=== PATIENT | female | born 1995 | race Caucasian/White ===

== ENCOUNTER 2022-10-12 09:55 | Outpatient (OUT) | payer OTHER, SELFPAY ==
--- NOTE | 2022-10-12 10:47 | PM.PRESUREVA ---
History of Present Illness History of Present Illness Chief complaint: REQUEST FOR STERILIZATION Narrative: Patient presents for preadmission testing. The patient states she is five weeks and does not want any more children. She also states she has been struggling with kidney stones and is seeing Dr. Ruiz for management of her stones. At the present time she denies any abdominal pain, nausea, vomiting, fever, dysuria, hematuria, or any other complaints. She is currently lactating and breast-feeding and has not had a true menstrual period since the of her child. Review of Systems ROS Narrative REVIEW OF SYSTEMS: Negative except as stated in HPI, ten or more systems reviewed. Constitutional: No fever , chills, weakness ENT: No sore throat or epistaxis Cardiovascular: No edema, chest pain, palpitations, or activity intolerance Respiratory: No shortness of breath, cough, or wheezing Musculoskeletal: No joint pain or swelling Gastrointestinal: No abdominal pain, constipation, diarrhea, or vomiting Genitourinary: No dysuria or hematuria Neurological: No numbness, tingling, weakness, or headache Psychiatric: No mood changes PFSH PFSH Medical History (Updated 10/12/22 @ 10:49 by Anabella Rich NP) Surgical History (Updated 10/12/22 @ 10:29 by Anabella Rich NP) Family History (Updated 10/12/22 @ 10:29 by Anabella Rich NP) Other Family history of COPD (chronic obstructive pulmonary disease) Family history of diabetes mellitus Family history of heart disease Family history of prostate cancer Family history of skin cancer Social History (Updated 10/12/22 @ 10:23 by Anabella Rich NP) Within the past year, how often did you have a drink containing alcohol: 2-4 times a month Smoking status: Never smoker Highest level of school completed/degree received: high school graduate Meds Home Medications and Allergies Home Medications Medication Instructions Recorded Confirmed Type Vitamin 10/12/22 History cephalexin 500 mg capsule 500 mg PO QDAY 10/12/22 10/12/22 History docusate sodium 100 mg capsule 100 mg PO DAILY 10/12/22 10/12/22 History (Colace) sunflower lecithin supplement 10/12/22 History Allergies Allergy/AdvReac Type Severity Reaction Status Date / Time latex Allergy Rash Verified 10/12/22 10:18 Exam Narrative Exam Narrative: Constitutional: Awake, alert, comfortable, well-appearing, nontoxic, interactive, vital signs as charted Head: Normocephalic, atraumatic Neck: Supple, normal appearance, normal range of motion, no meningeal signs, no lymphadenopathy Respiratory: No respiratory distress, breath sounds clear Cardiovascular: Regular rate and rhythm, strong and regular heart tones Abdomen: Nontender, normal bowel sounds, soft, no CVA tenderness Musculoskeletal: Normal gait, no swelling or edema Skin: No rashes or induration, no lesions, only visible skin inspected Neuro: No neurological deficits, normal sensation Psychiatric: Oriented ?3, normal affect Assessment and Plan Assessment and Plan (1) Request for sterilization: Plan Bilateral laparoscopic salpingectomy scheduled with Dr. Jean 10/25/2022.
== END 2022-10-12 09:56 | disposition home or self-care (01) ==
LOC: PST 09:58
PROVIDERS: PCP Family Medicine
DX: Z01.818 Encounter for other preprocedural examination (principal); Z30.2 Encounter for sterilization
CPT/HCPCS: G0463

== ENCOUNTER 2022-10-12 10:00 | Outpatient (OUT) | payer OTHER, SELFPAY ==
--- NOTE | 2022-10-12 10:41 | XR_ITS ---
The [address] [address] Patient Name: QUEENIE KIRK MRN: [id number] date: 1995 Sex: F Assigned Patient Location: [facility] Current Patient Location: [facility] Accession/Order Number: [id number] Exam Date: 10/12/2022 10:45 Report Date: 10/12/2022 15:23 At the request of: KIMBERLY MURRAY Procedure: XR abdomen 1V EXAM: XR abdomen 1V HISTORY: Kidney Stones N20.0 COMPARISON: None. TECHNIQUE: AP view of the abdomen. FINDINGS: Nonobstructive bowel gas pattern is noted. There is a 5 mm calculus of the left kidney region. The osseous structures are intact. IMPRESSION: Nonobstructive bowel gas pattern. Left nephrolithiasis as above. Electronically authenticated by: ALLI LOVE Date: 10/12/2022 15:23
== END 2022-10-12 10:01 ==
LOC: RAD 10:02
PROVIDERS: PCP Family Medicine; Visit Provider Urology
DX: N20.0 Calculus of kidney (principal)
CPT/HCPCS: 74018; G0463

== ENCOUNTER 2022-10-25 10:00 | Day surgery (SDC) | payer OTHER, SELFPAY ==
[2022-10-12 10:24] VITALS: BP 110/75; PULSE 71; RESP 14; TEMP 36.5; O2SAT 99; BMI 21.7
[2022-10-25] VITALS (12 sets, daily range): BP systolic 105–123; BP diastolic 65–89; PULSE 54–98; RESP 12–18; TEMP 36.3–36.4; O2SAT 96–100; BMI 20.9
[2022-10-25 11:06] LABS: Basophils Percent Auto 0.2 % (0.2-2.0); Eosinophils Absolute Auto 0.1 10^3/uL (0.0-0.7); Eosinophils Percent Auto 1.4 % (0.9-7.0); Hemoglobin 14.7 g/dL (12.0-16.0); Immature Granulocytes Abs Auto 0.02 10^3/uL (0.00-0.03); Immature Granulocytes Pct Auto 0.3 % (0.0-0.5); Lymphocytes Absolute Auto 2.3 10^3/uL (1.2-3.8); Lymphocytes Percent Auto 39.2 % (20.5-60.0); Mean Corpuscular Hemoglobin 29.6 pg (26.7-34.0); Mean Corpuscular Volume 84.7 fL (81.0-99.0); Mean Platelet Volume 9.8 fL (9.5-13.5); Monocytes Absolute Auto 0.5 10^3/uL (0.3-0.8); Monocytes Percent Auto 9.2 % (1.7-12.0); Neutrophils Absolute Auto 2.9 10^3/uL (1.4-6.5); Neutrophils Percent Auto 49.7 % (43.0-75.0); Platelet Count 257 10^3/uL (150-450); Red Blood Count 4.96 10^6/uL (4.20-5.40); Red Cell Distribution Width 12.1 % (11.0-15.0); White Blood Count 5.8 10^3/uL (4.0-11.0)
[2022-10-25] MEDS: LACTATED RINGER'S SOLUTION 1,000 ML 50 ML IV ×2 (11:10→14:01)
[2022-10-25 11:16] LABS: HCG Quantitative <1 mIU/mL
--- NOTE | 2022-10-25 13:14 | OP_ITS ---
OPERATION DATE: ??10/25/2022 PROCEDURE:? Bilateral laparoscopic salpingectomy. PREOPERATIVE DIAGNOSIS:? Desires permanent sterilization, multiparity. POSTOPERATIVE DIAGNOSIS:? Desires permanent sterilization, multiparity. ANESTHESIA:? General. SURGEON:? Sid Jean D.O. LAPEL BASTER:? NEREIDA Bradford URINE OUTPUT:? Yellow and clear. BLOOD LOSS:? 5 mL. FINDINGS:? Normal appearing ovaries, uterus and tubes. SPECIMEN:? Bilateral tubes. PROCEDURE:? The patient was taken back to the Operating Room where she was given general anesthesia without difficulty. She was then prepped and draped in the normal sterile fashion after being placed in a dorsal lithotomy position. A wet sponge stick was placed into the patient's vagina. Attention was then turned to the patient's abdomen, where a scalpel was used to make a small infraumbilical incision. The S retractors were then used to dissect the underlying layers until the fascia could be seen. The fascia was then grasped with Risa clamps and tented up. A knife was then used to make a small incision to the fascia. The muscle was identified, at that time two sutures of #0 Vicryl on a GI needle was then used and placed through the fascia. Theperitoneum was then identified and entered bluntly. The 10-4 Mino was then placed into the patient's abdomen. This was confirmed with direct visualization of the bowel, using the laparoscope. The patient's abdomen was then insufflated using approximately 4 liters of CO2 gas. Survey of the patient's abdomen demonstrated ovaries were normal in appearance as well as both tubes and uterus. A second and third rt and lt lateral ports which were 7-8 and 5 mm in size, was then placed after the skin incision was made under directvisualization The patient's tube on the patient's right side was identified and tented up using a grasper, the LigaSure apparatus was then used to come across the mesosalpinx from the fimbriated end to the insertion site at the uterus, the tube was then amputated and removed in its entirety. This was done on the contralateral side. The tubes were then removed from the patient?s abdomen. Excellent hemostasis was noted. The lateral ports were then removed under direct visualization with excellent hemostasis. All instruments were removed from the patient's abdomen. The fascia was closed using the #0 Vicryl on GI needle. The skin was closed using 4-0 Vicryl subcuticularly. All instruments were removed from the patient's vagina as well. The patient was taken out of the dorsal lithotomy position and placed in the supine position and taken to recovery in stable condition. Sponge, lap and needle counts were correct x2. MTDD
[2022-10-25] MEDS: HYDROMORPHONE HCL 0.5 MG/0.5 ML SYRINGE IV (13:45)
== END 2022-10-25 15:14 | disposition home or self-care (01) ==
PROVIDERS: PCP Family Medicine; Visit Provider Obstetrics & Gynecology
PROC: (CPT 58661; principal; 2022-10-25 12:00)
DX: Z30.2 Encounter for sterilization (principal); N83.8 Other noninflammatory disorders of ovary, fallopian tube and broad ligament; Z87.442 Personal history of urinary calculi
CPT/HCPCS: 58661; 36415; 84702; 85025; 88304; J1170; J2704

== ENCOUNTER 2023-10-17 11:15 | Outpatient (OUT) | payer OTHER, SELFPAY ==
[2023-10-17 12:09] LABS: Basophils Percent Auto 0.3 % (0.2-2.0); Eosinophils Absolute Auto 0.1 10^3/uL (0.0-0.7); Eosinophils Percent Auto 1.3 % (0.9-7.0); Hemoglobin 13.7 g/dL (12.0-16.0); Immature Granulocytes Abs Auto 0.04 10^3/uL (0.00-0.03); Immature Granulocytes Pct Auto 0.6 % (0.0-0.5); Lymphocytes Absolute Auto 2.1 10^3/uL (1.2-3.8); Lymphocytes Percent Auto 30.4 % (20.5-60.0); Mean Corpuscular HGB Conc 34.3 g/dL (29.9-35.2); Mean Corpuscular Hemoglobin 29.7 pg (26.7-34.0); Mean Corpuscular Volume 86.6 fL (81.0-99.0); Mean Platelet Volume 9.8 fL (9.5-13.5); Monocytes Absolute Auto 0.5 10^3/uL (0.3-0.8); Monocytes Percent Auto 7.8 % (1.7-12.0); Neutrophils Absolute Auto 4.2 10^3/uL (1.4-6.5); Neutrophils Percent Auto 59.6 % (43.0-75.0); Platelet Count 213 10^3/uL (150-450); Red Blood Count 4.62 10^6/uL (4.20-5.40); Red Cell Distribution Width 12.3 % (11.0-15.0)
[2023-10-17 12:48] LABS: Thyroid Stimulating Hormone 0.497 uIU/mL (0.358-3.740)
== END 2023-10-17 11:16 | disposition home or self-care (01) ==
LOC: LAB 11:17
PROVIDERS: PCP Family Medicine; Visit Provider Family Medicine
DX: R53.83 Other fatigue (principal); D64.9 Anemia, unspecified
CPT/HCPCS: 36415; 82607; 82728; 82746; 84443; 85025

== ENCOUNTER 2023-11-15 13:48 | Emergency (ER) | payer OTHER, SELFPAY ==
[2023-11-15 13:51] VITALS: BP 116/87; PULSE 97; TEMP 37.1; O2SAT 100; BMI 20.5
--- NOTE | 2023-11-15 14:09 | ED_ITS ---
HPI HPI - General Adult General Chief complaint: Urogenital-Female Stated complaint: CRAMPS, BACK PAIN Time Seen by Provider: 11/15/23 14:01 Source: patient and family Mode of arrival: walk-in History of Present Illness HPI narrative: This patient is here with her complaining of both lower abdominal pain and low back pain. She also has a history of kidney stones but none recently. She had slight constipation yesterday but did eventually have a bowel movement. Color was normal there is no black tarry stool or blood. She has no urinary symptoms such as frequency urgency dysuria hematuria nocturia are all denied. She has not been running a fever. She has had both her fallopian tubes removed but still has both her ovaries and uterus. She denies any history of endometriosis pelvic inflammatory disease. Her last menstrual period is approximately 2 weeks ago and was essentially a little heavier than normal. She does not have any vaginal discharge or vaginal bleeding. The pain in the left l ow back area radiates down her left buttock into her hamstring area. Does not have tingling numbness or pain going into her lower leg. Related Data Allergies Allergy/AdvReac Type Severity Reaction Status Date / Time latex Allergy Rash Verified 10/12/22 10:18 Opioid HPI Opioid Management Most Recent Opioid Data: Last Pain Scale 7 11/15/23 15:00 Last MAR Pain Assessment 11/15/23 15:00 [facility] Medical History (Updated 11/15/23 @ 16:13 by Nithin Cherry MD) Request for sterilization ?Z30.2 - Encounter for sterilization (ICD-10) COVID-19 ?U07.1 - COVID-19 (ICD-10) Pneumonia ?J18.9 - Pneumonia, unspecified organism (ICD-10) Asthma ?J45.909 - Unspecified asthma, uncomplicated (ICD-10) Migraine ?G43.909 - Migraine, unspecified, not intractable, without status migrainosus (ICD-10) Kidney stones ?N20.0 - Calculus of kidney (ICD-10) Kidney stone complicating ?O26.839 - related renal disease, unspecified trimester (ICD-10) ?N20.0 - Calculus of kidney (ICD-10) Surgical History (Updated 10/12/22 @ 10:29 by Anabella Rich NP) History of wisdom tooth extraction ?K08.409 - Partial loss of teeth, unspecified cause, unspecified class (ICD- 10) History of dilation and curettage ?Z98.890 - Other specified postprocedural states (ICD-10) History of dilation and curettage ?Z98.890 - Other specified postprocedural states (ICD-10) H/O cystoscopy ?Z98.890 - Other specified postprocedural states (ICD-10) Family History (Updated 10/12/22 @ 10:29 by Anabella Rich NP) Other Family history of COPD (chronic obstructive pulmonary disease) Family history of diabetes mellitus Family history of heart disease Family history of prostate cancer Family history of skin cancer Social History (Updated 10/12/22 @ 10:23 by Anabella Rich NP) Within the past year, how often did you have a drink containing alcohol: 2-4 times a month Smoking status: Never smoker Highest level of school completed/degree received: high school graduate Exam Narrative Exam Narrative: Awake alert pleasant appears uncomfortable. 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 HEENT examination shows no evidence of scleral icterus jaundice pallor or evidence of anemia. She has no respiratory distress and her respiratory excursion is normal. Examination her abdomen is flat soft supple there is no peritoneal findings no guarding rebound rigidity. Mild discomfort in the suprapubic area. No tenderness at McBurney's point. The flank area she has symptomatic discomfort in that area but no evidence of skin lesions bruises or contusions. Neurological examination and response to her pain in the buttock and left cheek her straight leg raising test is negative, deep tendon reflexes are symmetrical at patella and Achilles. Extensor houses longus function test is normal. There is no indication of radiculopathy or sensory dysfunction. Constitutional Vital Signs, click to edit/add: Last Vital Signs Temp 98.7 F 11/15/23 13:51 Pulse 97 H 11/15/23 13:51 Resp 18 11/15/23 13:51 BP 116/87 11/15/23 13:51 Pulse Ox 100 11/15/23 13:51 Course Vital Signs Vital signs: Vital Signs Temperature 98.7 F 11/15/23 13:51 Pulse Rate 97 H 11/15/23 13:51 Respiratory Rate 18 11/15/23 13:51 Blood Pressure 116/87 11/15/23 13:51 Pulse Oximetry 100 11/15/23 13:51 Temperature 98.7 F 11/15/23 13:51 Pulse Rate 97 H 11/15/23 13:51 Respiratory Rate 18 11/15/23 13:51 Blood Pressure 116/87 11/15/23 13:51 Pulse Oximetry 100 11/15/23 13:51 Medical Decision Making MDM Narrative Medical decision making narrative: Patient presents with lower abdominal pain and left flank pain rating down her buttock down into her hamstring area. CT was done to rule out any bony abnormality, symptoms are most consistent with a hamstring/sciatica type problem on the left. Her CT shows bilateral nephrolithiasis without obstruction. Her white blood cell count is normal but there is bacteria and a lot of red blood cells in her urine consistent with a cystitis. We will start her on Cipro. She is to follow-up with her primary care doctor Discharge Plan Discharge Stand Alone Forms: Portal Instructions Chief Complaint: Urogenital-Female Clinical Impression: Urinary tract infection, Bilateral nephrolithiasis Patient Disposition: Home, Self-Care Time of Disposition Decision: 16:13 Print Language: Nepalese Additional Instructions: Zofran/Cipro/[place], call for urine culture results in 48 hours Referrals: Diana Joe MD [Primary Care Provider] - 1 week
[2023-11-15 14:11] LABS: Bilirubin Urine NEGATIVE (NEGATIVE); Blood Urine LARGE (NEGATIVE); Clarity Urine CLEAR (CLEAR); Color Urine YELLOW (YELLOW); Glucose Urine UA NEGATIVE (NEGATIVE); Ketones Urine NEGATIVE (NEGATIVE); Leukocyte Esterase Urine NEGATIVE (NEGATIVE); Nitrite Urine NEGATIVE (NEGATIVE); Protein Urine TRACE mg/dL (NEG/TRACE); Specific Gravity Urine 1.025 (1.005-1.025); Urine Microscopic Indicated YES
--- NOTE | 2023-11-15 14:11 | CT_ITS ---
[address] [address] Patient Name: QUEENIE KIRK MRN: [id number] date: 1995 Sex: F Assigned Patient Location: ER Current Patient Location: ER Accession/Order Number: [id number] Exam Date: 11/15/2023 15:13 Report Date: 11/15/2023 15:52 At the request of: MACRINA ORTEZ Procedure: CT abdomen pelvis w con EXAMINATION: CT abdomen pelvis w con HISTORY: Lower abdominal pain COMPARISON: No relevant comparison available. TECHNIQUE: Axial, Coronal, and Sagittal images were obtained without and/or with IV contrast as indicated by examination type. Dose reduction techniques were achieved by using automated exposure control and/or adjustment of mA and/or kV according to patient size and/or use of iterative reconstruction technique. FINDINGS: LUNG BASES: No visible pulmonary or pleural disease. LIVER: No enlargement, atrophy, suspicious density, or significant focal lesion. BILIARY: No dilatation or calcification. PANCREAS: No lesion, fluid collection, or abnormal duct dilatation. SPLEEN: No enlargement or focal lesion. ADRENALS: No mass or enlargement. KIDNEYS: Several small nonobstructing stones within kidneys bilaterally. A few tiny benign-appearing cysts. BOWEL/MESENTERY: No visible mass, obstruction, or bowel wall thickening. AORTA/VASCULAR: No aneurysm or dissection. RETROPERITONEUM: No mass or adenopathy. LYMPH NODES: No adenopathy. URINARY BLADDER: No visible focal wall thickening, lesion, or calculus. PELVIC ORGANS: 1.6 and meter cyst within right ovary. No visible mass. Pelvic organs appropriate for patient age. ABDOMINAL WALL: No mass or hernia. BONES: No bony lesion or fracture. OTHER: Negative. CT/CT abdomen pelvis w con IMPRESSION: 1. Bilateral nonobstructing nephrolithiasis. 2. Right ovary contains a 1.6 cm cyst/collapsing follicle. 3. No specific findings to account for patient's symptoms. Electronically authenticated by: ISAIAH VELAZCO Date: 11/15/2023 15:52
[2023-11-15 14:41] LABS: Bacteria Urine MODERATE #/HPF (NONE SEEN); Cast Seen? NONE SEEN #/LPF (NONE SEEN); Crystals Seen? None Seen #/HPF (None Seen); Mucus Urine TRACE (NONE SEEN); RBC Urine >100 #/HPF (0-2); Squamous Epithelial Cell Urine FEW #/LPF (NONE/RARE); Urine Culture Indicated YES
[2023-11-15] MEDS: HYDROMORPHONE HCL 1 MG/ML CARTRIDGE IV (15:00)
[2023-11-15] MEDS: ONDANSETRON PF 4 MG/2 ML VIAL IV (15:00)
[2023-11-15 15:24] LABS: Basophils Percent Auto 0.3 % (0.2-2.0); Eosinophils Absolute Auto 0.1 10^3/uL (0.0-0.7); Hematocrit 39.5 % (36.0-48.0); Hemoglobin 13.7 g/dL (12.0-16.0); Immature Granulocytes Abs Auto 0.06 10^3/uL (0.00-0.03); Immature Granulocytes Pct Auto 0.8 % (0.0-0.5); Lymphocytes Absolute Auto 2.4 10^3/uL (1.2-3.8); Lymphocytes Percent Auto 30.4 % (20.5-60.0); Mean Corpuscular HGB Conc 34.7 g/dL (29.9-35.2); Mean Corpuscular Hemoglobin 30.3 pg (26.7-34.0); Mean Corpuscular Volume 87.4 fL (81.0-99.0); Mean Platelet Volume 10.3 fL (9.5-13.5); Monocytes Absolute Auto 0.6 10^3/uL (0.3-0.8); Monocytes Percent Auto 7.1 % (1.7-12.0); Neutrophils Absolute Auto 4.8 10^3/uL (1.4-6.5); Neutrophils Percent Auto 60.4 % (43.0-75.0); Platelet Count 223 10^3/uL (150-450); Red Blood Count 4.52 10^6/uL (4.20-5.40); Red Cell Distribution Width 12.1 % (11.0-15.0); White Blood Count 7.9 10^3/uL (4.0-11.0)
[2023-11-15] MEDS: KETOROLAC TROMETHAMINE 30 MG/ML VIAL IVP (16:38)
== END 2023-11-15 16:46 | disposition home or self-care (01) ==
PROVIDERS: Emergency Provider Emergency Medicine Emergency Medical Services; PCP Family Medicine
DX: N39.0 Urinary tract infection, site not specified (principal); N20.0 Calculus of kidney; Z87.442 Personal history of urinary calculi; Z90.79 Acquired absence of other genital organ(s)
CPT/HCPCS: 36415; 74177; 81001; 85025; 87086; 96374; 96375; 99285; J1170; J1885; J2405; Q9967

== ENCOUNTER 2023-12-02 10:50 | Emergency (ER) | payer OTHER, SELFPAY ==
[2023-12-02 10:54] VITALS: BP 123/85; PULSE 94; TEMP 36.9; O2SAT 99; BMI 20.5
--- NOTE | 2023-12-02 10:58 | PC.NURSE ---
linear rash to right side of face that runs through scalp, pt reports this is painful.
--- OUTSIDE RECORDS SUMMARY | 2023-12-02 11:06 | XMS_ITS | CCD ---
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 Name Role Phone Melvi Steen Unavailable Jocelyn Quach Unavailable Diana Vazquez Unavailable GEORGE, DR DIANA Coyle Primary Care Unavailable BIANCA ., DR AMES Admitting Unavailable BIANCA ., DR AMES Attending Unavailable BIANCA ., DR AMES Consulting Unavailable JHONATAN CASTILLO Attending Unavailable JHONATAN CASTILLO Admitting Unavailable BIANCA ., DR AMES Primary Care Unavailable CLARAK ., DR MALHOTRA Consulting UnavailJHONATAN Obrien Consulting Unavailable MAXIMILIANO JOY Consulting Unavailable GEORGE, DR DIANA Coyle Primary Care Unavailable BIANCA ., DR AMES Attending Unavailable BIANCA ., DR AMES Consulting Unavailable BIANCA ., DR AMES Admitting Unavailable BAMER, DR ISAIAH Carbajal Consulting Unavailable JHONATAN CASTILLO Consulting Unavailable JHONATAN CASTILLO Attending Unavailable BIANCA ., DR AMES Primary Care Unavailable JHONATAN CASTILLO Admitting Unavailable BIANCA ., DR AMES Consulting Unavailable BIANCA ., DR AMES Attending Unavailable BIANCA ., DR AMES Admitting Unavailable GEORGE, DR DIANA Coyle Primary Care Unavailable ZIEBANU, DR ISAIAH Carbajal Consulting Unavailable BIANCA ., DR AMES Consulting Unavailable BIANCA ., DR AMES Attending Unavailable BIANCA ., DR AMES Admestiven Unavailable GEORGE, DR DIANA Coyle Primary Care Unavailable VAZQUEZ, DR DIANA Coyle Primary Care Unavailable BIANCA ., DR AMES Admitting Unavailable BIANCA ., DR AMES Attending Unavailable BIANCA ., DR AMES Consulting Unavailable GEORGE, DR DIANA Coyle Primary Care Unavailable BIANCA ., DR AMES Attending Unavailable BIANCA ., DR AMES Admitting Unavailable MAPLETON, DR NIRALI Jacome Consulting Unavailable BIANCA ., DR AMES Consulting Unavailable VAZQUEZ, DR DIANA Coyle Primary Care Unavailable BIANCA ., DR AMES Admitting Unavailable BIANCA ., DR AMES Attending Unavailable BIANCA ., DR AMES Consulting Unavailable VAZQUEZ, DR DIANA Coyle Primary Care Unavailable BIANCA ., DR AMES Attending Unavailable BIANCA ., DR AMES Admitting Unavailable BIANCA ., DR AMES Consulting Unavailable BIANCA ., DR AMES Consulting Unavailable BIANCA ., DR AMES Attending Unavailable BIANCA ., DR AMES Admitting Unavailable VAZQUEZ, DR DIANA Coyle Primary Care Unavailable SAMANTHA LAZAR Consulting Unavailable BIANCA ., DR AMES Consulting Unavailable BIANCA ., DR AMES Attending Unavailable BIANCA ., DR AMES Admitting Unavailable VAZQUEZ, DR DIANA Coyle Primary Care Unavailable VAZQUEZ, DR DIANA Coyle Primary Care Unavailable BIANCA ., DR AMES Admitting Unavailable BIANCA ., DR AMES Attending Unavailable RUIZ ., DR HARRIS Consulting Unavailable BIANCA ., DR AMES Consulting Unavailable FERMIN BUSCH Consulting Unavailable KLYM, STEPHEN Consulting Unavailable NUPUR, MAXIMILIANO Consulting Unavailable MARIA DE JESUS, NAHID Consulting Unavailable MARIA DE JESUS, NAHID Attending Unavailable MARIA DE JESUS, NAHID Admitting Unavailable [facility] [place] DR SELLERS Primary Care Unavailable EGORGE, DR DIANA Coyle Primary Care Unavailable CRIS ., PAWEL Attending Unavailable BERTA, DR ALLI Carbajal Consulting Unavailable CRIS ., PAWEL Admitting Unavailable CHRIS ., DR SU Attending Unavailable REQUEST, DR ROMERO LISTED Primary Care Unavaila lisette PEREZ ., DR SU Admitting Unavailable ZACHARY .MATIAS Consulting Unavailable CHRIS ., DR SU Consulting Unavailable Shravan RUIZ Attending Unavailable Hui VALENZUELA R Referring Unavailable Shravan RUIZ Attending Unavailable Medications Current Medications Medication Drug Class(es) Dates Sig (Normalized) Sig (Original) Albuterol (1 source) beta2-Adrenergic Agonist Albuterol Sulfate Active amoxicillin 500 mg oral capsule (5 sources) Penicillin-class Antibacterial Start: 08-14-2022 take 1 capsule by mouth every eight hours Amoxicillin 500 MG 1 capsule Orally every 8 hrs for 7 days Jul, Active azithromycin 250 mg oral tablet (2 sources) Macrolide Antimicrobial Start: 03-01-2023 Azithromycin 250 MG as directed Orally 2 tabs po today, then 1 tab daily x 4 more days for 5 Feb, Active Start: 08-25-2022 Azithromycin 2 50 MG as directed Orally 2 tabs po today, then 1 tab daily x 4 more days for 5 Jul, Active Cephalexin (4 sources) Cephalosporin Antibacterial Keflex Active Doxylamine (5 sources) Unisom Active {21 (ethinyl estradiol 0.02 MG / levonorgestrel 0.1 MG Oral Tablet) / 7 (inert ingredients 1 MG Oral Tablet) } Pack [Lutera Day] (1 source) Progestin, Estrogen, Progestin-containing Intrauterine Device take 1 tablet by mouth every twenty-four hours Lutera 0.1-20 MG-MCG 1 tablet Orally Once a day for 28 day(s) Active Famotidine (5 sources) Histamine-2 Receptor Antagonist Pepcid Active methylPREDNISolone 4 mg oral tablet (1 source) Corticosteroid Start: 2020 methylPREDNISolone 4 MG as directed Orally Once a day for 6 days Mar, Active polymyxin b 76271 unt/ml / trimethoprim 1 mg/ml ophthalmic solution (4 sources) Dihydrofolate Reductase Inhibitor Antibacterial, Polymyxin-class Antibacterial Start: 2021 take 1 drop(s) into the eye(s) four times daily Polymyxin B-Trimethoprim 15790-3.1 UNIT/ML 1 drop both eyes Four times a day for 5 day(s) Mar, Active (11 sources) Active Promethazine (5 sources) Phenothiazine Phenergan Active sertraline 50 mg oral tablet (3 sources) Serotonin Reuptake Inhibitor Start: 2022 take 1 tablet by mouth every twenty-four hours Sertraline HCl 50 MG 1 tablet Orally Once a day for 30 days Feb, Active Start: 03-29-2023 take 1 tablet by dasha th every twenty-four hours Sertraline HCl 25 MG 1 tablet Orally Once a day for 30 day(s) Feb, Active venlafaxine (3 sources) Serotonin and Norepinephrine Reuptake Inhibitor Start: 07-04-2023 take 1 capsule by mouth once daily at mealtime Venlafaxine Active 0 .ROUTE .COMPLEX July 04, 2023 3:06pm take 1 capsule by mouth once daily with food Start: 07-04-2023 End: 07-04-2023 take 37.5 mg by mouth once daily Venlafaxine Discontinued 37.5 MG PO Daily July 04, 2023 1:00am July 04, 2023 3:06pm Start: 06-08-2023 take 1 capsule by [facility] every twenty-four hours Venlafaxine HCl ER 37.5 MG 1 capsule with food Orally Once a day for 30 day(s) May, Active Vitamin D (4 sources) Vitamin D Active Completed/Discontinued Medications Medication Drug Class(es) Dates Sig (Normalized) Sig (Original) 120 actuat budesonide 0.08 mg/actuat / formoterol fumarate 0.0045 mg/actuat metered dose inhaler (1 source) Corticosteroid, beta2-Adrenergic Agonist Start: 07-17-2012 take 2 puff(s) by inhalation twice daily Symbicort 80-4.5 MCG/ACT 2 puffs Inhalation Twice a day Jun, Not-Taking 200 actuat levalbuterol 0.045 mg/actuat metered dose inhaler (1 source) beta2-Adrenergic Agonist Start: 09-19-2012 take 2 puff(s) by inhalation every six hours Xopenex HFA 45 MCG/ACT 2 puffs Inhalation every 6 hrs for 30 days August, Not-Taking Problems Active Problems Problem Classification Problem Date Documented Date Episodic/Chronic Abdominal pain (4 sources) Unspecified abdominal pain; Translations: [UNSPECIFIED ABDOMINAL PAIN] Onset: 06-24-2022 Episodic Anxiety disorders (2 sources) Anxiety disorder; Translations: [Anxiety disorder, unspecified] Chronic Asthma (15 sources) Asthma; Translations: [Asthma, unspecified] Onset: 08-13-2022 Chronic Calculus of urinary tract (2 sources) Unspecified renal colic; Translations: [Personal history of urinary calculi] Onset: 08-30-2022 Episodic Chronic obstructive pulmonary disease and bronchiectasis (3 sources) Bronchitis, not specified as acute or chronic; Translations: [Bronchitis] Onset: 04-14-2021 Resolved: 04-14-2021 Episodic Deficiency and other anemia (1 source) Anemia; Translations: [Anemia, unspecified] 10-17-2023 Episodic Deficiency and other anemia (1 source) Anemia, unspecified; Translations: [Anemia, unspecified] 10-17-2023 Episodic Early or threatened labor (1 source) False labor before 37 completed weeks of gestation, third trimester; Translations: [FALSE LABR BEFOR 37 WK GEST 3RD TRI] Onset: 08-30-2022 Episodic Fever of unknown origin (2 sources) Fever; Translations: [Fever, unspecified] Episodic Genitourinary symptoms and ill-defined conditions (2 sources) Dysuria; Translations: [Dysuria] Episodic Headache; including migraine (2 sources) Refractory migraine with aura; Translations: [Migraine with aura, with intractable migraine, so stated, without mention of status migrainosus] Onset: 08-12-2014 Chronic Immunizations and screening for infectious disease (16 sources) Contact with and (suspected) exposure to other viral communicable diseases; Translations: [Contact with and (suspected) exposure to infections with a predominantly sexual mode of transmission] Onset: 04-14-2021 Resolved: 04-14-2021 Episodic Inflammation; infection of eye (except that caused by tuberculosis or sexually transmitteddisease) (1 source) Unspecified conjunctivitis Episodic Influenza (1 source) Influenza due to other identified influenza virus with other respiratory manifestations Episodic Malaise and fatigue (4 sources) Fatigue; Translations: [Other fatigue] 10-17-2023 Episodic Miscellaneous mental health disorders (4 sources) depression; Translations: [ depression] Onset: 07-29-2018 Episodic Nausea and vomiting (5 sources) Nausea with vomiting, unspecified; Translations: [Vomiting] Onset: 07-24-2022 Episodic Other bone disease and musculoskeletal deformities (2 sources) Idiopathic scoliosis; Translations: [Other idiopathic scoliosis, cervicothoracic region] Chronic Other bone disease and musculoskeletal deformities (1 source) Other idiopathic scoliosis, cervicothoracic region Chronic Other complications of (4 sources) Other specified related conditions, third trimester; Translations: [OTH SPEC PREG RELATED COND 3RD TRI] Onset: 09-02-2022 Episodic Other complications of (4 sources) Diseases of the respiratory system complicating , third trimester; Translations: [DISEASES RESP SYS COMP PREG 3RD TRI] Onset: 08-07-2022 Episodic Other complications of (4 sources) Uterine size-date discrepancy, third trimester; Translations: [UTERINE SZ-DATE DISCREPANCY 3RD TRI] Onset: 07-10-2022 Episodic Other complications of (2 sources) Supervision of high risk with poor obstetric history; Translations: [Supervision of with other poor reproductive or obstetric history, unspecified trimester] Episodic Other complications of (2 sources) Mild hyperemesis gravidarum; Translations: [Mild hyperemesis gravidarum] Episodic Other connective tissue disease (2 sources) Pain in right foot; Translations: [Pain in right foot] Episodic Other diseases of kidney and ureters (1 source) Hydronephrosis with renal and ureteral calculous obstruction; Translations: [HYDRONPHROS RENL AND URETRL CALCUL OBST] Onset: 06-29-2022 Episodic Other injuries and conditions due to external causes (2 sources) Injury of head; Translations: [Unspecified injury of head, initial encounter] Episodic Other nutritional; endocrine; and metabolic disorders (2 sources) Excessive thirst; Translations: [Polydipsia] Episodic Other and delivery including normal (14 sources) Encounter for supervision of other normal , first trimester; Translations: [Encounter for test, result positive] Onset: 01-23-2022 Episodic Other screening for suspected conditions (not mental disorders or infectious disease) (9 sources) Encounter for screening for Streptococcus B; Translations: [Encounter for screening for malignant neoplasm of cervix] Onset: 03-01-2022 Episodic Other upper respiratory infections (18 sources) Sore throat symptom; Translations: [Acute pharyngitis, unspecified] Onset: 09-08-2014 Episodic Residual codes; unclassified (1 source) 37 weeks gestation of ; Translations: [37 WEEKS GESTATION OF ] Onset: 09-07-2022 Episodic Residual codes; unclassified (1 source) 36 weeks gestation of ; Translations: [36 WEEKS GESTATION OF ] Onset: 08-30-2022 Episodic Residual codes; unclassified (1 source) 34 weeks gestation of ; Translations: [34 WEEKS GESTATION OF ] Onset: 08-13-2022 Episodic Residual codes; unclassified (1 source) 31 weeks gestation of ; Translations: [31 WEEKS GESTATION OF ] Onset: 07-24-2022 Episodic Residual codes; unclassified (1 source) 30 weeks gestation of ; Translations: [30 WEEKS GESTATION OF ] Onset: 07-11-2022 Episodic Residual codes; unclassified (1 source) 27 weeks gestation of ; Translations: [27 WEEKS GESTATION OF ] Onset: 06-29-2022 Episodic Residual codes; unclassified (2 sources) Gestation period, 9 weeks; Translations: [9 weeks gestation of ] Episodic Unclassified (1 source) OTH SPCF DIS/COND COMPL ; Translations: [OTH SPCF DIS/COND COMPL ] Onset: 06-29-2022 Past or Other Problems Problem Classification Problem Date Documented Date Episodic/Chronic Noninfectious gastroenteritis (2 sources) Noninfectious gastroenteritis; Translations: [Other and unspecified noninfectious gastroenteritis and colitis] Onset: 09-02-2013 Episodic Other complications of (4 sources) Mild hyperemesis gravidarum; Translations: [MILD HYPEREMESIS GRAVIDARUM] Onset: 03-04-2022 Episodic Other female genital disorders (4 sources) Other specified noninflammatory disorders of vagina; Translations: [OTH SPEC NONINFLAMMATORY D/O VAGINA] Onset: 05-25-2022 Episodic Other lower respiratory disease (1 source) Shortness of breath Onset: 04-14-2021 Resolved: 04-14-2021 Episodic Otitis media and related conditions (2 sources) Otitis media; Translations: [Otitis media, unspecified, unspecified ear] Onset: 07-22-2013 Episodic Residual codes; unclassified (1 source) 11 weeks gestation of ; Translations: [11 WEEKS GESTATION OF ] Onset: 03-07-2022 Episodic Residual codes; unclassified (1 source) 9 weeks gestation of ; Translations: [9 WEEKS GESTATION OF ] Onset: 02-15-2022 Episodic Residual codes; unclassified (1 source) 8 weeks gestation of ; Translations: [8 WEEKS GESTATION OF ] Onset: 02-08-2022 Episodic Residual codes; unclassified (1 source) Weeks of gestation of not specified; Translations: [WEEKS GESTATION NOT SPEC] Onset: 01-31-2022 Episodic Unclassified (1 source) Cough R05.9 Results Test Name Value Interpretation Reference Range Facility Patient Letter FTon 2022 Patient Letter [facility] [place] November 27, 2022 QUEENIE KIRK [address] [place] [id number] : 1995 Dear Queenie Kirk, [facility] is sending you a copy of your KUB results done 10/12/22. You have a 5mm left kidney stone. The stone is currently in the kidney, but can leave the kidney at any time and cause pain. It was recommended that you have Left ESWL (lithotripsy) surgery done for this stone. Please call the office to get this scheduled when you are ready. Stones can increase in size as time goes on. Thank you for your cooperation in this matter, so we can continue to provide you with quality care. Sincerely, [facility] , option #3 Normal [facility] RAD - MISCon 10-16-2022 [facility] [id number] Normal [facility] CBC AUTO DIFFon 09-04-2022 BASO # 0.1 103/ul Normal 0.0-0.1 [facility] Comment on above: Performed By: #### D DEEPA #### [facility] [address] [place] [address] Dr. Mark Cuellar Basophils/100 WBC (Bld) 0.4 % Normal 0.2-2.0 [facility] Comment on above: Performed By: #### D DEEPA #### [facility] [address] [place] [address] Dr. Mark Cuellar EO # 0.1 103/ul Normal 0.0-0.7 [facility] Comment on above: Performed By: #### D DEEPA #### [facility] [address] [place] [address] Dr. Mark Cuellar Eosinophils/100 WBC (Bld) 0.6 % Critically low 0.9-7.0 [facility] Comment on above: Performed By: #### D DEEPA #### [facility] [address] [place] [address] Dr. Mark Cuellar Erythrocyte distribution width (RBC) [Ratio] 13.4 % Normal 11.0-15.0 [facility] Comment on above: Performed By: #### D DEEPA #### [facility] [address] [place] [address] Dr. Mark Cuellar Hematocrit (Bld) [Volume fraction] 31.6 % Critically low 36.0-48.0 [facility] Comment on above: Performed By: #### D DEEPA #### [facility] [address] [address] [address] Mark Cuellar Hemoglobin (Bld) [Mass/Vol] 10.9 g/dL Critically low 12.0-16.0 [facility] Comment on above: Performed By: #### D DEEPA #### [facility] [address] [address] [address] Mark Cuellar IG # 0.41 10e3/ul Critically high 0.00-0.03 [facility] Comment on above: Performed By: #### D DEEPA #### [facility] [address] [address] [address] Mark Cuellar IG % 2.9 % Critically high 0.0-0.5 [facility] Comment on above: Performed By: #### D DEEPA #### [facility] [address] [address] [address] Mark Cuellar LYMPH # 2.5 103/ul Normal 1.2-3.8 [facility] Comment on above: Performed By: #### D DEEPA #### [facility] [address] [address] [address] Mark Cuellar Lymphocytes/100 WBC (Bld) 18.0 % Critically low 20.5-60.0 [facility] Comment on above: Performed By: #### D DEEPA #### [facility] [address] [address] [address] Mark Cuellar MANUAL DIFF REQ NO Normal [facility] Comment on above: Performed By: #### D DEEPA #### [facility] [address] [address] [address] Mark Cuellar MCH (RBC) [Entitic mass] 30.7 pg Normal 26.7-34.0 [facility] Comment on above: Performed By: #### D DEEPA #### [facility] [address] [address] [address] Mark Cuellar MCHC (RBC) [Mass/Vol] 34.5 g/dL Normal 29.9-35.2 [facility] Comment on above: Performed By: #### D DEEPA #### [facility] [address] [address] [address] Mark Cuellar MCV (RBC) [Entitic vol] 89.0 fL Normal 81.0-99.0 [facility] Comment on above: Performed By: #### D DEEPA #### [facility] [address] [address] [address] Mark Cuellar MONO # 1.2 103/ul Critically high 0.3-0.8 [facility] Comment on above: Performed By: #### D DEEPA #### [facility] [address] [place] [address] Dr. Mark Cuellar Monocytes/100 WBC (Bld) 8.3 % Normal 1.7-12.0 [facility] Comment on above: Performed By: #### D DEEPA #### [facility] [address] [place] [address] Dr. Mark Cuellar NEUT # 9.8 103/ul Critically high 1.4-6.5 [facility] Comment on above: Performed By: #### D DEEPA #### [facility] [address] [place] [address] Dr. Mark Cuellar Neutrophils/100 WBC (Bld) 69.8 % Normal 43.0-75.0 [facility] Comment on above: Performed By: #### D DEEPA #### [facility] [address] [place] [address] Dr. Mark Cuellar Platelet mean volume (Bld) [Entitic vol] 10.2 fL Normal 9.5-13.5 [facility] Comment on above: Performed By: #### D DEEPA #### [facility] [address] [place] [address] Dr. Mark Cuellar PLT 153 103/ul Normal 150-450 [facility] Comment on above: Performed By: #### D DEEPA #### [facility] [address] [place] [address] Dr. Mark Cuellar RBC 3.55 106/ul Critically low 4.20-5.40 [facility] Comment on above: Performed By: #### D DEEPA #### [facility] [address] [address] [address] Mark Cuellar WBC 14.1 103/ul Critically high 4.0-11.[address] [facility] Comment on above: Performed By: #### D DEEPA #### [facility] [address] [place] [address] Dr. Mark Cuellar CBC AUTO DIFFon 09-03-2022 BASO # 0.1 103/ul Normal 0.0-0.1 [facility] Comment on above: Performed By: #### D DEEPA #### [facility] [address] [place] [address] Dr. Mark Cuellar Basophils/100 WBC (Bld) 0.5 % Normal 0.2-2.0 [facility] Comment on above: Performed By: #### D DEEPA #### [facility] [address] [place] [address] Dr. Mark Cuellar EO # 0.2 103/ul Normal 0.0-0.7 [facility] Comment on above: Performed By: #### D DEEPA #### [facility] [address] [place] [address] Dr. Mark Cuellar Eosinophils/100 WBC (Bld) 1.1 % Normal 0.9-7.0 [facility] Comment on above: Performed By: #### D DEEPA #### [facility] [address] [place] [address] Dr. Mark Cuellar Erythrocyte distribution width (RBC) [Ratio] 13.0 % Normal 11.0-15.0 [facility] Comment on above: Performed By: #### D DEEPA #### [facility] [address] [place] [address] Dr. Mark Cuellar Hematocrit (Bld) [Volume fraction] 35.3 % Critically low 36.0-48.0 [facility] Comment on above: Performed By: #### D DEEPA #### [facility] [address] [place] [address] Dr. Mark Cuellar Hemoglobin (Bld) [Mass/Vol] 12.7 g/dL Normal 12.0-16.0 [facility] Comment on above: Performed By: #### D DEEPA #### [facility] [address] [address] [address] Mark Cuellar IG # 0.36 10e3/ul Critically high 0.00-0.03 [facility] Comment on above: Performed By: #### D DEEPA #### [facility] [address] [address] [address] Mark Cuellar IG % 2.6 % Critically high 0.0-0.5 [facility] Comment on above: Performed By: #### D DEEPA #### [facility] [address] [place] [address] Dr. Mark Cuellar LYMPH # 2.9 103/ul Normal 1.2-3.8 [facility] Comment on above: Performed By: #### D DEEPA #### [facility] [address] [place] [address] Dr. Mark Cuellar Lymphocytes/100 WBC (Bld) 21.3 % Normal 20.5-60.0 [facility] Comment on above: Performed By: #### D DEEPA #### [facility] [address] [place] [address] Dr. Mark Cuellar MANUAL DIFF REQ NO Normal [facility] Comment on above: Performed By: #### D DEEPA #### [facility] [address] [place] [address] Dr. Mark Cuellar MCH (RBC) [Entitic mass] 30.8 pg Normal 26.7-34.0 [facility] Comment on above: Performed By: #### D DEEPA #### [facility] [address] [address] [address] Mark Cuellar MCHC (RBC) [Mass/Vol] 36.0 g/dL Critically high 29.9-35.2 [facility] Comment on above: Performed By: #### D DEEPA #### [facility] [address] [place] [address] Dr. Mark Cuellar MCV (RBC) [Entitic vol] 85.7 fL Normal 81.0-99.0 [facility] Comment on above: Performed By: #### D DEEPA #### [facility] [address] [id number] Mark Cuellar MONO # 1.2 103/ul Critically high 0.3-0.8 [facility] Comment on above: Performed By: #### D DEEPA #### [facility] [address] [address] [address] Mark Cuellar Monocytes/100 WBC (Bld) 8.6 % Normal 1.7-12.0 [facility] Comment on above: Performed By: #### D DEEPA #### [facility] [address] [address] [address] Mark Cuellar NEUT # 9.1 103/ul Critically high 1.4-6.5 [facility] Comment on above: Performed By: #### D DEEPA #### [facility] [address] [address] [address] Mark Cuellar Neutrophils/100 WBC (Bld) 65.9 % Normal 43.0-75.0 [facility] Comment on above: Performed By: #### D DEEPA #### [facility] [address] [address] [address] Mark Cuellar Platelet mean volume (Bld) [Entitic vol] 10.1 fL Normal 9.5-13.5 [facility] Comment on above: Performed By: #### D DEEPA #### [facility] [address] [address] [address] Mark Cuellar PLT 211 103/ul Normal 150-450 [facility] Comment on above: Performed By: #### D DEEPA #### [facility] [address] [address] [address] Mark Cuellar RBC 4.12 106/ul Critically low 4.20-5.40 [facility] Comment on above: Performed By: #### D DEEPA #### [facility] [address] [address] [address] Mark Cuellar WBC 13.7 103/ul Critically high 4.0-11.[address] [facility] Comment on above: Performed By: #### D DEEPA #### [facility] [address] [place] [address] Dr. Mark Cuellar TYPE AND SCREENon 09-03-2022 TYPE AND SCREEN Negative Normal [facility] Comment on above: Performed By: #### E RUR, UMICRO #### [facility] [address] [address] [address] Mark Cuellar DRUG SCREEN RAPID (URINE)on 09-02-2022 AMP Negative Normal NEGATIVE [facility] Comment on above: Performed By: #### U ACSIND, UMICRO #### [facility] [address] [address] [address] Mark Cuellar BAR Negative Normal NEGATIVE [facility] Comment on above: Performed By: #### U ACSIND, UMICRO #### [facility] [address] [place] [address] Dr. Mark Cuellar BUP Negative Normal NEGATIVE [facility] Comment on above: Performed By: #### U ACSIND, UMICRO #### [facility] [address] [place] [address] Dr. Mark Cuellar BZO Negative Normal NEGATIVE [facility] Comment on above: Performed By: #### U ACSIND, UMICRO #### [facility] [address] [place] [address] Dr. Mark Cuellar MYRA Negative Normal NEGATIVE [facility] Comment on above: Performed By: #### U ACSIND, UMICRO #### [facility] [address] [place] [address] Dr. Mark Cuellar CUT-OFFS SEE BELOW Normal [facility] Comment on above: Result Comment: AMP (Amphetamine): 500ng/mL, BAR (Barbituates): 200 ng/mL, BZO (Benzodiazepines): 150 ng/mL, BUP (Buprenorphine): 10 ng/mL, MYRA (Cocaine): 150 ng/mL, mAMP (Methamphetamine): 500 ng/mL, MTD (Methadone): 200 ng/mL, OPI (Opiates): 100 ng/mL, OXY (Oxycodone): 100 ng/mL, PCP (Phencyclidine): 25 ng/mL, PPX (Propoxyphene): 300 ng/mL, THC (Cannabinoids): 50 ng/mL, TCA (Trycyclic Antidepressants): 300 ng/mL Performed By: #### U ACSIND, UMICRO #### [facility] [address] [address] [address] Mark Cuellar DRUG CUT HEADER DRUG CLASS TEST SYSTEM CUT-OFF CONCENTRATIONS ARE FOLLOWS: Normal [facility] Comment on above: Performed By: #### U ACSIND, UMICRO #### [facility] [address] [address] [address] Mark Cuellar mAMP Negative Normal NEGATIVE [facility] Comment on above: Performed By: #### U ACSIND, UMICRO #### [facility] [address] [address] [address] Mark Cuellar MTD Negative Normal NEGATIVE [facility] Comment on above: Performed By: #### U ACSIND, UMICRO #### [facility] [address] [place] [address] Dr. Mark Cuellar OPI Negative Normal NEGATIVE [facility] Comment on above: Performed By: #### U ACSIND, UMICRO #### [facility] [address] [address] [address] Mark Cuellar OXY Negative Normal NEGATIVE [facility] Comment on above: Performed By: #### U ACSIND, UMICRO #### [facility] [address] [address] [address] Mark Cuellar PCP Negative Normal NEGATIVE [facility] Comment on above: Performed By: #### U ACSIND, UMICRO #### [facility] [address] [address] [address] Mark Cuellar PPX Negative Normal NEGATIVE [facility] Comment on above: Performed By: #### U ACSIND, UMICRO #### [facility] [address] [address] [address] Mark Cuellar TCA Negative Normal NEGATIVE [facility] Comment on above: Performed By: #### U ACSIND, UMICRO #### [facility] [address] [address] [address] Mark Cuellar THC Negative Normal NEGATIVE [facility] Comment on above: Performed By: #### U ACSIND, UMICRO #### [facility] [address] [place] [address] Dr. Mark Cuellar UA (CLEAN/CATCH) HEAVY LIFT RIGGER/MICRO I F IND.on 09-02-2022 Bilirubin Ql (U) Negative Normal NEGATIVE [facility] Comment on above: Performed By: #### E JUSTIN UMICRO #### [facility] [address] [place] [address] Dr. Mark Cuellar Clarity (U) CLEAR Normal CLEAR [facility] Comment on above: Performed By: #### E RUSolomon, UMICRO #### [facility] [address] [place] [address] Dr. Mark Cuellar Color (U) LT. YELLOW Normal YELLOW [facility] Comment on above: Performed By: #### E RUSolomon UMICRO #### [facility] [address] [place] [address] Dr. Mark Cuellar Glucose Ql (U) Negative Normal NEGATIVE [facility] Comment on above: Performed By: #### Jonna RUSolomon UMICRO #### [facility] [address] [place] [address] Dr. Mark Cuellar Hemoglobin Ql (U) TRACE-INTACT Abnormal NEGATIVE [facility] Comment on above: Performed By: #### Jonna RUSolomon UMICRO #### [facility] [address] [place] [address] Dr. Mark Cuellar Ketones Ql (U) Negative Normal NEGATIVE [facility] Comment on above: Performed By: #### Jonna ANDERSON UMICRO #### [facility] [address] [place] [address] Dr. Mark Cuellar LEUKOCYTES Negative Normal NEGATIVE [facility] Comment on above: Performed By: #### Jonna ANDERSON UMICRO #### [facility] [address] [place] [address] Dr. Mark Cuellar Nitrite Ql (U) Negative Normal NEGATIVE [facility] Comment on above: Performed By: #### Jonna ANDERSON UMICRO #### [facility] [address] [place] [address] Dr. Mark Cuellar pH (U) 7.0 [pH] Normal 5-9 [facility] Comment on above: Performed By: #### VIGNESH ZELAYARO #### [facility] [address] [place] [address] Dr. Mark Cuellar SPEC GRAVITY 1.010 Normal 1.005-<=1.02 5 [facility] Comment on above: Performed By: #### THOMAS ZELAYAICRO #### [facility] [address] [place] [address] Dr. Mark Cuellar UA PROTEIN Negative Normal NEGATIVE/ TRACE [facility] Comment on above: Performed By: #### VIGNESH ZELAYARO #### [facility] [address] [place] [address] Dr. Mark Cuellar UR MICRO IND INDICATED Normal [facility] Comment on above: Performed By: #### VIGNESH ZELAYARO #### [facility] [address] [place] [address] Dr. Mark Cuellar Urobilinogen Qn (U) 0.2 {Ariana'U}/dL Normal 0.2 - 1. 0 [facility] Comment on above: Performed By: #### VIGNESH ZELAYARO #### [facility] [address] [place] [address] Dr. Mark Cuellar URINE MICROSCOPIC ONLYon BACTERIA TRACE Abnormal NONE SEEN [facility] Comment on above: Performed By: #### VIGNESH ZELAYARO #### [facility] [address] [place] [address] Dr. Mark Cuellar Bacteria identified Cx Nom (U) NOT INDICATED Normal [facility] Comment on above: Performed By: #### THOMAS ZELAYAICRO #### [facility] [address] [place] [address] Dr. Mark Cuellar CAST NONE SEEN Normal NONE SEEN [facility] Comment on above: Performed By: #### Jonna ANDERSON UMICRO #### [facility] [address] [place] [address] Dr. Mark Cuellar Crystals LM Nom (Urine sed) NONE SEEN Normal NONE SEEN [facility] Comment on above: Performed By: #### E RUR, UMICRO #### [facility] [address] [address] [address] Mark Cuellar Epithelial cells LM Ql (Urine sed) FEW Abnormal NONE SEEN /RARE [facility] Comment on above: Performed By: #### E RUR, UMICRO #### [facility] [address] [address] [address] Mark Cuellar MUCOUS NONE SEEN Normal NONE SEEN [facility] Comment on above: Performed By: #### E RUR, UMICRO #### [facility] [address] [address] [address] Mark Cuellar RBC 5-10 Abnormal 0-2 [facility] Comment on above: Performed By: #### E RUR, UMICRO #### [facility] [address] [address] [address] Mark Cuellar WBC 0-2 Abnormal NONE SEEN [facility] Comment on above: Performed By: #### E RUR, UMICRO #### [facility] [address] [address] [address] Mark Cuellar US KIDNEYSon 08-26-2022 US KIDNEYS EXAM: US KIDNEYS HISTORY: Pain COMPARISON: Kidney ultrasound dated 06/24/2022. TECHNIQUE: Renal ultrasound is performed. Multiple grayscale and color images are submitted for review. FINDINGS: The right kidney measures 10.6 x 5.8 x 6.4 cm and demonstrates normal echotexture and cortical thickness. The right renal cortex measures 1.7 cm in diameter. Multiple echogenic foci are seen in the right kidney with the largest measuring 4 x 5 x 4 mm, suggestive of intrarenal calculi. Moderate right hydronephrosis is seen. The left kidney measures 10.9 x 4.8 x 4.8 cm and demonstrates normal echotexture and cortical thickness. The right left renal cortex measures 1.1 cm in diameter. Multiple echogenic foci are seen in the left kidney measuring up to 5 x 5 x 2 mm, suggestive of intrarenal calculi. Mild left hydronephrosis is seen. IMPRESSION: Bilateral multiple nephrolithiasis. Moderate right, and mild left hydronephrosis is seen. Electronically authenticated by: SAMANTHA WAGGONERPOLY Date: 2022-08-25 22:02 Normal [facility] BUNon 08-25-2022 Urea nitrogen [Mass/Vol] 5.0 mg/dL Critically low 7.0-18.0 [facility] Comment on above: Performed By: #### U ACSVIGNESH CARDRO #### [facility] [address] [place] [address] Dr. Mark Cuellar CBC AUTO DIFFon 08-25-2022 BASO # 0.1 103/ul Normal 0.0-0.1 [facility] Comment on above: Performed By: #### VIGNESH ZELAYARO #### [facility] [address] [place] [address] Dr. Mark Cuellar Basophils/100 WBC (Bld) 0.6 % Normal 0.2-2.0 [facility] Comment on above: Performed By: #### VIGNESH ZELAYARO #### [facility] [address] [place] [address] Dr. Mark Cuellar EO # 0.2 103/ul Normal 0.0-0.7 [facility] Comment on above: Performed By: #### VIGNESH ZELAYARO #### [facility] [address] [place] [address] Dr. Mark Cuellar Eosinophils/100 WBC (Bld) 1.2 % Normal 0.9-7.0 [facility] Comment on above: Performed By: #### VIGNESH ZELAYARO #### [facility] [address] [place] [address] Dr. Mark Cuellar Erythrocyte distribution width (RBC) [Ratio] 13.2 % Normal 11.0-15.0 [facility] Comment on above: Performed By: #### VIGNESH ZELAYARO #### [facility] [address] [place] [address] Dr. Mark Cuellar Hematocrit (Bld) [Volume fraction] 35.4 % Critically low 36.0-48.0 [facility] Comment on above: Performed By: #### VIGNESH ZELAYARO #### [facility] [address] [address] [address] Mark Cuellar Hemoglobin (Bld) [Mass/Vol] 12.5 g/dL Normal 12.0-16.0 [facility] Comment on above: Performed By: #### E RUR, UMICRO #### [facility] [address] [address] [address] Mark Cuellar IG # 0.55 10e3/ul Critically high 0.00-0.03 [facility] Comment on above: Performed By: #### E RUR, UMICRO #### [facility] [address] [place] [address] Dr. Mark Cuellar IG % 4.1 % Critically high 0.0-0.5 [facility] Comment on above: Performed By: #### Jonna ANDERSON, UMICRO #### [facility] [address] [place] [address] Dr. Mark Cuellar LYMPH # 2.4 103/ul Normal 1.2-3.8 [facility] Comment on above: Performed By: #### Jonna ANDERSON, UMICRO #### [facility] [address] [place] [address] Dr. Mark Cuellar Lymphocytes/100 WBC (Bld) 17.8 % Critically low 20.5-60.0 [facility] Comment on above: Performed By: #### Jonna ANDERSON, UMICRO #### [facility] [address] [place] [address] Dr. Mark Cuellar MANUAL DIFF REQ NO Normal [facility] Comment on above: Performed By: #### E JUSTIN, UMICRO #### [facility] [address] [place] [address] Dr. Mark Cuellar MCH (RBC) [Entitic mass] 30.8 pg Normal 26.7-34.0 [facility] Comment on above: Performed By: #### E RUR, UMICRO #### [facility] [address] [place] [address] Dr. Mark Cuellar MCHC (RBC) [Mass/Vol] 35.3 g/dL Critically high 29.9-35.2 [facility] Comment on above: Performed By: #### VIGNESH ZELAYARO #### [facility] [address] [place] [address] Dr. Mark Cuellar MCV (RBC) [Entitic vol] 87.2 fL Normal 81.0-99.0 [facility] Comment on above: Performed By: #### VIGNESH ZELAYARO #### [facility] [address] [place] [address] Dr. aMrk Cuellar MONO # 1.2 103/ul Critically high 0.3-0.8 [facility] Comment on above: Performed By: #### VIGNESH ZELAYARO #### [facility] [address] [place] [address] Dr. Mark Cuellar Monocytes/100 WBC (Bld) 9.3 % Normal 1.7-12.0 [facility] Comment on above: Performed By: #### VIGNESH ZELAYARO #### [facility] [address] [place] [address] Dr. Mark Cuellar NEUT # 8.9 103/ul Critically high 1.4-6.5 [facility] Comment on above: Performed By: #### VIGNESH ZELAYARO #### [facility] [address] [place] [address] Dr. Mark Cuellar Neutrophils/100 WBC (Bld) 67.0 % Normal 43.0-75.0 [facility] Comment on above: Performed By: #### VIGNESH ZELAYARO #### [facility] [address] [place] [address] Dr. Mark Cuellar Platelet mean volume (Bld) [Entitic vol] 9.7 fL Normal 9.5-13.5 [facility] Comment on above: Performed By: #### VIGNESH ZELAYARO #### [facility] [address] [place] [address] Dr. Mark Cuellar PLT 219 103/ul Normal 150-450 [facility] Comment on above: Performed By: #### VIGNESH ZELAYARO #### [facility] [address] [address] [address] Mark Cuellar RBC 4.06 106/ul Critically low 4.20-5.40 [facility] Comment on above: Performed By: #### E THOMAS ANDERSONICRO #### [facility] [address] [place] [address] Dr. Mark Cuellar WBC 13.3 103/ul Critically high 4.0-11.0 [facility] Comment on above: Performed By: #### E JUSTIN UMICRO #### [facility] [address] [place] [address] Dr. Mark Cuellar CREATININEon 08-25-2022 Creatinine [Mass/Vol] 0.68 mg/dL Normal 0.55-1.02 [facility] Comment on above: Performed By: #### U ACSKYAW UMICRO #### [facility] [address] [place] [address] Dr. Mark Cuellar EGFR-AF [place]IZ[place] >60 Normal >=60 [facility] Comment on above: Performed By: #### U HERNESTO UMICRO #### [facility] [address] [place] [address] Dr. Mark Cuellar EGFR-NON AF [place]IZ[place] >60 Normal >=60 [facility] Comment on above: Performed By: #### U HERNESTO UMICRO #### [facility] [address] [place] [address] Dr. Mark Cuellar UA (CLEAN/CATCH) HEAVY LIFT RIGGER/MICRO I F IND.on 08-25-2022 Bilirubin Ql (U) Negative Normal NEGATIVE [facility] Comment on above: Performed By: #### U ACSKYAW UMICRO #### [facility] [address] [place] [address] Dr. Mark Cuellar Clarity (U) CLEAR Normal CLEAR [facility] Comment on above: Performed By: #### U ACSKYAW UMICRO #### [facility] [address] [place] [address] Dr. Mark Cuellar Color (U) LT. YELLOW Normal YELLOW [facility] Comment on above: Performed By: #### U ACSIND, UMICRO #### [facility] [address] [address] [address] Mark Cuellar Glucose Ql (U) Negative Normal NEGATIVE [facility] Comment on above: Performed By: #### U ACSIND, UMICRO #### [facility] [address] [address] [address] Mark Cuellar Hemoglobin Ql (U) SMALL Abnormal NEGATIVE [facility] Comment on above: Performed By: #### U ACSIND, UMICRO #### [facility] [address] [place] [address] Dr. Mark Cuellar Ketones Ql (U) Negative Normal NEGATIVE [facility] Comment on above: Performed By: #### U ACSIND, UMICRO #### [facility] [address] [place] [address] Dr. Mark Cuellar LEUKOCYTES TRACE Abnormal NEGATIVE [facility] Comment on above: Performed By: #### U ACSIND, UMICRO #### [facility] [address] [address] [address] Mark Cuellar Nitrite Ql (U) Negative Normal NEGATIVE [facility] Comment on above: Performed By: #### U ACSIND, UMICRO #### [facility] [address] [place] [address] Dr. Mark Cuellar pH (U) 7.0 [pH] Normal 5-9 [facility] Comment on above: Performed By: #### U ACSIND, UMICRO #### [facility] [address] [place] [address] Dr. Mark Cuellar SPEC GRAVITY <=1.005 Abnormal 1.005-<=1.02 5 [facility] Comment on above: Performed By: #### U ACSIND, UMICRO #### [facility] [address] [place] [address] Dr. Mark Cuellar UA PROTEIN Negative Normal NEGATIVE/ TRACE [facility] Comment on above: Performed By: #### U ACSIND, UMICRO #### [facility] [address] [place] [address] Dr. Mark Cuellar UR MICRO IND INDICATED Normal [facility] Comment on above: Performed By: #### U ACSIND, UMICRO #### [facility] [address] [address] [address] Mark Cuellar Urobilinogen Qn (U) 0.2 {Ariana'U}/dL Normal 0.2 - 1. 0 [facility] Comment on above: Performed By: #### U ACSIND, UMICRO #### [facility] [address] [address] [address] Mark Cuellar URINE MICROSCOPIC ONLYon BACTERIA NONE SEEN Normal NONE SEEN [facility] Comment on above: Performed By: #### U ACSIND, UMICRO #### [facility] [address] [place] [address] Dr. Mark Cuellar Bacteria identified Cx Nom (U) NOT INDICATED Normal [facility] Comment on above: Performed By: #### U ACSIND, UMICRO #### [facility] [address] [place] [address] Dr. Mark Cuellar CAST NONE SEEN Normal NONE SEEN [facility] Comment on above: Performed By: #### U ACSIND, UMICRO #### [facility] [address] [place] [address] Dr. Mark Cuellar Crystals LM Nom (Urine sed) NONE SEEN Normal NONE SEEN [facility] Comment on above: Performed By: #### U ACSIND, UMICRO #### [facility] [address] [place] [address] Dr. Mark Cuellar Epithelial cells LM Ql (Urine sed) RARE Normal NONE SEEN /RARE [facility] Comment on above: Performed By: #### U ACSIND, UMICRO #### [facility] [address] [place] [address] Dr. Mark Cuellar MUCOUS NONE SEEN Normal NONE SEEN [facility] Comment on above: Performed By: #### U ACSIND, UMICRO #### [facility] [address] [place] [address] Dr. Mark Cuellar RBC 0-2 Normal 0-2 [facility] Comment on above: Performed By: #### U ACSIND, UMICRO #### [facility] [address] [place] [address] Dr. Mark Cuellar WBC 0-2 Abnormal NONE SEEN [facility] Comment on above: Performed By: #### U RISA ERIC #### [facility] [address] [place] [address] Dr. Mark Cuellar GROUP B STREP CULTUREon 07-30 S. agalactiae Ag Ql (Unsp spec) Culture Observations: NEGATIVE FOR GROUP B STREPTOCOCCUS. Normal [facility] Comment on above: Performed By: #### G BSCX #### [facility] [address] [place] [address] Dr. Mark Cuellar US PREG BIOPHY W NON STRESSo n 08-07-2022 US PREG BIOPHY W NON STRESS EXAMINATION: US PREG BIOPHY W NON STRESS HISTORY: Patient currently COMPARISON: Ultrasound growth 07/10/2022 FINDINGS: BREATHING MOVEMENTS: 2.0 GROSS BODY MOVEMENTS: 2.0 TONE: 2.0 QUALITATIVE AMNIOTIC FLUID VOLUME: 2.0 PRESENTATION: CEPHALIC HEART RATE: 150.8 bpm bpm. AMNIOTIC FLUID VOLUME: 13.7 cm GESTATIONAL AGE: 34 weeks 0 days CONCLUSION: 1. Total biophysical profile score 8.0. 2. heart rate is 151 bpm 3. [facility] noted that it was very difficult to get fetus to move to document gross body movements. Electronically authenticated by: ISAIAH VELAZCO Date: 2022-08-07 15:10 Normal [facility] CULTURE URINEon 07-20-2022 CULTURE URINE Culture Observations: NO GROWTH. Normal [facility] Comment on above: Performed By: #### U RCX #### [facility] [address] [place] [address] Dr. Mark Cuellar UA (CLEAN/CATCH) HEAVY LIFT RIGGER/MICRO I F IND.on 07-20-2022 Bilirubin Ql (U) Negative Normal NEGATIVE [facility] Comment on above: Performed By: #### U RISA ERIC #### [facility] [address] [place] [address] Dr. Mark Cuellar Clarity (U) CLEAR Normal CLEAR [facility] Comment on above: Performed By: #### U RISA ERIC #### [facility] [address] [address] [address] Mark Cuellar Color (U) LT. YELLOW Normal YELLOW [facility] Comment on above: Performed By: #### U ACSIND, UMICRO #### [facility] [address] [address] [address] Mark Cuellar Glucose Ql (U) Negative Normal NEGATIVE [facility] Comment on above: Performed By: #### U ACSIND, UMICRO #### [facility] [address] [address] [address] Mark Cuellar Hemoglobin Ql (U) Negative Normal NEGATIVE [facility] Comment on above: Performed By: #### U ACSIND, UMICRO #### [facility] [address] [address] [address] Mark Cuellar Ketones Ql (U) Negative Normal NEGATIVE [facility] Comment on above: Performed By: #### U ACSKYAW, UMICRO #### [facility] [address] [address] [address] Mark Cuellar LEUKOCYTES SMALL Abnormal NEGATIVE [facility] Comment on above: Performed By: #### U ACSKYAW, UMICRO #### [facility] [address] [address] [address] Mark Cuellar Nitrite Ql (U) Negative Normal NEGATIVE [facility] Comment on above: Performed By: #### U ACSKYAW, UMICRO #### [facility] [address] [address] [address] Mark Cuellar pH (U) 7.0 [pH] Normal 5-9 [facility] Comment on above: Performed By: #### U ACSIND, UMICRO #### [facility] [address] [address] [address] Mark Cuellar SPEC GRAVITY 1.010 Normal 1.005-<=1.02 5 [facility] Comment on above: Performed By: #### U ACSIND, UMICRO #### [facility] [address] [address] [address] Mark Cuellar UA PROTEIN Negative Normal NEGATIVE/ TRACE [facility] Comment on above: Performed By: #### U ACSIND, UMICRO #### [facility] [address] [address] [address] Mark Cuellar UR MICRO IND INDICATED Normal [facility] Comment on above: Performed By: #### U ACSIND, UMICRO #### [facility] [address] [place] [address] Dr. Mark Cuellar Urobilinogen Qn (U) 1.0 {Ariana'U}/dL Normal 0.2 - 1. 0 [facility] Comment on above: Performed By: #### U ACSIND, UMICRO #### [facility] [address] [place] [address] Dr. Mark Cuellar URINE MICROSCOPIC ONLYon BACTERIA TRACE Abnormal NONE SEEN [facility] Comment on above: Performed By: #### U ACSIND, UMICRO #### [facility] [address] [place] [address] Dr. Mark Cuellar Bacteria identified Cx Nom (U) INDICATED Normal [facility] Comment on above: Performed By: #### U ACSIND, UMICRO #### [facility] [address] [place] [address] Dr. Mark Cuellar CAST NONE SEEN Normal NONE SEEN [facility] Comment on above: Performed By: #### U ACSIND, UMICRO #### [facility] [address] [place] [address] Dr. Mark Cuellar Crystals LM Nom (Urine sed) NONE SEEN Normal NONE SEEN [facility] Comment on above: Performed By: #### U ACSIND, UMICRO #### [facility] [address] [place] [address] Dr. Mark Cuellar Epithelial cells LM Ql (Urine sed) FEW Abnormal NONE SEEN /RARE [facility] Comment on above: Performed By: #### U ACSIND, UMICRO #### [facility] [address] [place] [address] Dr. Mark Cuellar MUCOUS NONE SEEN Normal NONE SEEN [facility] Comment on above: Performed By: #### U ACSIND, UMICRO #### [facility] [address] [address] [address] Mark Cuellar RBC 0-2 Normal 0-2 [facility] Comment on above: Performed By: #### U RISA ERIC #### [facility] [address] [address] [address] Mark Cuellar WBC 5-10 Abnormal NONE SEEN [facility] Comment on above: Performed By: #### U VIGNESH ERICRO #### [facility] [id number] Mark Cuellar US PREG GROWTHon 07-10-2022 US PREG GROWTH EXAMINATION: US PREG GROWTH HISTORY: Uterine size for dates discrepancy COMPARISON: Ultrasound transvaginal 01/24/2022 FINDINGS: Heart Rate: 132.0 bpm Number: 1.0 Position: CEPHALIC Amniotic Fluid Volume: 13.9 cm Maximum Vertical Pocket: 4.7 cm BIOMETRY: BPD: 7.7 cm cm; 30 weeks 5 days ; 61% HC: 27.8 cmcm; 30 weeks 3 days; 27% AC: 28.1 cm cm; 32 weeks 1 days; 94% FL: 5.9 cm cm; 30 weeks 5 days; 57% EFW: 1767.0 grams; 85% FL/AC: 20.9 FL/BPD: 76.9 HC/AC: 1.0 GESTATIONAL AGE: Age by EDC: 30 weeks 0 days ALICE by EDC: 09/18/2022 Age by US: 31 weeks 0 days ALICE by US: 09/11/2022 IMPRESSION: 1. Single live intrauterine with growth detailed above. Electronically authenticated by: ISAIAH VELAZCO Date: 2022-07-10 21:19 Normal [facility] RAD - MISCon 07-02-2022 RAD - MISC [id number] 1.00CD:127 Normal [facility] CALCULI, URINARYon 3 2,8 Dihydroxyadenine Normal [facility] Comment on above: Performed By: #### E RISA ANDERSON #### [facility] [address] [address] [address] Mark Cuellar Ammonium Acid Urate Normal [facility] Comment on above: Performed By: #### Jonna MENDEZR UMICRO #### [facility] [address] [address] [address] Mark Cuellar Bilirubin Ql (U) [facility] Comment on above: Performed By: #### Jonna RUR, UMICRO #### [facility] [address] [address] [address] Mark Cuellar Ca Oxalate Dihydrate 50 % [place] [facility] Comment on above: Performed By: #### Jonna RUR UMICRO #### [facility] [address] [address] [address] Mark Cuellar CaHPO4 (Brushite) [facility] Comment on above: Performed By: #### Jonna ANDERSON UMICRO #### [facility] [address] [place] [address] Dr. Mark Cuellar Calcium Bilirubinate [facility] Comment on above: Performed By: #### Jonna ANDERSON UMICRO #### [facility] [address] [address] [address] Mark Cuellar Calcium Carbonate Normal [facility] Comment on above: Performed By: #### Jonna ANDERSON UMICRO #### [facility] [address] [place] [address] Dr. Mark Cuellar Calcium Oxalate Monohydrate 20 % [facility] Comment on above: Performed By: #### Jonna ANDERSON UMICRO #### [facility] [address] [address] [address] Mark Cuellar Calcium Palmitate Normal [facility] Comment on above: Performed By: #### Jonna MENDEZR UMICRO #### [facility] [address] [place] [address] Dr. Mark Cuellar Calcium Phosphate [place] [facility] Comment on above: Performed By: #### E RUR, UMICRO #### [facility] [address] [place] [address] Dr. Mark Cuellar Calcium Stearate Normal [facility] Comment on above: Performed By: #### Jonna ANDERSON UMICRO #### [facility] [address] [place] [address] Dr. Mark Cuellar Carbonate Apatite [facility] Comment on above: Performed By: #### Jonna ANDERSON UMICRO #### [facility] [address] [place] [address] Dr. Mark Cuellar Cellular Material [facility] Comment on above: Performed By: #### Jonna ANDERSON UMICRO #### [facility] [address] [place] [address] Dr. Mark Cuellar Cholesterol [facility] Comment on above: Performed By: #### Jonna ANDERSON UMICRO #### [facility] [address] [place] [address] Dr. Mark Cuellar Color (U) Brown [facility] Comment on above: Performed By: #### Jonna ANDERSON UMICRO #### [facility] [address] [place] [address] Dr. Mark Cuellar Comment Comment [facility] Comment on above: Result Comment: Calc ium phosphate (hydroxyl form) includes hydroxyapatite, amorphous calcium phosphate, and whitlockite. Hydroxyapatite is the most common of the calcium phosphate salts found in human kidney stones. Performed By: #### Jonna ANDERSON UMICRO #### [facility] [address] [place] [address] Dr. Mark Cuellar Result Comment: Calc ulus received wet. Wet calculi must be dried before analysis, which delays reporting of results. Leaving calculi wet (such as water, saline, blood, urine) may lead to changes in composition. Comment: Comment Normal [facility] Comment on above: Result Comment: Addie watson questions regarding Calculi Analysis contact [facility] at: [phone]. Performed By: #### Jonna ANDERSON UMICRO #### [facility] [address] [place] [address] Dr. Mark Cuellar Composition Comment [facility] Comment on above: Result Comment: Perc entage (Represents the % composition) Performed By: #### Jonna ANDERSON UMICRO #### [facility] [address] [place] [address] Dr. Mark Cuellar Cystine Normal [facility] Comment on above: Performed By: #### THOMAS ZELAYAICRO #### [facility] [address] [place] [address] Dr. Mark Cuellar Disclaimer: Comment Normal [facility] Comment on above: Result Comment: This test was developed and its performance characteristics determined by [facility]. It has not been cleared or approved by the Food and Drug Administration. Performed By: #### Jonna ANDERSON UMICRO #### [facility] [address] [place] [address] Dr. Mark Cuellar Dried Blood [facility] Comment on above: Performed By: #### THOMAS ZELAYAICRO #### [facility] [address] [place] [address] Dr. Mark Cuellar Drug or Metabolite Normal [facility] Comment on above: Performed By: #### Jonna ANDERSON UMICRO #### [facility] [address] [place] [address] Dr. Mark Cuellar Hydroxyapatite 30 % Normal [facility] Comment on above: Performed By: #### Jonna ANDERSON UMICRO #### [facility] [address] [place] [address] Dr. Mark Cuellar Mg NH4 PO4 (Struvite) [facility] Comment on above: Performed By: #### Jonna ANDERSON UMICRO #### [facility] [address] [place] [address] Dr. Mark Cuellar MgHPO4 ([place]ite) Normal [facility] Comment on above: Performed By: #### Jonna ANDERSON UMICRO #### [facility] [address] [place] [address] Dr. Mark Cuellar Other component(s) Normal [facility] Comment on above: Performed By: #### Jonna ANDERSON UMICRO #### [facility] [address] [place] [address] Dr. Mark Cuellar PDF . Normal [facility] Comment on above: Performed By: #### E RUR, UMICRO #### [facility] [address] [address] [address] Mark Cuellar Photo Comment Normal [facility] Comment on above: Result Comment: Phot ograph will follow under a separate cover Performed By: #### E RUR, UMICRO #### [facility] [address] [address] [address] Mark Cuellar Please note: Comment Normal [facility] Comment on above: Result Comment: Calc noris report will follow via computer, mail or guitar teacher delivery. Performed By: #### E JUSTIN UMICRO #### [facility] [address] [address] [address] Mark Cuellar Size 3x3 Normal [facility] Comment on above: Result Comment: Mult iple pieces received. Dimensions of the largest piece reported. Performed By: #### Jonna ANDERSON UMICRO #### [facility] [address] [place] [address] Dr. Mark Cuellar Sodium Acid Urate Normal [facility] Comment on above: Performed By: #### Jonna ANDERSON UMICRO #### [facility] [address] [address] [address] Mark Cuellar Source Comment Normal [facility] Comment on above: Result Comment: Left Ureter Performed By: #### E JUSTIN, UMICRO #### [facility] [address] [place] [address] Dr. Mark Cuellar Triamterene Normal [facility] Comment on above: Performed By: #### Jonna ANDERSON UMICRO #### [facility] [address] [address] [address] Mark Cuellar Uric Acid Normal [facility] Comment on above: Performed By: #### Jonna ANDERSON UMICRO #### [facility] [address] [address] [address] Mark Cuellar Uric Acid Dihydrate Normal [facility] Comment on above: Performed By: #### Jonna ANDERSON UMICRO #### [facility] [address] [address] [address] Mark Cuellar Weight 57 mg Normal [facility] Comment on above: Performed By: #### RISA ZELAYA #### [facility] [address] [place] [address] Dr. Mark Cuellar Xanthine Normal [facility] Comment on above: Performed By: #### VIGNESH ZELAYARO #### [facility] [address] [place] [address] Dr. Mark Cuellar Consultation Noteon 06-27-19 23 Consultation Note [id number] #1.00CD:127 Normal [facility] Insurance Correspondence Off iceon 06-27-2022 Insurance Correspondence Office [id number] #1.00CD:127 Normal [facility] Operative Reporton 3 Operative Report [id number] #1.00CD:127 Normal [facility] BUNon 06-24-2022 Urea nitrogen [Mass/Vol] 6.0 mg/dL Critically low 7.0-18.0 [facility] Comment on above: Performed By: #### RISA CASTILLO #### [facility] [address] [place] [address] Dr. Mark Cuellar CBC AUTO DIFFon 06-24-2022 BASO # 0.0 103/ul Normal 0.0-0.1 [facility] Comment on above: Performed By: #### RISA CASTILLO #### [facility] [address] [place] [address] Dr. Mark Cuellar Basophils/100 WBC (Bld) 0.3 % Normal 0.2-2.0 [facility] Comment on above: Performed By: #### RISA CASTILLO #### [facility] [address] [place] [address] Dr. Mark Cuellar EO # 0.1 103/ul Normal 0.0-0.7 [facility] Comment on above: Performed By: #### RISA CASTILLO #### [facility] [address] [place] [address] Dr. Mark Cuellar Eosinophils/100 WBC (Bld) 0.6 % Critically low 0.9-7.0 [facility] Comment on above: Performed By: #### U ACSKYAW UMICRO #### [facility] [address] [place] [address] Dr. Mark Cuellar Erythrocyte distribution width (RBC) [Ratio] 13.2 % Normal 11.0-15.0 [facility] Comment on above: Performed By: #### U ACSKYAW UMICRO #### [facility] [address] [place] [address] Dr. Mark Cuellar Hematocrit (Bld) [Volume fraction] 31.7 % Critically low 36.0-48.0 [facility] Comment on above: Performed By: #### U ACSKYAW ICRO #### [facility] [address] [place] [address] Dr. Mark Cuellar Hemoglobin (Bld) [Mass/Vol] 11.1 g/dL Critically low 12.0-16.0 [facility] Comment on above: Performed By: #### U ACSKYAW ICRO #### [facility] [address] [place] [address] Dr. Mark Cuellar IG # 0.26 10e3/ul Critically high 0.00-0.03 [facility] Comment on above: Performed By: #### U ACSKYAW ICRO #### [facility] [address] [place] [address] Dr. Mark Cuellar IG % 2.3 % Critically high 0.0-0.5 [facility] Comment on above: Performed By: #### U ACSKYAW ICRO #### [facility] [address] [place] [address] Dr. Mark Cuellar LYMPH # 1.7 103/ul Normal 1.2-3.8 [facility] Comment on above: Performed By: #### U ACSKYAW UMICRO #### [facility] [address] [place] [address] Dr. Mark Cuellar Lymphocytes/100 WBC (Bld) 14.4 % Critically low 20.5-60.0 [facility] Comment on above: Performed By: #### U THOMAS ERICICRO #### [facility] [address] [place] [address] Dr. Mark Cuellar MANUAL DIFF REQ NO Normal [facility] Comment on above: Performed By: #### U HERNESTO UMICRO #### [facility] [address] [place] [address] Dr. Mark Cuellar MCH (RBC) [Entitic mass] 30.4 pg Normal 26.7-34.0 [facility] Comment on above: Performed By: #### THOMAS CASTILLOICRO #### [facility] [address] [place] [address] Dr. Mark Cuellar MCHC (RBC) [Mass/Vol] 35.0 g/dL Normal 29.9-35.2 [facility] Comment on above: Performed By: #### THOMAS CASTILLOICRO #### [facility] [address] [place] [address] Dr. Mark Cuellar MCV (RBC) [Entitic vol] 86.8 fL Normal 81.0-99.0 [facility] Comment on above: Performed By: #### Tarik ERIC UMICRO #### [facility] [address] [place] [address] Dr. Mark Cuellar MONO # 0.8 103/ul Normal 0.3-0.8 [facility] Comment on above: Performed By: #### Tarik ERIC UMICRO #### [facility] [address] [place] [address] Dr. Mark Cuellar Monocytes/100 WBC (Bld) 6.7 % Normal 1.7-12.0 [facility] Comment on above: Performed By: #### U HERNESTO UMICRO #### [facility] [address] [place] [address] Dr. Mark Cuellar NEUT # 8.7 103/ul Critically high 1.4-6.5 [facility] Comment on above: Performed By: #### U HERNESTO UMICRO #### [facility] [address] [address] [address] Mark Cuellar Neutrophils/100 WBC (Bld) 75.7 % Critically high 43.0-75.0 [facility] Comment on above: Performed By: #### U ACSIND, UMICRO #### [facility] [address] [address] [address] Mark Cuellar Platelet mean volume (Bld) [Entitic vol] 9.5 fL Normal 9.5-13.5 [facility] Comment on above: Performed By: #### U ACSKYAW, UMICRO #### [facility] [address] [address] [address] Mark Cuellar PLT 185 103/ul Normal 150-450 [facility] Comment on above: Performed By: #### U ACSKYAW UMICRO #### [facility] [address] [place] [address] Dr. Mark Cuellar RBC 3.65 106/ul Critically low 4.20-5.40 [facility] Comment on above: Performed By: #### U ACSKYAW UMICRO #### [facility] [address] [address] [address] Mark Cuellar WBC 11.5 103/ul Critically high 4.0-11.[address] [facility] Comment on above: Performed By: #### U ACSKYAW UMICRO #### [facility] [address] [address] [address] Mark Cuellar CREATININEon 06-24-2022 Creatinine [Mass/Vol] 0.59 mg/dL Normal 0.55-1.02 [facility] Comment on above: Performed By: #### U ACSKYAW UMICRO #### [facility] [address] [place] [address] Dr. Mark Cuellar EGFR-AF [place]IZ[place] >60 Normal >=[address] [facility] Comment on above: Performed By: #### U ACSKYAW, UMICRO #### [facility] [address] [address] [address] Mark Cuellar EGFR-NON AF [place]IZ[place] >60 Normal >=60 [facility] Comment on above: Performed By: #### U ACSIND, UMICRO #### [facility] [address] [address] [address] Mark Cuellar UA (CLEAN/CATCH) HEAVY LIFT RIGGER/MICRO I F IND.on 06-24-2022 Bilirubin Ql (U) Negative Normal NEGATIVE [facility] Comment on above: Performed By: #### E RUR UMICRO #### [facility] [address] [address] [address] Mark Cuellar Clarity (U) CLEAR Normal CLEAR [facility] Comment on above: Performed By: #### E RUSolomon UMICRO #### [facility] [address] [place] [address] Dr. Mark Cuellar Color (U) LT. YELLOW Normal YELLOW [facility] Comment on above: Performed By: #### E RUR UMICRO #### [facility] [address] [place] [address] Dr. Mark Cuellar Glucose Ql (U) 100 mg/dl Abnormal NEGATIVE [facility] Comment on above: Performed By: #### Jonna RUSolomon UMICRO #### [facility] [address] [place] [address] Dr. Mark Cuellar Hemoglobin Ql (U) LARGE Abnormal NEGATIVE [facility] Comment on above: Performed By: #### Jonna RUR UMICRO #### [facility] [address] [place] [address] Dr. Mark Cuellar Ketones Ql (U) Negative Normal NEGATIVE [facility] Comment on above: Performed By: #### E RUR UMICRO #### [facility] [address] [place] [address] Dr. Mark Cuellar LEUKOCYTES Negative Normal NEGATIVE [facility] Comment on above: Performed By: #### E RUR UMICRO #### [facility] [address] [place] [address] Dr. Mark Cuellar Nitrite Ql (U) Negative Normal NEGATIVE [facility] Comment on above: Performed By: #### E RUR UMICRO #### [facility] [address] [place] [address] Dr. Mark Cuellar pH (U) 7.0 [pH] Normal 5-9 [facility] Comment on above: Performed By: #### VIGNESH ZELAYARO #### [facility] [address] [place] [address] Dr. Mark Cuellar SPEC GRAVITY 1.010 Normal 1.005-<=1.02 5 [facility] Comment on above: Performed By: #### VIGNESH ZELAYARO #### [facility] [address] [place] [address] Dr. Mark Cuellar UA PROTEIN Negative Normal NEGATIVE/ TRACE [facility] Comment on above: Performed By: #### VIGNESH ZELAYARO #### [facility] [address] [place] [address] Dr. Mark Cuellar UR MICRO IND INDICATED Normal [facility] Comment on above: Performed By: #### VIGNESH ZELAYARO #### [facility] [address] [place] [address] Dr. Mark Cuellar Urobilinogen Qn (U) 0.2 {Ariana'U}/dL Normal 0.2 - 1. 0 [facility] Comment on above: Performed By: #### VIGNESH ZELAYARO #### [facility] [address] [place] [address] Dr. Mark Cuellar URINE MICROSCOPIC ONLYon BACTERIA NONE SEEN Normal NONE SEEN [facility] Comment on above: Performed By: #### VIGNESH ZELAYARO #### [facility] [address] [place] [address] Dr. Mark Cuellar Bacteria identified Cx Nom (U) NOT INDICATED Normal [facility] Comment on above: Performed By: #### VIGNESH ZELAYARO #### [facility] [address] [place] [address] Dr. Mark Cuellar CAST NONE SEEN Normal NONE SEEN [facility] Comment on above: Performed By: #### VIGNESH ZELAYARO #### [facility] [address] [place] [address] Dr. Mark Cuellar Crystals LM Nom (Urine sed) NONE SEEN Normal NONE SEEN [facility] Comment on above: Performed By: #### E RUR, UMICRO #### [facility] [address] [address] [address] Mark Cuellar Epithelial cells LM Ql (Urine sed) MODERATE Abnormal NONE SEEN /RARE [facility] Comment on above: Performed By: #### E RUR, UMICRO #### [facility] [address] [address] [address] Mark Cuellar MUCOUS TRACE Abnormal NONE SEEN [facility] Comment on above: Performed By: #### E RUR, UMICRO #### [facility] [address] [place] [address] Dr. Mark Cuellar RBC 10-20 Abnormal 0-2 [facility] Comment on above: Performed By: #### E RUR, UMICRO #### [facility] [address] [place] [address] Dr. Mark Cuellar WBC NONE SEEN Normal NONE SEEN [facility] Comment on above: Performed By: #### E RUR, UMICRO #### [facility] [address] [place] [address] Dr. Mark Cuellar US KIDNEYSon 06-24-2022 US KIDNEYS RETROPERITONEAL ULTRASOUND : 06/24/2022 1:58 PM EST History:pain on the left. 27 weeks . Comparison: None available . Right kidney is 11.6 cm in length. Left kidney is 11.0 cm in length. There is moderate right hydronephrosis. There are several echogenic foci in the right kidney the largest measuring 7 mm. This focus may minimally shadow. Left kidney is 10 is 11.0 cm in length. Modest hydronephrosis. Several echogenic foci. The largest measures 4 mm. Urinary bladder demonstrates a modest amount of fluid. Hyperechoic focus left posterolateral to the urinary bladder mildly shadows. It measures 6 mm IMPRESSION: 1. Moderate right hydronephrosis. Etiology unknown. related versus pathologic. Nonspecific echogenic foci in the right kidney. These do not obviously shadow. Perhaps these represent early calculi. 2. Modest left hydronephrosis. This is secondary to a distal left ureteral calculus. Echogenic foci in the left kidney. These do not obviously shadow. Perhaps these represent early calculi. Electronically authenticated by: STEPHEN SIDHU Date: 2022-06-24 16:10 Normal [facility] XR KUB 1 VIEWon 06-24-2022 XR KUB 1 VIEW EXAM: XR KUB 1 VIEW HISTORY: The patient is a 26-year-old female. pain COMPARISON: ultrasound from 01/24/2022. IMPRESSION: There is a fetus in vertex position. There is a 7 mm calcification within the inferior pelvis to the left of midline. Electronically authenticated by: FERMIN BUSCH Date: 2022-06-24 17:49 Normal [facility] PAP ACOG PANEL 2: 19 to 27on 05-31-2022 . . Normal [facility] Comment on above: Performed By: #### D DEEPA #### [facility] [address] [address] [address] Mark Cuellar Age Gdln ACOG Testing - Normal [facility] Comment on above: Performed By: #### D DEEPA #### [facility] [address] [address] [address] Mark Cuellar DIAGNOSIS: Comment Normal [facility] Comment on above: Result Comment: NEGA TIVE FOR INTRAEPITHELIAL LESION OR MALIGNANCY. Performed By: #### D DEEPA #### [facility] [address] [address] [address] Mark Cuellar Methodology: Comment Normal [facility] Comment on above: Result Comment: This liquid based ThinPrep(R) pap test was screened with the use of an image guided system. Performed By: #### D DEEPA #### [facility] [address] [address] [address] Mark Cuellar Note: Comment [facility] Comment on above: Result Comment: The Pap smear is a screening test designed to aid in the detection of premalignant and malignant conditions of the uterine cervix. It is not a diagnostic procedure and should not be used as the sole means of detecting cervical cancer. Both false-positive and false-negative reports do occur. . Performed By: #### D DEEPA #### [facility] [address] [address] [address] Mark Cuellar Performed by: Comment Normal [facility] Comment on above: Result Comment: Humble Jones, Chip Mucker (ASCP) Performed By: #### D DEEPA #### [facility] [address] [place] [address] Dr. Mark Cuellar Reflex Criteria: Comment Normal [facility] Comment on above: Result Comment: The HPV DNA reflex criteria were not met with this specimen result therefore, no HPV testing was performed. . Performed By: #### D DEEPA #### [facility] [address] [place] [address] Dr. Mark Cuellar Specimen adequacy: Comment Normal [facility] Comment on above: Result Comment: Sati sfactory for evaluation. No endocervical component is identified. Performed By: #### D DEEPA #### [facility] [address] [place] [address] Dr. Mark Cuellar CHLAMYDIA/GONOCOCCUS LEANDRO (SW AB/URINE/PAPon 05-29-2022 Chlamydia trachomatis, LEANDRO Negative Normal Negative [facility] Comment on above: Performed By: #### Jonna ANDERSON UMICRO #### [facility] [address] [place] [address] Dr. Mark Cuellar Neisseria gonorrhoeae, LEANDRO Negative Normal Negative [facility] Comment on above: Performed By: #### Jonna ANDERSON UMICRO #### [facility] [address] [place] [address] Dr. Mark Cuellar VAGINITIS/VAGINOSIS DNA PROB Alfredo 05-27-2022 Karen species Negative Normal Negative [facility] Comment on above: Performed By: #### Jonna ANDERSON UMICRO #### [facility] [address] [place] [address] Dr. Mark Cuellar Gardnerella vaginalis Negative Normal Negative [facility] Comment on above: Performed By: #### E RUR UMICRO #### [facility] [address] [place] [address] Dr. Mark Cuellar Trichomonas vaginalis Negative Normal Negative [facility] Comment on above: Performed By: #### E RISA ANDERSON #### [facility] [address] [place] [address] Dr. Mark Cuellar COVID/FLU RT-PCRon 2 SARS-CoV-2 (COVID-19) RNA LEANDRO+probe Ql (Unsp spec) Negative [employer] Other COVID/FLU RT-PCR Positive [employer] Other COVID/FLU RT-PCR Negative [employer] Other COVID/FLU RT-PCRon 2 SARS-CoV-2 (COVID-19) RNA LEANDRO+probe Ql (Unsp spec) Negative [employer] Other COVID/FLU RT-PCR Negative [employer] Other CBC AUTO DIFFon 03-04-2022 BASO # 0.0 103/ul Normal 0.0-0.1 [facility] Comment on above: Performed By: #### C BC #### [facility] [address] [place] [address] Dr. Mark Cuellar Basophils/100 WBC (Bld) 0.2 % Normal 0.2-2.0 [facility] Comment on above: Performed By: #### C BC #### [facility] [address] [place] [address] Dr. Mark Cuellar EO # 0.1 103/ul Normal 0.0-0.7 [facility] Comment on above: Performed By: #### C BC #### [facility] [address] [place] [address] Dr. Mark Cuellar Eosinophils/100 WBC (Bld) 0.6 % Critically low 0.9-7.0 [facility] Comment on above: Performed By: #### C BC #### [facility] [address] [place] [address] Dr. Mark Cuellar Erythrocyte distribution width (RBC) [Ratio] 12.1 % Normal 11.0-15.0 [facility] Comment on above: Performed By: #### C BC #### [facility] [address] [place] [address] Dr. Mark Cuellar Hematocrit (Bld) [Volume fraction] 34.7 % Critically low 36.0-48.0 [facility] Comment on above: Performed By: #### C BC #### [facility] [address] [place] [address] Dr. Mark Cuellar Hemoglobin (Bld) [Mass/Vol] 12.5 g/dL Normal 12.0-16.0 [facility] Comment on above: Performed By: #### C BC #### [facility] [address] [place] [address] Dr. Mark Cuellar IG # 0.08 10e3/ul Critically high 0.00-0.03 [facility] Comment on above: Performed By: #### C BC #### [facility] [address] [place] [address] Dr. Mark Cuellar IG % 0.7 % Critically high 0.0-0.5 [facility] Comment on above: Performed By: #### C BC #### [facility] [address] [place] [address] Dr. Mark Cuellar LYMPH # 2.6 103/ul Normal 1.2-3.8 [facility] Comment on above: Performed By: #### C BC #### [facility] [address] [place] [address] Dr. Mark Cuellar Lymphocytes/100 WBC (Bld) 21.3 % Normal 20.5-60.0 [facility] Comment on above: Performed By: #### C BC #### [facility] [address] [place] [address] Dr. Mark Cuellar MANUAL DIFF REQ NO Normal [facility] Comment on above: Performed By: #### C BC #### [facility] [address] [place] [address] Dr. Mark Cuellar MCH (RBC) [Entitic mass] 30.0 pg Normal 26.7-34.0 [facility] Comment on above: Performed By: #### C BC #### [facility] [address] [place] [address] Dr. Mark Cuellar MCHC (RBC) [Mass/Vol] 36.0 g/dL Critically high 29.9-35.2 [facility] Comment on above: Performed By: #### C BC #### [facility] [address] [address] [address] Mark Cuellar MCV (RBC) [Entitic vol] 83.4 fL Normal 81.0-99.0 [facility] Comment on above: Performed By: #### C BC #### [facility] [address] [address] [address] Mark Cuellar MONO # 0.8 103/ul Normal 0.3-0.8 [facility] Comment on above: Performed By: #### C BC #### [facility] [address] [address] [address] Mark Cuellar Monocytes/100 WBC (Bld) 6.9 % Normal 1.7-12.0 [facility] Comment on above: Performed By: #### C BC #### [facility] [address] [address] [address] Mark Cuellar NEUT # 8.5 103/ul Critically high 1.4-6.5 [facility] Comment on above: Performed By: #### C BC #### [facility] [address] [address] [address] Mark Cuellar Neutrophils/100 WBC (Bld) 70.3 % Normal 43.0-75.0 [facility] Comment on above: Performed By: #### C BC #### [facility] [address] [address] [address] Mark Cuellar Platelet mean volume (Bld) [Entitic vol] 9.5 fL Normal 9.5-13.5 [facility] Comment on above: Performed By: #### C BC #### [facility] [address] [address] [address] Mark Cuellar PLT 234 103/ul Normal 150-450 [facility] Comment on above: Performed By: #### C BC #### [facility] [address] [address] [address] Mark Cuellar RBC 4.16 106/ul Critically low 4.20-5.40 [facility] Comment on above: Performed By: #### C BC #### [facility] [address] [address] [address] Mark Cuellar WBC 12.0 103/ul Critically high 4.0-11.0 [facility] Comment on above: Performed By: #### C BC #### [facility] [address] [place] [address] Dr. Mark Cuellar ER URINE PROFILEon 2 Bilirubin Ql (U) Negative Normal NEGATIVE [facility] Comment on above: Performed By: #### U ACSIND, UMICRO #### [facility] [address] [place] [address] Dr. Mark Cuellar Clarity (U) CLEAR Normal CLEAR [facility] Comment on above: Performed By: #### U ACSIND, UMICRO #### [facility] [address] [place] [address] Dr. Mark Cuellar Color (U) LT. YELLOW Normal YELLOW [facility] Comment on above: Performed By: #### U ACSIND, UMICRO #### [facility] [address] [place] [address] Dr. Mark FELIZ A micrscopic examination will be performed if indicated. Normal [facility] Comment on above: Performed By: #### U ACSIND, UMICRO #### [facility] [address] [place] [address] Dr. Mark Culelar Glucose Ql (U) Negative Normal NEGATIVE [facility] Comment on above: Performed By: #### U ACSIND, UMICRO #### [facility] [address] [place] [address] Dr. Mark Cuellar Hemoglobin Ql (U) Negative Normal NEGATIVE [facility] Comment on above: Performed By: #### U ACSIND, UMICRO #### [facility] [address] [place] [address] Dr. Mark Cuellar Ketones Ql (U) TRACE Abnormal NEGATIVE [facility] Comment on above: Performed By: #### U ACSKYAW, UMICRO #### [facility] [address] [address] [address] Mark Cuellar LEUKOCYTES Negative Normal NEGATIVE [facility] Comment on above: Performed By: #### U ACSKYAW, UMICRO #### [facility] [address] [address] [address] Mark Cuellar Nitrite Ql (U) Negative Normal NEGATIVE [facility] Comment on above: Performed By: #### U ACSKYAW UMICRO #### [facility] [address] [address] [address] Mark Cuellar pH (U) 7.0 [pH] Normal 5-9 [facility] Comment on above: Performed By: #### U ACSKYAW UMICRO #### [facility] [address] [place] [address] Dr. Mark Cuellar SPEC GRAVITY 1.015 Normal 1.005-<=1.02 5 [facility] Comment on above: Performed By: #### U ACSKYAW UMICRO #### [facility] [address] [place] [address] Dr. Mark Cuellar UA PROTEIN Negative Normal NEGATIVE/ TRACE [facility] Comment on above: Performed By: #### U ACSKYAW ICRO #### [facility] [address] [place] [address] Dr. Mark Cuellar UR MICRO IND NOT INDICATED Normal [facility] Comment on above: Performed By: #### U ACSKYAW UMICRO #### [facility] [address] [place] [address] Dr. Mark Cuellar Urobilinogen Qn (U) 0.2 {Ariana'U}/dL Normal 0.2 - 1. 0 [facility] Comment on above: Performed By: #### U ACSKYAW ICRO #### [facility] [address] [place] [address] Dr. Mark Cuellar PROF 14(COMP METB)on 022 Albumin [Mass/Vol] 3.5 g/dL Normal 3.4-5.0 [facility] Comment on above: Performed By: #### Jonna ANDERSON, UMICRO #### [facility] [address] [address] [address] Mark Cuellar Albumin/Globulin [Mass ratio] 1.1 {ratio} Normal [facility] Comment on above: Performed By: #### E JUSTIN, UMICRO #### [facility] [address] [address] [address] Mark Cuellar ALP [Catalytic activity/Vol] 49 U/L Normal 46-116 [facility] Comment on above: Performed By: #### E JUSTIN, UMICRO #### [facility] [address] [address] [address] Mark Cuellar ALT [Catalytic activity/Vol] 18 U/L Normal 14-59 [facility] Comment on above: Performed By: #### E JUSTIN, UMICRO #### [facility] [address] [address] [address] Mark Cuellar Anion gap [Moles/Vol] 10.7 mmol/L Normal [facility] Comment on above: Performed By: #### Jonna ANDERSON, UMICRO #### [facility] [address] [address] [address] Mark Cuellar AST [Catalytic activity/Vol] 12 U/L Critically low 15-37 [facility] Comment on above: Performed By: #### Jonna ANDERSON, UMICRO #### [facility] [address] [address] [address] Mark Cuellar Bilirubin [Mass/Vol] 0.9 mg/dL Normal 0.2-1.0 [facility] Comment on above: Performed By: #### E JUSTIN, UMICRO #### [facility] [address] [address] [address] Mark Cuellar Calcium [Mass/Vol] 9.8 mg/dL Normal 8.5-10.1 [facility] Comment on above: Performed By: #### E RUR, UMICRO #### [facility] [address] [address] [address] Mark Cuellar Chloride [Moles/Vol] 102 mmol/L Normal 98-107 [facility] Comment on above: Performed By: #### RISA ZELAYA #### [facility] [address] [place] [address] Dr. Mark Cuellar CO2 [Moles/Vol] 24.8 mmol/L Normal 21.0-32.0 [facility] Comment on above: Performed By: #### RISA ZELAYA #### [facility] [address] [place] [address] Dr. Mark Cuellar Creatinine [Mass/Vol] 0.62 mg/dL Normal 0.55-1.02 [facility] Comment on above: Performed By: #### RISA ZELAYA #### [facility] [address] [place] [address] Dr. Mark Cuellar EGFR-AF [place] >60 Normal >=60 [facility] Comment on above: Performed By: #### RISA ZELAYA #### [facility] [address] [place] [address] Dr. Mark Cuellar EGFR-NON AF [place] >60 Normal >=60 [facility] Comment on above: Performed By: #### RISA ZELAYA #### [facility] [address] [place] [address] Dr. Mark Cuellar Globulin (S) [Mass/Vol] 3.2 g/dL Normal [facility] Comment on above: Performed By: #### RISA ZELAYA #### [facility] [address] [place] [address] Dr. Mark Cuellar Glucose [Mass/Vol] 88 mg/dL Normal 74-106 [facility] Comment on above: Performed By: #### RISA ZELAYA #### [facility] [address] [place] [address] Dr. Mark Cuellar Potassium [Moles/Vol] 3.5 mmol/L Normal 3.5-5.1 [facility] Comment on above: Performed By: #### RISA ZELAYA #### [facility] [address] [place] [address] Dr. Mark Cuellar Protein [Mass/Vol] 6.7 g/dL Normal 6.4-8.2 [facility] Comment on above: Performed By: #### VIGNESH ZELAYARO #### [facility] [address] [place] [address] Dr. Mark Cuellar Sodium [Moles/Vol] 134 mmol/L Critically low 136-145 [facility] Comment on above: Performed By: #### E JUSTIN UMICRO #### [facility] [address] [place] [address] Dr. Mark Cuellar Urea nitrogen [Mass/Vol] 13.0 mg/dL Normal 7.0-18.0 [facility] Comment on above: Performed By: #### Jonna ANDERSON UMICRO #### [facility] [address] [place] [address] Dr. Mark Cuellar Urea nitrogen/Creatinine [Mass ratio] 21.0 mg/mg Normal [facility] Comment on above: Performed By: #### Jonna ANDERSON UMICRO #### [facility] [address] [place] [address] Dr. Mark Cuellar HEP B SURFACE ANTIGEN SCREEN on 02-28-2022 HBsAg Screen Negative Normal Negative [facility] Comment on above: Performed By: #### U HERNESTO UMICRO #### [facility] [address] [place] [address] Dr. Mark Cuellar HEPATITIS C VIRUS AB W/ REFL EX QUANTon 02-28-2022 HCV AB <0.1 Normal 0.0-0.9 [facility] Comment on above: Performed By: #### U HERNESTO UMICRO #### [facility] [address] [place] [address] Dr. Mark Cuellar Interpretation: Comment Normal [facility] Comment on above: Result Comment: Nega tive Not infected with HCV, unless recent infection is suspected or other evidence exists to indicate HCV infection. Performed By: #### U HERNESTO UMICRO #### [facility] [address] [place] [address] Dr. Mark Cuellar HIV 1 AND 2 WITH REFLEXon HIV Screen 4th Generation wRfx Non-Reactive Normal Non Reactive [facility] Comment on above: Result Comment: HIV Negative HIV-1/HIV-2 antibodies and HIV-1 p24 antigen were NOT detected. There is no laboratory evidence of HIV infection. Performed By: #### H IV12 #### [facility] [address] [place] [address] Dr. Mark Cuellar RPR QUANTon 02-28-2022 Rapid Plasma Reagin, Quant Non-Reactive Normal NonRea<1:1 [facility] Comment on above: Result Comment: Plea se Note: This test does not meet current guidelines for screening and diagnosis of syphilis. This test is intended for following treatment response in patients being treated for syphilis infection. To screen for syphilis infection, a reflex cascade that includes both RPR and a treponema-specific assay should be utilized, such as Treponema pallidum (Syphilis) Screening Wirt (458238) or Rapid Plasma Reagin (RPR) Test With Reflex to Quantitative RPR and Confirmatory Treponema pallidum Antibodies (029939). Performed By: #### D DEEPA #### [facility] [address] [place] [address] Dr. Mark Cuellar RUBELLA AB IGGon 02-28-2022 Rubella Antibodies, IgG 3.31 index Normal Immune >0.99 [facility] Comment on above: Result Comment: Non- immune <0.90 Equivocal 0.90 - 0.99 Immune >0.99 Performed By: #### U RISA ERIC #### [facility] [address] [place] [address] Dr. Mark Cuellar CBC AUTO DIFFon 02-27-2022 BASO # 0.0 103/ul Normal 0.0-0.1 [facility] Comment on above: Performed By: #### U RISA ERIC #### [facility] [address] [place] [address] Dr. Mark Cuellar Basophils/100 WBC (Bld) 0.2 % Normal 0.2-2.0 [facility] Comment on above: Performed By: #### U RISA ERIC #### [facility] [address] [place] [address] Dr. Mark Cuellar EO # 0.1 103/ul Normal 0.0-0.7 [facility] Comment on above: Performed By: #### U ACSKYAW ICRO #### [facility] [address] [place] [address] Dr. Mark Cuellar Eosinophils/100 WBC (Bld) 0.7 % Critically low 0.9-7.0 [facility] Comment on above: Performed By: #### U ACSKYAW ICRO #### [facility] [address] [place] [address] Dr. Mark Cuellar Erythrocyte distribution width (RBC) [Ratio] 11.9 % Normal 11.0-15.0 [facility] Comment on above: Performed By: #### U ACSKYAW ICRO #### [facility] [address] [place] [address] Dr. Mark Cuellar Hematocrit (Bld) [Volume fraction] 36.0 % Normal 36.0-48.0 [facility] Comment on above: Performed By: #### U ACSKYAW [facility] #### [facility] [address] [place] [address] Dr. Mark Cuellar Hemoglobin (Bld) [Mass/Vol] 13.0 g/dL Normal 12.0-16.0 [facility] Comment on above: Performed By: #### U ACSKYAW ICRO #### [facility] [address] [place] [address] Dr. Mark Cuellar IG # 0.04 10e3/ul Critically high 0.00-0.03 [facility] Comment on above: Performed By: #### U ACSKYAW ICRO #### [facility] [address] [place] [address] Dr. Mark Cuellar IG % 0.5 % Normal 0.0-0.5 [facility] Comment on above: Performed By: #### U ACSKYAW UMICRO #### [facility] [address] [place] [address] Dr. Mark Cuellar LYMPH # 1.6 103/ul Normal 1.2-3.8 [facility] Comment on above: Performed By: #### U HERNESTO ICRO #### [facility] [address] [place] [address] Dr. Mark Cuellar Lymphocytes/100 WBC (Bld) 17.6 % Critically low 20.5-60.0 [facility] Comment on above: Performed By: #### U HERNESTO UMICRO #### [facility] [address] [place] [address] Dr. Mark Cuellar MANUAL DIFF REQ NO Normal [facility] Comment on above: Performed By: #### U HERNESTO ICRO #### [facility] [address] [place] [address] Dr. Mark Cuellar MCH (RBC) [Entitic mass] 30.7 pg Normal 26.7-34.0 [facility] Comment on above: Performed By: #### Tarik ERIC ICRO #### [facility] [address] [place] [address] Dr. Mark Cuellar MCHC (RBC) [Mass/Vol] 36.1 g/dL Critically high 29.9-35.2 [facility] Comment on above: Performed By: #### Tarik ERIC ICRO #### [facility] [address] [place] [address] Dr. Mark Cuellar MCV (RBC) [Entitic vol] 84.9 fL Normal 81.0-99.0 [facility] Comment on above: Performed By: #### Tarik ERIC ICRO #### [facility] [address] [place] [address] Dr. Mark Cuellar MONO # 0.6 103/ul Normal 0.3-0.8 [facility] Comment on above: Performed By: #### U HERNESTO UMICRO #### [facility] [address] [place] [address] Dr. Mark Cuellar Monocytes/100 WBC (Bld) 6.3 % Normal 1.7-12.0 [facility] Comment on above: Performed By: #### U HERNESTO UMICRO #### [facility] [address] [address] [address] Mark Cuellar NEUT # 6.6 103/ul Critically high 1.4-6.5 [facility] Comment on above: Performed By: #### U ACSKYAW, UMICRO #### [facility] [address] [address] [address] Mark Cuellar Neutrophils/100 WBC (Bld) 74.7 % Normal 43.0-75.0 [facility] Comment on above: Performed By: #### U ACSIND, UMICRO #### [facility] [address] [address] [address] Mark Cuellar Platelet mean volume (Bld) [Entitic vol] 9.1 fL Critically low 9.5-13.5 [facility] Comment on above: Performed By: #### U ACSIND, ICRO #### [facility] [address] [address] [address] Mark Cuellar PLT 214 103/ul Normal 150-450 [facility] Comment on above: Performed By: #### U ACSIND, ICRO #### [facility] [address] [address] [address] Mark Cuellar RBC 4.24 106/ul Normal 4.20-5.40 [facility] Comment on above: Performed By: #### U ACSIND, ICRO #### [facility] [address] [address] [address] Mark Cuellar WBC 8.8 103/ul Normal 4.0-11.0 [facility] Comment on above: Performed By: #### U ACSIND, UMICRO #### [facility] [address] [address] [address] Mark Cuellar CULTURE URINEon 02-27-2022 CULTURE URINE Culture Observations: LIGHT GROWTH OF MIXED GENITAL VALENTÍN. NO POTENTIAL PATHOGENS SEEN. Normal [facility] Comment on above: Performed By: #### U RCX #### [facility] [address] [address] [address] Mark Cuellar GLYCOHEMOGLOBIN A1Con 2021 ADA RECOMMENDATION SEE BELOW Normal [facility] Comment on above: Result Comment: ADA RECOMMENDED LIMIT 4.0 - 6.0 ADA THERAPEUTIC TARGET < 7.0 ACTION SUGGESTED > 7.0 Performed By: #### E JUSTIN UMICRO #### [facility] [address] [address] [address] Mark Cuellar Glucose [Mass/Vol] 74 mg/dL Normal [facility] Comment on above: Performed By: #### E JUSTIN, UMICRO #### [facility] [address] [address] [address] Mark Cuellar HbA1c (Bld) [Mass fraction] 4.2 % Critically low 4.5-6.2 [facility] Comment on above: Performed By: #### E JUSTIN, UMICRO #### [facility] [address] [place] [address] Dr. Mark Cuellar JOE BOX TEST PT SEND OUTo n 02-27-2022 SENT TO REF LAB 02/27/2022 Normal [facility] Comment on above: Performed By: #### Jonna ANDERSON UMICRO #### [facility] [address] [address] [address] Mark Cuellar TYPE AND SCREENon 02-27-2022 TYPE AND SCREEN Negative Normal [facility] Comment on above: Performed By: #### Jonna ANDERSON, UMICRO #### [facility] [address] [place] [address] Dr. Mark Cuellar AMYLASEon 02-13-2022 Amylase [Catalytic activity/Vol] 45 U/L Normal 25-115 [facility] Comment on above: Performed By: #### U ACSIND, UMICRO #### [facility] [address] [address] [address] Mark Cuellar BILIRUBIN CONJUGATED (DIRECT )on 02-13-2022 BILI, CONJUGATED 0.2 mg/dL Normal 0.0-0.2 [facility] Comment on above: Performed By: #### D DEEPA #### [facility] [address] [place] [address] Dr. Mark Cuellar CALCIUMon 02-13-2022 Calcium [Mass/Vol] 9.3 mg/dL Normal 8.5-10.1 [facility] Comment on above: Performed By: #### U ACSKYAW UMICRO #### [facility] [address] [place] [address] Dr. Mark Cuellar CBC AUTO DIFFon 02-13-2022 BASO # 0.0 103/ul Normal 0.0-0.1 [facility] Comment on above: Performed By: #### E JUSTIN, UMICRO #### [facility] [address] [place] [address] Dr. Mark Cuellar Basophils/100 WBC (Bld) 0.2 % Normal 0.2-2.0 [facility] Comment on above: Performed By: #### E JUSTIN UMICRO #### [facility] [address] [place] [address] Dr. Mark Cuellar EO # 0.1 103/ul Normal 0.0-0.7 [facility] Comment on above: Performed By: #### E JUSTIN UMICRO #### [facility] [address] [place] [address] Dr. Mark Cuellar Eosinophils/100 WBC (Bld) 1.0 % Normal 0.9-7.0 [facility] Comment on above: Performed By: #### E JUSTIN UMICRO #### [facility] [address] [place] [address] Dr. Mark Cuellar Erythrocyte distribution width (RBC) [Ratio] 11.9 % Normal 11.0-15.0 [facility] Comment on above: Performed By: #### E JUSTIN, UMICRO #### [facility] [address] [place] [address] Dr. Mark Cuellar Hematocrit (Bld) [Volume fraction] 37.6 % Normal 36.0-48.0 [facility] Comment on above: Performed By: #### E JUSTIN, UMICRO #### [facility] [address] [place] [address] Dr. Mark Cuellar Hemoglobin (Bld) [Mass/Vol] 13.5 g/dL Normal 12.0-16.0 [facility] Comment on above: Performed By: #### Jonna ANDERSON UMICRO #### [facility] [address] [place] [address] Dr. Mark Cuellar IG # 0.04 10e3/ul Critically high 0.00-0.03 [facility] Comment on above: Performed By: #### Jonna ANDERSON UMICRO #### [facility] [address] [place] [address] Dr. Mark Cuellar IG % 0.4 % Normal 0.0-0.5 [facility] Comment on above: Performed By: #### Jonna ANDERSON UMICRO #### [facility] [address] [place] [address] Dr. Mark Cuellar LYMPH # 2.2 103/ul Normal 1.2-3.8 [facility] Comment on above: Performed By: #### Jonna ANDERSON UMICRO #### [facility] [address] [place] [address] Dr. Mark Cuellar Lymphocytes/100 WBC (Bld) 19.7 % Critically low 20.5-60.0 [facility] Comment on above: Performed By: #### Jonna ANDERSON UMICRO #### [facility] [address] [place] [address] Dr. Mark Cuellar MANUAL DIFF REQ NO Normal [facility] Comment on above: Performed By: #### Jonna ANDERSON UMICRO #### [facility] [address] [place] [address] Dr. Mark Cuellar MCH (RBC) [Entitic mass] 30.8 pg Normal 26.7-34.0 [facility] Comment on above: Performed By: #### Jonna ANDERSON UMICRO #### [facility] [address] [place] [address] Dr. Mark Cuellar MCHC (RBC) [Mass/Vol] 35.9 g/dL Critically high 29.9-35.2 [facility] Comment on above: Performed By: #### Jonna ANDERSON UMICRO #### [facility] [address] [place] [address] Dr. Mark Cuellar MCV (RBC) [Entitic vol] 85.6 fL Normal 81.0-99.0 [facility] Comment on above: Performed By: #### THOMAS ZELAYAICRO #### [facility] [address] [place] [address] Dr. Mark Cuellar MONO # 0.8 103/ul Normal 0.3-0.8 [facility] Comment on above: Performed By: #### Jonna ANDERSON UMICRO #### [facility] [address] [place] [address] Dr. Mark Cuellar Monocytes/100 WBC (Bld) 7.6 % Normal 1.7-12.0 [facility] Comment on above: Performed By: #### Jonna ANDERSON UMICRO #### [facility] [address] [place] [address] Dr. Mark Cuellar NEUT # 7.9 103/ul Critically high 1.4-6.5 [facility] Comment on above: Performed By: #### Jonna ANDERSON UMICRO #### [facility] [address] [place] [address] Dr. Mark Cuellar Neutrophils/100 WBC (Bld) 71.1 % Normal 43.0-75.0 [facility] Comment on above: Performed By: #### Jonna ANDERSON UMICRO #### [facility] [address] [place] [address] Dr. Mark Cuellar Platelet mean volume (Bld) [Entitic vol] 9.2 fL Critically low 9.5-13.5 [facility] Comment on above: Performed By: #### Jonna ANDERSON UMICRO #### [facility] [address] [place] [address] Dr. Mark Cuellar PLT 218 103/ul Normal 150-450 [facility] Comment on above: Performed By: #### Jonna ANDERSON UMICRO #### [facility] [address] [place] [address] Dr. Mark Cuellar RBC 4.39 106/ul Normal 4.20-5.40 [facility] Comment on above: Performed By: #### Jonna ANDERSON, UMICRO #### [facility] [address] [address] [address] Mark Cuellar WBC 11.0 103/ul Normal 4.0-11.0 [facility] Comment on above: Performed By: #### E JUSTIN, UMICRO #### [facility] [address] [address] [address] Mark Cuellar FREE T4on 02-13-2022 Free T4 [Mass/Vol] 1.36 ng/dL Normal 0.76-1.46 [facility] Comment on above: Performed By: #### Jonna ANDERSON, ICRO #### [facility] [address] [place] [address] Dr. Mark Cuellar LIPASEon 02-13-2022 Lipase [Catalytic activity/Vol] 91.0 U/L Normal 73.0-393.0 [facility] Comment on above: Performed By: #### U ACSKYAW ICRO #### [facility] [address] [place] [address] Dr. Mark Cuellar MAGNESIUMon 02-13-2022 Magnesium [Mass/Vol] 1.9 mg/dL Normal 1.8-2.4 [facility] Comment on above: Performed By: #### U HERNESTO, ICRO #### [facility] [address] [place] [address] Dr. Mark Cuellar PROF 14(COMP METB)on 022 Albumin [Mass/Vol] 3.7 g/dL Normal 3.4-5.0 [facility] Comment on above: Performed By: #### U ACSKYAW, ICRO #### [facility] [address] [place] [address] Dr. Mark Cuellar Albumin/Globulin [Mass ratio] 1.2 {ratio} Normal [facility] Comment on above: Performed By: #### U HERNESTO, UMICRO #### [facility] [address] [place] [address] Dr. Mark Cuellar ALP [Catalytic activity/Vol] 45 U/L Critically low 46-116 [facility] Comment on above: Performed By: #### U ACSIND, UMICRO #### [facility] [address] [address] [address] Mark Cuellar ALT [Catalytic activity/Vol] 18 U/L Normal 14-59 [facility] Comment on above: Performed By: #### U ACSIND, UMICRO #### [facility] [address] [address] [address] Mark Cuellar Anion gap [Moles/Vol] 10.7 mmol/L Normal [facility] Comment on above: Performed By: #### U ACSIND, UMICRO #### [facility] [address] [address] [address] Mark Cuellar AST [Catalytic activity/Vol] 11 U/L Critically low 15-37 [facility] Comment on above: Performed By: #### U ACSIND, UMICRO #### [facility] [address] [place] [address] Dr. Mark Cuellar Bilirubin [Mass/Vol] 1.2 mg/dL Critically high 0.2-1.0 [facility] Comment on above: Performed By: #### U ACSIND, UMICRO #### [facility] [address] [address] [address] Mark Cuellar Chloride [Moles/Vol] 102 mmol/L Normal 98-107 [facility] Comment on above: Performed By: #### U ACSIND, UMICRO #### [facility] [address] [address] [address] Mark Cuellar CO2 [Moles/Vol] 26.0 mmol/L Normal 21.0-32.[address] [facility] Comment on above: Performed By: #### U ACSIND, UMICRO #### [facility] [address] [address] [address] Mark Cuellar Creatinine [Mass/Vol] 0.67 mg/dL Normal 0.55-1.02 [facility] Comment on above: Performed By: #### U ACSIND, UMICRO #### [facility] [address] [address] [address] Mark Cuellar EGFR-AF [place] >60 Normal >=60 [facility] Comment on above: Performed By: #### U ACSKYAW UMICRO #### [facility] [address] [place] [address] Dr. Mark Cuellar EGFR-NON AF [place] >60 Normal >=60 [facility] Comment on above: Performed By: #### U ACSKYAW UMICRO #### [facility] [address] [address] [address] Mark Cuellar Globulin (S) [Mass/Vol] 3.2 g/dL Normal [facility] Comment on above: Performed By: #### U ACSKYAW UMICRO #### [facility] [address] [place] [address] Dr. Mark Cuellar Glucose [Mass/Vol] 88 mg/dL Normal 74-106 [facility] Comment on above: Performed By: #### U HERNESTO UMICRO #### [facility] [address] [place] [address] Dr. Mark Cuellar Potassium [Moles/Vol] 3.7 mmol/L Normal 3.5-5.1 [facility] Comment on above: Performed By: #### U THOMAS ERICICRO #### [facility] [address] [place] [address] Dr. Mark Cuellar Protein [Mass/Vol] 6.9 g/dL Normal 6.4-8.2 [facility] Comment on above: Performed By: #### U HERNESTO UMICRO #### [facility] [address] [place] [address] Dr. Mark Cuellar Sodium [Moles/Vol] 135 mmol/L Critically low 136-145 [facility] Comment on above: Performed By: #### U ACSKYAW UMICRO #### [facility] [address] [place] [address] Dr. Mark Cuellar Urea nitrogen [Mass/Vol] 13.0 mg/dL Normal 7.0-18.0 [facility] Comment on above: Performed By: #### U HERNESTO UMICRO #### [facility] [address] [place] [address] Dr. Mark Cuellar Urea nitrogen/Creatinine [Mass ratio] 19.4 mg/mg Normal [facility] Comment on above: Performed By: #### U ACSKYAW UMICRO #### [facility] [address] [place] [address] Dr. Mark Cuellar TSHon 02-13-2022 TSH 0.326 uIU/mL Critically low 0.358-3.740 [facility] Comment on above: Performed By: #### U ACSKYAW, UMICRO #### [facility] [address] [place] [address] Dr. Mark Cuellar CBC AUTO DIFFon 02-06-2022 BASO # 0.0 103/ul Normal 0.0-0.1 [facility] Comment on above: Performed By: #### U ACSKYAW UMICRO #### [facility] [address] [place] [address] Dr. Mark Cuellar Basophils/100 WBC (Bld) 0.2 % Normal 0.2-2.0 [facility] Comment on above: Performed By: #### U ACSKYAW UMICRO #### [facility] [address] [place] [address] Dr. Mark Cuellar EO # 0.1 103/ul Normal 0.0-0.7 [facility] Comment on above: Performed By: #### U ACSKYAW, UMICRO #### [facility] [address] [place] [address] Dr. Mark Cuellar Eosinophils/100 WBC (Bld) 0.8 % Critically low 0.9-7.0 [facility] Comment on above: Performed By: #### U ACSKYAW, UMICRO #### [facility] [address] [place] [address] Dr. Mark Cuellar Erythrocyte distribution width (RBC) [Ratio] 12.0 % Normal 11.0-15.0 [facility] Comment on above: Performed By: #### U ACSKYAW, UMICRO #### [facility] [address] [place] [address] Dr. Mark Cuellar Hematocrit (Bld) [Volume fraction] 37.0 % Normal 36.0-48.0 [facility] Comment on above: Performed By: #### U THOMAS ERICICRO #### [facility] [address] [place] [address] Dr. Mark Cuellar Hemoglobin (Bld) [Mass/Vol] 13.0 g/dL Normal 12.0-16.0 [facility] Comment on above: Performed By: #### U HERNESTO UMICRO #### [facility] [address] [place] [address] Dr. Mark Cuellar IG # 0.07 10e3/ul Critically high 0.00-0.03 [facility] Comment on above: Performed By: #### U HERNESTO ICRO #### [facility] [address] [place] [address] Dr. Mark Cuellar IG % 0.6 % Critically high 0.0-0.5 [facility] Comment on above: Performed By: #### Tarik ERIC ICRO #### [facility] [address] [place] [address] Dr. Mark Cuellar LYMPH # 2.5 103/ul Normal 1.2-3.8 [facility] Comment on above: Performed By: #### Tarik ERIC ICRO #### [facility] [address] [place] [address] Dr. Mark Cuellar Lymphocytes/100 WBC (Bld) 22.5 % Normal 20.5-60.0 [facility] Comment on above: Performed By: #### U HERNESTO ICRO #### [facility] [address] [place] [address] Dr. Mark Cuellar MANUAL DIFF REQ NO Normal [facility] Comment on above: Performed By: #### U HERNESTO ICRO #### [facility] [address] [place] [address] Dr. Mark Cuellar MCH (RBC) [Entitic mass] 30.5 pg Normal 26.7-34.0 [facility] Comment on above: Performed By: #### U HERNESTO ICRO #### [facility] [address] [place] [address] Dr. Mark Cuellar MCHC (RBC) [Mass/Vol] 35.1 g/dL Normal 29.9-35.2 [facility] Comment on above: Performed By: #### U ACSIND, UMICRO #### [facility] [address] [address] [address] Mark Cuellar MCV (RBC) [Entitic vol] 86.9 fL Normal 81.0-99.0 [facility] Comment on above: Performed By: #### U ACSIND, UMICRO #### [facility] [address] [place] [address] Dr. Mark Cuellar MONO # 0.7 103/ul Normal 0.3-0.8 [facility] Comment on above: Performed By: #### U ACSIND, UMICRO #### [facility] [address] [place] [address] Dr. Mark Cuellar Monocytes/100 WBC (Bld) 6.2 % Normal 1.7-12.0 [facility] Comment on above: Performed By: #### U ACSIND, UMICRO #### [facility] [address] [place] [address] Dr. Mark Cuellar NEUT # 7.7 103/ul Critically high 1.4-6.5 [facility] Comment on above: Performed By: #### U ACSIND, UMICRO #### [facility] [address] [place] [address] Dr. Mark Cuellar Neutrophils/100 WBC (Bld) 69.7 % Normal 43.0-75.0 [facility] Comment on above: Performed By: #### U ACSIND, UMICRO #### [facility] [address] [place] [address] Dr. Mark Cuellar Platelet mean volume (Bld) [Entitic vol] 9.3 fL Critically low 9.5-13.5 [facility] Comment on above: Performed By: #### U ACSIND, UMICRO #### [facility] [address] [place] [address] Dr. Mark Cuellar PLT 225 103/ul Normal 150-450 [facility] Comment on above: Performed By: #### U VIGNESH ERICRO #### [facility] [address] [address] [address] Mark Cuellar RBC 4.26 106/ul Normal 4.20-5.40 [facility] Comment on above: Performed By: #### U VIGNESH ERICRO #### [facility] [address] [place] [address] Dr. Mark Cuellar WBC 11.1 103/ul Critically high 4.0-11.0 [facility] Comment on above: Performed By: #### U VIGNESH ERICRO #### [facility] [address] [place] [address] Dr. Mark Cuellar PROF 14(COMP METB)on 022 Albumin [Mass/Vol] 3.5 g/dL Normal 3.4-5.0 [facility] Comment on above: Performed By: #### VIGNESH ZELAYARO #### [facility] [address] [place] [address] Dr. Mark Cuellar Albumin/Globulin [Mass ratio] 1.1 {ratio} Normal [facility] Comment on above: Performed By: #### VIGNESH ZELAYARO #### [facility] [address] [place] [address] Dr. Mark Cuellar ALP [Catalytic activity/Vol] 50 U/L Normal 46-116 [facility] Comment on above: Performed By: #### VIGNESH ZELAYARO #### [facility] [address] [place] [address] Dr. Mark Cuellar ALT [Catalytic activity/Vol] 20 U/L Normal 14-59 [facility] Comment on above: Performed By: #### VIGNESH ZELAYARO #### [facility] [address] [place] [address] Dr. Mark Cuellar Anion gap [Moles/Vol] 8.2 mmol/L Normal [facility] Comment on above: Performed By: #### VIGNESH ZELAYARO #### [facility] [address] [address] [address] Mark Cuellar AST [Catalytic activity/Vol] 12 U/L Critically low 15-37 [facility] Comment on above: Performed By: #### THOMAS ZELAYAICRO #### [facility] [address] [address] [address] Mark Cuellar Bilirubin [Mass/Vol] 1.1 mg/dL Critically high 0.2-1.0 [facility] Comment on above: Performed By: #### Jonna ANDERSON UMICRO #### [facility] [address] [address] [address] Mark Cuellar Calcium [Mass/Vol] 9.1 mg/dL Normal 8.5-10.1 [facility] Comment on above: Performed By: #### Jonna ANDERSON UMICRO #### [facility] [address] [place] [address] Dr. Mark Cuellar Chloride [Moles/Vol] 104 mmol/L Normal 98-107 [facility] Comment on above: Performed By: #### Jonna ANDERSON UMICRO #### [facility] [address] [address] [address] Mark Cuellar CO2 [Moles/Vol] 26.1 mmol/L Normal 21.0-32.0 [facility] Comment on above: Performed By: #### Jonna ANDERSON UMICRO #### [facility] [address] [address] [address] Mark Cuellar Creatinine [Mass/Vol] 0.74 mg/dL Normal 0.55-1.02 [facility] Comment on above: Performed By: #### Jonna ANDERSON UMICRO #### [facility] [address] [address] [address] Mark Cuellar EGFR-AF [place] >60 Normal >=[address] [facility] Comment on above: Performed By: #### Jonna ANDERSON UMICRO #### [facility] [address] [address] [address] Mark Cuellar EGFR-NON AF [place] >60 Normal >=60 [facility] Comment on above: Performed By: #### VIGNESH ZELAYARO #### [facility] [address] [place] [address] Dr. Mark Cuellar Globulin (S) [Mass/Vol] 3.1 g/dL Normal [facility] Comment on above: Performed By: #### VIGNESH ZELAYARO #### [facility] [address] [place] [address] Dr. Mark Cuellar Glucose [Mass/Vol] 93 mg/dL Normal 74-106 [facility] Comment on above: Performed By: #### VIGNESH ZELAYARO #### [facility] [address] [place] [address] Dr. Mark Cuellar Potassium [Moles/Vol] 3.3 mmol/L Critically low 3.5-5.1 [facility] Comment on above: Performed By: #### VIGNESH ZELAYARO #### [facility] [address] [place] [address] Dr. Mark Cuellar Protein [Mass/Vol] 6.6 g/dL Normal 6.4-8.2 [facility] Comment on above: Performed By: #### VIGNESH ZELAYARO #### [facility] [address] [place] [address] Dr. Mark Cuellar Sodium [Moles/Vol] 135 mmol/L Critically low 136-145 [facility] Comment on above: Performed By: #### Jonna ANDERSON UMSALLYRO #### [facility] [address] [place] [address] Dr. Mark Cuellar Urea nitrogen [Mass/Vol] 10.0 mg/dL Normal 7.0-18.0 [facility] Comment on above: Performed By: #### VIGNESH ZELAYARO #### [facility] [address] [place] [address] Dr. Mark Cuellar Urea nitrogen/Creatinine [Mass ratio] 13.5 mg/mg Normal [facility] Comment on above: Performed By: #### VIGNESH ZELAYARO #### [facility] [address] [place] [address] Dr. Mark Cuellar AMYLASEon 09-30-2022 Amylase [Catalytic activity/Vol] 40 U/L Normal 25-115 [facility] Comment on above: Performed By: #### C BC #### [facility] [address] [place] [address] Dr. Mark Cuellar CBC AUTO DIFFon 01-27-2022 BASO # 0.0 103/ul Normal 0.0-0.1 [facility] Comment on above: Performed By: #### Jonna ANDERSON, UMICRO #### [facility] [address] [place] [address] Dr. Mark Cuellar Basophils/100 WBC (Bld) 0.3 % Normal 0.2-2.0 [facility] Comment on above: Performed By: #### Jonna ANDERSON UMICRO #### [facility] [address] [place] [address] Dr. Mark Cuellar EO # 0.0 103/ul Normal 0.0-0.7 [facility] Comment on above: Performed By: #### Jonna ANDERSON, UMICRO #### [facility] [address] [place] [address] Dr. Mark Cuellar Eosinophils/100 WBC (Bld) 0.3 % Critically low 0.9-7.0 [facility] Comment on above: Performed By: #### Jonna ANDERSON, UMICRO #### [facility] [address] [place] [address] Dr. Mark Cuellar Erythrocyte distribution width (RBC) [Ratio] 11.8 % Normal 11.0-15.0 [facility] Comment on above: Performed By: #### Jonna ANDERSON, UMICRO #### [facility] [address] [place] [address] Dr. Mark Cuellar Hematocrit (Bld) [Volume fraction] 36.9 % Normal 36.0-48.0 [facility] Comment on above: Performed By: #### Jonna ANDERSON, UMICRO #### [facility] [address] [place] [address] Dr. Mark Cuellar Hemoglobin (Bld) [Mass/Vol] 13.2 g/dL Normal 12.0-16.0 [facility] Comment on above: Performed By: #### THOMAS ZELAYAICRO #### [facility] [address] [place] [address] Dr. Mark Cuellar IG # 0.06 10e3/ul Critically high 0.00-0.03 [facility] Comment on above: Performed By: #### Jonna ANDERSON UMICRO #### [facility] [address] [place] [address] Dr. Mark Cuellar IG % 0.5 % Normal 0.0-0.5 [facility] Comment on above: Performed By: #### THOMAS ZELAYAICRO #### [facility] [address] [place] [address] Dr. Mrak Cuellar LYMPH # 2.4 103/ul Normal 1.2-3.8 [facility] Comment on above: Performed By: #### THOMAS ZELAYAICRO #### [facility] [address] [place] [address] Dr. Mark Cuellar Lymphocytes/100 WBC (Bld) 18.8 % Critically low 20.5-60.0 [facility] Comment on above: Performed By: #### THOMAS ZELAYAICRO #### [facility] [address] [place] [address] Dr. Mark Cuellar MANUAL DIFF REQ NO Normal [facility] Comment on above: Performed By: #### THOMAS ZELAYAICRO #### [facility] [address] [place] [address] Dr. Mark Cuellar MCH (RBC) [Entitic mass] 30.6 pg Normal 26.7-34.0 [facility] Comment on above: Performed By: #### THOMAS ZELAYAICRO #### [facility] [address] [place] [address] Dr. Mark Cuellar MCHC (RBC) [Mass/Vol] 35.8 g/dL Critically high 29.9-35.2 [facility] Comment on above: Performed By: #### THOMAS ZELAYAICRO #### [facility] [address] [place] [address] Dr. Mark Cuellar MCV (RBC) [Entitic vol] 85.6 fL Normal 81.0-99.0 [facility] Comment on above: Performed By: #### THOMAS ZELAYAICRO #### [facility] [address] [place] [address] Dr. Mark Cuellar MONO # 0.9 103/ul Critically high 0.3-0.8 [facility] Comment on above: Performed By: #### Jonna ANDERSON UMICRO #### [facility] [address] [place] [address] Dr. Mark Cuellar Monocytes/100 WBC (Bld) 7.3 % Normal 1.7-12.0 [facility] Comment on above: Performed By: #### Jonna ANDERSON UMICRO #### [facility] [address] [place] [address] Dr. Mark Cuellar NEUT # 9.3 103/ul Critically high 1.4-6.5 [facility] Comment on above: Performed By: #### Jonna ANDERSON UMICRO #### [facility] [address] [place] [address] Dr. Mark Cuellar Neutrophils/100 WBC (Bld) 72.8 % Normal 43.0-75.0 [facility] Comment on above: Performed By: #### Jonna ANDERSON UMICRO #### [facility] [address] [place] [address] Dr. Mark Cuellar Platelet mean volume (Bld) [Entitic vol] 9.3 fL Critically low 9.5-13.5 [facility] Comment on above: Performed By: #### Jonna ANDERSON, UMICRO #### [facility] [address] [place] [address] Dr. Mark Cuellar PLT 239 103/ul Normal 150-450 [facility] Comment on above: Performed By: #### Jonna ANDERSON, UMICRO #### [facility] [address] [place] [address] Dr. Mark Cuellar RBC 4.31 106/ul Normal 4.20-5.40 [facility] Comment on above: Performed By: #### Jonna ANDERSON UMICRO #### [facility] [address] [address] [address] Mark Cuellar WBC 12.8 103/ul Critically high 4.0-11.0 [facility] Comment on above: Performed By: #### Jonna ANDERSON UMICRO #### [facility] [address] [address] [address] Mrak Cuellar CULTURE URINEon 01-27-2022 CULTURE URINE Culture Observations: NO GROWTH. Normal [facility] Comment on above: Performed By: #### Jonna ANDERSON UMICRO #### [facility] [address] [place] [address] Dr. Mark Cuellar ER URINE PROFILEon Bilirubin Ql (U) Negative Normal NEGATIVE [facility] Comment on above: Performed By: #### Jonna ANDERSON UMICRO #### [facility] [address] [place] [address] Dr. Mark Cuellar Clarity (U) CLEAR Normal CLEAR [facility] Comment on above: Performed By: #### Jonna ANDERSON UMICRO #### [facility] [address] [place] [address] Dr. Mark Cuellar Color (U) LT. YELLOW Normal YELLOW [facility] Comment on above: Performed By: #### Jonna ANDERSON UMICRO #### [facility] [address] [place] [address] Dr. Mark Cuellar ERUDiana A micrscopic examination will be performed if indicated. Normal [facility] Comment on above: Performed By: #### Jonna ANDERSON UMICRO #### [facility] [address] [place] [address] Dr. Mark Cuellar Glucose Ql (U) Negative Normal NEGATIVE [facility] Comment on above: Performed By: #### Jonna ANDERSON UMICRO #### [facility] [address] [place] [address] Dr. Mark Cuellar Hemoglobin Ql (U) TRACE-INTACT Abnormal NEGATIVE [facility] Comment on above: Performed By: #### THOMAS ZELAYAICRO #### [facility] [address] [place] [address] Dr. Mark Cuellar Ketones Ql (U) Negative Normal NEGATIVE [facility] Comment on above: Performed By: #### THOMAS ZELAYAICRO #### [facility] [address] [place] [address] Dr. Mark Cuellar LEUKOCYTES SMALL Abnormal NEGATIVE [facility] Comment on above: Performed By: #### THOMAS ZELAYAICRO #### [facility] [address] [place] [address] Dr. Mark Cuellar Nitrite Ql (U) Negative Normal NEGATIVE [facility] Comment on above: Performed By: #### VIGNESH ZELAYARO #### [facility] [address] [place] [address] Dr. Mark Cuellar pH (U) 8.0 [pH] Normal 5-9 [facility] Comment on above: Performed By: #### VIGNESH ZELAYARO #### [facility] [address] [place] [address] Dr. Mark Cuellar SPEC GRAVITY 1.010 Normal 1.005-<=1.02 5 [facility] Comment on above: Performed By: #### VIGNESH ZELAYARO #### [facility] [address] [place] [address] Dr. Mark Cuellar UA PROTEIN Negative Normal NEGATIVE/ TRACE [facility] Comment on above: Performed By: #### VIGNESH ZELAYARO #### [facility] [address] [place] [address] Dr. Mark Cuellar UR MICRO IND INDICATED Normal [facility] Comment on above: Performed By: #### THOMAS ZELAYAICRO #### [facility] [address] [place] [address] Dr. Mark Cuellar Urobilinogen Qn (U) 0.2 {Ariana'U}/dL Normal 0.2 - 1. 0 [facility] Comment on above: Performed By: #### VIGNESH ZELAYARO #### [facility] [address] [place] [address] Dr. Mark Cuellar LIPASEon 01-27-2022 Lipase [Catalytic activity/Vol] 66.0 U/L Critically low 73.0-393.0 [facility] Comment on above: Performed By: #### C BC #### [facility] [address] [place] [address] Dr. Mark Cuellar PROF 14(COMP METB)on 022 Albumin [Mass/Vol] 3.8 g/dL Normal 3.4-5.0 [facility] Comment on above: Performed By: #### C BC #### [facility] [address] [place] [address] Dr. Makr Cuellar Albumin/Globulin [Mass ratio] 1.3 {ratio} Normal [facility] Comment on above: Performed By: #### C BC #### [facility] [address] [place] [address] Dr. Mark Cuellar ALP [Catalytic activity/Vol] 53 U/L Normal 46-116 [facility] Comment on above: Performed By: #### C BC #### [facility] [address] [place] [address] Dr. Mark Cuellar ALT [Catalytic activity/Vol] 21 U/L Normal 14-59 [facility] Comment on above: Performed By: #### C BC #### [facility] [address] [place] [address] Dr. Mark Cuellar Anion gap [Moles/Vol] 12.0 mmol/L Normal [facility] Comment on above: Performed By: #### C BC #### [facility] [address] [place] [address] Dr. Mark Cuellar AST [Catalytic activity/Vol] 12 U/L Critically low 15-37 [facility] Comment on above: Performed By: #### C BC #### [facility] [address] [place] [address] Dr. Mark Cuellar Bilirubin [Mass/Vol] 1.5 mg/dL Critically high 0.2-1.0 [facility] Comment on above: Performed By: #### C BC #### [facility] [address] [place], [place] [id number] Dr. Mark Cuellar Calcium [Mass/Vol] 8.9 mg/dL Normal 8.5-10.1 [facility] Comment on above: Performed By: #### C BC #### [facility] [address] [place] [address] Dr. Mark Cuellar Chloride [Moles/Vol] 104 mmol/L Normal 98-107 [facility] Comment on above: Performed By: #### C BC #### [facility] [address] [place] [address] Dr. Mark Cuellar CO2 [Moles/Vol] 24.5 mmol/L Normal 21.0-32.[address] [facility] Comment on above: Performed By: #### C BC #### [facility] [address] [place] [address] Dr. Mark Cuellar Creatinine [Mass/Vol] 0.73 mg/dL Normal 0.55-1.02 [facility] Comment on above: Performed By: #### C BC #### [facility] [address] [place] [address] Dr. Mark Cuellar EGFR-AF [place]IZ[place] >60 Normal >=[address] [facility] Comment on above: Performed By: #### C BC #### [facility] [address] [place] [address] Dr. Mark Cuellar EGFR-NON AF [place]IZ[place] >60 Normal >=60 [facility] Comment on above: Performed By: #### C BC #### [facility] [address] [place] [address] Dr. Mark Cuellar Globulin (S) [Mass/Vol] 3.0 g/dL Normal [facility] Comment on above: Performed By: #### C BC #### [facility] [address] [place] [address] Dr. Mark Cuellar Glucose [Mass/Vol] 90 mg/dL Normal 74-106 [facility] Comment on above: Performed By: #### C BC #### [facility] [address] [place] [address] Dr. Mark Cuellar Potassium [Moles/Vol] 3.5 mmol/L Normal 3.5-5.1 [facility] Comment on above: Performed By: #### C BC #### [facility] [address] [address] [address] Mark Cuellar Protein [Mass/Vol] 6.8 g/dL Normal 6.4-8.2 [facility] Comment on above: Performed By: #### C BC #### [facility] [address] [address] [address] Mark Cuellar Sodium [Moles/Vol] 137 mmol/L Normal 136-145 [facility] Comment on above: Performed By: #### C BC #### [facility] [address] [place] [address] Dr. Mark Cuellar Urea nitrogen [Mass/Vol] 9.0 mg/dL Normal 7.0-18.0 [facility] Comment on above: Performed By: #### C BC #### [facility] [address] [place] [address] Dr. Mark Cuellar Urea nitrogen/Creatinine [Mass ratio] 12.3 mg/mg Normal [facility] Comment on above: Performed By: #### C BC #### [facility] [address] [place] [address] Dr. Mark Cuellar URINE MICROSCOPIC ONLYon AMORPHOUS CRYSTALS FEW Normal [facility] Comment on above: Performed By: #### Jonna ANDERSON UMICRO #### [facility] [address] [place] [address] Dr. Mark Cuellar BACTERIA MODERATE Abnormal NONE SEEN [facility] Comment on above: Performed By: #### Jonna ANDERSON UMICRO #### [facility] [address] [place] [address] Dr. Mark Cuellar Bacteria identified Cx Nom (U) INDICATED Normal [facility] Comment on above: Performed By: #### Jonna ANDERSON UMICRO #### [facility] [address] [place] [address] Dr. Mark Cuellar CAST NONE SEEN Normal NONE SEEN [facility] Comment on above: Performed By: #### Jonna ANDERSON UMICRO #### [facility] [address] [place] [address] Dr. Mark Cuellar Crystals LM Nom (Urine sed) SEEN Abnormal NONE SEEN [facility] Comment on above: Performed By: #### VIGNESH ZELAYARO #### [facility] [address] [place] [address] Dr. Mark Cuellar Epithelial cells LM Ql (Urine sed) FEW Abnormal NONE SEEN /RARE [facility] Comment on above: Performed By: #### VIGNESH ZELAYARO #### [facility] [address] [place] [address] Dr. Mark Cuellar MUCOUS NONE SEEN Normal NONE SEEN [facility] Comment on above: Performed By: #### Jonna ANDERSON UMICRO #### [facility] [address] [place] [address] Dr. Mark Cuellar RBC NONE SEEN Abnormal 0-2 [facility] Comment on above: Performed By: #### VIGNESH ZELAYARO #### [facility] [address] [place] [address] Dr. Mark Cuellar WBC 2-5 Abnormal NONE SEEN [facility] Comment on above: Performed By: #### VIGNESH ZELAYARO #### [facility] [address] [place] [address] Dr. Mark Cuellar US PREG TVon 01-24-2022 US PREG TV EXAMINATION: US PREG TV HISTORY: Missed period COMPARISON: No relevant comparison available. FINDINGS: Transvaginal images Mcarthur intrauterine gestation Gestational sac: 1.7 cm, 6 weeks 0 days CRL: 6.2 mm, 6 weeks 3 days Yolk sac: 3.2 mm Heart rate: 123 beats minute Cervix: Closed, 5.2 cm The uterus is normal in appearance, anteverted, anteflexed The right ovary is significant for 4.1 x 3.7 x 3 cm area of anechoic echogenicity, a cyst is favored The left ovary is normal in appearance Clinical age: 6 weeks 1 day Clinical ALICE: 09/18/2022 Ultrasound age: 6 weeks 3 days Ultrasound ALICE: 09/16/2022 IMPRESSION: Viable mcarthur intrauterine gestation measuring 6 weeks 3 days Electronically authenticated by: NIRALI QUEVEDO Date: 2022-01-24 17:39 Normal [facility] Coding Summaryon 07-05-2021 Coding Summary HTMLBase 64 HyahhihdPMc0lOn+PGhl YWQ+RB4PGLOeU84tmZMy pN1OP3zUBE3SRLVCDLRN XU2BAD6ruTN7CZuiL6Oc biAv TvjlaGXqQL88INb1GGM2 mKirWHrejA4ejIYqG8a1 DfEnBG61oJ41VEhfILTa IqN4TbTbudtbwCQv V7uxSdEghQGgYlf+PHRh YmxlIHdpZHRoPScxMDAl WwXzmUanFO0eDc6jQXZc LWNvbGxhcHNlOiBj z0xdUBIkTXejST0gmUbj R1ZzbLK1HEHlz8j5Id00 dHI+VLJvTXV4kFslMKam g624ZtUvq4ikWBK1 vNUaYMmjXKJ0P00lx4V3 RILrJBQkPBL3cTS3oI6j fQcenlrwY3MtcSRlEgU1 LDV7qRNypB2rnHwr shgzqQ2xStu+X02CUC1W NOLOMX0LCsm9M1JxSpvp dHI+JZ33BYYxGH21qPCz kRKna8qthHj3BaTg DPSrBXI6rVnbHXxby0Mk TJLoO06neBMay0S8RQRz hAimpWNhJzCuuVM9sY0k VXjwjxrxo3pilgjg Fhsgr8zjxv74eL04A93m DJenISGdZFA6FMUyFYLv zBlicy7caN5sDb1+IDxj a2nxb7dovCz3XbMh WCCjfsScjQebXPC7o1Kl Jo05Z1KweZkuj1WeAwr7 uo46zTTyz0N9wUT9XPrv GPJvlQ1lUYzrHdN3 UAJhKpGvjK30wGDjMIpj Bo5lmNqtfLbePJ3nAMPb ecmuHUOusH8jZDBshGQl kUlkJL6lJDUieaxh k230LyGhLXY5YWFdaRJu P1IstU9pDjKnMBTnQZJu U0WroYArAAiwD483DUgd UqQ7MGHnktAfL0Fv CSGbcCfmKgX9a7D9Py8V l0PmnkgnXIJ7GMuuDBMu FwK3AhVrKaW5H8WoTjh0 IKJccZhpHU0tU1Ub QAWdsfbmvpewlNX3DPNi XINysN50eGQpTAznIu4j z5D7x453TRWkPKFzjZ45 Ml5arAnwTMIgbWIJ bB0tdyapa4inooxdNbKj LCFiIUc0HEh1SCQgySgb ZrDqSPZ3WnG3IXA0wPGj lX3tdScjovdszO6r Oyc+I87wjQ7dEUL6LEE5 fwolGOOalyJrRT44NQ84 J6DiJouwxFLzlVT+PGRp icXbuDsdGL2bRgFd y3irw5HpHTwaX8RtZLLb HVvxJle5EYQpSKD1cND4 pT9zJMEnOBdgt6W0eGU8 B4ProqVzah0jq9gu ZMRaXBtvA25igPOai6N5 QMHcmEW9IYXzpPkmArHn pP10Ssk+LIOsbBefm3Ok Ujbdx0gxy8wjsOr8 IjMwJSIgdmFsaWduPSJ0 a7TqHb55V75rOMowTBCi GQNbUVShCBOylTduif0z jN2iSu7+PGNvbCB3 nSK0uO5uFTQySdQ2YXry D196LrBstZFxTowye3ad c6okeQz6WfQvMEQxvtYq jXhsUQX1c8DlBb19 D37aNRsbJEXwXMUvOPMh CPBamEmqjn6bxJ7vBa8+ SF8zf1bhpv62sV04aNS+ WXWlUUD0cKjpLDfr IWEmeT6cHHxeHbL5DHWc KgQtsG15pNFaYCqyXs6d fLnqsZbyKL0fSYFuanpb v485GhXow8xuMMKi aDCtQXzcOIL9G85eh6N7 KQDuUCUrEPX8hFZ2nM7r bGlnbjogbGVmdDsgdmVy vSpnGCwoDXhhE756 IHRvcDsnPlBhdGllbnQg NeLlEDs4O4IsVsh1GVJa tEvlAK2jwPXcYFjmRx9z lCbuoSqkCJ3sQZYw bcorw602DfSqw6ymJXId oYKjMLqzIWZ3C82zu2E4 ZXBsAQTkVHF9pJF3vR4d bGlnbjogbGVmdDsg kqLbtEwySNxoEHqsD764 IHRvcDsnPkJpcnRoIERh vFW2XH02BT07qXZpy5A5 tGW8K0XfMDRkdedv stksuQS2KFZbSDVyaB15 Cy6qtRlfWm8hOLUgFEU9 XFExfMEfF6ZxyZ1sJqMw JCAmJIHwA2DpjKAo SQjwP421SOuuJnT8RHXi ktRnX2ZjCLJqwEggAlV0 m9G2Xn3EU4E9DP24FD72 lNJed5D1oSP2E8Xs UVKdlbcembzkbMS7QBTp URPkeH11Bc0paCgqOu2h SPIrZGQ9BAOsoRMuP5An vH8oVdKzQKBdNLGc G2DinZBxJBrqE630VQbw YnF1CUDxbmGjQ8OzCERd kGwwFgI9z3I5Rk9LBRj9 IP22MN54eKFqg1S5 xCU6V9OvSNBsrttrkuxm oEZ6VIGqFKNdhP30Un5v xRixQg2hZBOhOVI2HQUz cZLkU3AtmD2rUzRw GWCdVQFuP8BkvRWbFXqz L439WZbtRlQ2SCFxqzQq Y8GyXUSiiEjhFdE4q4R4 Li0WTBGxCR50PQG1 jYM0AR62ER49W5WaIhuq dGFibGU+PHRhYmxlIHdp ZHRoPScxMDAlJyBzdHls YC2lQb4vSBDxECTx zKjagUNuGmIee6iuOIHw ZTewJS5qfHdmP1IasRJ2 EKWuy0s2Vp38J16aC8Nk dXA+BSQixBX7rUF3 vU5xPdQhOcW1LCqcV277 WeKyqUCbAzkau3dlm7mg eZj7SfR5HMMuwqYrhKza BGZ0w5HvQn37E78k IHdpZHRoPSIxNSUiIHZh vLyhkf1qaP4sTr6+PGNv hGR3zVJ6vX1sFlOtYxP2 UXphF011KqJsuVTw Vubxe1bio6lhjXf0NtBl XCHkhaXjiNnqGSW1b2Hw Ho63B4UdoXljz6NaTwq9 zv23tUBwx6S4fSD5 T4BuJHDrikdssCXhxGnd BC0gRHVpoksnVYNjuW1r AGGgV0i9KtFhFqY6MDjd S0AkkaU1LXNqlSVw DVyvPDZ7U02us9X0CCIq GPPmCBN2aRD1zA1trEbj bjogbGVmdDsgdmVydGlj QOcgCAgaR067CFNd yVelQHYifY4uBKBhuGUe fDpvPH8kZNWeavbkPk8X YuYFSQULSKCPQ8hBGFcj SKCCTYIHHQU0B9Up Lmn9KVHgsGeyLU5urDJx SLuhDo3smYhsvDkgSV4e JWBkaknrZCRldA2yMURs nKDqdHqfPT5yQVBb dawif521MtIaAKT2XKCo yKLfL5DajB0bIvMuLILn BPJoP9SsnJMkGOuoO305 KVqeTmG8SZGrfkLv M4UhFSFmvAquKcE7y1Y1 Tb5zKu1rQT7uCPe0CA20 DV30aQImm3V6cWQ9T4Fq ZGRpbmctcmlnaHQ6 IUArMCNxtQ26pEHzGJka Vz6pc9L2s277SUKjFVCo dM88Wr6tgPilYBGyrBJN rK3icprqi5hpiztw FoQaDEMxCKj9FAz9CVWi hTbeOuArHOQ9GzJ9RZE2 lQXmqN9zgPgbpodviJ1i Oyc+MjcgWWVhcnM8 Z0RvRso3KIGrvIggND0a wVEqISlnQe2dxLfexWxj PK8eCIJthgjeDGEfjN9l PSZocUYbpPwoWM4r CKUjipzrn200LmZvSDN5 AFOpgEAvV0ZigM1pSqEr XTMrZXCjW3ZbmECwAOup F265FMvcPdY2WHXh qkCqU3HyXWFjoLqsAzK4 c8R8Nk6JNZ8HSRA7V2Lr Pvt2BWDqkKkzXZ8crFQp NJrbYj5wjHelhUmk UB2gYBGzbdenVRVhaN4r YQBksWCwfDveBX5cYZEy bndjp809ZsBkAPL4KICc oFAoM4CxpM9hYbCr CJBaWZRzN8NumIJmBNnr Q926VPewUiY5NJDmbmFk R7EmMOAzpCdeCeV5m6D3 Io5UYFzrtBW+PC90 ni89N2UqBvfcGqg4CRGt TGH5gPU8hZ6uOWNmDYqh j4S3mRT6F4JvrzKsau3j p0mdNRFdJRmfR10n wKQty2A9LHVxdRE1ZGNj bGqiRoOehM69Gly+PGNv vQnvv7FjRvxpu7kxp6vz hPf4QjYaQQWyimGn xDanDHZ7s8BlBq15L31c IHdpZHRoPSIzMCUiIHZh bSaqut4ziE9gPv0+PGNv jOX7bSQ6eV5mNmYl OnC2GYzoB754LlVvtCCv Lzxxq3sts3rmhJh8DhWv CVLpotRtfIayVXC2k2Mt Kv98Q2BreBsbe3Or Oge5qw70nIAuy5Z6rZL6 N1CmFDVvcqpfqOLjoMns WV4eGTWupjqwYDMsyB5p PTWwB4o0DjAxYsW2 TMdoH3VureW5UONzcRCc MRMajCJQjY7cahiqn3oq qbygPgWjPAElZEk8LOk2 LWFsaWduOiBsZWZ0 GoI2NML9bAMieL4qaCuk dbdvnS7pJcz+QUb6r9wn qGVuTC4biIG5DF12KE66 lVTro5Q0mDD3N8Ll HPYhzslvxopxfIF2HHHz LBBqxM36Jv4byQubAe2r VQWuKXD5YFZraMXoS6Sa aI4iGzUmYLKrSSVd E2OcmDWiHChdA813YXnd PsF0LQEydoUfF6BeTUAp wDwiLaA5s5X6Dt9GEP65 FU10JU83wDRrr2Q8 qNM8A2MxGFHksizjyycz hZU9BZAiEYZpsS38Nu6q bEueKw0zCEXzKCB2ZGQu uPNjV2IbdJ5rPkBq YMEjERFgQ8StbFJsTNbt F393QKvfAyW3ZJBwfnWj Y0YsMXLghMqfRpY5x3U3 Op6CQv41CB67UM76 tBAvd2S9oCF2J5ZsJPWe wqbftnnbrXL7WXHvGWJs oD52At7lqAcyOw7tBUJz GFW8TMDfgGCaO5Xr eK0sToQzYJVuIMIxG0Ge eIShZPmtB554SOesLqB9 PDGqcpEgA0TgHRAgcTiz VkL7l7X1Zy2RZZze yup9I7BwAoharJS+PC90 OZKyJJ27kOJztKKox4zy rUi3IiKnWGElZPO3eZny RCxok3AqJRMpJ67w bGF (more content not included)... [facility] Coding Summary HTMLBase 64 RrggxmbvVBt3dGz+PGhl YWQ+GY4DZBQlI69upSRt mL6LA5wZHX0MNGUBWHLR SY7SBY6wpKO6YZtpW1Tw biAv GzzjgJAdCF30LDe4WUO9 tBmeUSnzpD4wnUPgU6b8 YoWbVL63jV19RSyiSJEy XgM6PcUpappllUSv B9djViJstPWxPyu+PHRh YmxlIHdpZHRoPScxMDAl KpWyfMboSL6rOq5qPELs LWNvbGxhcHNlOiBj g3lpJROuBIpiLT2pkKqc K9QvqMO7SFYlm0y4Ho75 dHI+MXUbTFH4gZbhYXgp h809TzTkc0yhMZE4 yRWrHOtkGVN2Z79uy0S3 QKNaNKCnPYC3nNB4vG7n tHloehxkC6PzfLViNnH4 ISC5gDKbkQ3suDfh tmtkcV6sIsq+J28YHI3P JCXINB6PZig5A7EcBtiy dHI+RB96ONLkNC47pWNg eULox4gqzOg7ZtJb UHFjQYO8nKpyIBrbi5Gz GYVzN28hhHAzf3O4BCAm lMmlfDGuBsFgpNW6tU3q PHtcogkyf9zjmrir Smsoo8sukp42lO83Y25b TFyeBIJuGLS3YUIkRMFj qNqwsq3kqH1aBi4+IDxj i1ngl4zlyDw9QnTc HYIeqmPklDslRGU9f6Ap Qk99H6ZmfThfk1XlSpj2 bx83mFYgh7G1mNP9SWvz WGQfuL0lYPelEiP2 JCNjReYstH62aLVuQJox Ab9feQmukQgnMM3kRZBs fcmfPTWzxR8xSJYsrUNh nTlpXY3xZNEmjdml e987ZeHuSCQ5KLIhbCLz E9TuaC9qSlEePSNcAMQc I6TxgZAqNWxgR512IOid YyT8BWFdgfQrY5Kg LKDvgYmcJtY0r5K7Lp7H v8ArwfsxICL7NDdmTYFj OoQ8JiHyIiT2Z0WqNcp6 EVFddSgtUT9sY0Ny AAEvdkrqczxaeDO5USWs KTNsoV08eDQuBWzpFu0q b6T7h962DFQwYPJmqY64 Cz3jzTgeNMBroEKT dP7grboej1llbdliVgTm AYEvCTp3AXg1BWCuwQfq PgYiZRQ7UzB1QQD1tJKl dJ4viJsftcszgO6b Oyc+G15shQ5eLWB7PHX8 cjuzBMBcndAdPA05TO40 F1LjNpsthLJmsVP+PGRp wdGldDccXV3rUpRz r1ayz2RrJXrlE7UuXUAm CTbpErt0KYEeRML5eAB5 zA4uYXTfCUigj2Z7hNO6 R9GgzyLoma0cu3oi SOGoYQiuR23xyRVea4M6 XFHliML7EXRegAipKdMj pQ35Doe+YRLbhGzst7Ax Ypxam1gek1lldXh0 IjMwJSIgdmFsaWduPSJ0 x6XnFo08K20jDDasMXDm AXVvNBQtBOTdfHwzlx5h yI7bEz5+PGNvbCB3 pRB1sQ5mVPLrOzY2BQxl V039CsUjhLQvPuyuk3vt r5cbtUh8BqIrLQEozwEu vSoiQIA7v0SzLc11 L97gIHvrTGLtHXUwNXMq GOOldUrzvw7qwB0bCu8+ ZZ5pp8nizz89gL02mMG+ PXIwIZY2uKmmVLqj BKVleO6qDIvsMuP9MQRa QqXejP94xMPhCOvsGq4q pZfuoLcwXN3yLCNgiguf j438ZlCxe1fvKDQw aCRhYErvQQN7E26vz2O4 WJAiLNRbDQO5fDI7iT3n bGlnbjogbGVmdDsgdmVy lCixSSkbNQppV181 IHRvcDsnPlBhdGllbnQg LkIfJZr8P9DxPdm8LJIf sOchIU4nbBLhDAweEc0q qLfygHnbAJ0oZPGg vtpsg887TuGzs2guGKQc lGLzHHanEDJ0J98sr2M3 GTXxOUQlJYT0hFR1qK4e bGlnbjogbGVmdDsg acBahVtfCXgiOBlhC548 IHRvcDsnPkJpcnRoIERh yOR9QN89YT70nSBcs4Y5 jGR4U1LtVEHqvnzf cxejxNM4ENAhILTxwU39 Hi5djDpsHd0uURJzLJF1 XSPitAPlM8WokD2zTfHm EHIkJMWrK4JcjTCj MBebJ616KGqrJjM8FNMs ueJjM8JyXXStzXdfTqH5 k5P3Bx8DC7J8UH16EE80 pFWso1Q1gJO4P2Ud EMZpjtruyakauPK7KUTf GLPkaC97Py0xpDtvBo4c AXSwXZE0OFFviTMsJ1Kq bD8dEhYeTRUfALHi J0RjuEPuXGjkH508BNnd KtE2SNSppvLkZ7RmCFRn oQmnTfV2l3L7Uj2BBTf1 TG17FI49gDHjl8O3 nDR0Y1IeOLPfykshrafw gVF8WUXrSWJljA99Cu1u aQdvAc0vIVYtLAW5JEQz lVVyF1ZpqU5pNkIu VXDcXGRqB4UwzYZoCLig K011SMlrVeW2UPYsykWt W0QeYCJquYdzEuC1m8D0 Dt4AYTAaPC31SIJ0 wUK3JG36HL94Z9EgKbss dGFibGU+PHRhYmxlIHdp ZHRoPScxMDAlJyBzdHls DM3qDm9oWMDxMKGk tLqiwTMkDdQtd3acEKJl NDzwEM7ddLqdQ9YxrSJ8 ICIct5w3Pe99N06kG8Zh dXA+ZBMajJC8eGP5 zA0kZwSfQyY2JTpvH253 MgFzsMCsAkrdn1tzz1di vEx9QyJ0BRWisbGboMqg IFU3g3VkLj94F78k IHdpZHRoPSIxNSUiIHZh wFhgpl6doC2vZd4+PGNv wOG9iSE2uC4eHaAkMtE9 HXzsG656VmMtmZKz Hnciq3utr5dqnWx9FjMq KKPizePmfSpfRZD2n9Ot Wx88Q7GqpFhph4DlCkj3 sp93bRFbz9L0pVU6 S7KlKELuxnwacCBnkNxf NG9rTFIgldyrWRVagH1p LCSoL8t0QdZeAbJ3QFqg I5SzubQ8IEAlkRYn EAqpJLQ6H43pf1M2QWJr IFCdJID5qKP5uD2wbKbz bjogbGVmdDsgdmVydGlj DJfjQLqhQ401KBLr rUuoSPRkyZ0jSHHlrKIm pAhtEL1hMXDopacaTa1L UoKWSMCSHBKGY6mGMRel CRSFQKONBUV1D5Wl Vyi7SGDciGpzJJ6fqSPa KYhhVa6gbMtaeBwlQT4g ILUckfwjEKEgxM1uBNOj fFBbgQqlNH4gVITf tzacu070DnEvZCN7FCUs cRRuY4CtoX4dZjZgCSGd BOEtZ6DurDIgFKcxT617 NMtwPpC2CWAwqeFd K2LdLIAqmSaoMbL7o5B4 Jk0jFv5kTN8wHBx8MP75 YH32uEGih1R8aFI8P9If ZGRpbmctcmlnaHQ6 GXByPCZsxW69nBOzVLtb Iu0pr6B2r271PZBcJXLq yC01Qy6snNxuSPBywLCY yL0agcdkv5owbuua CgImKOQwYXb8TTi4CXOu vVqtQdFyZDV8FsE1ERU3 bXNazT3lgVsbcqqruQ9b Oyc+MjcgWWVhcnM8 Q9FlYrb6YXVbxMjwZE3i sLQtKXunZb1gbEkjfJnr LB4sOBGmtswvVWUlnB5a AHScwXEabTauUU5c YSWyrboqr817ArIuPHR6 AWRnnUOvD4SlnS7oHeIi ILAjFAFmU1GcbOSpOKqi I349JVuwWfZ1MHLv ytKnQ1UaDNZmpBalBdY4 e4U4Cz3XTI2BTRZ8U0Uz Ozg6LZGwdGbhAB2wmWWd YRtuJi5djBljmCgd XN1nPYIxsylxLKBciU1f QLDveCArcRqkRX7uOGHn qabah729LaJsKQL2NNEc iBJzZ4FcqM2bOoBq IOPlUACfZ0DyxEVuYVxv R189TOlrBeS8NQYibcPu B1KmLNKosJbyYfZ9d9L6 Cj6KbJYgQ5KxK5m9 L4ZoLpufhMP+EE07RUMj II77wVYgvFSye5hjvUg5 SgRmBFAfWHQ7zRapJCqw z0EiJOPeN03jxZZi r9B2NDXnjXyqpPFeGbZh lVF1hQ6rUVstwjgne6ht acvpExsjq7cbig72jK36 L55oFJxvNILpKDLl JYIhATHuwTeiyt8avY3h Ii8+ZETwsBV3mXF7jJ8i SoXhLwB1PZaxS071ZbEj bYDeZuevf3vvv8fs pRr6VuRqKBWkgpNvuTye FWX9l9ReFk31Z73yPVoc ZHRoPSIyMCUiIHZhbGln zb1vuX9vLr3+PC9j r4kmkb89dF77tKJ+PHRk GBM6sBhpJVbyHGUdqO1e QWfeJhF3BWPgZpSzmC13 bXJbZNlfSw8fqLja rTqeHU6aBZTqtfgfe809 BhDtk7omAXXqbOSyNFer HJO1Y96ur5L3ZCHhSVEb NMT2cXC1sO6hhMmk bjogbGVmdDsgdmVydGlj EHfpIHqtC749LRYgmMnf YbBhhPUzA6qeesKVWQ7y OjwvdGQ+PHRkIHN0 uLkjUFqiCSZsuD3pGGIo M7z6MdUhArN1WQozG9Ql mwZ3BPKjbJAkCOHkxULX vR4xsmbds3jsupti QxJpKXDhJQn2WYk4VEAh gZtrTyPrDMY5MmH6ISH5 aEEhnV2ndZwlvtzliG8m Oyc+RklOOjwvdGQ+ YCLcZXD4xLveBHjsHFQk bP4kWPLjC2l8UyRlDxY2 OZhjO6NzqyR7OYMndFPv VARwbMDPoU7fabet n6ncohgtOwMoBSOlNGn2 XZc6PVQtbMjtHyJqZSE6 NkW0CEJ8iWBfvB7ppGyi pbvflR0fJix+TVJO OjwvdGQ+USKaPEA7jNti AMfsHJIlxN1sPXDtG7s8 GuLnBhD4CQaaC8ChtsI2 IGJvbGQgMTBwdCBU zL9efdrla0ehaxcpLkPe DLNoPVk8GKh2GDCnfJah WyArBEX1FmW1DKE9fJMj mX8mwLwwbnzbmY4q Oyc+WKC8CJA4RK89NQ71 Z5BpJaybnGWkuVE+PHRh YmxlIHdpZHRoPScxMDAl HzFrzTtxZE9bXd4i ZGV (more content not included)... [facility] Consent Formson 06-27-2021 Consent Forms [id number] #1.00OTGTIFF [facility] ED Clinical Summaryon 2021 ED Clinical Summary [facility] - Emergency Department [address] [place] [address] ED Clinical Summary PERSON INFORMATION Name: QUEENIE KIRK Age: 25 Years Sex: FEMALE : 1995 MRN: Acct#: Visit Reason: Chest pain; CHEST PAIN, L SIDE, L ARM NUMBNESS Arrival: 06/27/2021 01:49:37 Discharge: 06/27/2021 02:40:00 LOS: 000 00:51 Check In: 06/27/2021 01:49:37 Checkout:06/27/2021 02:40:00 Address: [address] [place] [id number] PCP: Nirali Siu MD PROVIDER INFORMATION Provider Role Assigned Unassigned Amador Streeter RN ED Nurse 06/27/2021 01:58:35 Laith Patel MD ED Provider 06/27/2021 01:59:25 VITALS INFORMATION Vital Sign Triage Latest Temperature Tympanic Temperature Temporal Artery Pulse Rate 100 bpm 90 bpm O2 Sat 100 % 100 % Respiratory Rate 22 br/min 19 br/min Blood Pressure /89 mmHg /89 mmHg MEDICAL INFORMATION Medications Given: Medication Dose Route ibuprofen 400 mg PO Allergy Information: No Known Medication Allergies PHYSICIAN DOCUMENTATION DISCHARGE INFORMATION: Discharge Disposition: Home Discharge Location: Home PATIENT EDUCATION INFORMATION Instructions: Nonspecific Chest Pain, Adult, Xqzs-kb-Skup; Paresthesia, Ttqe-lq-Jtup Follow-Up: With: Address: When: Nirali Siu MD [address] [place] [address] Within 3 to 5 days DIAGNOSIS: 1:Pleuritic chest pain; 2:Paresthesia of arm Patient Understands: Yes - Patient/family/careg iver verbalizes understanding of instructions given Comment: Normal [facility] ED Patient Summaryon 022 ED Patient Summary [facility] - Emergency Department [address] [place] [id number] PATIENT DISCHARGE INSTRUCTIONS Patient Information Name: QUEENIE KIRK Age: 25 Years Date of : 1995 Reason For Visit: Chest pain; CHEST PAIN, L SIDE, L ARM NUMBNESS Arrival Time: 06/27/2021 01:49:37 Primary Care Physician: Nirali Siu MD Attending Physician: Laith Patel MD Comment: Visit Diagnosis: Diagnoses This Visit Chest pain ([id number]) Paresthesia of arm (R20.2) Pleuritic chest pain (R07.81) Prescription Information: If you have been given a prescription for narcotics, seek immediate medical attention if you have any difficulty breathing or any sudden status changes such as confusion and sleepiness. If you or anyone you know is experiencing suicidal thoughts, mental health, alcohol and/or drug addiction problems; contact the [facility] 20/11 Crisis Hotline -Text 4HUAQ cp 032158. If you received any narcotics, sedation, or any other medication that causes drowsiness for the next 24 hours, unless otherwise directed: ? Do not drive a car. ? Do not operate machinery such as power tools, lawn mowers, drills, sewing machines, or stoves ? Avoid alcoholic beverages and drugs for allergies, nerves, or sleep ? Do not make important personal or business decisions or sign any legal documents With: Address: When: Salbador RAINEY, Nirali Alonso [address] [place] [address] Within 3 to 5 days Medication Information: The exam and treatment you received today in the [facility] Emergency Department were for an urgent problem and are not intended as complete care. It is important for you to follow up with a doctor, nurse practitioner, or physician?s press assistant for ongoing care. If your symptoms become worse or you do not improve as expected and you are unable to reach your usual health care provider, you should return to the Emergency Department, we are available 24 hours a day. For those patients who have received Radiology results, the interpretation of your X-ray as given to you by our Emergency Department physician is only a preliminary report. The Radiologist will review your films and if there is a change in the diagnosis you will be notified by phone. Please make sure you have provided a working phone number so we can reach you if necessary. In the event that you had a lab culture while you were a patient in the Emergency Department, you will be notified by phone if there is a need to change your antibiotic. Please make sure you have provided a working phone number so we can reach you if necessary. [facility] Emergency Department has provided you with a complete list of medications post discharge. Please inform your wing coverer/provider of your visit and for further instruction on these medications. Any specific questions regarding your chronic medications and dosages should be discussed with your primary care physician(s) and/or pharmacist. Additional medications on your home medication list not specifically addressed. Please contact the ordering physician if you have questions about these medications. multivitamin (Multi Vitamin+) take one po daily. valACYclovir (valACYclovir 500 mg oral tablet) 1 tab(s) Oral every day for 90 Days. Refills: 6. venlafaxine (venlafaxine 37.5 mg oral capsule, extended release) 1 cap(s) Oral every day. Refills: 9. Visit Information Allergies: Substance Reaction Symptoms Type Comments No Known Medication Allergies Drug Vital Signs: Vitals and Measurements this Visit (last charted value for your 06/27/2021 visit) Vital Signs This Visit Temperature Oral: 36.9 DegC Peripheral Pulse Rate: 90 bpm Heart Rate Monitored: 93 bpm Respiratory Rate: 19 br/min Systolic Blood Pressure: 128 mmHg Diastolic Blood Pressure: 86 mmHg Mean Arterial Pressure, Cuff-Calculation: 100 mmHg SpO2: 100 % Oxygen Therapy: Room air Measurements This Visit Height/Length Dosin.100 cm Height/Length Estimated: 165.100 cm Weight Dosin.150 kg Weight Estimated: 57.150 kg Problems List: Problem Onset Comments Anxiety Asthma Depression Patient Education Nonspecific Chest Pain Use ibuprofen 400 mg 3 times daily as needed for the pleuritic chest pain. Return to the emergency department for any worsening symptoms. Chest pain can be caused by many different conditions. Some causes of chest pain can be life-threatening. These will require treatment right away. Serious causes of chest pain include: ? Heart attack. ? A tear in the body's main blood vessel. ? Redness and swelling (inflammation) around your heart. ? Blood clot in your lungs. Other causes of chest pain may not be so serious. These include: ? Heartburn. ? Anxiety or stress. ? Damage to bones or muscles in your chest. ? Lung infectio (more content not included)... [facility] Consent Formson 05-04-2021 Consent Forms [id number] #1.00OTGTIFF [facility] .QC Respiratory Panel 2.1 (B ioFire)on 05-03-2021 Internal Control-Resp Panel 2.1(BioFire) Pass [facility] Comment on above: Order Comment: Order ed by [employer].[[id number]] Performed By: #### [id number] ####[facility] (DEFAULT)[address] [place] [address] COVID Quick Testingon 2020 Result Negative [employer] Other Quick Fluon 04-14-2021 FLUAV Ab CF (S) [Titer] Negative [employer] Other FLUBV Ab CF (S) [Titer] Negative [employer] Other Office/Clinic Noteon 021 Office/Clinic Note Patient: QUEENIE KIRK Age: 25 years Sex: FEMALE : 1995 Associated Diagnoses: Sore throat Author: Nirali Siu MD A History of Present Illness This is a virtual visit via telemedicine using the [employer] platform. Patient requested the visit, format was explained, and patient verbally consented. 25-year-old female via virtual visit with complaints of sore throat that has been going on for 4 days. She has noticed whitish exudate. She states she does have a history of strep throat in the past. Also having nasal congestion and some left ear pain. She is coughing bringing up some sputum has tried some mnny-yky-hbtmwbg medications with no improvement. Afebrile. No change in smell or taste. No other recent sick contacts. She has used amoxicillin in the past and it does help with her strep throat historically. Review of Systems Constitutional: Negative. Ear/Nose/Mouth/Throa t: Nasal congestion. Ear pain: Left. Respiratory: Cough, Sputum production. Gastrointestinal: Negative. Health Status Allergies: Allergic Reactions (Selected) No Known Medication Allergies, Allergies (1) Active Severity Reaction No Known Medication Allergies None Documented Current medications: (Selected) Prescriptions Prescribed valACYclovir 500 mg oral tablet: 500 mg = 1 tab(s), PO, Daily, for 90 day(s), 90 tab(s), 6 Refill(s) venlafaxine 75 mg oral capsule, extended release: 75 mg = 1 cap(s), PO, Daily, 7 cap(s), 0 Refill(s) Documented Medications Documented Multi Vitamin+: See Instructions, take one po daily, 0 Refill(s), Home Medications (3) Active Multi Vitamin+ See Instructions valACYclovir 500 mg oral tablet 500 mg = 1 tab(s), PO, Daily venlafaxine 75 mg oral capsule, extended release 75 mg = 1 cap(s), PO, Daily Physical Examination General: Alert and oriented, No acute distress. HENT: Voice is not hoarse. Respiratory: No respiratory distress. Able to talk in full sentences.. Impression and Plan Diagnosis Sore throat ([id number] J02.9). Plan: We will treat with antibiotic. Should follow-up if no improvement.. Orders Orders Pharmacy: amoxicillin 500 mg oral capsule (Prescribe): 500 mg = 1 cap(s), PO, TID, for 10 day(s), 30 cap(s), 0 Refill(s) Evaluation and Management: 75624 Office visit - established pt, Level 3 (Order): 04/13/2021 13:50 EST, Qty: 1, Sore throat. 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 No Invalid Interpretation Code [facility] Comment on above: Performed By: #### 6 [id number] ####[facility] (DEFAULT)[address] [place] [address] In ICU? No Invalid Interpretation Code [facility] Comment on above: Performed By: #### 6 [id number] ####[facility] (DEFAULT)[address] [place] [address] status? Not Invalid Interpretation Code [facility] Comment on above: Performed By: #### 6 [id number] ####[facility] (DEFAULT)[address] [place] [address] SARS-CoV-2 (COVID-19) RNA LEANDRO+probe Ql (Unsp spec) Not detected Normal Not Detected [facility] Comment on above: Result Comment: Perf ormed by PCR methodology. Performed By: #### 6 [id number] ####[facility] (DEFAULT)[address] [place] [address] SARS-CoV-2 (COVID-19) RNA LEANDRO+probe Ql (Unsp spec) No Invalid Interpretation Code [facility] Comment on above: Performed By: #### 6 [id number] ####[facility] (DEFAULT)[address] [place] [address] Symptomatic as defined by CDC? No Invalid Interpretation Code [facility] Comment on above: Performed By: #### 6 [id number] ####[facility] (DEFAULT)[address] [place] [address] Ambulatory Patient Summaryon 11-08-2020 Ambulatory Patient Summary [facility] [address] [place] [address], [address] - Visit Summary For QUEENIE KIRK We would like to thank you for allowing us to assist you with your healthcare needs. Our entire staff strives to provide an excellent experience for our patients and their families. The following includes information regarding your visit. Age: 24 years Sex: FEMALE : 1995 Address: [address] [place] [address], [address] Home: Work: -- Primary Care Provider: Nirali Siu MD Race: White Ethnicity: Not or Language: Persian Health Plan: 1?[employer], 2?[employer] EMPLOYEE/FAMILY Reason for Visit: states she has a sore throat and ear pain for several days Prescription Information: If you have been given a prescription for narcotics, seek immediate medical attention if you have any difficulty breathing or any sudden status changes such as confusion and sleepiness. If you or anyone you know is experiencing suicidal thoughts, mental health, alcohol and/or drug addiction problems; contact the [facility] 20/11 Crisis Hotline -Text 4HOPE to 218590. Follow-Up Information With: Address: When: SCAR RAINEY, JAZZ Alonso [facility] [address] [place] [address]/ [address] [place] [address] , only if needed Future Appointments No Future Appointments Scheduled Future Orders No future orders Additional Goals and Instructions: Vitals and Measurements this Visit (last charted value for your 11/08/2020 visit) Vital Signs This Visit Temperature Tympanic: 36.8 DegC Measurements This Visit Height: 165.10 cm Height (inches): 65 in Weight: 57.15 kg Weight (lb): 125.73 lb BSA: 1.62 m2 Body Mass Index: 20.97 kg/m2 [place] Body Weight Calculated: 57 BSA Measured: 2 m2 Diagnoses This Visit Cough (R05) Laboratory or Other Results This Visit (last charted value for your 11/08/2020 visit) No Laboratory or Other Results This Visit Medications and Immunizations Administered During This Visit No medication administered during this visit All Known Current Prescriptions and Reported Medications New Prescriptions this Visit No new prescriptions for this visit Prescriptions valACYclovir 500 mg oral tablet (valACYclovir) Take 1 tab(s)(500 Milligram) Oral every day for 90 Days, 6 refills authorized venlafaxine 75 mg oral capsule, extended release (venlafaxine) Take 1 cap(s)(75 Milligram) Oral every day, 3 refills authorized Home Medications Multi Vitamin+ (multivitamin) Instructions: take one po daily Cough, Adult Coughing is a reflex that clears your throat and your airways (respiratory system). Coughing helps to heal and protect your lungs. It is normal to cough occasionally, but a cough that happens with other symptoms or lasts a long time may be a sign of a condition that needs treatment. An acute cough may only last 2?3 weeks, while a chronic cough may last 8 or more weeks. Coughing is commonly caused by: ? Infection of the respiratory systemby viruses or bacteria. ? Breathing in substances that irritate your lungs. ? Allergies. ? Asthma. ? Mucus that runs down the back of your throat (postnasal drip). ? Smoking. ? Acid backing up from the stomach into the esophagus (gastroesophageal reflux). ? Certain medicines. ? Chronic lung problems. ? Other medical conditions such as heart failure or a blood clot in the lung (pulmonary embolism). Follow these instructions at home: Medicines ? Take lfkl-aot-fwjllld and prescription medicines only as told by your health care provider. ? Talk with your health care provider before you take a cough suppressant medicine. Lifestyle ? Avoid cigarette smoke. Do not use any products that contain nicotine or tobacco, such as cigarettes, e-cigarettes, and chewing tobacco. If you need help quitting, ask your health care provider. ? Drink enough fluid to keep your urine pale yellow. ? Avoid caffeine. ? Do not drink alcohol if your health care provider tells you not to drink. General instructions ? Pay close attention to changes in your cough. Tell your health care provider about them. ? Always cover your mouth when you cough. ? Avoid things that make you cough, such as perfume, candles, cleaning products, or campfire or tobacco smoke. ? If the air is dry, use a cool mist vaporizer or humidifier in your bedroom or your home to help loosen secretions. ? If your cough is worse at night, try to sleep in a semi-upright position. ? Rest as needed. ? Keep all follow-up visits as told by your health care provider. This is important. Contact a health care provider if you: ? Have new symptoms. ? Cough up pus. ? Have a cough that does not get better after 2?3 weeks or gets worse. ? Cannot control your cou (more content not included)... Normal [facility] Patient Handouton 11-08-2020 Patient Handout ENT Cough, Adult Coughing is a reflex that clears your throat and your airways (respiratory system). Coughing helps to heal and protect your lungs. It is normal to cough occasionally, but a cough that happens with other symptoms or lasts a long time may be a sign of a condition that needs treatment. An acute cough may only last 2?3 weeks, while a chronic cough may last 8 or more weeks. Coughing is commonly caused by: ? Infection of the respiratory systemby viruses or bacteria. ? Breathing in substances that irritate your lungs. ? Allergies. ? Asthma. ? Mucus that runs down the back of your throat (postnasal drip). ? Smoking. ? Acid backing up from the stomach into the esophagus (gastroesophageal reflux). ? Certain medicines. ? Chronic lung problems. ? Other medical conditions such as heart failure or a blood clot in the lung (pulmonary embolism). Follow these instructions at home: Medicines ? Take tpqo-npe-tfjparj and prescription medicines only as told by your health care provider. ? Talk with your health care provider before you take a cough suppressant medicine. Lifestyle ? Avoid cigarette smoke. Do not use any products that contain nicotine or tobacco, such as cigarettes, e-cigarettes, and chewing tobacco. If you need help quitting, ask your health care provider. ? Drink enough fluid to keep your urine pale yellow. ? Avoid caffeine. ? Do not drink alcohol if your health care provider tells you not to drink. General instructions ? Pay close attention to changes in your cough. Tell your health care provider about them. ? Always cover your mouth when you cough. ? Avoid things that make you cough, such as perfume, candles, cleaning products, or campfire or tobacco smoke. ? If the air is dry, use a cool mist vaporizer or humidifier in your bedroom or your home to help loosen secretions. ? If your cough is worse at night, try to sleep in a semi-upright position. ? Rest as needed. ? Keep all follow-up visits as told by your health care provider. This is important. Contact a health care provider if you: ? Have new symptoms. ? Cough up pus. ? Have a cough that does not get better after 2?3 weeks or gets worse. ? Cannot control your cough with cough suppressant medicines and you are losing sleep. ? Have pain that gets worse or pain that is not helped with medicine. ? Have a fever. ? Have unexplained weight loss. ? Have night sweats. Get help right away if: ? You cough up blood. ? You have difficulty breathing. ? Your heartbeat is very fast. These symptoms may represent a serious problem that is an emergency. Do not wait to see if the symptoms will go away. Get medical help right away. Call your local emergency services (911 in the [place] Do not drive yourself to the hospital. Summary ? Coughing is a reflex that clears your throat and your airways. It is normal to cough occasionally, but a cough that happens with other symptoms or lasts a long time may be a sign of a condition that needs treatment. ? Take fket-rbi-rmuxnft and prescription medicines only as told by your health care provider. ? Always cover your mouth when you cough. ? Contact a health care provider if you have new symptoms or a cough that does not get better after 2?3 weeks or gets worse. This information is not intended to replace advice given to you by your health care provider. Make sure you discuss any questions you have with your health care provider. Document Revised: 05/05/2019 Document Reviewed: 05/05/2019 [employer] Patient Education ? 2019 [employer]. [facility] Office/Clinic Noteon 021 Office/Clinic Note Patient: QUEENIE KIRK Age: 24 years Sex: FEMALE : 1995 Associated Diagnoses: Nexplanon removal; Anxiety; Depression Author: Nirali Siu MD A History of Present Illness 24-year-old female presents today to have her Nexplanon removed from her left arm. This is her second that she has had. She and her are considering trying to have another child. She has had no issues with the medication. She was also seen as a new patient last week and at that time was having some anxiety she was on Effexor 37-1/2 mg. I also discussed with her about possibly increasing that to a total of 75. She has increased it and has noticed an improvement. We will plan on refilling her Effexor at 75 mg. Review of Systems Constitutional: Negative. Psychiatric: Negative. Health Status Allergies: Allergic Reactions (Selected) No Known Medication Allergies, Allergies (1) Active Severity Reaction No Known Medication Allergies None Documented Current medications: (Selected) Prescriptions Prescribed valACYclovir 500 mg oral tablet: 500 mg = 1 tab(s), PO, Daily, for 30 day(s), 30 tab(s), 6 Refill(s) venlafaxine 75 mg oral capsule, extended release: 75 mg = 1 cap(s), PO, Daily, 90 cap(s), 3 Refill(s) Documented Medications Documented Multi Vitamin+: See Instructions, take one po daily, 0 Refill(s), Home Medications (3) Active Multi Vitamin+ See Instructions valACYclovir 500 mg oral tablet 500 mg = 1 tab(s), PO, Daily venlafaxine 75 mg oral capsule, extended release 75 mg = 1 cap(s), PO, Daily Physical Examination VS/Measurements Vital Signs 10/08/2020 9:36 EDT Peripheral Pulse Rate 86 bpm Pulse Site Pulse Oximetry Systolic Blood Pressure 110 mmHg Diastolic Blood Pressure 72 mmHg SpO2 98 % , Measurements from flowsheet : Measurements 10/08/2020 9:36 EDT Height 165.10 cm Height/Length Measured (inches) 65 in Weight 59.2 kg Weight Measured (lbs) 130.24 lb Body Mass Index 21.72 kg/m2 [place] Body Weight Calculated 57 BSA Measured 2 m2 General: Alert and oriented, No acute distress. Integumentary: Nexplanon easily identified in the left upper arm.. Impression and Plan Diagnosis Nexplanon removal (LQL57-NX Z30.46). Plan: Area was cleaned with alcohol. Then using 2% Xylocaine a wheal was made underneath the distal tip of the Nexplanon. Area was then cleaned then using a 11 blade an approximately 3 mm incision parallel to the tip was made. Applying pressure to the proximal end pushing through the incision the end of the implant was grasped with forceps. It was then removed. Pressure was applied. Then a Steri-Strip was placed. Patient tolerated well.. Orders Orders Procedure Charge: [id number] Incision & Removal of Foreign Body, Subcutaneous Tissues; Simple Charge (Order): 10/08/2020 9:34 EDT, Qty: 1, Nexplanon removal. Diagnosis Anxiety (YDP90-EM F41.9). Depression (KUF29-WM F32.9). Course: New prescription for Effexor 75 mg sent to her pharmacy.. [Electronically Signed on: 10/08/2020 10:25 EDT] Nirali Siu MD [Verified on: 10/08/2020 10:25 EDT] Nirali Siu MD [facility] Office/Clinic Noteon 021 Office/Clinic Note Patient: QUEENIE KIRK Age: 24 years Sex: FEMALE : 1995 Associated Diagnoses: Adult general medical exam Author: Nirali Siu MD A History of Present Illness 24-year-old female presents today as a new patient to get established. 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 She is . Has 1 daughter. She does have Norplexanon control in left arm. She does have a history of oral herpes and has been on suppression therapy in the past. She also has a history of depression and is currently on venlafaxine. She eats well. Sleeps well. She has been having more headaches frequently. She is requesting to get her control removed. Review of Systems Constitutional: Negative. Ear/Nose/Mouth/Throa t: Negative. Respiratory: Negative. Cardiovascular: Negative. Gastrointestinal: Negative. Genitourinary: Negative. Gynecologic: Negative. Musculoskeletal: Negative. Integumentary: Negative. Neurologic: Negative. Psychiatric: Depression. All other systems are negative Health Status Allergies: Allergic Reactions (Selected) No Known Medication Allergies, Allergies (1) Active Severity Reaction No Known Medication Allergies None Documented Current medications: (Selected) Documented Medications Documented Multi Vitamin+: See Instructions, take one po daily, 0 Refill(s) venlafaxine 37.5 mg oral capsule, extended release: 37.5 mg = 1 cap(s), PO, Daily, 30 cap(s), 0 Refill(s), Home Medications (2) Active Multi Vitamin+ See Instructions venlafaxine 37.5 mg oral capsule, extended release 37.5 mg = 1 cap(s), PO, Daily Physical Examination VS/Measurements Vital Signs 10/01/2020 10:45 EDT Peripheral Pulse Rate 91 bpm Systolic Blood Pressure 98 mmHg Diastolic Blood Pressure 70 mmHg SpO2 98 % , Measurements from flowsheet : Measurements 10/01/2020 10:45 EDT Height 165.10 cm Height/Length Measured (inches) 65 in Weight 59.60 kg Weight Measured (lbs) 131.12 lb Body Mass Index 21.87 kg/m2 [place] Body Weight Calculated 57 BSA Measured 2 m2 General: Alert and oriented, No acute distress. HENT: Normocephalic, Tympanic membranes are clear, Normal hearing, Oral mucosa is moist. Neck: Supple, Non-tender, No carotid bruit, No jugular venous distention, No lymphadenopathy, No thyromegaly. Respiratory: Lungs are clear to auscultation, Respirations are non-labored, Breath sounds are equal. Cardiovascular: Normal rate, Regular rhythm, No murmur, Good pulses equal in all extremities. Gastrointestinal: Soft, Non-tender, Non-distended, Normal bowel sounds, No organomegaly. Musculoskeletal: Normal range of motion, Normal strength, No tenderness. Neurologic: Alert, Oriented, Normal sensory. Cognition and Speech: Oriented, Speech clear and coherent. Psychiatric: Cooperative, Appropriate mood & affect. Impression and Plan Diagnosis Adult general medical exam (NKN13-QW Z00.00). Plan: Patient will schedule another appointment to have her control removed. With respect to patient's headaches did discuss with her about potentially doubling up on her venlafaxine to see if that would potentially help.. Orders Orders Evaluation and Management: [id number] Preventive Medicine 18-39 years New (Order): 10/01/2020 10:44 EDT, Qty: 1, Adult general medical exam. [Electronically Signed on: 10/01/2020 11:54 EDT] Nirali Siu MD [Verified on: 10/01/2020 11:54 EDT] Nirali Siu MD [facility]son 09-29-2020 Outside Records [id number] #[id number] [facility] 07-23-2020 Outside Records [id number]#1.00OTGTIFF [facility] Vital Signs Date Time Vital Sign Value Performing Clinician Facility 10-17-2023 10: Body height 165.1 cm [facility] 10-17-2023 10: Body mass index (BMI) [Ratio] 20.7 kg/m2 [facility] 10-17-2023 10: Body weight 56.69 kg [facility] 10-17-2023 10:29-0400 Diastolic blood pressure 66 mm[Hg] [facility] 10-17-2023 10:29-0400 Heart rate 92 /min [facility] 10-17-2023 10:29-0400 SaO2% (BldA) [Mass fraction] 97 % [facility] 10-17-2023 10:29-0400 Systolic blood pressure 104 mm[Hg] [facility] 03-29-2023 13:45-0500 Body height 165.1 cm Diana Vazquez Other [facility] 03-29-2023 13:45-0500 Body mass index (BMI) [Ratio] 20.9 kg/m2 Diana Vazquez Other [facility] Other 03-29-2023 13:45-0500 Body weight 56.97 kg Diana Vazquez Other [facility] Other 03-29-2023 13:45-0500 Diastolic blood pressure 78 mm[Hg] Diana Vazquez Other [facility] Other 03-29-2023 13:45-0500 SaO2% (BldA) [Mass fraction] 97 % Diana Vazquez Other [facility] Other 03-29-2023 13:45-0500 Systolic blood pressure 110 mm[Hg] Diana Vazquez Other [facility] Other 02-19-2023 15:30-0400 Body height 165.1 cm Diana Vazquez Other [facility] Other 02-19-2023 15:30-0400 Body mass index (BMI) [Ratio] 20.93 kg/m2 Diana Vazquez Other [facility] Other 02-19-2023 15:30-0400 Body weight 57.06 kg Diana Vazquez Other [facility] Other 02-19-2023 15:30-0400 Diastolic blood pressure 70 mm[Hg] Diana George Other [facility] Other 02-19-2023 15:30-0400 Systolic blood pressure 104 mm[Hg] Diana George Other [facility] Other 04-08-2022 10:10-0500 Body height 165.1 cm Jocelyn Quach Other [facility] Other 04-08-2022 10:10-0500 Body mass index (BMI) [Ratio] 19.13 kg/m2 Jocelyn Philomena Other [facility] Other 04-08-2022 10:10-0500 Body temperature 98 [degF] Jocelyn Philomena Other [facility] Other 04-08-2022 10:10-0500 Body weight 52.16 kg Jocelyn Philomena Other [facility] Other 04-08-2022 10:10-0500 Respiratory rate 18 /min Jocelyn Philomena Other [facility] Other 04-08-2022 10:10-0500 SaO2% (BldA) [Mass fraction] 98 % Jocelyn Philomena Other [facility] Other 04-03-2022 14:05-0500 Body height 165.1 cm Jocelyn Philomena Other [facility] Other 04-14-2021 11:45-0500 Body height 165.1 cm Melvi Steen Other [facility] Other 04-14-2021 11:45-0500 Body temperature 99.6 [degF] Melvi Steen Other [facility] Other 04-14-2021 11:45-0500 Respiratory rate 18 /min Melvi Steen Other [facility] Other 04-14-2021 11:45-0500 SaO2% (BldA) [Mass fraction] 97 % Melvi Steen Other [facility] Other Encounters Encounter Date Encounter Type Care Provider Facility Start: 10-17-2023 End: 10-17-2023 ambulatory [facility] Work Phone: Start: 10-17-2023 End: 10-17-2023 Patient encounter procedure [facility] Work Phone: Start: 06-07-2023 End: 06-07-2023 ambulatory Diana Vazquez Other [facility] Other Start: 06-07-2023 Telephone encounter Diana Vazquez [facility] Start: 05-03-2023 End: 05-03-2023 ambulatory Diana Vazquez Other [facility] Other Start: 05-03-2023 Telephone encounter Diana Vazquez [facility] Start: 04-16-2023 End: 04-16-2023 ambulatory Diana Vazquez Other [facility] Other Start: 04-16-2023 Telephone encounter Diana Vazquez [facility] Start: 03-29-2023 End: 03-29-2023 ambulatory Diana Vazquez Other [facility] Other Start: 03-29-2023 Office outpatient visit 15 minutes Diana Vazquez [facility] Start: 03-01-2023 End: 03-01-2023 ambulatory Diana Vazquez Other [facility] Other Start: 03-01-2023 Telephone encounter Diana Vazquez [facility] Start: 02-19-2023 End: 02-19-2023 ambulatory Diana Vazquez Other [facility] Other Start: 02-19-2023 Office outpatient visit 15 minutes Diana Vazquez [facility] Start: 10-30-2022 ambulatory Shravan Quintero ty:[facility] Start: 09-03-2022 End: 09-04-2022 Evaluation and management of inpatient JHONATAN CASTILLO Facility:[facility] Start: 09-02-2022 End: 09-03-2022 ambulatory JHONATAN CASTILLO Facility:[facility] Start: 08-25-2022 End: 08-26-[address] HUI VALENZUELA . Facility:[facility] Start: 08-23-2022 End: 08-23-2022 ambulatory Diana Vazquez Other [facility] Other Start: 08-23-2022 Telephone encounter Diana Vazquez [facility] Start: 08-21-2022 End: 08-21-[address] HUI VALENZUELA . Facility:[facility] Start: 08-14-2022 (Televisit) Televisit Diana Nuno [facility] Start: 08-14-2022 End: 08-14-2022 ambulatory Diana Vazquez Other [facility] Other Start: 08-07-2022 End: 08-07-[address] HUI VALENZUELA . Facility:[facility] Start: 07-20-2022 End: 07-20-[address] HUI VALENZUELA . Facility:[facility] Start: 07-10-2022 End: 07-11-[address] DIANA VAZQUEZ Facility:[facility] Start: 06-26-2022 ambulatory Shravan RUIZ Facility :[facility] Start: 06-25-2022 End: 06-26-2022 ambulatory Hui ENCINASO Facility:[id number] Start: 06-24-2022 End: 06-25-[address] DIANA VAZQUEZ Facility:[facility] Start: 05-25-2022 End: 05-25-[address] DIANA VAZQUEZ Facility:[facility] Start: 04-08-2022 End: 04-08-2022 ambulatory Jocelyn Philomena Other [facility] Other Start: 04-08-2022 Office outpatient visit 15 minutes Jocelyn Philomena [facility] Start: 04-03-2022 End: 04-03-2022 ambulatory Jocelyn Philomena Other [facility] Other Start: 04-03-2022 Office outpatient visit 15 minutes Jocelyn Philomena [facility] Start: 03-04-2022 End: 03-05-[address] DIANA VAZQUEZ Facility:[facility] Start: 02-27-2022 End: 02-28-[address] DIANA VAZQUEZ Facility:[facility] Start: 02-13-2022 End: 02-14-[address] DIANA VAZQUEZ Facility:[facility] Start: 02-06-2022 End: 02-07-2022 ambulatory NAHID PRETTY Facility:[facility] Start: 01-27-2022 End: 01-27-[address] GEORGES Perez Facility:[facility] Start: 01-24-2022 End: 01-25-[address] DIANA VAZQUEZ Facility:[facility] Start: 04-14-2021 End: 04-14-2021 ambulatory Melvi Steen Other [facility] Other Start: 04-14-2021 Office outpatient visit 15 minutes Melvi Steen [facility] Procedures Date Procedure Procedure Detail Performing Clinician Start: 01-23-2022 Diabetes mellitus screening Diana Vazquez Other Plan of Treatment Date Care Activity Detail Author [facility] Payers Date Payer Category Payer Unknown [id number] 2.16.84 [id number] 1995 Unknown [id number] 2.16.84 [id number] 1995 Unknown [id number] 2.16.84 0.1.478980.3.579.2.593 1995 Unknown [id number] 2.16.84 0.1.039916.3.579.2.593 1995 Unknown [id number] 2.16.84 0.1.330560.3.579.2.593 1995 Unknown [id number] 2.16.84 0.1.699933.3.579.2.593 1995 Unknown [id number] 2.16.84 0.1.879940.3.579.2.593 1993 Unknown [id number] 2.16.84 0.1.183536.3.579.2.593 1993 Unknown [id number] 2.16.84 0.1.818751.3.579.2.593 1993 Unknown [id number] 2.16.84 0.1.107298.3.579.2.593 1993 Unknown [id number] 2.16.84 0.1.537529.3.579.2.593 1993 Unknown [id number] 2.16.84 0.1.127442.3.579.2.593 1993 Unknown [id number] 2.16.84 0.1.245019.3.579.2.593 1993 Unknown [id number] 2.16.84 0.1.340009.3.579.2.593 1993 Unknown [id number] 2.16.84 0.1.781672.3.579.2.593 1995 Unknown [id number] 2.16.8 40.1.350677.3.579.2.727 1995 Unknown [id number] 2.16.8 40.1.758065.3.579.2.727 1961 Self-pay 1961 Unknown [id number] 2.16. 840.1.574782.19 Unknown [id number] 2. 16.840.1.661164.19 Unknown [id number] 2.16.84 0.1.320494.3.579.2.593 Unknown [facility] [id number] Social History Date Type Detail Facility Unknown if ever smoked [facility] Other Sex Assigned At Sex Assigned At Bir th [facility] Other Start: 03-29-2023 Tobacco smoking status NHIS Never smoked tobacco (finding) [facility] Start: 1995 Sex Assigned At Female F [facility] Clinical Notes 04-14-2021 to 05-03-2023 Note Date & Type Note Facility 05-03-2023 Evaluation note Encounter Date Diagnosis Assessment Notes Apr, Other idiopathic scoliosis, 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 STATUS: new/continuous [facility] Other 10-23-2023 Evaluation note* Encounter Date Diagnosis Assessment Notes Treatment Notes Treatment Clinical Notes Jan, Acute non-recurrent maxillary sinusitis (ICD-10 - J01.00) Finish antibiotics as prescribed. Rest, hydration. Call if symptoms do not resolve. [facility] Other 04-17-2023 Evaluation note* Encounter Date Diagnosis Assessment Notes Treatment Notes Treatment Clinical Notes Jul, Acute non-recurrent sphenoidal sinusitis (ICD-10 - J01.30) Chose antibiotic as she is in her third trimester. Daughter has been ill. Discussed limited meds she is able to take while . [facility] Other 02-25-2023 NoteDISCHARGE SUMMARY NOTE DATE: 07/07/2022 HISTORY: Patient was 26-year-old, G1, P0 at 27 weeks, who was found to have a 7 mm left ureteral calculus causing pain, hydronephrosis, infection, hematuria. Patient was consented by Dr. Ruiz for a possible stone manipulation and possible left stent placement. Patient was taken back to the operating room where the stone was able to be removed and no ureteral stents were placed. Please see Dr. Ruiz' op note for full assessment. PRIMARY DIAGNOSES: 1. Intrauterine at 27 weeks. 2. Left ureteral calculus. 3. Left flank pain. 4. Hematuria. PROCEDURE: 1. Cystoscopy. 2. Left rigid ureteral dilation. 3. Left ureteroscopy 4. Left holmium laser lithotripsy of ureteral calculus. 5. Stone basket extraction from left ureter. HOSPITAL COURSE: Please see description above. Please note that patient was discharged following procedure. Denied any contractions, vaginal bleeding or loss of fluid. heart tones were 140s-150s. with excellent variability. Patient states the pain was significantly better. chart for full details. LABORATORY DATA: Please see chart. COMPLICATIONS: None. DISCHARGE CONDITION: Stable. CONSULTATION: Anesthesia. DISCHARGE INSTRUCTIONS: 1. Diet: Regular. 2. Medications: Please note patient was instructed to take Tylenol Extra Strength 1-2 p.o. q. 6 hours p.r.n. pain. Patient states she had Vicodin 5/325; instructed to take one p.o. q. 6 hours p.r.n. pain. 3. Followup in one week. Restrictions: Pelvic rest for 6 weeks. No heavy lifting. May drive when pain free and no longer on narcotics.[id number] NoteOPERATIVE NOTE OPERATION DATE: 06/25/2022 PREOPERATIVE DIAGNOSIS: Obstructing left ureteral calculus. POSTOPERATIVE DIAGNOSIS: Obstructing left ureteral calculus. PROCEDURE: 1. Cystoscopy. 2. Left rigid ureteral dilation. 3. Left ureteroscopy. 4. Left holmium laser lithotripsy of ureteral calculus. 5. Stone basket extraction from left ureter. ANESTHESIA: Spinal. ANESTHESIOLOGIST: Dr. Joy BLOOD LOSS: Minimal. COMPLICATIONS: None. INDICATIONS: Queenie is a 26-year-old lady who is 27 weeks with an intrauterine , who has a 7 mm distal left ureteral calculus causing pain, hydronephrosis, infection and hematuria. She now presents for definitive stone manipulation and possible left stent placement. She has signed an informed consent after all the risks were explained to her in great detail. Some of these risks include bleeding, infection, anesthesia, pre-term labor and inability to extract a stone, just to name a few. PROCEDURE: Patient was brought to the operating room and placed on the operating room table in the supine position after spinal anesthesia was placed by Dr. Joy. Time out was done by all parties in the room, prior to the anesthetic. We all agreed upon the patient's identification and the planned procedures for this patient. At this time, the patient was then repositioned into the modified dorsolithotomy position. All pressure points were satisfactorily padded. Genitalia were sterilely prepped and draped in the usual fashion. I started by passing a 22-Tristanian Olympus cystoscope per urethra and into the bladder. Careful arteaga endoscopy showed no intravesical pathology but, while looking not the left ureter, one could see a large stone. I then passed a Glidewire through the scope and cannulated the left ureter and got the wire beyond the stone, up into the kidney. I then used an 8 and 10-Tristanian rigid dilator to dilate the distal ureter. I then removed the cystoscope and then passed the semi-rigid ureteroscope, adjacent to the wire, through the urethra, into the bladder and into the left ureter. I was able to get right to the stone. I then passed a 365 angstrom holmium laser fiber through the scope and made contact with the stone. Laser lithotripsy was then done at 6 villanueva continuously. The stone was fragmented into multiple pieces. I then used a Zero-Tip Nitinol basket and engaged pieces and dumped them in the base of the bladder. I went up and down the ureter numerous times until all the pieces were removed from the ureter. The ureteroscope was then removed. I then passed the cystoscope into the bladder and then used the Tesfaye evacuator to get all of the stone pieces out from the base of the bladder. These were sent for stone analysis. I then drained the bladder of its contents and removed the scope. I then passed the 10-Tristanian dilator back over the wire, up the left ureter, and then removed the dilator and the wire. She was then transferred to a [facility] and wheeled PACU in stable condition.[facility] [id number] Evaluation note* Encounter Date Diagnosis Assessment Notes Treatment Notes Treatment Clinical Notes Mar, Cough (ICD-10 - R05.9) Mar, Influenza A (ICD-10 - J10.1) Influenza: adult home care material was printed Drink plenty fluids, get plenty of rest. Continue your home medications as prescribed. Take Tylenol as needed for aches pains or fevers. Follow-up with your WORK CAR OPERATOR if no improvement in 2 to 3 days. You must quarantine for 1 week after the onset of your symptoms of influenza A Mar, Conjunctivitis of both eyes, unspecified conjunctivitis type (ICD-10 - H10.9) Use the eyedrops as prescribed. Change your bedding every day for the next few days. Good handwashing. Follow-up with your family physician if no improvement in 2 to 3 days [facility] Other 12-05-2022 Evaluation note* Encounter Date Diagnosis Assessment Notes Treatment Notes Treatment Clinical Notes Mar, Contact with and (suspected) exposure to other viral communicable diseases (ICD-10 - Z20.828) Mar, Viral upper respiratory infection (ICD-10 - J06.9) Viral upper respiratory infection: adult home care material was printed Drink plenty fluids, get plenty of rest. Take Tylenol as needed for aches and pains. Continue home medications as prescribed including your vitamins. Follow-up with your family physician or your WORK CAR OPERATOR if no improvement in 2 to 3 days. [facility] Other 02-28-2022 NoteEducation Materials Gastroenterology Nonspecific Chest Pain Use ibuprofen 400 mg 3 times daily as needed for the pleuritic chest pain. Return to the emergency department for any worsening symptoms. Chest pain can be caused by many different conditions. Some causes of chest pain can be life-threatening. These will require treatment right away. Serious causes of chest pain include: ? Heart attack. ? A tear in the body's main blood vessel. ? Redness and swelling (inflammation) around your heart. ? Blood clot in your lungs. Other causes of chest pain may not be so serious. These include: ? Heartburn. ? Anxiety or stress. ? Damage to bones or muscles in your chest. ? Lung infections. Chest pain can feel like: ? Pain or discomfort in your chest. ? Crushing, pressure, aching, or squeezing pain. ? Burning or tingling. ? Dull or sharp pain that is worse when you move, cough, or take a deep breath. ? Pain or discomfort that is also felt in your back, neck, jaw, shoulder, or arm, or pain that spreads to any of these areas. It is hard to know whether your pain is caused by something that is serious or something that is not so serious. So it is important to see your doctor right away if you have chest pain. Follow these instructions at home: Medicines ? Take wpxz-yrp-ckbagnm and prescription medicines only as told by your doctor. ? If you were prescribed an antibiotic medicine, take it as told by your doctor. Do not stop takingthe antibiotic even if you start to feel better. Lifestyle ? Rest as told by your doctor. ? Do not use any products that contain nicotine or tobacco, such as cigarettes, e-cigarettes, and chewing tobacco. If you need help quitting, ask your doctor. ? Do not drink alcohol. ? Make lifestyle changes as told by your doctor. These may include: ? Getting regular exercise. Ask your doctor what activities are safe for you. ? Eating a heart-healthy diet. A diet and closing specialist (dietitian) can help you to learn healthy eating options. ? Staying at a healthy weight. ? Treating diabetes or high blood pressure, if needed. ? Lowering your stress. Activities such as yoga and relaxation techniques can help. General instructions ? Pay attention to any changes in your symptoms. Tell your doctor about them or any new symptoms. ? Avoid any activities that cause chest pain. ? Keep all follow-up visits as told by your doctor. This is important. You may need more testing ifyour chest pain does not go away. Contact a doctor if: ? Your chest pain does not go away. ? You feel depressed. ? You have a fever. Get help right away if: ? Your chest pain is worse. ? You have a cough that gets worse, or you cough up blood. ? You have very bad (severe) pain in your belly (abdomen). ? You pass out (faint). ? You have either of these for no clear reason: ? Sudden chest discomfort. ? Sudden discomfort in your arms, back, neck, or jaw. ? You have shortness of breath at any time. ? You suddenly start to sweat, or your skin gets clammy. ? You feel sick to your stomach (nauseous). ? You throw up (vomit). ? You suddenly feel lightheaded or dizzy. ? You feel very weak or tired. ? Your heart starts to beat fast, or it feels like it is skipping beats. These symptoms may be an emergency. Do not wait to see if the symptoms will go away. Get medical help right away. Call your local emergency services (911 in the [place] Do not drive yourself to the hospital. Summary ? Chest pain can be caused by many different conditions. The cause may be serious and need treatment right away. If you have chest pain, see your doctor right away. ? Follow your doctor's instructions for taking medicines and making lifestyle changes. ? Keep all follow-up visits as told by your doctor. This includes visits for any further testing ifyour chest pain does not go away. ? Be sure to know the signs that show that your condition has become worse. Get help right away if you have these symptoms. This information is not intended to replace advice given to you by your health care provider. Make sure you discuss any questions you have with your health care provider. Document Revised: 10/17/2018 Document Reviewed: 10/17/2018 [employer] Patient Education ? 2020 [employer] Neurology Paresthesia Paresthesia is a burning or prickling feeling. This feeling can happen in any part of the body. It often happens in the hands, arms, legs, or feet. Usually, it is not painful. In most cases, the feeling goes away in a short time and is not a sign of a serious problem. If you have paresthesia that lasts a long time, you may need to be seen by your doctor. Follow these instructions at home: Alcohol use ? Do not drink alcohol if: ? Your doctor tells you not to drink. ? You are , may be , or are planning to become . ? If you drink alcohol: (more content not included)...[facility] 06-27-2021 NotePROCEDURE: XR Chest 2 Views REASON FOR STUDY/CLINICAL HISTORY: Pleuritic left-sided chest pain. COMPARISON STUDY: None available at time of dictation. TECHNIQUE: Frontal and lateral view(s) of the chest presented for interpretation. FINDINGS: No acute cardiopulmonary process. Normal cardiomediastinal silhouette. No focal consolidation, edema, or large pleural effusion. No pneumothorax. No acute appearing focal significant bony abnormality. Costophrenic angles and costophrenic sulci are sharp. There is no acute appearing vertebral body height loss on the lateral view in the thoracic spine. IMPRESSION: No acute localizing pulmonary pathology. Final Dictated by: Parrish Lizama Dictated DT/TM: 06/27/21 2:30 Signed (Electronic Signature): Parrish Lizama 06/27/21 2:31 am Technologist: [facility]02-22-2022 NoteEntered by Shaila Mackay on June 21, 2021 12:37:44 EST From: Shaila Mackay To: [facility] Sent: 06/21/2021 12:37:44 EST Subject: Medication Management Not Approved: Prescriber not associated with location, Dr. Siu sent in a script on 06/20/21 venlafaxine (VENLAFAXINE 37.5 ER) TAKE 1 CAPSULE BY MOUTH ONCE DAILY Qty: 30 cap(s) Days Supply: 30 Refills: 1 Substitutions Allowed Route To Pharmacy - [facility] Note from Pharmacy: patient requested more refills 06/21/2021 12:24:01 PM12/08/2020 8:59:27 AM Signed by Shaila Mackay Patient matched by Shaila Mackay on 06/21/2021 12:36:56 EST From: [facility] To: Nirali Siu MD Sent: June 21, 2021 11:31:49 AM MOTION PICTURE COMMENTATOR Subject: Medication Management Due: June 22, 2021 12:09:20 AM MOTION PICTURE COMMENTATOR On Hold Pending Signature Drug: venlafaxine (venlafaxine 37.5 mg oral capsule, extended release), TAKE 1 CAPSULE BY MOUTH ONCE DAILY Quantity: 30 cap(s) Days Supply: 30 Refills: 1 Substitutions Allowed Notes from Pharmacy: Dispensed Drug: venlafaxine (venlafaxine 37.5 mg oral capsule, extended release), TAKE 1 CAPSULE BYMOUTH ONCE DAILY Quantity: 30 cap(s) Days Supply: 30 Refills: 1 Substitutions Allowed Notes from Pharmacy: patient requested more refills 06/21/2021 12:24:01 PM12/08/2020 8:59:27 AM [id number] Evaluation note* Encounter Date Diagnosis Assessment Notes Treatment Notes Treatment Clinical Notes Mar, Contact with and (suspected) exposure to other viral communicable diseases (ICD-10 - Z20.828) Today test was performed in office. Results are currently negative. That does not mean that you will not develop COVID or do not currently have a low viral count of COVID. The rapid test works best if symptoms have been over 72 hours and the results can vary if you are asymptomatic There is a higher chance of false negative results to occur if testing is performed too soon. It is recommended that even if results are negative and you have been exposed to someone that has COVID that you follow current CDC recommendations. These can be found at CDC.GOV. Follow up with primary care provider if symptoms persist or do not improve *VIRAL URI HANOUT GIVEN ON OTC TREATMENTS, FOLLOW UP AND WHEN TO SEEK EMERGENCY TREATMENT Mar, Shortness of breath (ICD-10 - R06.02) Mar, Bronchitis (ICD-10 - J40) Take medications as directed. Rest and increase fluid intake. Take meds with food to prevent stomach upset. Use inhaler as needed for coughing spells and SOB. It is better to use inhaler a few times a day over the next 2-3 days. Follow up with primary care provider if symptoms do not improve with treatment plan, although it may take a few weeks for the cough to go away Mar, Other Additional time spent conducting pre-visit phone call, screening for symptoms, instructions on social distancing, application and removal of PPE, and cleaning of examination room, equipment and supplies was preformed. Patient education given for testing methodology and results. Patient care instructions given in writting by [facility] Care At Home document. [employer] Other Evaluation noteNo InformationN[employer] Other Evaluation note* Diagnosis Onset Date Resolution Status Anemia acute Fatigue acute [facility] Work Phone: [facility] general Narrative - Reported* Type Description Date Medical History asthma Surgical History d&c x2 Surgical History tonsillectomy Hospitalization History see above [employer] Other [facility] Narrative - Reported* Type Description Date Medical History asthma Medical History anxiety Medical History chronic depression Surgical History D&C x2 Surgical History d&c x2 Surgical History tonsillectomy Surgical History wisdom teeth Hospitalization History see above Hospitalization History hyperemisis gravidarum [employer] Other [facility] general Narrative - Reported* Type Description Date Medical History asthma Medical History anxiety Medical History chronic depression Surgical History D&C x2 Surgical History d&c x2 Surgical History tonsillectomy Surgical History wisdom teeth Surgical History Tubal 10/26/22 Hospitalization History see above Hospitalization History hyperemisis gravidarum [employer] Other Summary Purpose Family History No Family History Records FoundNo Family History Records FoundNo Family History Records Found Advance Directives Advance Directive Response Recorded Date/ Time Advance Directives No July 03 24 2:54pm Chief Complaint and Reason for Visit Chief Complaint blood work Reason for Visit Anemia Fatigue Additional Source Comments INFORMATION SOURCE (unrecogn ized section and content) DATE CREATED AUTHOR 07/09/2021 [facility] DATE CREATED AUTHOR AUTHOR'S JAYLIN NAVARRO 09/08/2022 [facility] DATE CREATED AUTHOR AUTHOR'S ORGANIZ ATION 11/27/2022 [facility] REASON FOR VISIT (unrecogniz ed section and content) #8 JESUS JORDAN R, SORE THROAT, COUGH, H/A, SINUS CONGESTION, COVID Provider VisitSORE THROAT, B/A, H/A, COUGH, FEVERS, 16 WEEKS LEFT EYE IRRITATION, EARACHEsore throat, headache, ear ache, congestionmessageAdditional ATBPOSSIBLE STREP THROATmessagePost Depressionmessagemessageupdate Care Teams (unrecognized sec tion and content) Team Status: Active Member Role Status Dates Diana Vazquez MD Primary Care Provider Active Team Status: Inactive Member Role Status Dates Diana Vazquez MD Primary Care Provide r, Attending Provider Active Start: October 17, 2023 End: October 17, 2023 Goals (unrecognized section and content) Goals may be documented in a n alternate section FOR RECORDS PERTAINING TO PATIENTS WHO ARE OR HAVE BEEN ENROLLED IN A CHEMICAL DEPENDENCY/SUBSTANCEABUSE PROGRAM, SOME INFORMATION MAY BE OMITTED. This clinical summary was aggregated from multiple sources. Caution should be exercised in using it in the provision of clinical care. This summary normalizes information from multiple sources, and as a consequence, information in this document may materially change the coding, format and clinical context of patient data. In addition, data may be omitted in some cases. CLINICAL DECISIONS SHOULD BE BASED ON THE PRIMARY CLINICAL RECORDS. [facility] [employer] [facility]. provides no warranty or guarantee of the accuracy or completeness of information in this document.
--- NOTE | 2023-12-02 11:19 | ED.GENADUL1 ---
HPI HPI - General Adult General Chief complaint: Skin/Abscess/Foreign Body Stated complaint: RASH Time Seen by Provider: 12/02/23 10:52 Source: patient Mode of arrival: walk-in History of Present Illness HPI narrative: Patient presents complaining of right-sided facial pain. She was sent over by urgent care for possible shingles. Patient states it started about 2 days ago with a spot in her scalp which she thought was an ingrown hair. She then started to get more pain on the side of her face and in her ear and right side of the throat. She does report some mildly blurry vision and tearing eye. She recently was at her eye doctor because she sustained a scratch in her eye and she was placed on some eyedrops for inflammation. She is alert and oriented. Denies any fevers. She does report severe pain in the right side of her face. Rashes present on her face which is consistent with shingles. No nausea vomiting.Patient denies Related Data Previous Rx's ?Medication ?Instructions ?Recorded oxycodone-acetaminophen 5 mg-325 1 tab PO Q6H #14 tabs 12/02/23 mg tablet (Percocet) prednisone 50 mg tablet 50 mg PO DAILY 5 days #5 tabs 12/02/23 valacyclovir 1 gram tablet 1,000 mg PO Q8H 7 days #21 tabs 12/02/23 Allergies Allergy/AdvReac Type Severity Reaction Status Date / Time latex Allergy Rash Verified 10/12/22 10:18 Opioid HPI Opioid Management Most Recent Opioid Data: Last Pain Scale 7 11/15/23 15:00 Review of Systems ROS Status of ROS 10 or more systems reviewed and unremarkable except as noted in history and below [facility] Medical History (Updated 12/02/23 @ 11:12 by Colette Chand DO) Request for sterilization ?Z30.2 - Encounter for sterilization (ICD-10) COVID-19 ?U07.1 - COVID-19 (ICD-10) Pneumonia ?J18.9 - Pneumonia, unspecified organism (ICD-10) Asthma ?J45.909 - Unspecified asthma, uncomplicated (ICD-10) Migraine ?G43.909 - Migraine, unspecified, not intractable, without status migrainosus (ICD-10) Kidney stones ?N20.0 - Calculus of kidney (ICD-10) Kidney stone complicating ?O26.839 - related renal disease, unspecified trimester (ICD-10) ?N20.0 - Calculus of kidney (ICD-10) Surgical History (Updated 10/12/22 @ 10:29 by Anabella Rich NP) History of wisdom tooth extraction ?K08.409 - Partial loss of teeth, unspecified cause, unspecified class (ICD-10) History of dilation and curettage ?Z98.890 - Other specified postprocedural states (ICD-10) History of dilation and curettage ?Z98.890 - Other specified postprocedural states (ICD-10) H/O cystoscopy ?Z98.890 - Other specified postprocedural states (ICD-10) Family History (Updated 10/12/22 @ 10:29 by Anabella Rich NP) Other Family history of COPD (chronic obstructive pulmonary disease) Family history of diabetes mellitus Family history of heart disease Family history of prostate cancer Family history of skin cancer Social History (Updated 10/12/22 @ 10:23 by Anabella Rich NP) Within the past year, how often did you have a drink containing alcohol: 2-4 times a month Smoking status: Never smoker Highest level of school completed/degree received: high school graduate Exam Narrative Exam Narrative: General: alert, no acute distress Cardiovascular: regular rate and rhythm, normal peripheral perfusion. Respiratory: Lungs CTA, respirations non labored. Extremities: no deformity, no trauma. Neurological: oriented x 4, LOC appropriate for age. Vesicular rash in the scalp and along the right side of the face including around the eye. Extraocular movements intact pupils equally round reactive to light. Sclera mildly injected. Constitutional Vital Signs, click to edit/add: Last Vital Signs Temp 98.4 F 12/02/23 10:54 Pulse 94 H 12/02/23 10:54 Resp 16 12/02/23 10:54 BP 123/85 12/02/23 10:54 Pulse Ox 99 12/02/23 10:54 O2 Del Method Room Air 12/02/23 10:54 Course Vital Signs Vital signs: Vital Signs Temperature 98.4 F 12/02/23 10:54 Pulse Rate 94 H 12/02/23 10:54 Respiratory Rate 16 12/02/23 10:54 Blood Pressure 123/85 12/02/23 10:54 Pulse Oximetry 99 12/02/23 10:54 Oxygen Delivery Method Room Air 12/02/23 10:54 Temperature 98.4 F 12/02/23 10:54 Pulse Rate 94 H 12/02/23 10:54 Respiratory Rate 16 12/02/23 10:54 Blood Pressure 123/85 12/02/23 10:54 Pulse Oximetry 99 12/02/23 10:54 Oxygen Delivery Method Room Air 12/02/23 10:54 Medical Decision Making MDM Narrative Medical decision making narrative: Patient will be sent home on valacyclovir, Percocet for pain and steroids. Call your eye doctor tomorrow for close follow-up on the eye since she has pain in the eye and Shingles on the right side of her face. Return to ED if worsening symptoms. Differential Diagnosis Differential Diagnosis: Shingles, allergic reaction, rash Medical Records Medical records reviewed: Yes I reviewed the patient's medical records Discharge Plan Discharge Stand Alone Forms: Portal Instructions Chief Complaint: Skin/Abscess/Foreign Body Clinical Impression: Shingles Patient Disposition: Home, Self-Care Time of Disposition Decision: 11:12 Condition: Good Mode of Transportation: Private Vehicle Prescriptions / Home Meds: New valacyclovir 1 gram tablet 1,000 mg PO Q8H 7 Days Qty: 21 0RF prednisone 50 mg tablet 50 mg PO DAILY 5 Days Qty: 5 0RF Rx Instructions: administer 13 hr, 7 hr, and 1 hr before time of procedure oxycodone-acetaminophen [Percocet] 5-325 mg tablet 1 tab PO Q6H Qty: 14 0RF Print Language: Croatian Instructions: Shingles (ED) Referrals: Diana Joe MD [Primary Care Provider] - 1 week Procedures ED Procedure Instructions Procedures Procedures: Tetracaine placed in the eye. Fluorescein strip used to stain the eye. no Obvious dendritic lesions or abrasions.
[2023-12-02] MEDS: FLUORESCEIN SODIUM 1 MG STRIP OP (11:20)
[2023-12-02] MEDS: TETRACAINE HCL 0.5% OP SOL 80 DROP/4 ML BOTTLE OP (11:20)
== END 2023-12-02 11:27 | disposition home or self-care (01) ==
PROVIDERS: Emergency Provider Emergency Medicine; PCP Family Medicine
DX: B02.9 Zoster without complications (principal)
CPT/HCPCS: 99284

== ENCOUNTER 2024-02-25 11:17 | Outpatient (OUT) | payer OTHER, SELFPAY ==
[2024-02-25 12:23] LABS: Estimated Average Glucose 74 mg/dL; Glycohemoglobin A1C 4.2 % (4.5-6.2)
[2024-02-25 12:30] LABS: Free T4 0.94 ng/dL (0.76-1.46); Glucose 82 mg/dL (74-106); Thyroid Stimulating Hormone 0.502 uIU/mL (0.358-3.740)
[2024-02-26 04:08] LABS: Estradiol 55.5 pg/mL (.); Progesterone 2.9 ng/mL (.); Sex Horm Binding Glob, Serum 47.9 nmol/L (24.6-122.0)
[2024-02-26 09:10] LABS: Insulin 3.7 uIU/mL (2.6-24.9)
[2024-02-26 10:10] LABS: C-Peptide, Serum 1.3 ng/mL (1.1-4.4)
[2024-02-26 15:08] LABS: Thyroglobulin Antibody <1.0 IU/mL (0.0-0.9); Thyroid Peroxidase (TPO) Ab 15 IU/mL (0-34)
[2024-02-28 12:10] LABS: Calcitriol(1,25 di-OH Vit D) 64.9 pg/mL (24.8-81.5)
[2024-02-28 16:10] LABS: Estrone, Serum 84 pg/mL (27-231); Serotonin, Serum 34 ng/mL (31-207)
[2024-02-29 15:13] LABS: Reverse T3, Serum 20.1 ng/dL (9.2-24.1)
[2024-02-29 19:09] LABS: Free Testosterone(Direct) 0.7 pg/mL (0.0-4.2); Testosterone 18 ng/dL (13-71)
== END 2024-02-25 11:18 | disposition home or self-care (01) ==
LOC: LAB 11:18
PROVIDERS: PCP Family Medicine; Visit Provider Obstetrics & Gynecology
DX: E34.9 Endocrine disorder, unspecified (principal); R68.82 Decreased libido
CPT/HCPCS: 36415; 82530; 82627; 82652; 82670; 82679; 82728; 82947; 83036; 83525; 84144; 84260; 84270; 84402; 84403; 84436; 84439; 84443; 84481; 84482; 84681; 86376; 86800

== ENCOUNTER 2024-05-21 19:03 | Outpatient (REF) | payer OTHER, SELFPAY ==
--- OUTSIDE RECORDS SUMMARY | 2024-05-21 19:08 | XMS_ITS | CCD ---
Author Organization [facility] Care Team Providers Care Vocal Artist Name Role Phone Melvi Steen Unavailable Jocelyn Quach Unavailable Libra Vazquez Unavailable GEORGE, DR LIBRA Coyle Primary Care Unavailable TED ., DR AMES Admitting Unavailable TED ., DR AMES Attending Unavailable TED ., DR AMES Consulting Unavailable JHONATAN CASTILLO Attending Unavailable JHONATAN CASTILLO Admitting Unavailable TED ., DR AMES Primary Care Unavailable CLARAK ., DR MALHOTRA Consulting UnavailJHONATAN Obrien Consulting Unavailable MAXIMILIANO JOY Consulting Unavailable GEORGE, DR LIBRA Coyle Primary Care Unavailable TED ., DR AMES Attending Unavailable TED ., DR AMES Consulting Unavailable TED ., DR AMES Admitting Unavailable BAMER, DR ISAIAH Carbajal Consulting Unavailable JHONATAN CASTILLO Consulting Unavailable JHONATAN CASTILLO Attending Unavailable TED ., DR AMES Primary Care Unavailable JHONATAN CASTILLO Admitting Unavailable TED ., DR AMES Consulting Unavailable TED ., DR AMES Attending Unavailable TED ., DR AMES Admitting Unavailable GEORGE, DR LIBRA Coyle Primary Care Unavailable ZIEBANU, DR ISAIAH Carbajal Consulting Unavailable TED ., DR AMES Consulting Unavailable TED ., DR AMES Attending Unavailable TED ., DR AMES Admestiven Unavailable GEORGE, DR LIBRA Coyle Primary Care Unavailable VAZQUEZ, DR LIBRA Coyle Primary Care Unavailable TED ., DR AMES Admitting Unavailable TED ., DR AMES Attending Unavailable TED ., DR AMES Consulting Unavailable GEORGE, DR LIBRA Coyle Primary Care Unavailable TED ., DR AMES Attending Unavailable TED ., DR AMES Admitting Unavailable [place], DR NIRALI Jacome Consulting Unavailable TED ., DR AMES Consulting Unavailable VAZQUEZ, DR LIBRA Coyle Primary Care Unavailable TED ., DR AMES Admitting Unavailable TED ., DR AMES Attending Unavailable TED ., DR AMES Consulting Unavailable VAZQUEZ, DR LIBRA Coyle Primary Care Unavailable TED ., DR AMES Attending Unavailable TED ., DR AMES Admitting Unavailable TED ., DR AMES Consulting Unavailable TED ., DR AMES Consulting Unavailable TED ., DR AMES Attending Unavailable TED ., DR AMES Admitting Unavailable VAZQUEZ, DR LIBRA Coyle Primary Care Unavailable SAMANTHA LAZAR Consulting Unavailable TED ., DR AMES Consulting Unavailable TED ., DR AMES Attending Unavailable TED ., DR AMES Admitting Unavailable VAZQUEZ, DR LIBRA Coyle Primary Care Unavailable VAZQUEZ, DR LIBRA Coyle Primary Care Unavailable TED ., DR AMES Admitting Unavailable TED ., DR AMES Attending Unavailable RUIZ ., DR HARRIS Consulting Unavailable TED ., DR AMES Consulting Unavailable FERMIN BUSCH Consulting Unavailable KLYM, STEPHEN Consulting Unavailable MAXIMILIANO JOY Consulting Unavailable MARIA DE JESUS, NAHID Consulting Unavailable MARIA DE JESUS, NAHID Attending Unavailable MARIA DE JESUS, NAHID Admitting Unavailable [facility] [place] DR SELLERS Primary Care Unavailable VAZQUEZ, DR LIBRA Coyle Primary Care Unavailable CRIS ., PAWEL Attending Unavailable BETRA, DR ALLI Carbajal Consulting Unavailable CRIS ., PAWEL Admitting Unavailable CHRIS ., DR SU Attending Unavailable REQUEST, DR ROMERO LISTED Primary Care Unavaila lisette PEREZ ., DR SU Admitting Unavailable ZACHARY .MATIAS Consulting Unavailable HAY ., DR SU Consulting Unavailable Shravan RUIZ Attending Unavailable Sid JEAN Referring Unavailable Shravan RUIZ Attending Unavailable Nirali Siu Primary Care Unavailable Laith Patel Attending Unavailable Laith Patel Admitting Unavailable Libra Vazquez MD Primary Care Provider [phone] JUNE FRY Attending Unavailable JUNE FRY Attending Unavailable JUNE FRY Attending Unavailable JUNE FRY Attending Unavailable SID JEAN Attending Unavailable Allergies Allergy Classification Reported Allergen(s) Allergy Type Date of Onset Reaction(s) Facility (1 source) No Known Medication Allergies; Translations: [No Known Medication Allergies] Propensity to adverse reactions to drug (disorder) [facility] Repository (6 sources) Latex Propensity to adverse reactions 8 [facility] Medications Current Medications Medication Drug Class(es) Dates Sig (Normalized) Sig (Original) Albuterol (1 source) beta2-Adrenergic Agonist Albuterol Sulfate Active Albuterol Sulfate 90 mcg/actuation HFA aerosol inhaler (1 source) Start: 03-17-2024 take 1 puff(s) by inhalation every four to six hours as needed for wheezing Albuterol Sulfate 90 mcg/actuation HFA aerosol inhaler Active 2 PUFF INHALATION EVERY 4-6 HOURS as needed for shortness of breath or wheezing 6.7 March 17, 2024 12:00am amoxicillin 500 mg oral capsule (5 sources) Penicillin-class Antibacterial Start: 08-14-2022 take 1 capsule by mouth every eight hours Amoxicillin 500 MG 1 capsule Orally every 8 hrs for 7 days Jul, Active azithromycin 250 mg oral tablet (3 sources) Macrolide Antimicrobial Start: 03-17-2024 Azithromycin 250 mg tablet Active 0 PO daily 6 March 17, 2024 12:00am Take 2 on day 1 and then take 1 for the next 4 days (days 2-5) Start: 03-01-2023 Azithromycin 2 50 MG as directed Orally [...] 1 MG Oral Tablet) } Pack [Lutera 28 Day] (1 source) Progestin, Estrogen, Progestin-containing Intrauterine Device take 1 tablet by mouth every twenty-four hours Lutera 0.1-20 MG-MCG 1 tablet Orally Once a day for 28 day(s) Active Famotidine (5 sources) Histamine-2 Receptor Antagonist Pepcid Active methylPREDNISolone 4 mg oral tablet (2 sources) Corticosteroid Start: 2023 take 1 tablet by mouth once Methylprednisolone (Medrol (Fco)) 4 mg tablets,dose pack Active 0 PO per package directions March 17, 2024 12:00am PO PER PKG DIR Start: 04-14-2021 methylPREDNISo lone 4 MG as directed Orally Once a day for 6 days Mar, Active norethindrone 0.35 mg oral tablet (3 sources) Start: 02-25-2024 End: 05-19-2024 take 1 tablet by mouth once daily, then take 1 tablet by mouth once daily norethindrone (Micronor) 0.35 MG tablet Indications: Hormone disorder , Decreased libido , Pain in female genitalia on intercourse , Other fatigue Take 1 tablet (0.35 mg) by mouth Daily Take 1 tablet by mouth daily 84 tablet 4 02/25/2024 05/19/2024 Active polymyxin b 49803 unt/ml / trimethoprim 1 mg/ml ophthalmic solution (4 sources) Dihydrofolate Reductase Inhibitor Antibacterial, Polymyxin-class Antibacterial Start: 04-08-2022 take 1 drop(s) into the eye(s) four times daily Polymyxin B-Trimethoprim 51473-0.1 UNIT/ML 1 drop both eyes Four times a day for 5 day(s) Mar, Active prednisoLONE acetate 10 mg/ml ophthalmic suspension (3 sources) Corticosteroid Start: 12-02-2023 End: 03-17-2024 take 1 drop(s) into the eye(s) in the morning prednisoLONE acetate (Pred-Forte) 1 % ophthalmic suspension Indications: Herpes zoster dermatitis of eyelid Administer 1 drop into the right eye in the morning and 1 drop before bedtime. Do all this for 14 days. 5 mL 01/10/2024 01/24/2024 Active Start: 12-02-2023 Prednisolone A cetate Active DROPS OPHTHALMIC December 02, 2023 12:00am (11 sources) Active Promethazine (5 sources) Phenothiazine Phenergan Active Vitamin D (4 sources) Vitamin D Active Completed/Discontinued Medications Medication Drug Class(es) Dates Sig (Normalized) Sig (Original) acetaminophen 325 mg / HYDROcodone bitartrate 5 mg oral tablet (5 sources) Opioid Agonist Start: 2023 End: 02-25-2024 take 1-2 tablets by mouth every six hours HYDROcodone-acetami nophen ([place]) 5-325 MG tablet TAKE 1 TO 2 TABLETS BY MOUTH EVERY 6 HOURS UP TO 5 (FIVE) DAYS 2023 02/25/2024 Discontinued acetaminophen 325 mg / oxyCODONE hydrochloride 5 mg oral tablet (5 sources) Opioid Agonist Start: 12-02-2023 End: 02-25-2024 take 1 tablet by mouth every six hours oxyCODONE-acetamino phen (Percocet) 5-325 MG tablet Take 1 tablet by mouth every 6 (six) hours 12/02/2023 02/25/2024 Discontinued 120 actuat budesonide 0.08 mg/actuat / formoterol fumarate 0.0045 mg/actuat metered dose inhaler (1 source) Corticosteroid, beta2-Adrenergic Agonist Start: 07-17-2012 take 2 puff(s) by inhalation twice daily Symbicort 80-4.5 MCG/ACT 2 puffs Inhalation Twice a day Jun, Not-Taking ciprofloxacin 500 mg oral tablet (5 sources) Quinolone Antimicrobial Start: 2023 End: 02-25-2024 take 1 tablet by mouth in the morning ciprofloxacin (Cipro) 500 MG tablet Take 500 mg by mouth in the morning and 500 mg before bedtime. 2023 02/25/2024 Discontinued docusate sodium 100 mg oral capsule (5 sources) End: 02-25-2024 take 1 capsule by mouth in the morning docusate sodium (Colace) 100 MG capsule Take 100 mg by mouth in the morning and 100 mg before bedtime. 02/25/2024 Discontinued flibanserin 100 mg oral tablet (2 sources) Start: 01-22-2024 End: 03-17-2024 take 1 tablet by mouth once daily at bedtime Flibanserin (Addyi) 100 mg tablet Discontinued 100 MG PO Daily at bedtime January 21, 2024 11:00pm March 17, 2024 3:06pm 200 actuat levalbuterol 0.045 mg/actuat metered dose inhaler (1 source) beta2-Adrenergic Agonist Start: 09-19-2012 take 2 puff(s) by inhalation every six hours Xopenex HFA 45 MCG/ACT 2 puffs Inhalation every 6 hrs for 30 days August, Not-Taking ondansetron 4 mg disintegrating oral tablet (5 sources) Serotonin-3 Receptor Antagonist Start: 2023 End: 02-25-2024 ondansetron ODT (Zofran-ODT) 4 MG disintegrating tablet DISSOLVE 1 (ONE) TABLET ON THE TONGUE EVERY 8 HOURS NEEDED 2023 02/25/2024 Discontinued predniSONE 50 mg oral tablet (5 sources) Start: 12-02-2023 End: 02-25-2024 predniSONE (Deltasone) 50 MG tablet take 1 tablet by mouth once daily for 5 days ADMINISTER 13 HOURS ... (REFER TO PRESCRIPTION NOTES). 12/02/2023 02/25/2024 Discontinued MV-Min-Fe Fum-FA-DHA ( 1 PO) (5 sources) End: 02-25-2024 MV-Min-Fe Fum-FA-DHA ( 1 PO) Take 1 tablet by mouth in the morning. 02/25/2024 Discontinued MV-Min- Fe Fum-FA-DHA ( 1 PO) Take 1 tablet by mouth in the morning. Active sertraline 50 mg oral tablet (8 sources) Serotonin Reuptake Inhibitor Start: 07-19-2023 End: 02-25-2024 take 1 tablet by mouth once daily sertraline (Zoloft) 50 MG tablet Take 50 mg by mouth Daily 07/19/2023 02/25/2024 Discontinued Start: 03-29-2023 take 1 tablet by dasha th every twenty-four hours Sertraline HCl 50 MG 1 tablet Orally Once a day for 30 days Feb, Active Start: 03-29-2023 take 1 tablet by dasha th every twenty-four hours Sertraline HCl 25 MG 1 tablet Orally Once a day for 30 day(s) Feb, Active valACYclovir 1000 mg oral tablet (5 sources) Herpesvirus Nucleoside Analog DNA Polymerase Inhibitor, Herpes Simplex Virus Nucleoside Analog DNA Polymerase Inhibitor, Herpes Zoster Virus Nucleoside Analog DNA Polymerase Inhibitor Start: 12-02-2023 End: 02-25-2024 take 1 tablet by mouth every eight hours valACYclovir (Valtrex) 1 g tablet take 1 tablet by mouth every 8 hours for 7 days 12/02/2023 02/25/2024 Discontinued 24 hr venlafaxine 37.5 mg extended release oral capsule (20 sources) Serotonin and Norepinephrine Reuptake Inhibitor Start: 01-07-2024 End: 03-17-2024 take 1 capsule by mouth once daily at mealtime Venlafaxine 37.5 mg capsule,extended release 24hr Discontinued 0 .ROUTE .COMPLEX January 09, 2024 8:46am March 17, 2024 3:06pm TAKE 1 CAPSULE BY MOUTH DAILY WITH FOOD Start: 11-12-2023 End: 01-07-2024 take 1 capsule by mouth once daily at mealtime Venlafaxine 37.5 mg capsule,extended release 24hr Discontinued 0 .ROUTE .COMPLEX November 12, 2023 8:56am January 07, 2024 8:42pm take 1 capsule by mouth once daily with food Start: 11-12-2023 End: 01-07-2024 take 1 capsule by mouth once daily at mealtime Venlafaxine Discontinued 0 .ROUTE .COMPLEX November 12, 2023 9:56am January 07, 2024 9:42pm take 1 capsule by mouth once daily with food Start: 10-29-2023 End: 02-25-2024 take 1 capsule by mouth once daily at mealtime venlafaxine XR (Effexor XR) 37.5 MG 24 hr capsule take 1 capsule by mouth once daily with food 10/29/2023 02/25/2024 Discontinued Start: 10-29-2023 End: 11-12-2023 take 1 capsule by mouth once daily at mealtime Venlafaxine 37.5 mg capsule,extended release 24hr Discontinued 0 .ROUTE .COMPLEX October 29, 2023 8:33am November 12, 2023 8:56am take 1 capsule by mouth once daily with food Start: 07-04-2023 End: 10-29-2023 take 1 capsule by mouth once daily at mealtime Venlafaxine 37.5 mg capsule,extended release 24hr Discontinued 0 .ROUTE .COMPLEX July 04, 2023 2:06pm October 29, 2023 8:33am take 1 capsule by mouth once daily with food Start: 07-04-2023 End: 10-29-2023 take 1 capsule by mouth once daily at mealtime Venlafaxine Discontinued 0 .ROUTE .COMPLEX July 04, 2023 3:06pm October 29, 2023 9:33am take 1 capsule by mouth once daily with food Start: 07-04-2023 take 1 capsule by mo ut once daily at mealtime Venlafaxine Active 0 .ROUTE .COMPLEX July 04, 2023 3:06pm take 1 capsule by mouth once daily with food Start: 07-04-2023 End: 07-04-2023 take 1 capsule by mouth once daily Venlafaxine 37.5 mg capsule,extended release 24hr Discontinued 37.5 MG PO Daily July 04, 2023 12:00am July 04, 2023 2:06pm Start: 06-08-2023 take 1 capsule by mo uth every twenty-four hours Venlafaxine HCl ER 37.5 MG 1 capsule with food Orally Once a day for 30 day(s) May, Active Problems Active Problems Problem Classification Problem Date [...] Episodic Chronic obstructive pulmonary disease and bronchiectasis (5 sources) Bronchitis, not specified as acute or chronic; Translations: [Bronchitis] Onset: 04-14-2021 Resolved: 04-14-2021 Episodic Deficiency and other anemia (3 sources) Anemia; Translations: [Anemia, unspecified] 10-17-2023 Episodic Deficiency [...] that caused by tuberculosis or sexually transmitteddisease) (2 sources) Unspecified conjunctivitis; Translations: [Varicella-zoster virus eyelid dermatitis] Episodic Influenza (1 source) Influenza due to other identified influenza virus with other respiratory manifestations Episodic Malaise and fatigue (11 sources) Fatigue; Translations: [Other fatigue] Onset: 02-25-2024 10-17-2023 Episodic Miscellaneous mental health disorders (4 sources) Lack or loss of sexual desire; Translations: [Hypoactive sexual desire disorder] 01-22-2024 Chronic Miscellaneous mental health disorders (4 sources) depression; Translations: [ depression] Onset: 07-29-2018 Episodic Mood disorders (4 sources) Chronic depression; Translations: [Chronic depression] 01-22-2024 Chronic Nausea and vomiting (5 sources) Nausea with [...] URETRL CALCUL OBST] Onset: 06-29-2022 Episodic Other endocrine disorders (5 sources) Disorder of endocrine system; Translations: [Endocrine disorder, unspecified] Onset: 02-25-2024 02-25-2024 Episodic Other female genital disorders (5 sources) Pain in female genitalia on intercourse; Translations: [Unspecified dyspareunia] Onset: 02-25-2024 02-25-2024 Chronic Other injuries and conditions due to external [...] Translations: [9 weeks gestation of ] Episodic Residual codes; unclassified (5 sources) Reduced libido; Translations: [Decreased libido] Onset: 02-25-2024 02-25-2024 Episodic Unclassified (1 source) [facility] SPCF DIS/COND COMPL ; Translations: [OT SPCF DIS/COND COMPL ] Onset: 06-29-2022 Viral infection (2 sources) Herpes zoster; Translations: [Zoster without complications] 12-02-2023 Episodic Past or Other Problems Problem Classification Problem Date Documented Date Episodic/Chronic Contraceptive and procreative management (6 sources) Patient encounter status; Translations: [Encounter for other general counseling and advice on contraception] Onset: 09-22-2022 09-22-2022 Episodic Noninfectious gastroenteritis (2 sources) Noninfectious gastroenteritis; Translations: [Other and unspecified noninfectious gastroenteritis and colitis] Onset: 09-02-2013 Episodic Other complications of (4 sources) Mild hyperemesis gravidarum; Translations: [MILD HYPEREMESIS GRAVIDARUM] Onset: 03-04-2022 Episodic Other female genital disorders (4 sources) Other specified noninflammatory disorders of vagina; Translations: [OT SPEC NONINFLAMMATORY D/O VAGINA] Onset: 05-25-2022 Episodic [...] Test Name Value Interpretation Reference Range Facility No Panel InformationOrdered By: Danielle Grover on 03-17-2024 Quick Strep (POC) [facility] 1,25-dihydroxyvitamin D3 [Ma ss/Vol]on 02-25-2024 1,25 Dihydroxy Vitamin D 64.9 pg/mL 24.8-81.5 [facility] Comment on above: Performed at: Who@ [address] [id number] Director: Chico Silveira MD, Phone: [phone] Free testosterone measuremen t by LC-MS/MSon 02-25-2024 Testosterone Free [Mass/Vol] Free testosterone measurement by LC-MS/MS 0.0-4.2 [facility] Comment on above: Performed at: [facility] [address] [id number] Director: Anival Paul PhD, Phone: [phone] at: [email or web address] [facility] [address] [id number] Director: Chico Silveira MD, Phone: [phone] Glucose mean value [Mass/vol ume] in Blood Estimated from glycated hemoglobinon 02-25-2024 Average glucose Estimated from glycated hemoglobin (Bld) [Mass/Vol] Glucose mean value [Mass/volume] in Blood Estimated from glycated hemoglobin [facility] Laboratory - Chemistry and C hemistry - challengeon 02-25-2024 Ferritin [Mass/Vol] 87.0 ng/mL 8.0-252.0 [facility] Free T4 [Mass/Vol] 0.94 ng/dL 0.76-1.46 [facility] Glucose [Mass/Vol] 82 mg/dL 74-106 [facility] T4 [Mass/Vol] 7.10 ug/dL 4.80-13.90 [facility] TSH Qn 0.502 m[IU]/L 0.358-3.74 0 [facility] - Hematology and Cell countson 02-25-2024 HbA1c (Bld) [Mass fraction] 4.2 % Low 4.5-6.2 [facility] Comment on above: ADA RECOMMENDED LIMI T 4.0 - 6.0ADA THERAPEUTIC TARGET < 7.0ACTION SUGGESTED> 7.0 MLR HEMOGLOBIN A1Con 024 Glucose [Mass/Vol] 74 mg/dL [facility] HbA1c (Bld) [Mass fraction] 4.2 % Low 4.5 - 6.2 % [facility] Comment on above: ADA RECOMMENDED LIMI T 4.0 - 6.0 ADA THERAPEUTIC TARGET < 7.0 ACTION SUGGESTED > 7.0 Interpretation and review of laboratory results Abnormal [facility] No Panel Informationon 02-24 C-Peptide 1.3 ng/mL 1.1-4.4 [facility] Comment on above: C-Peptide reference interval is for fasting patients.Performed at: [address] [id number] Director: Anival Paul PhD, Phone: [phone] Dehydroepiandrosterone Sulfate 210.0 ug/dL 84.8-378.0 [facility] Free Cortisol, Dialysis, LCMS 0.363 ug/dL . [facility] Comment on above: These tests were dev eloped and their performancecharacteristics determined by [facility]. They have not beencleared or approved by the Food and Drug Administration.Reference Range:8 AM 0.10 - 1.204 PM 0.042 - 0.872Performed at: [facility] [address] [place], [place] [id number] Director: Fede Gunter MD, Phone: [phone] Free Triiodothyronine 2.50 pg/mL 2.18-3.98 [facility] Reverse Triiodothyronine (T3) 20.1 ng/dL 9.2-24.1 [facility] Comment on above: This test was develo ped and its performance characteristicsdetermined by [facility]. It has not been cleared orapproved by the Food and Drug Administration.Performed at: [address] [id number] Director: Chico Silveira MD, Phone: [phone] Sex Hormone Binding Globulin 47.9 nmol/L 24.6-122.0 [facility] Comment on above: Performed at: [facility] [address] [id number] Director: Anival Paul PhD, Phone: [phone] Testosterone Level 18 ng/dL 13-71 [facility] Serotonin (P) [Mass/Vol]on Serotonin 34 ng/mL 31 [facility] Comment on above: This test was develo ped and its performance characteristicsdetermined by [facility]. It has not been cleared orapproved by the Food and Drug Administration.Performed at: [facility] [address] [id number] Director: Chico Silveira MD, Phone: [phone] Serum estrone measurementon 02-25-2024 E1 [Mass/Vol] Serum estrone measurement [facility] Comment on above: Range Adult (Premeno pausal) 27 - 231 Menstrual Cycle (1-10 days) 19 - 149 Menstrual Cycle (11-20 days) 32 - 176 Menstrual Cycle (21-30 days) 37 - 200Performed at: [facility] [address] [id number] Director: Chico Silveira MD, Phone: [phone] Serum or plasma estradiol (E 2) measurement (mass/volume)on 02-25-2024 E2 [Mass/Vol] Serum or plasma estradiol (E2) measurement (mass/volume) . [facility] Comment on above: Adult Female Range F ollicular phase 12.5 - 166.0 Ovulation phase 85.8 - 498.0 Luteal phase 43.8 - 211.0 Postmenopausal <6.0 - 54.7 1st trimester 215.0 - >4300.0Roche ECLIA methodology Serum or plasma insulin pierce urement (units/volume)on 02-25-2024 Insulin Qn Serum or plasma insu juan luis measurement (units/volume) 2.6-24.9 [facility] Comment on above: Performed at: [facility] [address] [id number] Director: Anival Paul PhD, Phone: [phone] Serum or plasma progesterone measurement (mass/volume)on 02-25-2024 Progesterone [Mass/Vol] Serum or plasma progesterone measurement (mass/volume) . [facility] Comment on above: Follicular phase 0.1 - 0.9 Luteal phase 1.8 - 23.9 Ovulation phase 0.1 - 12.0 First trimester 11.0 - 44.3 Second trimester 25.4 - 83.3 Third trimester 58.7 - 214.0 Postmenopausal 0.0 - 0.1 TPO Ab Qnon 02-25-2024 Thyroid Peroxidase Antibodies 15 [IU]/mL 0-34 [facility] Thyroglobulin Ab Qnon 2023 Anti-Thyroglobulin Antibody <1.0 [IU]/mL 0.0-0.9 [facility] Comment on above: Thyroglobulin Antibo dy measured by RevneticsMethodologyIt should be noted that the presence of thyroglobulinantibodies may not be pathogenic nor diagnostic, especiallyat very low levels. The assay adult ministries director has found thatfour percent of individuals without evidence of thyroiddisease or autoimmunity will have positive TgAb levels upto 4 IU/mL.Performed at: [facility] [id number] Director: Anival Paul PhD, Phone: [phone] Basophils Auto (Bld) [#/Vol] on 2023 Basophils (Bld) [#/Vol] 0.0 10 3/uL 0.0-0.1 [facility] Basophils/100 WBC Auto (Bld) on 2023 Basophils/100 WBC (Bld) 0.3 % 0.2-2.0 [facility] Eosinophils/100 WBC Auto (Bl d)on 2023 Eosinophils/100 WBC (Bld) 1.0 % 0.9-7.0 [facility] Erythrocyte distribution wid th Auto (RBC) [Ratio]on 2023 Erythrocyte distribution width (RBC) [Ratio] 12.1 % 11.0-15.0 [facility] Hematocrit Auto (Bld) [Volum e fraction]on 2023 Hematocrit (Bld) [Volume fraction] 39.5 % 36.0-48.0 [facility] Hemoglobin [Mass/volume] in Bloodon 2023 Hemoglobin (Bld) [Mass/Vol] 13.7 g/dL 12.0-16.0 [facility] Laboratory - Chemistry and C hemistry - challengeon 2023 Bilirubin Ql (U) Negative NEGATIVE [facility] Glucose (U) [Mass/Vol] Negative NEGATIVE [facility] Ketones Ql (U) Negative NEGATIVE [facility] pH (U) 6.0 [pH] 5.0-9.0 [facility] Specific gravity (U) [Rel density] 1.025 1.005-1.02 5 [facility] Urobilinogen Qn (U) 1.0 {Ariana'U}/dL 0.2-1.0 [facility] Laboratory - Hematology and Cell countson 2023 Immature granulocytes/100 WBC (Bld) 0.8 % High 0.0-0.5 [facility] Laboratory - Specimen inform ationon 2023 Appearance (U) CLEAR CLEAR [facility] Color (U) YELLOW YELLOW [facility] - Urinalysison Leukocyte esterase Test strip Ql (U) Negative NEGATIVE [facility] Mucus Ql (Urine sed) TRACE Abnormal NONE SEEN [facility] Nitrite Ql (U) Negative NEGATIVE [facility] Protein Ql (U) TRACE mg/dL NEG/TRACE [facility] Leukocytes [#/volume] correc mary for nucleated erythrocytes in Blood by Automated counon 2023 WBC corrected for nucl RBC Auto (Bld) [#/Vol] 7.9 10 3/uL 4.0-11.0 [facility] Lymphocytes Auto (Bld) [#/Vo l]on 2023 Lymphocytes (Bld) [#/Vol] 2.4 10 3/uL 1.2-3.8 [facility] Lymphocytes/100 WBC Auto (Bl d)on 2023 Lymphocytes/100 WBC (Bld) 30.4 % 20.5-60.0 [facility] MCH Auto (RBC) [Entitic mass ]on 2023 MCH (RBC) [Entitic mass] 30.3 pg 26.7-34.0 [facility] MCHC Auto (RBC) [Mass/Vol]on 2023 MCHC (RBC) [Mass/Vol] 34.7 g/dL 29.9-35.2 [facility] MCV Auto (RBC) [Entitic vol] on 2023 MCV (RBC) [Entitic vol] 87.4 fL 81.0-99.0 [facility] [facility] Monocytes Auto (Bld) [#/Vol] on 2023 Monocytes (Bld) [#/Vol] 0.6 10 3/uL 0.3-0.8 [facility] Monocytes/100 WBC Auto (Bld) on 2023 Monocytes/100 WBC (Bld) 7.1 % 1.7-12.0 F [facility] Neutrophils Auto (Bld) [#/Vo l]on 2023 Neutrophils (Bld) [#/Vol] 4.8 10 3/uL 1.4-6.5 [facility] Neutrophils/100 WBC Auto (Bl d)on 2023 Neutrophils/100 WBC (Bld) 60.4 % 43.0-75.0 [facility] No Panel Informationon 11-14 Eosinophils # (Auto) 0.1 10 3/uL 0.0-0.7 [facility] Immature Granulocyte # (Auto) 0.06 10 3/uL High 0.00-0.03 [facility] Urine Bacteria MODERATE #/HPF Abnormal NONE SEEN [facility] Urine Culture Reflexed YES [facility] Urine Microscopic Review YES [facility] Urine Occult Blood LARGE Abnormal NEGATIVE [facility] Urine Other Casts NONE SEEN #/LPF NONE SEEN [facility] Urine Other Crystals None Seen #/HPF None Seen [facility] Urine RBC >100 #/HPF Abnormal 0-2 [facility] Urine Squamous Epithelial Cells FEW #/LPF Abnormal NONE/RARE [facility] Urine WBC 2-5 #/HPF Abnormal NONE SEEN [facility] Platelet mean volume Auto (B ld) [Entitic vol]on 2023 Platelet mean volume (Bld) [Entitic vol] 10.3 fL 9.5-13.5 [facility] Platelets Auto (Bld) [#/Vol] on 2023 Platelets (Bld) [#/Vol] 223 10 3/uL 150-450 [facility] RBC Auto (Bld) [#/Vol]on RBC (Bld) [#/Vol] 4.52 10 6/uL 4.20-5.40 [facility] Yeast detection in urine sed iment by light microscopyon 2023 Yeast LM Ql (Urine sed) SEEN Abnormal NONE SEEN F [facility] Patient Letter FTon 2022 Patient Letter [facility] (Inserted Image. Rebecca ble to display) November 27, 2022 BRI KIRK [address] [place] [id number] : 1995 Dear Bri Kirk, [facility] is sending you a [...] [facility] , option #3 Normal [facility] RAD - MISCon 10-16-2022 RAD - MISC [id number] Normal [facility] CBC AUTO DIFFon 09-04-2022 BASO # 0.1 103/ul Normal 0.0-0.1 [facility] Comment on above: Performed By: #### D DEEPA #### [facility] [address] [address] [address] Mark Cuellar Basophils/100 WBC (Bld) 0.4 % Normal 0.2-2.0 [facility] Comment on above: Performed By: #### D DEEPA #### [facility] [address] [place] [address] Dr. Mark Cuellar EO # 0.1 103/ul Normal 0.0-0.7 [facility] Comment on above: Performed By: #### D DEEPA #### [facility] [address] [place] [address] Dr. Mark Cuellar Eosinophils/100 WBC (Bld) 0.6 % Critically low 0.9-7.0 [facility] Comment on above: Performed By: #### D DEEPA #### [facility] [address] [place] [address] Dr. Mark Cuellar Erythrocyte distribution width (RBC) [Ratio] 13.4 % Normal 11.0-15.0 [facility] Comment on above: Performed By: #### D DEEPA #### [facility] [address] [place] [address] Dr. Mark Cuellar Hematocrit (Bld) [Volume fraction] 31.6 % Critically low 36.0-48.0 [facility] Comment on above: Performed By: #### D DEEPA #### [facility] [address] [place] [address] Dr. Mark Cuellar Hemoglobin (Bld) [Mass/Vol] 10.9 g/dL Critically low 12.0-16.0 [facility] Comment on above: Performed By: #### D DEEPA #### [facility] [address] [place] [address] Dr. Mark Cuellar IG # 0.41 10e3/ul Critically high 0.00-0.03 [facility] Comment on above: Performed By: #### D DEEPA #### [facility] [address] [place] [address] Dr. Mark Cuellar IG % 2.9 % Critically high 0.0-0.5 [facility] Comment on above: Performed By: #### D DEEPA #### [facility] [address] [place] [address] Dr. Mark Cuellar LYMPH # 2.5 103/ul Normal 1.2-3.8 [facility] Comment on above: Performed By: #### D DEEPA #### [facility] [address] [address] [address] Mark Cuellar Lymphocytes/100 WBC (Bld) 18.0 % Critically low 20.5-60.0 [facility] Comment on above: Performed By: #### D DEEPA #### [facility] [address] [address] [address] Mark Cuellar MANUAL DIFF REQ NO Normal [facility] Comment on above: Performed By: #### D DEEPA #### [facility] [address] [address] [address] Mark Cuellar MCH (RBC) [Entitic mass] 30.7 pg Normal 26.7-34.0 [facility] Comment on above: Performed By: #### D DEEPA #### [facility] [address] [place] [address] Dr. Mark Cuellar MCHC (RBC) [Mass/Vol] 34.5 g/dL Normal 29.9-35.2 [facility] Comment on above: Performed By: #### D DEEPA #### [facility] [address] [place] [address] Dr. Mark Cuellar MCV (RBC) [Entitic vol] 89.0 fL Normal 81.0-99.0 [facility] Comment on above: Performed By: #### D DEEPA #### [facility] [address] [place] [address] Dr. Mark Cuellar MONO # 1.2 103/ul Critically high 0.3-0.8 [facility] Comment on above: Performed By: #### D DEEPA #### [facility] [address] [address] [address] Mark Cuellar Monocytes/100 WBC (Bld) 8.3 % Normal 1.7-12.0 [facility] Comment on above: Performed By: #### D DEEPA #### [facility] [address] [address] [address] Mark Cuellar NEUT # 9.8 103/ul Critically high 1.4-6.5 [facility] Comment on above: Performed By: #### D DEEPA #### [facility] [address] [address] [address] Mark Cuellar Neutrophils/100 WBC (Bld) 69.8 % Normal 43.0-75.0 [facility] Comment on above: Performed By: #### D DEEPA #### [facility] [address] [address] [address] Mark Cuellar Platelet mean volume (Bld) [Entitic vol] 10.2 fL Normal 9.5-13.5 [facility] Comment on above: Performed By: #### D DEEPA #### [facility] [address] [address] [address] Mark Cuellar PLT 153 103/ul Normal 150-450 [facility] Comment on above: Performed By: #### D DEEPA #### [facility] [address] [place] [address] Dr. Mark Cuellar RBC 3.55 106/ul Critically low 4.20-5.40 [facility] Comment on above: Performed By: #### D DEEPA #### [facility] [address] [address] [address] Mark Cuellar WBC 14.1 103/ul Critically high 4.0-11.0 [facility] Comment on above: Performed By: #### D DEEPA #### [facility] [address] [place] [address] Dr. Mark Cuellar CBC AUTO DIFFon 09-03-2022 BASO # 0.1 103/ul Normal 0.0-0.1 [facility] Comment on above: Performed By: #### D DEEPA #### [facility] [address] [address] [address] Mark Cuellar Basophils/100 WBC (Bld) 0.5 % Normal 0.2-2.0 [facility] Comment on above: Performed By: #### D DEEPA #### [facility] [address] [place] [address] Dr. Mark Cuellar EO # 0.2 103/ul Normal 0.0-0.7 [facility] Comment on above: Performed By: #### D DEEPA #### [facility] [address] [address] [address] Mark Cuellar Eosinophils/100 WBC (Bld) 1.1 % Normal 0.9-7.0 [facility] Comment on above: Performed By: #### D DEEPA #### [facility] [address] [address] [address] Mark Cuellar Erythrocyte distribution width (RBC) [Ratio] 13.0 % Normal 11.0-15.0 [facility] Comment on above: Performed By: #### D DEEPA #### [facility] [address] [place] [address] Dr. Mark Cuellar Hematocrit (Bld) [Volume fraction] 35.3 % Critically low 36.0-48.0 [facility] Comment on above: Performed By: #### D DEEPA #### [facility] [address] [place] [address] Dr. Mark Cuellar Hemoglobin (Bld) [Mass/Vol] 12.7 g/dL Normal 12.0-16.0 [facility] Comment on above: Performed By: #### D DEEPA #### [facility] [address] [place] [address] Dr. Mark Cuellar IG # 0.36 10e3/ul Critically high 0.00-0.03 [facility] Comment on above: Performed By: #### D DEEPA #### [facility] [address] [place] [address] Dr. Mark Cuellar IG % 2.6 % Critically high 0.0-0.5 [facility] Comment on above: Performed By: #### D DEEPA #### [facility] [address] [address] [address] Mark Cuellar LYMPH # 2.9 103/ul Normal 1.2-3.8 [facility] Comment on above: Performed By: #### D DEEPA #### [facility] [address] [place] [address] Dr. Mark Cuellar Lymphocytes/100 WBC (Bld) 21.3 % Normal 20.5-60.0 [facility] Comment on above: Performed By: #### D DEEPA #### [facility] [address] [address] [address] Mark Cuellar MANUAL DIFF REQ NO Normal [facility] Comment on above: Performed By: #### D DEEPA #### [facility] [address] [address] [address] Mark Cuellar MCH (RBC) [Entitic mass] 30.8 pg Normal 26.7-34.0 [facility] Comment on above: Performed By: #### D DEEPA #### [facility] [address] [address] [address] Mark Cuellar MCHC (RBC) [Mass/Vol] 36.0 g/dL Critically high 29.9-35.2 [facility] Comment on above: Performed By: #### D DEEPA #### [facility] [address] [place] [address] Dr. Mark Cuellar MCV (RBC) [Entitic vol] 85.7 fL Normal 81.0-99.0 [facility] Comment on above: Performed By: #### D DEEPA #### [facility] [address] [place] [address] Dr. Mark Cuellar MONO # 1.2 103/ul Critically high 0.3-0.8 [facility] Comment on above: Performed By: #### D DEEPA #### [facility] [address] [place] [address] Dr. Mark Cuellar Monocytes/100 WBC (Bld) 8.6 % Normal 1.7-12.0 [facility] Comment on above: Performed By: #### D DEEPA #### [facility] [address] [place] [address] Dr. Mark Cuellar NEUT # 9.1 103/ul Critically high 1.4-6.5 [facility] Comment on above: Performed By: #### D DEEPA #### [facility] [address] [place] [address] Dr. Mark Cuellar Neutrophils/100 WBC (Bld) 65.9 % Normal 43.0-75.0 [facility] Comment on above: Performed By: #### D DEEPA #### [facility] [address] [address] [address] Mark Cuellar Platelet mean volume (Bld) [Entitic vol] 10.1 fL Normal 9.5-13.5 [facility] Comment on above: Performed By: #### D DEEPA #### [facility] [address] [address] [address] Mark Cuellar PLT 211 103/ul Normal 150-450 [facility] Comment on above: Performed By: #### D DEEPA #### [facility] [address] [address] [address] Mark Cuellar RBC 4.12 106/ul Critically low 4.20-5.40 [facility] Comment on above: Performed By: #### D DEEPA #### [facility] [address] [place] [address] Dr. Mark Cuellar WBC 13.7 103/ul Critically high 4.0-11.0 [facility] Comment on above: Performed By: #### D DEEPA #### [facility] [address] [place] [address] Dr. Mark Cuellar TYPE AND SCREENon 09-03-2022 TYPE AND SCREEN Negative Normal [facility] Comment on above: Performed By: #### E JUSTIN ICRO #### [facility] [address] [place] [address] Dr. Mark Cuellar DRUG SCREEN RAPID (URINE)on 09-02-2022 AMP Negative Normal NEGATIVE [facility] Comment on above: Performed By: #### U ACSKAYW UMICRO #### [facility] [address] [place] [address] Dr. Mark Cuellar BAR Negative Normal NEGATIVE [facility] Comment on above: Performed By: #### U HERNESTO UMICRO #### [facility] [address] [place] [address] Dr. Mark Cuellar BUP Negative Normal NEGATIVE [facility] Comment on above: Performed By: #### U HERNESTO UMICRO #### [facility] [address] [place] [address] Dr. Mark Cuellar BZO Negative Normal NEGATIVE [facility] Comment on above: Performed By: #### U ACSKYAW, UMICRO #### [facility] [address] [place] [address] Dr. Mark Cuellar MYRA Negative Normal NEGATIVE [facility] Comment on above: Performed By: #### U ACSIND, UMICRO #### [facility] [address] [place] [address] Dr. Mark Cuellar CUT-OFFS SEE BELOW Normal [facility] Comment on above: Result Comment: AMP (Amphetamine): 500ng/mL, BAR (Barbituates): 200 ng/mL, BZO (Benzodiazepines): 150 ng/mL, BUP (Buprenorphine): 10 ng/mL, MYRA (Cocaine): 150 ng/mL, mAMP (Methamphetamine): 500 ng/mL, MTD (Methadone): 200 ng/mL, OPI (Opiates): 100 ng/mL, OXY (Oxycodone): 100 ng/mL, PCP (Phencyclidine): 25 ng/mL, PPX (Propoxyphene): 300 ng/mL, THC (Cannabinoids): 50 ng/mL, TCA (Trycyclic Antidepressants): 300 ng/mL Performed By: #### U ACSKYAW UMICRO #### [facility] [address] [place] [address] Dr. Mark Cuellar DRUG CUT HEADER DRUG CLASS TEST SYST EM CUT-OFF CONCENTRATIONS ARE FOLLOWS: Normal [facility] Comment on above: Performed By: #### U ACSKYAW UMICRO #### [facility] [address] [place] [address] Dr. Mark Cuellar mAMP Negative Normal NEGATIVE [facility] Comment on above: Performed By: #### U ACSKYAW UMICRO #### [facility] [address] [place] [address] Dr. Mark Cuellar MTD Negative Normal NEGATIVE [facility] Comment on above: Performed By: #### U ACSKYAW UMICRO #### [facility] [address] [place] [address] Dr. Mark Cuellar OPI Negative Normal NEGATIVE [facility] Comment on above: Performed By: #### U ACSIND, UMICRO #### [facility] [address] [address] [address] Mark Cuellar OXY Negative Normal NEGATIVE [facility] Comment on above: Performed By: #### U ACSIND, UMICRO #### [facility] [address] [address] [address] Mark Cuellar PCP Negative Normal NEGATIVE [facility] Comment on above: Performed By: #### U ACSIND, UMICRO #### [facility] [address] [place] [address] Dr. Mark Cuellar PPX Negative Normal NEGATIVE [facility] Comment on above: Performed By: #### U ACSIND, UMICRO #### [facility] [address] [place] [address] Dr. Mark Cuelalr TCA Negative Normal NEGATIVE [facility] Comment on above: Performed By: #### U ACSKYAW, UMICRO #### [facility] [address] [place] [address] Dr. Mark Cuellar THC Negative Normal NEGATIVE [facility] Comment on above: Performed By: #### U ACSKYAW, UMICRO #### [facility] [address] [place] [address] Dr. Mark Cuellar UA (CLEAN/CATCH) [employer]I [employer]/MICRO I F IND.on 09-02-2022 Bilirubin Ql (U) Negative Normal NEGATIVE [facility] Comment on above: Performed By: #### E RUR UMICRO #### [facility] [address] [place] [address] Dr. Mark Cuellar Clarity (U) CLEAR Normal CLEAR [facility] Comment on above: Performed By: #### E RUR UMICRO #### [facility] [address] [place] [address] Dr. Mark Cuellar Color (U) LT. YELLOW Normal YELLOW [facility] Comment on above: Performed By: #### E RUR UMICRO #### [facility] [address] [place] [address] Dr. Mark Cuellar Glucose Ql (U) Negative Normal NEGATIVE [facility] Comment on above: Performed By: #### Jonna ANDERSON UMICRO #### [facility] [address] [place] [address] Dr. Mark Cuellar Hemoglobin Ql (U) TRACE-INTACT Abnormal NEGATIVE [facility] Comment on above: Performed By: #### Jonna ANDERSON UMICRO #### [facility] [address] [place] [address] Dr. Mark Cuellar Ketones Ql (U) Negative Normal NEGATIVE [facility] Comment on above: Performed By: #### Jonna ANDERSON UMICRO #### [facility] [address] [place] [address] Dr. Mark Cuellar LEUKOCYTES Negative Normal NEGATIVE [facility] Comment on above: Performed By: #### Jonna ANDERSON UMICRO #### [facility] [address] [place] [address] Dr. Mark Cuellar Nitrite Ql (U) Negative Normal NEGATIVE [facility] Comment on above: Performed By: #### Jonna ANDERSON ICRO #### [facility] [address] [place] [address] Dr. Mark Cuellar pH (U) 7.0 [pH] Normal 5-9 [facility] Comment on above: Performed By: #### Jonna ANDERSON UMICRO #### [facility] [address] [place] [address] Dr. Mark Cuellar SPEC GRAVITY 1.010 Normal 1.005-<=1. 025 [facility] Comment on above: Performed By: #### THOMAS ZELAYAICRO #### [facility] [address] [place] [address] Dr. Mark Cuellar UA PROTEIN Negative Normal NEGATIVE/ TRACE [facility] Comment on above: Performed By: #### Jonna ANDERSON UMICRO #### [facility] [address] [place] [address] Dr. Mark Cuellar UR MICRO IND INDICATED Normal [facility] Comment on above: Performed By: #### VIGNESH ZELAYARO #### [facility] [address] [place] [address] Dr. Mark Cuellar Urobilinogen Qn (U) 0.2 {Ariana'U}/dL Normal 0.2 - 1. 0 [facility] Comment on above: Performed By: #### VIGNESH ZELAYARO #### [facility] [address] [place] [address] Dr. Mark Cuellar URINE MICROSCOPIC ONLYon BACTERIA TRACE Abnormal NONE SEEN [facility] Comment on above: Performed By: #### THOMAS ZELAYAICRO #### [facility] [address] [place] [address] Dr. Mark Cuellar Bacteria identified Cx Nom (U) NOT INDICATED Normal [facility] Comment on above: Performed By: #### Jonna ANDERSON UMSALLYRO #### [facility] [address] [place] [address] Dr. Mark Cuellar CAST NONE SEEN Normal NONE SEEN [facility] Comment on above: Performed By: #### VIGNESH ZELAYARO #### [facility] [address] [place] [address] Dr. Mark Cuellar Crystals LM Nom (Urine sed) NONE SEEN Normal NONE SEEN [facility] Comment on above: Performed By: #### VIGNESH ZELAYARO #### [facility] [address] [place] [address] Dr. Mark Cuellar Epithelial cells LM Ql (Urine sed) FEW Abnormal NONE SEEN /RARE [facility] Comment on above: Performed By: #### VIGNESH ZELAYARO #### [facility] [address] [place] [address] Dr. Mark Cuellar MUCOUS NONE SEEN Normal NONE SEEN [facility] Comment on above: Performed By: #### Jonna ANDERSON UMICRO #### [facility] [address] [place] [address] Dr. Mark Cuellar RBC 5-10 Abnormal 0-2 [facility] Comment on above: Performed By: #### Jonna ANDERSON UMICRO #### [facility] [address] [place] [address] Dr. Mark Cuellar WBC 0-2 Abnormal NONE SEEN [facility] Comment on above: Performed By: #### RISA ZELAYA #### [facility] [address] [address] [address] Mark Cuellar US KIDNEYSon 08-26-2022 US [...] hydronephrosis is seen. Electronically authenticated by: SAMANTHA LAZAR Date: 2022-08-25 22:02 Normal [facility] BUNon 08-25-2022 Urea nitrogen [Mass/Vol] 5.0 mg/dL Critically low 7.0-18.0 [facility] Comment on above: Performed By: #### RISA CASTILLO #### [facility] [address] [place] [address] Dr. Mark Cuellar CBC AUTO DIFFon 08-25-2022 BASO # 0.1 103/ul Normal 0.0-0.1 [facility] Comment on above: Performed By: #### RISA ZELAYA #### [facility] [address] [place] [address] Dr. Mark Cuellar Basophils/100 WBC (Bld) 0.6 % Normal 0.2-2.0 [facility] Comment on above: Performed By: #### RISA ZELAYA #### [facility] [address] [place] [address] Dr. Mark Cuellar EO # 0.2 103/ul Normal 0.0-0.7 [facility] Comment on above: Performed By: #### Jonna ANDERSON UMICRO #### [facility] [address] [place] [address] Dr. Mark Cuellar Eosinophils/100 WBC (Bld) 1.2 % Normal 0.9-7.0 [facility] Comment on above: Performed By: #### Jonna ANDERSON, UMICRO #### [facility] [address] [place] [address] Dr. Mark Cuellar Erythrocyte distribution width (RBC) [Ratio] 13.2 % Normal 11.0-15.0 [facility] Comment on above: Performed By: #### Jonna ANDERSON UMICRO #### [facility] [address] [place] [address] Dr. Mark Cuellar Hematocrit (Bld) [Volume fraction] 35.4 % Critically low 36.0-48.0 [facility] Comment on above: Performed By: #### Jonna ANDERSON UMICRO #### [facility] [address] [place] [address] Dr. Mark Cuellar Hemoglobin (Bld) [Mass/Vol] 12.5 g/dL Normal 12.0-16.0 [facility] Comment on above: Performed By: #### Jonna ANDERSON, UMICRO #### [facility] [address] [place] [address] Dr. Mark Cuellar IG # 0.55 10e3/ul Critically high 0.00-0.03 [facility] Comment on above: Performed By: #### Jonna ANDERSON, UMICRO #### [facility] [address] [place] [address] Dr. Mark Cuellar IG % 4.1 % Critically high 0.0-0.5 [facility] Comment on above: Performed By: #### E RUSolomon, UMICRO #### [facility] [address] [place] [address] Dr. Mark Cuellar LYMPH # 2.4 103/ul Normal 1.2-3.8 [facility] Comment on above: Performed By: #### THOMAS ZELAYAICRO #### [facility] [address] [place] [address] Dr. Mark Cuellar Lymphocytes/100 WBC (Bld) 17.8 % Critically low 20.5-60.0 [facility] Comment on above: Performed By: #### Jonna ANDERSON UMICRO #### [facility] [address] [place] [address] Dr. Mark Cuellar MANUAL DIFF REQ NO Normal [facility] Comment on above: Performed By: #### Jonna ANDERSON UMICRO #### [facility] [address] [place] [address] Dr. Mark Cuellar MCH (RBC) [Entitic mass] 30.8 pg Normal 26.7-34.0 [facility] Comment on above: Performed By: #### THOMAS ZELAYAICRO #### [facility] [address] [place] [address] Dr. Mark Cuellar MCHC (RBC) [Mass/Vol] 35.3 g/dL Critically high 29.9-35.2 [facility] Comment on above: Performed By: #### VIGNESH ZELAYARO #### [facility] [address] [place] [address] Dr. Mark Cuellar MCV (RBC) [Entitic vol] 87.2 fL Normal 81.0-99.0 [facility] Comment on above: Performed By: #### THOMAS ZELAYAICRO #### [facility] [address] [place] [address] Dr. Mark Cuellar MONO # 1.2 103/ul Critically high 0.3-0.8 [facility] Comment on above: Performed By: #### VIGNESH ZELAYARO #### [facility] [address] [place] [address] Dr. Mark Cuellar Monocytes/100 WBC (Bld) 9.3 % Normal 1.7-12.0 [facility] Comment on above: Performed By: #### E RUR, UMICRO #### [facility] [address] [address] [address] Mark Cuellar NEUT # 8.9 103/ul Critically high 1.4-6.5 [facility] Comment on above: Performed By: #### E RUR, UMICRO #### [facility] [address] [address] [address] Mark Cuellar Neutrophils/100 WBC (Bld) 67.0 % Normal 43.0-75.0 [facility] Comment on above: Performed By: #### E RUR, UMICRO #### [facility] [address] [address] [address] Mark Cuellar Platelet mean volume (Bld) [Entitic vol] 9.7 fL Normal 9.5-13.5 [facility] Comment on above: Performed By: #### E RUSolomon, UMICRO #### [facility] [address] [address] [address] Mark Cuellar PLT 219 103/ul Normal 150-450 [facility] Comment on above: Performed By: #### E RUSolomon, UMICRO #### [facility] [address] [address] [address] Mark Cuellar RBC 4.06 106/ul Critically low 4.20-5.40 [facility] Comment on above: Performed By: #### E RUSolomon, UMICRO #### [facility] [address] [address] [address] Mark Cuellar WBC 13.3 103/ul Critically high 4.0-11.[address] [facility] Comment on above: Performed By: #### E RUR, UMICRO #### [facility] [address] [address] [address] Mark Cuellar CREATININEon 08-25-2022 Creatinine [Mass/Vol] 0.68 mg/dL Normal 0.55-1.02 [facility] Comment on above: Performed By: #### U ACSKYAW, UMICRO #### [facility] [address] [address] [address] Mark Cuellar EGFR-AF [place]ONG [place]ER >60 Normal >=[address] [facility] Comment on above: Performed By: #### U ACSIND, UMICRO #### [facility] [address] [address] [address] Mark Cuellar EGFR-NON AF [place]ER >60 Normal >=60 [facility] Comment on above: Performed By: #### U ACSIND, UMICRO #### [facility] [address] [address] [address] Mark Cuellar UA (CLEAN/CATCH) PARI MUTUEL TICKET SELLER/MICRO I F IND.on 08-25-2022 Bilirubin Ql (U) Negative Normal NEGATIVE [facility] Comment on above: Performed By: #### U ACSIND, UMICRO #### [facility] [address] [address] [address] Mark Cuellar Clarity (U) CLEAR Normal CLEAR [facility] Comment on above: Performed By: #### U ACSIND, UMICRO #### [facility] [address] [address] [address] Mark Cuellar Color (U) LT. YELLOW Normal YELLOW [facility] Comment on above: Performed By: #### U ACSIND, UMICRO #### [facility] [address] [address] [address] Mark Cuellar Glucose Ql (U) Negative Normal NEGATIVE [facility] [place] Comment on above: Performed By: #### U ACSIND, UMICRO #### [facility] [address] [address] [address] Mark Cuellar Hemoglobin Ql (U) SMALL Abnormal NEGATIVE [facility] Comment on above: Performed By: #### U ACSIND, UMICRO #### [facility] [address] [address] [address] Mark Cuellar Ketones Ql (U) Negative Normal NEGATIVE [facility] Comment on above: Performed By: #### U ACSIND, UMICRO #### [facility] [address] [address] [address] Mark Cuellar LEUKOCYTES TRACE Abnormal NEGATIVE [facility] Comment on above: Performed By: #### U ACSIND, UMICRO #### [facility] [address] [place] [address] Dr. Mark Cuellar Nitrite Ql (U) Negative Normal NEGATIVE [facility] Comment on above: Performed By: #### U VIGNESH ERICRO #### [facility] [address] [place] [address] Dr. Mark Cuellar pH (U) 7.0 [pH] Normal 5-9 [facility] Comment on above: Performed By: #### U VIGNESH ERICRO #### [facility] [address] [place] [address] Dr. Mark Cuellar SPEC GRAVITY <=1.005 Abnormal 1.005-<=1. 025 [facility] Comment on above: Performed By: #### U VIGNESH ERICRO #### [facility] [address] [place] [address] Dr. Mark Cuellar UA PROTEIN Negative Normal NEGATIVE/ TRACE [facility] Comment on above: Performed By: #### U VIGNESH ERICRO #### [facility] [address] [place] [address] Dr. Mark Cuellar UR MICRO IND INDICATED Normal [facility] Comment on above: Performed By: #### U VIGNESH ERICRO #### [facility] [address] [place] [address] Dr. Mark Cuellar Urobilinogen Qn (U) 0.2 {Araina'U}/dL Normal 0.2 - 1. 0 [facility] Comment on above: Performed By: #### U VIGNESH ERICRO #### [facility] [address] [place] [address] Dr. Mark Cuellar URINE MICROSCOPIC ONLYon BACTERIA NONE SEEN Normal NONE SEEN [facility] Comment on above: Performed By: #### U VIGNESH ERICRO #### [facility] [address] [place] [address] Dr. Mark Cuellar Bacteria identified Cx Nom (U) NOT INDICATED Normal [facility] Comment on above: Performed By: #### U VIGNESH ERICRO #### [facility] [address] [place] [address] Dr. Mark Cuellar CAST NONE SEEN Normal NONE SEEN [facility] Comment on above: Performed By: #### U ACSIND, UMICRO #### [facility] [address] [place] [address] Dr. Mark Cuellar Crystals LM Nom (Urine sed) NONE SEEN Normal NONE SEEN [facility] Comment on above: Performed By: #### U ACSIND, UMICRO #### [facility] [address] [place] [address] Dr. Mark Cuellar Epithelial cells LM Ql (Urine sed) RARE Normal NONE SEEN /RARE [facility] Comment on above: Performed By: #### U ACSKYAW, UMICRO #### [facility] [address] [place] [address] Dr. Mark Cuellar MUCOUS NONE SEEN Normal NONE SEEN [facility] Comment on above: Performed By: #### U ACSKYAW, UMICRO #### [facility] [address] [place] [address] Dr. Mark Cuellar RBC 0-2 Normal 0-2 [facility] Comment on above: Performed By: #### U ACSKYAW, UMICRO #### [facility] [address] [place] [address] Dr. Mark Cuellar WBC 0-2 Abnormal NONE SEEN [facility] Comment on above: Performed By: #### U ACSKYAW, UMICRO #### [facility] [address] [place] [address] Dr. Mark Cuellar GROUP B STREP CULTUREon 07-30 S. agalactiae Ag Ql (Unsp spec) Culture Observations: NEGATIVE FOR GROUP B STREPTOCOCCUS. Normal [facility] Comment on above: Performed By: #### G BSCX #### [facility] [address] [place] [address] Dr. Mark Cuellar US PREG BIOPHY W [...] 2. heart rate is 151 bpm 3. [employer] Helper noted that it was very difficult to get fetus to move to document gross body movements. Electronically authenticated by: ISAIAH VELAZCO Date: 2022-08-07 15:10 Normal [facility] CULTURE URINEon 07-20-2022 CULTURE URINE Culture Observations : NO GROWTH. Normal [facility] Comment on above: Performed By: #### U RCX #### [facility] [address] [place] [address] Dr. Mark Cuellar UA (CLEAN/CATCH) PARI MUTUEL TICKET SELLER/MICRO I F IND.on 07-20-2022 Bilirubin Ql (U) Negative Normal NEGATIVE [facility] Comment on above: Performed By: #### U ACSIND, UMICRO #### [facility] [address] [place] [address] Dr. Mark Cuellar Clarity (U) CLEAR Normal CLEAR [facility] Comment on above: Performed By: #### U ACSIND, UMICRO #### [facility] [address] [place] [address] Dr. Mark Cuellar Color (U) LT. YELLOW Normal YELLOW [facility] Comment on above: Performed By: #### U ACSIND, UMICRO #### [facility] [address] [place] [address] Dr. Mark Cuellar Glucose Ql (U) Negative Normal NEGATIVE [facility] Comment on above: Performed By: #### U ACSIND, UMICRO #### [facility] [address] [place] [address] Dr. Mark Cuellar Hemoglobin Ql (U) Negative Normal NEGATIVE [facility] Comment on above: Performed By: #### U ACSIND, UMICRO #### [facility] [address] [place] [address] Dr. Mark Cuellar Ketones Ql (U) Negative Normal NEGATIVE [facility] Comment on above: Performed By: #### U ACSIND, UMICRO #### [facility] [address] [address] [address] Mark Cuellar LEUKOCYTES SMALL Abnormal NEGATIVE [facility] Comment on above: Performed By: #### U ACSKYAW UMICRO #### [facility] [address] [address] [address] Mark Cuellar Nitrite Ql (U) Negative Normal NEGATIVE [facility] Comment on above: Performed By: #### U HERNESTO UMICRO #### [facility] [address] [address] [address] Mark Cuellar pH (U) 7.0 [pH] Normal 5-9 [facility] Comment on above: Performed By: #### U HERNESTO UMICRO #### [facility] [address] [place] [address] Dr. Mark Cuellar SPEC GRAVITY 1.010 Normal 1.005-<=1. 025 [facility] Comment on above: Performed By: #### U HERNESTO UMICRO #### [facility] [address] [place] [address] Dr. Mark Cuellar UA PROTEIN Negative Normal NEGATIVE/ TRACE [facility] Comment on above: Performed By: #### U HERNESTO UMICRO #### [facility] [address] [place] [address] Dr. Mark Cuellar UR MICRO IND INDICATED Normal [facility] Comment on above: Performed By: #### U HERNESTO UMICRO #### [facility] [address] [address] [address] Mark Cuellar Urobilinogen Qn (U) 1.0 {Ariana'U}/dL Normal 0.2 - 1. 0 [facility] Comment on above: Performed By: #### U HERNESTO UMICRO #### [facility] [address] [place] [address] Dr. Mark Cuellar URINE MICROSCOPIC ONLYon BACTERIA TRACE Abnormal NONE SEEN [facility] Comment on above: Performed By: #### U HERNESTO UMICRO #### [facility] [address] [place] [address] Dr. Mark Cuellar Bacteria identified Cx Nom (U) INDICATED Normal [facility] Comment on above: Performed By: #### U ACSIND, UMICRO #### [facility] [address] [place] [address] Dr. Mark Cuellar CAST NONE SEEN Normal NONE SEEN [facility] Comment on above: Performed By: #### U ACSIND, UMICRO #### [facility] [address] [place] [address] Dr. Mark Cuellar Crystals LM Nom (Urine sed) NONE SEEN Normal NONE SEEN [facility] Comment on above: Performed By: #### U ACSIND, UMICRO #### [facility] [address] [place] [address] Dr. Mark Cuellar Epithelial cells LM Ql (Urine sed) FEW Abnormal NONE SEEN /RARE [facility] Comment on above: Performed By: #### U ACSIND, UMICRO #### [facility] [address] [place] [address] Dr. Mark Cuellar MUCOUS NONE SEEN Normal NONE SEEN [facility] Comment on above: Performed By: #### U ACSIND, UMICRO #### [facility] [address] [place] [address] Dr. Mark Cuellar RBC 0-2 Normal 0-2 [facility] Comment on above: Performed By: #### U ACSIND, UMICRO #### [facility] [address] [place] [address] Dr. Mark Cuellar WBC 5-10 Abnormal NONE SEEN [facility] Comment on above: Performed By: #### U ACSIND, UMICRO #### [facility] [address] [place] [address] Dr. Mark Cuellar US PREG GROWTHon 07-10-2022 [...] by: ISAIAH VELAZCO Date: 2022-07-10 21:19 Normal [facility] RAD - MISCon 07-02-2022 RAD - MIS [id number] Normal [facility] CALCULI, URINARYon 3 2,8 Dihydroxyadenine Normal [facility] Comment on above: Performed By: #### VIGNESH ZELAYARO #### [facility] [address] [place] [address] Dr. Mark Cuellar Ammonium Acid Urate Normal [facility] Comment on above: Performed By: #### VIGNESH ZELAYARO #### [facility] [address] [place] [address] Dr. Mark Cuellar Bilirubin Ql (U) Normal [facility] Comment on above: Performed By: #### VIGNESH ZELAYARO #### [facility] [address] [address] [address] Mark Cuellar Ca Oxalate Dihydrate 50 % Normal [facility] Comment on above: Performed By: #### VIGNESH ZELAYARO #### [facility] [address] [place] [address] Dr. Mark Cuellar CaHPO4 (Brushite) Normal [facility] Comment on above: Performed By: #### VIGNESH ZELAYARO #### [facility] [address] [place] [address] Dr. Mark Cuellar Calcium Bilirubinate Normal [facility] Comment on above: Performed By: #### Jonna ANDERSON UMICRO #### [facility] [address] [address] [address] Mark Cuellar Calcium Carbonate [facility] Comment on above: Performed By: #### Jonna ANDERSON UMICRO #### [facility] [address] [place] [address] Dr. Mark Cuellar Calcium Oxalate Monohydrate 20 % [facility] Comment on above: Performed By: #### Jonna ANDERSON UMICRO #### [facility] [address] [place] [address] Dr. Mark Cuellar Calcium Palmitate [facility] Comment on above: Performed By: #### Jonna ANDERSON UMICRO #### [facility] [address] [place] [address] Dr. Mark Cuellar Calcium Phosphate [facility] Comment on above: Performed By: #### Jonna ANDERSON UMICRO #### [facility] [address] [place] [address] Dr. Mark Cuellar Calcium Stearate [facility] Comment on above: Performed By: #### Jonna ANDERSON UMICRO #### [facility] [address] [place] [address] Dr. Mark Cuellar Carbonate Apatite [facility] Comment on above: Performed By: #### Jonna ANDERSON UMICRO #### [facility] [address] [place] [address] Dr. Mark Cuellar Cellular Material [facility] Comment on above: Performed By: #### Jonna ANDERSON UMICRO #### [facility] [address] [place] [address] Dr. Mark Cuellar Cholesterol [facility] Comment on above: Performed By: #### Jonna ANDERSON UMICRO #### [facility] [address] [place] [address] Dr. Mark Strange (U) Brown Normal [facility] Comment on above: Performed By: #### Jonna ANDERSON UMICRO #### [facility] [address] [address] [address] Mark Cuellar Comment Comment Normal [facility] Comment on above: Result Comment: Calc ium phosphate (hydroxyl form) includes hydroxyapatite, amorphous calcium phosphate, and whitlockite. Hydroxyapatite is the most common of the calcium phosphate salts found in human kidney stones. Performed By: #### Jonna ANDERSON UMICRO #### [facility] [address] [place] [address] Dr. Mark Cuellar Result Comment: Calc ulus received wet. Wet calculi must be dried before analysis, which delays reporting of results. Leaving calculi wet (such as water, saline, blood, urine) may lead to changes in composition. Comment: Comment Normal [facility] Comment on above: Result Comment: Addie watson questions regarding Calculi Analysis [facility] at: [phone]. Performed By: #### Jonna ANDERSON UMICRO #### [facility] [address] [place] [address] Dr. Mark Cuellar Composition Comment Normal [facility] Comment on above: Result Comment: Perc entage (Represents the % composition) Performed By: #### Jonna ANDERSON UMICRO #### [facility] [address] [place] [address] Dr. Mark Cuellar Cystine Normal [facility] Comment on above: Performed By: #### Jonna ANDERSON UMICRO #### [facility] [address] [place] [address] Dr. Mark Cuellar Disclaimer: Comment Normal [facility] Comment on above: Result Comment: This test was developed and its performance characteristics determined by [employer]. It has not been cleared or approved by the Food and Drug Administration. Performed By: #### Jonna ANDERSON UMICRO #### [facility] [address] [address] [address] Mark Cuellar Dried Blood Normal [facility] Comment on above: Performed By: #### E JUSTIN UMICRO #### [facility] [address] [place] [address] Dr. Mark Cuellar Drug or Metabolite Normal [facility] Comment on above: Performed By: #### Jonna ANDERSON UMICRO #### [facility] [address] [address] [address] Mark Cuellar Hydroxyapatite 30 % Normal [facility] Comment on above: Performed By: #### Jonna ANDERSON UMICRO #### [facility] [address] [place] [address] Dr. Mark Cuellar Mg NH4 PO4 (Struvite) Normal [facility] Comment on above: Performed By: #### Jonna ANDERSON UMICRO #### [facility] [address] [place] [address] Dr. Mark Cuellar MgHPO4 (Newberyite) Normal [facility] Comment on above: Performed By: #### Jonna ANDERSON UMICRO #### [facility] [address] [place] [address] Dr. Mark Cuellar Other component(s) Normal [facility] Comment on above: Performed By: #### Jonna ANDERSON UMICRO #### [facility] [address] [place] [address] Dr. Mark Cuellar PDF . Normal [facility] Comment on above: Performed By: #### Jonna ANDERSON UMICRO #### [facility] [address] [place] [address] Dr. Mark Cuellar Photo Comment [facility] Comment on above: Result Comment: Phot ograph will follow under a separate cover Performed By: #### Jonna ANDERSON UMICRO #### [facility] [address] [place] [address] Dr. Mark Cuellar Please note: Comment Normal [facility] Comment on above: Result Comment: Calc noris report will follow via computer, mail or striker off delivery. Performed By: #### Jonna ANDERSON UMICRO #### [facility] [address] [place] [address] Dr. Mark Cuellar Size 3x3 [facility] Comment on above: Result Comment: Mult iple pieces received. Dimensions of the largest piece reported. Performed By: #### Jonna ANDERSON UMICRO #### [facility] [address] [place] [address] Dr. Mark Cuellar Sodium Acid Urate Normal [facility] Comment on above: Performed By: #### E RUR, UMICRO #### [facility] [address] [address] [address] Mark Cuellar Source Comment [facility] Comment on above: Result Comment: Left Ureter Performed By: #### E RUR, UMICRO #### [facility] [address] [address] [address] Mark Cuellar Triamterene [facility] Comment on above: Performed By: #### E RUR, UMICRO #### [facility] [address] [address] [address] Mark Cuellar Uric Acid [facility] Comment on above: Performed By: #### E VANESSAR, UMICRO #### [facility] [address] [place] [address] Dr. Mark Cuellar Uric Acid Dihydrate Normal [facility] Comment on above: Performed By: #### Jonna MENDEZR, UMICRO #### [facility] [address] [address] [address] Mark Cuellar Weight 57 mg [facility] Comment on above: Performed By: #### E JUSTIN, UMICRO #### [facility] [address] [place] [address] Dr. Mark Cuellar Xanthine [facility] Comment on above: Performed By: #### E JUSTIN UMICRO #### [facility] [address] [address] [address] Mark Cuellar Consultation Noteon 06-27-19 23 Consultation Note [id number]: 127 Normal [facility] Insurance Correspondence Off iceon 06-27-2022 Insurance Correspondence Office [id number]: 127 Normal [facility] Operative Reporton Operative Report [id number]: 127 Normal [facility] BUNon 06-24-2022 Urea nitrogen [Mass/Vol] 6.0 mg/dL Critically low 7.0-18.0 [facility] Comment on above: Performed By: #### U ACSKYAW UMICRO #### [facility] [address] [place] [address] Dr. Mark Cuellar CBC AUTO DIFFon 06-24-2022 BASO # 0.0 103/ul Normal 0.0-0.1 [facility] Comment on above: Performed By: #### U ACSKYAW, UMICRO #### [facility] [address] [place] [address] Dr. Mark Cuellar Basophils/100 WBC (Bld) 0.3 % Normal 0.2-2.0 [facility] Comment on above: Performed By: #### U ACSKYAW UMICRO #### [facility] [address] [place] [address] Dr. Mark Cuellar EO # 0.1 103/ul Normal 0.0-0.7 [facility] Comment on above: Performed By: #### U ACSKYAW UMICRO #### [facility] [address] [place] [address] Dr. Mark Cuellar Eosinophils/100 WBC (Bld) 0.6 % Critically low 0.9-7.0 [facility] Comment on above: Performed By: #### U ACSKYAW, UMICRO #### [facility] [address] [place] [address] Dr. Mark Cuellar Erythrocyte distribution width (RBC) [Ratio] 13.2 % Normal 11.0-15.0 [facility] Comment on above: Performed By: #### U ACSKYAW, UMICRO #### [facility] [address] [place] [address] Dr. Mark Cuellar Hematocrit (Bld) [Volume fraction] 31.7 % Critically low 36.0-48.0 [facility] Comment on above: Performed By: #### U ACSIND, UMICRO #### [facility] [address] [place] [address] Dr. Mark Cuellar Hemoglobin (Bld) [Mass/Vol] 11.1 g/dL Critically low 12.0-16.0 [facility] Comment on above: Performed By: #### U HERNESTO UMICRO #### [facility] [address] [address] [address] Mark Cuellar IG # 0.26 10e3/ul Critically high 0.00-0.03 [facility] Comment on above: Performed By: #### U ACSKYAW UMICRO #### [facility] [address] [place] [address] Dr. Mark Cuellar IG % 2.3 % Critically high 0.0-0.5 [facility] Comment on above: Performed By: #### U ACSKYAW UMICRO #### [facility] [address] [place] [address] Dr. Mark Cuellar LYMPH # 1.7 103/ul Normal 1.2-3.8 [facility] Comment on above: Performed By: #### U HERNESTO UMICRO #### [facility] [address] [place] [address] Dr. Mark Cuellar Lymphocytes/100 WBC (Bld) 14.4 % Critically low 20.5-60.0 [facility] Comment on above: Performed By: #### U ACSKYAW ICRO #### [facility] [address] [place] [address] Dr. Mark Cuellar MANUAL DIFF REQ NO Normal [facility] Comment on above: Performed By: #### U HERNESTO UMICRO #### [facility] [address] [place] [address] Dr. Mark Cuellar MCH (RBC) [Entitic mass] 30.4 pg Normal 26.7-34.0 [facility] Comment on above: Performed By: #### U ACSKYAW UMICRO #### [facility] [address] [place] [address] Dr. Mark Cuellar MCHC (RBC) [Mass/Vol] 35.0 g/dL Normal 29.9-35.2 [facility] Comment on above: Performed By: #### U ACSKYAW, UMICRO #### [facility] [address] [place] [address] Dr. Mark Cuellar MCV (RBC) [Entitic vol] 86.8 fL Normal 81.0-99.0 [facility] Comment on above: Performed By: #### U ACSKYAW, UMICRO #### [facility] [address] [place] [address] Dr. Mark Cuellar MONO # 0.8 103/ul Normal 0.3-0.8 [facility] Comment on above: Performed By: #### U ACSKYAW UMICRO #### [facility] [address] [place] [address] Dr. Mark Cuellar Monocytes/100 WBC (Bld) 6.7 % Normal 1.7-12.0 [facility] Comment on above: Performed By: #### U ACSKYAW UMICRO #### [facility] [address] [place] [address] Dr. Mark Cuellar NEUT # 8.7 103/ul Critically high 1.4-6.5 [facility] Comment on above: Performed By: #### U ACSKYAW ICRO #### [facility] [address] [place] [address] Dr. Mark Cuellar Neutrophils/100 WBC (Bld) 75.7 % Critically high 43.0-75.0 [facility] Comment on above: Performed By: #### U ACSKYAW UMICRO #### [facility] [address] [place] [address] Dr. Mark Cuellar Platelet mean volume (Bld) [Entitic vol] 9.5 fL Normal 9.5-13.5 [facility] Comment on above: Performed By: #### U ACSKYAW UMICRO #### [facility] [address] [place] [address] Dr. Mark Cuellar PLT 185 103/ul Normal 150-450 [facility] Comment on above: Performed By: #### U ACSKYAW UMICRO #### [facility] [address] [place] [address] Dr. Mark Cuellar RBC 3.65 106/ul Critically low 4.20-5.40 [facility] Comment on above: Performed By: #### U RISA ERIC #### [facility] [address] [place] [address] Dr. Mark Cuellar WBC 11.5 103/ul Critically high 4.0-11.[address] [facility] Comment on above: Performed By: #### VIGNESH CASTILLORO #### [facility] [address] [place] [address] Dr. Mark Cuellar CREATININEon 06-24-2022 Creatinine [Mass/Vol] 0.59 mg/dL Normal 0.55-1.02 [facility] Comment on above: Performed By: #### VIGNESH CASTILLORO #### [facility] [address] [place] [address] Dr. Mark Cuellar EGFR-AF HONG KONGER >60 Normal >=[address] [facility] Comment on above: Performed By: #### VIGNESH CASTILLORO #### [facility] [address] [place] [address] Dr. Mark Cuellar EGFR-NON AF [place]ER >60 Normal >=60 [facility] Comment on above: Performed By: #### VIGNESH CASTILLORO #### [facility] [address] [place] [address] Dr. Mark Cuellar UA (CLEAN/CATCH) PARI MUTUEL TICKET SELLER/MICRO I F IND.on 06-24-2022 Bilirubin Ql (U) Negative Normal NEGATIVE [facility] Comment on above: Performed By: #### VIGNESH ZELAYARO #### [facility] [address] [place] [address] Dr. Mark Cuellar Clarity (U) CLEAR Normal CLEAR [facility] Comment on above: Performed By: #### VIGNESH ZELAYARO #### [facility] [address] [place] [address] Dr. Mark Cuellar Color (U) LT. YELLOW Normal YELLOW [facility] Comment on above: Performed By: #### VIGNESH ZELAYARO #### [facility] [address] [place], [place] [id number] Dr. Mark Cuellar Glucose Ql (U) 100 mg/dl Abnormal NEGATIVE [facility] Comment on above: Performed By: #### Jonna ANDERSON UMICRO #### [facility] [address] [place] [address] Dr. Mark Cuellar Hemoglobin Ql (U) LARGE Abnormal NEGATIVE [facility] Comment on above: Performed By: #### Jonna ANDERSON UMICRO #### [facility] [address] [address] [address] Mark Cuellar Ketones Ql (U) Negative Normal NEGATIVE [facility] Comment on above: Performed By: #### Jonna ANDERSON UMICRO #### [facility] [address] [place] [address] Dr. Mark Cuellar LEUKOCYTES Negative Normal NEGATIVE [facility] Comment on above: Performed By: #### Jonna ANDERSON UMICRO #### [facility] [address] [place] [address] Dr. Mark Cuellar Nitrite Ql (U) Negative Normal NEGATIVE [facility] Comment on above: Performed By: #### Jonna ANDERSON UMICRO #### [facility] [address] [place] [address] Dr. Mark Cuellar pH (U) 7.0 [pH] Normal 5-9 [facility] Comment on above: Performed By: #### Jonna ANDERSON UMICRO #### [facility] [address] [place] [address] Dr. Mark Cuellar SPEC GRAVITY 1.010 Normal 1.005-<=1. 025 [facility] Comment on above: Performed By: #### Jonna ANDERSON UMICRO #### [facility] [address] [place] [address] Dr. Mark Cuellar UA PROTEIN Negative Normal NEGATIVE/ TRACE [facility] Comment on above: Performed By: #### Jonna ANDERSON UMICRO #### [facility] [address] [place] [address] Dr. Mark Cuellar UR MICRO IND INDICATED Normal [facility] Comment on above: Performed By: #### Jonna ANDERSON UMICRO #### [facility] [address] [place] [address] Dr. Mark Cuellar Urobilinogen Qn (U) 0.2 {Ariana'U}/dL Normal 0.2 - 1. 0 [facility] Comment on above: Performed By: #### Jonna ANDERSON, UMICRO #### [facility] [address] [place] [address] Dr. Mark Cuellar URINE MICROSCOPIC ONLYon BACTERIA NONE SEEN Normal NONE SEEN [facility] Comment on above: Performed By: #### Jonna ANDERSON, UMICRO #### [facility] [address] [place] [address] Dr. Mark Cuellar Bacteria identified Cx Nom (U) NOT INDICATED Normal [facility] Comment on above: Performed By: #### Jonna ANDERSON UMICRO #### [facility] [address] [place] [address] Dr. Mark Cuellar CAST NONE SEEN Normal NONE SEEN [facility] Comment on above: Performed By: #### Jonna ANDERSON UMICRO #### [facility] [address] [place] [address] Dr. Mark Cuellar Crystals LM Nom (Urine sed) NONE SEEN Normal NONE SEEN [facility] Comment on above: Performed By: #### Jonna ANDERSON UMICRO #### [facility] [address] [place] [address] Dr. Mark Cuellar Epithelial cells LM Ql (Urine sed) MODERATE Abnormal NONE SEEN /RARE [facility] Comment on above: Performed By: #### Jonna ANDERSON UMICRO #### [facility] [address] [place] [address] Dr. Mark Cuellar MUCOUS TRACE Abnormal NONE SEEN [facility] Comment on above: Performed By: #### Jonna ANDERSON UMICRO #### [facility] [address] [place] [address] Dr. Mark Cuellar RBC 10-20 Abnormal 0-2 [facility] Comment on above: Performed By: #### Jonna ANDERSON UMICRO #### [facility] [address] [place] [address] Dr. Mark Cuellar WBC NONE SEEN Normal NONE SEEN [facility] Comment on above: Performed By: #### E RISA ANDERSON #### [facility] [address] [place], [place] [address] Dr. Mark Cuellar US KIDNEYSon 06-24-2022 US [...] STEPHEN SIDHU Date: 2022-06-24 16:10 Normal [facility] XR KUB 1 VIEWon 06-24-2022 XR KUB 1 VIEW EXAM: XR KUB 1 VIEW HISTORY: The patient is a 26-year-old female. pain COMPARISON: ultrasound from 01/24/2022. IMPRESSION: There is a fetus in vertex position. There is a 7 mm calcification within the inferior pelvis to the left of midline. Electronically authenticated by: FERMIN BUSCH Date: 2022-06-24 17:49 Normal [facility] PAP ACOG PANEL 2: 21 to 29on 05-31-2022 . . Normal [facility] Comment on above: Performed By: #### D DEEPA #### [facility] [address] [place], [place] [address] Dr. Mark Cuellar Age Gdln ACOG Testing 21-29 Normal [facility] Comment on above: Performed By: #### D DEEPA #### [facility] [address] [address] [address] Mark Cuellar DIAGNOSIS: Comment Normal [facility] Comment on above: Result Comment: NEGA TIVE FOR INTRAEPITHELIAL LESION OR MALIGNANCY. Performed By: #### D DEEPA #### [facility] [address] [address] [address] Mark Cuellar Methodology: Comment Normal [facility] Comment on above: Result Comment: This liquid based ThinPrep(R) pap test was screened with the use of an image guided system. Performed By: #### D DEEPA #### [facility] [address] [address] [address] Mark Cuellar Note: Comment Normal [facility] Comment on above: Result Comment: The Pap smear is a screening test designed to aid in the detection of premalignant and malignant conditions of the uterine cervix. It is not a diagnostic procedure and should not be used as the sole means of detecting cervical cancer. Both false-positive and false-negative reports do occur. . Performed By: #### D DEEPA #### [facility] [address] [address] [address] Mark Cuellar Performed by: Comment Normal [facility] Comment on above: Result Comment: Humble Jones, Research Animal Attendant (ASCP) Performed By: #### D DEEPA #### [facility] [address] [address] [address] Mark Cuellar Reflex Criteria: Comment Normal [facility] Comment on above: Result Comment: The HPV DNA reflex criteria were not met with this specimen result therefore, no HPV testing was performed. . Performed By: #### D DEEPA #### [facility] [address] [address] [address] Mark Cuellar Specimen adequacy: Comment Normal [facility] Comment on above: Result Comment: Sati sfactory for evaluation. No endocervical component is identified. Performed By: #### D DEEPA #### [facility] [address] [address] [address] Mark Cuellar CHLAMYDIA/GONOCOCCUS LEANDRO (SW AB/URINE/PAPon 05-29-2022 Chlamydia trachomatis, LEANDRO Negative Normal Negative [facility] Comment on above: Performed By: #### VIGNESH ZELAYARO #### [facility] [address] [place] [address] Dr. Mark Cuellar Neisseria gonorrhoeae, LEANDRO Negative Normal Negative [facility] Comment on above: Performed By: #### VIGNESH ZELAYARO #### [facility] [address] [place] [address] Dr. Mark Cuellar VAGINITIS/VAGINOSIS DNA PROB Alfredo 05-27-2022 Karen species Negative Normal Negative [facility] Comment on above: Performed By: #### VIGNESH ZELAYARO #### [facility] [address] [place] [address] Dr. Mark Cuellar Gardnerella vaginalis Negative Normal Negative [facility] Comment on above: Performed By: #### VIGNESH ZELAYARO #### [facility] [address] [place] [address] Dr. Mark Cuellar Trichomonas vaginalis Negative Normal Negative [facility] Comment on above: Performed By: #### VIGNESH ZELAYARO #### [facility] [address] [place] [address] Dr. Mark Cuellar COVID/FLU RT-PCRon 2 SARS-CoV-2 (COVID-19) RNA LEANDRO+probe Ql (Unsp spec) Negative [facility] Other COVID/FLU RT-PCR Positive [facility] [facility] Other COVID/FLU RT-PCR Negative [facility] [facility] Other COVID/FLU RT-PCRon 2 SARS-CoV-2 (COVID-19) RNA LEANDRO+probe Ql (Unsp spec) Negative [facility] Other COVID/FLU RT-PCR Negative [employer] Other CBC AUTO DIFFon 03-04-2022 BASO # 0.0 103/ul Normal 0.0-0.1 [facility] Comment on above: Performed By: #### C BC #### [facility] [address] [address] [address] Mark Cuellar Basophils/100 WBC (Bld) 0.2 % Normal 0.2-2.0 [facility] Comment on above: Performed By: #### C BC #### [facility] [address] [address] [address] Mark Cuellar EO # 0.1 103/ul Normal 0.0-0.7 [facility] Comment on above: Performed By: #### C BC #### [facility] [address] [address] [address] Mark Cuellar Eosinophils/100 WBC (Bld) 0.6 % Critically low 0.9-7.0 [facility] Comment on above: Performed By: #### C BC #### [facility] [address] [place] [address] Dr. Mark Cuellar Erythrocyte distribution width (RBC) [Ratio] 12.1 % Normal 11.0-15.0 [facility] Comment on above: Performed By: #### C BC #### [facility] [address] [place] [address] Dr. Mark Cuellar Hematocrit (Bld) [Volume fraction] 34.7 % Critically low 36.0-48.0 [facility] Comment on above: Performed By: #### C BC #### [facility] [address] [place] [address] Dr. Mark Cuellar Hemoglobin (Bld) [Mass/Vol] 12.5 g/dL Normal 12.0-16.0 [facility] Comment on above: Performed By: #### C BC #### [facility] [address] [place] [address] Dr. Mark Cuellar IG # 0.08 10e3/ul Critically high 0.00-0.03 [facility] Comment on above: Performed By: #### C BC #### [facility] [address] [place] [address] Dr. Mark Cuellar IG % 0.7 % Critically high 0.0-0.5 [facility] Comment on above: Performed By: #### C BC #### [facility] [address] [address] [address] Mark Cuellar LYMPH # 2.6 103/ul Normal 1.2-3.8 [facility] Comment on above: Performed By: #### C BC #### [facility] [address] [address] [address] Mark Cuellar Lymphocytes/100 WBC (Bld) 21.3 % Normal 20.5-60.0 [facility] Comment on above: Performed By: #### C BC #### [facility] [address] [place] [address] Dr. Mark Cuellar MANUAL DIFF REQ NO Normal [facility] Comment on above: Performed By: #### C BC #### [facility] [address] [place] [address] Dr. Mark Cuellar MCH (RBC) [Entitic mass] 30.0 pg Normal 26.7-34.0 [facility] Comment on above: Performed By: #### C BC #### [facility] [address] [place] [address] Dr. Mark Cuellar MCHC (RBC) [Mass/Vol] 36.0 g/dL Critically high 29.9-35.2 [facility] Comment on above: Performed By: #### C BC #### [facility] [address] [place] [address] Dr. Mark Cuellar MCV (RBC) [Entitic vol] 83.4 fL Normal 81.0-99.0 [facility] Comment on above: Performed By: #### C BC #### [facility] [address] [place] [address] Dr. Mark Cuellar MONO # 0.8 103/ul Normal 0.3-0.8 [facility] Comment on above: Performed By: #### C BC #### [facility] [address] [place] [address] Dr. Mark Cuellar Monocytes/100 WBC (Bld) 6.9 % Normal 1.7-12.0 [facility] Comment on above: Performed By: #### C BC #### [facility] [address] [address] [address] Mark Cuellar NEUT # 8.5 103/ul Critically high 1.4-6.5 [facility] [place] Comment on above: Performed By: #### C BC #### [facility] [address] [address] [address] Mark Cuellar Neutrophils/100 WBC (Bld) 70.3 % Normal 43.0-75.0 [facility] Comment on above: Performed By: #### C BC #### [facility] [address] [address] [address] Mark Cuellar Platelet mean volume (Bld) [Entitic vol] 9.5 fL Normal 9.5-13.5 [facility] Comment on above: Performed By: #### C BC #### [facility] [address] [address] [address] Mark Cuellar PLT 234 103/ul Normal 150-450 [facility] Comment on above: Performed By: #### C BC #### [facility] [address] [address] [address] Mark Cuellar RBC 4.16 106/ul Critically low 4.20-5.40 [facility] [place] Comment on above: Performed By: #### C BC #### [facility] [address] [address] [address] Mark Cuellar WBC 12.0 103/ul Critically high 4.0-11.0 [facility] Comment on above: Performed By: #### C BC #### [facility] [address] [address] [address] Mark Cuellar ER URINE PROFILEon 2 Bilirubin Ql (U) Negative Normal NEGATIVE [facility] Comment on above: Performed By: #### U ACSIND, UMICRO #### [facility] [address] [address] [address] Mark Cuellar Clarity (U) CLEAR Normal CLEAR [facility] Comment on above: Performed By: #### U ACSIND, UMICRO #### [facility] [address] [address] [address] Mark Cuellar Color (U) LT. YELLOW Normal YELLOW [facility] Comment on above: Performed By: #### U ACSIND, UMICRO #### [facility] [address] [address] [address] Mark Cuellar ERUAHDiana A micrscopic examina tion will be performed if indicated. Normal [facility] Comment on above: Performed By: #### U ACSIND, UMICRO #### [facility] [address] [address] [address] Mark Cuellar Glucose Ql (U) Negative Normal NEGATIVE The [facility] [place] Comment on above: Performed By: #### U ACSIND, UMICRO #### [facility] [address] [place] [address] Dr. Mark Cuellar Hemoglobin Ql (U) Negative Normal NEGATIVE [facility] Comment on above: Performed By: #### U ACSKYAW, UMICRO #### [facility] [address] [address] [address] Mark Cuellar Ketones Ql (U) TRACE Abnormal NEGATIVE The [facility] [place] Comment on above: Performed By: #### U ACSKYAW UMICRO #### [facility] [address] [address] [address] Mark Cuellar LEUKOCYTES Negative Normal NEGATIVE The [facility] Comment on above: Performed By: #### U ACSKYAW UMICRO #### [facility] [address] [address] [address] Mark Cuellar Nitrite Ql (U) Negative Normal NEGATIVE The [facility] [place] Comment on above: Performed By: #### U ACSIND, UMICRO #### [facility] [address] [address] [address] Mark Cuellar pH (U) 7.0 [pH] Normal 5-9 [facility] Comment on above: Performed By: #### U ACSIND, UMICRO #### [facility] [address] [address] [address] Mark Cuellar SPEC GRAVITY 1.015 Normal 1.005-<=1. 025 [facility] Comment on above: Performed By: #### U ACSKYAW UMICRO #### [facility] [address] [place] [address] Dr. Mark Cuellar UA PROTEIN Negative Normal NEGATIVE/ TRACE The [facility] Comment on above: Performed By: #### U ACSKYAW UMICRO #### [facility] [address] [place] [address] Dr. Mark Cuellar UR MICRO IND NOT INDICATED Normal [facility] [place] Comment on above: Performed By: #### U ACSKYAW UMICRO #### [facility] [address] [place] [address] Dr. Mark Cuellar Urobilinogen Qn (U) 0.2 {Ariana'U}/dL Normal 0.2 - 1. 0 [facility] Comment on above: Performed By: #### U HERNESTO UMICRO #### [facility] [address] [place] [address] Dr. Mark Cuellar PROF 14(COMP METB)on 022 Albumin [Mass/Vol] 3.5 g/dL Normal 3.4-5.0 [facility] Comment on above: Performed By: #### VIGNESH ZELAYARO #### [facility] [address] [place] [address] Dr. Mark Cuellar Albumin/Globulin [Mass ratio] 1.1 {ratio} Normal [facility] Comment on above: Performed By: #### VIGNESH ZELAYARO #### [facility] [address] [place] [address] Dr. Mark Cuellar ALP [Catalytic activity/Vol] 49 U/L Normal 46-116 [facility] Comment on above: Performed By: #### VIGNESH ZELAYARO #### [facility] [address] [place] [address] Dr. Mark Cuellar ALT [Catalytic activity/Vol] 18 U/L Normal 14-59 [facility] Comment on above: Performed By: #### VIGNESH ZELAYARO #### [facility] [address] [place] [address] Dr. Mark Cuellar Anion gap [Moles/Vol] 10.7 mmol/L Normal [facility] Comment on above: Performed By: #### VIGNESH ZELAYARO #### [facility] [address] [place] [address] Dr. Mark Cuellar AST [Catalytic activity/Vol] 12 U/L Critically low 15-37 [facility] Comment on above: Performed By: #### VIGNESH ZELAYARO #### [facility] [address] [place] [address] Dr. Mark Cuellar Bilirubin [Mass/Vol] 0.9 mg/dL Normal 0.2-1.0 [facility] Comment on above: Performed By: #### VIGENSH ZELAYARO #### [facility] [address] [place] [address] Dr. Mark Cuellar Calcium [Mass/Vol] 9.8 mg/dL Normal 8.5-10.1 [facility] Comment on above: Performed By: #### VIGNESH ZELAYARO #### [facility] [address] [place] [address] Dr. Mark Cuellar Chloride [Moles/Vol] 102 mmol/L Normal 98-107 [facility] Comment on above: Performed By: #### VIGNESH ZELAAYRO #### [facility] [address] [place] [address] Dr. Mark Cuellar CO2 [Moles/Vol] 24.8 mmol/L Normal 21.0-32.[address] [facility] Comment on above: Performed By: #### VIGNESH ZELAYARO #### [facility] [address] [place] [address] Dr. Mark Cuellar Creatinine [Mass/Vol] 0.62 mg/dL Normal 0.55-1.02 [facility] Comment on above: Performed By: #### VIGNESH ZELAYARO #### [facility] [address] [place] [address] Dr. Mark Cuellar EGFR-AF [place] >60 Normal >=[address] [facility] Comment on above: Performed By: #### E RUR, UMICRO #### [facility] [address] [place] [address] Dr. Mark Cuellar EGFR-NON AF [place] >60 Normal >=60 [facility] Comment on above: Performed By: #### E RUR, UMICRO #### [facility] [address] [address] [address] Mark Cuellar Globulin (S) [Mass/Vol] 3.2 g/dL Normal [facility] Comment on above: Performed By: #### E VANESSAR, UMICRO #### [facility] [address] [place] [address] Dr. Mark Cuellar Glucose [Mass/Vol] 88 mg/dL Normal 74-106 [facility] Comment on above: Performed By: #### E JUSTIN, UMICRO #### [facility] [address] [place] [address] Dr. Mark Cuellar Potassium [Moles/Vol] 3.5 mmol/L Normal 3.5-5.1 [facility] Comment on above: Performed By: #### E JUSTIN, UMICRO #### [facility] [address] [place] [address] Dr. Mark Cuellar Protein [Mass/Vol] 6.7 g/dL Normal 6.4-8.2 [facility] Comment on above: Performed By: #### E VANESSAR, UMICRO #### [facility] [address] [place] [address] Dr. Mark Cuellar Sodium [Moles/Vol] 134 mmol/L Critically low 136-145 [facility] Comment on above: Performed By: #### E VANESSAR, UMICRO #### [facility] [address] [place] [address] Dr. Mark Cuellar Urea nitrogen [Mass/Vol] 13.0 mg/dL Normal 7.0-18.0 [facility] Comment on above: Performed By: #### E VANESSAR, UMICRO #### [facility] [address] [place] [address] Dr. Mark Cuellar Urea nitrogen/Creatinine [Mass ratio] 21.0 mg/mg Normal [facility] Comment on above: Performed By: #### E RUR, UMICRO #### [facility] [address] [place] [address] Dr. Mark Cuellar HEP B SURFACE ANTIGEN SCREEN on 02-28-2022 HBsAg Screen Negative Normal Negative [facility] Comment on above: Performed By: #### U ACSKYAW, UMICRO #### [facility] [address] [place] [address] Dr. aMrk Cuellar HEPATITIS C VIRUS AB W/ REFL EX QUANTon 02-28-2022 HCV AB <0.1 Normal 0.0-0.9 [facility] Comment on above: Performed By: #### U ACSKYAW, UMICRO #### [facility] [address] [place] [address] Dr. Mark Cuellar Interpretation: Comment Normal [facility] Comment on above: Result Comment: Nega tive Not infected with HCV, unless recent infection is suspected or other evidence exists to indicate HCV infection. Performed By: #### U ACSKYAW, UMICRO #### [facility] [address] [place] [address] Dr. Mark Cuellar HIV 1 AND 2 WITH REFLEXon HIV Screen 4th Generation wRfx Non-Reactive Normal Non Reactive [facility] Comment on above: Result Comment: HIV Negative HIV-1/HIV-2 antibodies and HIV-1 p24 antigen were NOT detected. There is no laboratory evidence of HIV infection. Performed By: #### H IV12 #### [facility] [address] [place] [address] Dr. Mark Cuellar RPR QUANTon 02-28-2022 Rapid Plasma Reagin, Quant Non-Reactive Normal NonRea<1:1 [facility] Comment on above: Result Comment: Guillermo amezquita Note: This test does not meet current guidelines for screening and diagnosis of syphilis. This test is intended for following treatment response in patients being treated for syphilis infection. To screen for syphilis infection, a reflex cascade that includes both RPR and a treponema-specific assay should be utilized, such as Treponema pallidum (Syphilis) Screening [place] (564184) or Rapid Plasma Reagin (RPR) Test With Reflex to Quantitative RPR and Confirmatory Treponema pallidum Antibodies (846391). Performed By: #### D DEEPA #### [facility] [address] [place] [address] Dr. Mark Cuellar RUBELLA AB IGGon 02-28-2022 Rubella Antibodies, IgG 3.31 index Normal Immu ne >0.99 [facility] Comment on above: Result Comment: Non- immune <0.90 Equivocal 0.90 - 0.99 Immune >0.99 Performed By: #### U ACSKYAW UMICRO #### [facility] [address] [place] [address] Dr. Mark Cuellar CBC AUTO DIFFon 02-27-2022 BASO # 0.0 103/ul Normal 0.0-0.1 [facility] Comment on above: Performed By: #### U ACSKYAW ICRO #### [facility] [address] [place] [address] Dr. Mark Cuellar Basophils/100 WBC (Bld) 0.2 % Normal 0.2-2.0 [facility] Comment on above: Performed By: #### U ACSKYAW UMICRO #### [facility] [address] [place] [address] Dr. Mark Cuellar EO # 0.1 103/ul Normal 0.0-0.7 [facility] Comment on above: Performed By: #### U ACSKYAW UMICRO #### [facility] [address] [place] [address] Dr. Mark Cuellar Eosinophils/100 WBC (Bld) 0.7 % Critically low 0.9-7.0 [facility] Comment on above: Performed By: #### U ACSKYAW UMICRO #### [facility] [address] [place] [address] Dr. Mark Cuellar Erythrocyte distribution width (RBC) [Ratio] 11.9 % Normal 11.0-15.0 [facility] Comment on above: Performed By: #### U ACSKYAW UMICRO #### [facility] [address] [place] [address] Dr. Mark Cuellar Hematocrit (Bld) [Volume fraction] 36.0 % Normal 36.0-48.0 [facility] Comment on above: Performed By: #### U HERNESTO UMICRO #### [facility] [address] [place] [address] Dr. Mark Cuellar Hemoglobin (Bld) [Mass/Vol] 13.0 g/dL Normal 12.0-16.0 [facility] Comment on above: Performed By: #### U ACSKYAW UMICRO #### [facility] [address] [place] [address] Dr. aMrk Cuellar IG # 0.04 10e3/ul Critically high 0.00-0.03 [facility] Comment on above: Performed By: #### U ACSKYAW UMICRO #### [facility] [address] [place] [address] Dr. Mark Cuellar IG % 0.5 % Normal 0.0-0.5 [facility] Comment on above: Performed By: #### U ACSKYAW ICRO #### [facility] [address] [place] [address] Dr. Mark Cuellar LYMPH # 1.6 103/ul Normal 1.2-3.8 [facility] Comment on above: Performed By: #### U ACSKYAW UMICRO #### [facility] [address] [place] [address] Dr. Mark Cuellar Lymphocytes/100 WBC (Bld) 17.6 % Critically low 20.5-60.0 [facility] Comment on above: Performed By: #### U ACSKYAW UMICRO #### [facility] [address] [place] [address] Dr. Mark Cuellar MANUAL DIFF REQ NO Normal [facility] Comment on above: Performed By: #### U ACSKAYW UMICRO #### [facility] [address] [place] [address] Dr. Mark Cuellar MCH (RBC) [Entitic mass] 30.7 pg Normal 26.7-34.0 [facility] Comment on above: Performed By: #### U ACSKYAW UMICRO #### [facility] [address] [place] [address] Dr. Mark Cuellar MCHC (RBC) [Mass/Vol] 36.1 g/dL Critically high 29.9-35.2 [facility] Comment on above: Performed By: #### U ACSKYAW UMICRO #### [facility] [address] [place] [address] Dr. Mark Cuellar MCV (RBC) [Entitic vol] 84.9 fL Normal 81.0-99.0 [facility] Comment on above: Performed By: #### U ACSKYAW UMICRO #### [facility] [address] [place] [address] Dr. Mark Cuellar MONO # 0.6 103/ul Normal 0.3-0.8 [facility] Comment on above: Performed By: #### U ACSKYAW UMICRO #### [facility] [address] [place] [address] Dr. Mark Cuellar Monocytes/100 WBC (Bld) 6.3 % Normal 1.7-12.0 [facility] Comment on above: Performed By: #### U HERNESTO UMICRO #### [facility] [address] [place] [address] Dr. Mark Cuellar NEUT # 6.6 103/ul Critically high 1.4-6.5 [facility] Comment on above: Performed By: #### U ACSKYAW UMICRO #### [facility] [address] [place] [address] Dr. Mark Cuellar Neutrophils/100 WBC (Bld) 74.7 % Normal 43.0-75.0 [facility] Comment on above: Performed By: #### U ACSKYAW UMICRO #### [facility] [address] [place] [address] Dr. Mark Cuellar Platelet mean volume (Bld) [Entitic vol] 9.1 fL Critically low 9.5-13.5 [facility] Comment on above: Performed By: #### U ACSKYAW UMICRO #### [facility] [address] [address] [address] Mark Cuellar PLT 214 103/ul Normal 150-450 [facility] Comment on above: Performed By: #### U VIGNESH ERICRO #### [facility] [address] [address] [address] Mark Cuellar RBC 4.24 106/ul Normal 4.20-5.40 [facility] Comment on above: Performed By: #### U VIGNESH ERICRO #### [facility] [address] [place] [address] Dr. Mark Cuellar WBC 8.8 103/ul Normal 4.0-11.0 [facility] Comment on above: Performed By: #### U VIGNESH ERICRO #### [facility] [address] [place] [address] Dr. Mark Cuellar CULTURE URINEon 02-27-2022 CULTURE URINE Culture Observations : LIGHT GROWTH OF MIXED GENITAL VALENTÍN. NO POTENTIAL PATHOGENS SEEN. Normal [facility] Comment on above: Performed By: #### U RCX #### [facility] [address] [place] [address] Dr. Mark Cuellar GLYCOHEMOGLOBIN A1Con 2021 ADA RECOMMENDATION SEE BELOW Normal [facility] Comment on above: Result Comment: ADA RECOMMENDED LIMIT 4.0 - 6.0 ADA THERAPEUTIC TARGET < 7.0 ACTION SUGGESTED > 7.0 Performed By: #### VIGNESH ZELAYARO #### [facility] [address] [place] [address] Dr. Mark Cuellar Glucose [Mass/Vol] 74 mg/dL Normal [facility] Comment on above: Performed By: #### E VIGNESH ANDERSONRO #### [facility] [address] [place] [address] Dr. Mark Cuellar HbA1c (Bld) [Mass fraction] 4.2 % Critically low 4.5-6.2 [facility] Comment on above: Performed By: #### E RUSolomon UMICRO #### [facility] [address] [place] [address] Dr. Mark Cuellar JOE BOX TEST PT SEND OUTo n 02-27-2022 SENT TO REF LAB 02/27/2022 Normal [facility] Comment on above: Performed By: #### E RUSolomon UMICRO #### [facility] [address] [place] [address] Dr. Mark Cuellar TYPE AND SCREENon 02-27-2022 TYPE AND SCREEN Negative Normal [facility] Comment on above: Performed By: #### E RUR UMICRO #### [facility] [address] [place] [address] Dr. Mark Cuellar AMYLASEon 02-13-2022 Amylase [Catalytic activity/Vol] 45 U/L Normal 25-115 [facility] Comment on above: Performed By: #### U ACSKYAW UMICRO #### [facility] [address] [place] [address] Dr. Mark Cuellar BILIRUBIN CONJUGATED (DIRECT )on 02-13-2022 BILI, CONJUGATED 0.2 mg/dL Normal 0.0-0.2 [facility] Comment on above: Performed By: #### D DEEPA #### [facility] [address] [place] [address] Dr. Mark Cuellar CALCIUMon 02-13-2022 Calcium [Mass/Vol] 9.3 mg/dL Normal 8.5-10.1 [facility] Comment on above: Performed By: #### U ACSKYAW UMICRO #### [facility] [address] [place] [address] Dr. Mark Cuellar CBC AUTO DIFFon 02-13-2022 BASO # 0.0 103/ul Normal 0.0-0.1 [facility] Comment on above: Performed By: #### E RUSolomon, UMICRO #### [facility] [address] [place] [address] Dr. Mark Cuellar Basophils/100 WBC (Bld) 0.2 % Normal 0.2-2.0 [facility] Comment on above: Performed By: #### E RUR, UMICRO #### [facility] [address] [place] [address] Dr. Mark Cuellar EO # 0.1 103/ul Normal 0.0-0.7 [facility] Comment on above: Performed By: #### RISA ZELAYA #### [facility] [address] [place] [address] Dr. Mark Cuellar Eosinophils/100 WBC (Bld) 1.0 % Normal 0.9-7.0 [facility] Comment on above: Performed By: #### RISA ZELAYA #### [facility] [address] [place] [address] Dr. Mark Cuellar Erythrocyte distribution width (RBC) [Ratio] 11.9 % Normal 11.0-15.0 [facility] Comment on above: Performed By: #### RISA ZELAYA #### [facility] [address] [place] [address] Dr. Mark Cuellar Hematocrit (Bld) [Volume fraction] 37.6 % Normal 36.0-48.0 [facility] Comment on above: Performed By: #### RISA ZELAYA #### [facility] [address] [place] [address] Dr. Mark Cuellar Hemoglobin (Bld) [Mass/Vol] 13.5 g/dL Normal 12.0-16.0 [facility] Comment on above: Performed By: #### RISA ZELAYA #### [facility] [address] [place] [address] Dr. Mark Cuellar IG # 0.04 10e3/ul Critically high 0.00-0.03 [facility] Comment on above: Performed By: #### VIGNESH ZELAYARO #### [facility] [address] [place] [address] Dr. Mark Cuellar IG % 0.4 % Normal 0.0-0.5 [facility] Comment on above: Performed By: #### VIGNESH ZELAYARO #### [facility] [address] [place] [address] Dr. Mark Cuellar LYMPH # 2.2 103/ul Normal 1.2-3.8 [facility] Comment on above: Performed By: #### RISA ZELAYA #### [facility] [address] [place] [address] Dr. Mark Cuellar Lymphocytes/100 WBC (Bld) 19.7 % Critically low 20.5-60.0 [facility] Comment on above: Performed By: #### E JUSTIN, UMICRO #### [facility] [facility] [address] [place] [address] Dr. Mark Cuellar MANUAL DIFF REQ NO Normal [facility] Comment on above: Performed By: #### E JUSTIN, UMICRO #### [facility] [address] [place] [address] Dr. Mark Cuellar MCH (RBC) [Entitic mass] 30.8 pg Normal 26.7-34.0 [facility] Comment on above: Performed By: #### Jonna ANDERSON UMICRO #### [facility] [address] [place] [address] Dr. Mark Cuellar MCHC (RBC) [Mass/Vol] 35.9 g/dL Critically high 29.9-35.2 [facility] Comment on above: Performed By: #### Jonna ANDERSON UMICRO #### [facility] [address] [place] [address] Dr. Mark Cuellar MCV (RBC) [Entitic vol] 85.6 fL Normal 81.0-99.0 [facility] Comment on above: Performed By: #### Jonna ANDERSON UMICRO #### [facility] [address] [place] [address] Dr. Mark Cuellar MONO # 0.8 103/ul Normal 0.3-0.8 [facility] Comment on above: Performed By: #### Jonna ANDERSON UMICRO #### [facility] [address] [place] [address] Dr. Mark Cuellar Monocytes/100 WBC (Bld) 7.6 % Normal 1.7-12.0 [facility] Comment on above: Performed By: #### E JUSTIN, UMICRO #### [facility] [address] [place] [address] Dr. Mark Cuellar NEUT # 7.9 103/ul Critically high 1.4-6.5 [facility] Comment on above: Performed By: #### RISA ZELAYA #### [facility] [address] [place] [address] Dr. Mark Cuellar Neutrophils/100 WBC (Bld) 71.1 % Normal 43.0-75.0 [facility] Comment on above: Performed By: #### RISA ZELAYA #### [facility] [address] [place] [address] Dr. Mark Cuellar Platelet mean volume (Bld) [Entitic vol] 9.2 fL Critically low 9.5-13.5 [facility] Comment on above: Performed By: #### RISA ZELAYA #### [facility] [address] [place] [address] Dr. Mark Cuellar PLT 218 103/ul Normal 150-450 [facility] Comment on above: Performed By: #### RISA ZELAYA #### [facility] [address] [place] [address] Dr. Mark Cuellar RBC 4.39 106/ul Normal 4.20-5.40 [facility] Comment on above: Performed By: #### RISA ZELAYA #### [facility] [address] [place] [address] Dr. Mark Cuellar WBC 11.0 103/ul Normal 4.0-11.0 [facility] Comment on above: Performed By: #### RISA ZELAYA #### [facility] [address] [place] [address] Dr. Mark Cuellar FREE T4on 02-13-2022 Free T4 [Mass/Vol] 1.36 ng/dL Normal 0.76-1.46 [facility] Comment on above: Performed By: #### RISA ZELAYA #### [facility] [address] [place] [address] Dr. Mark Cuellar LIPASEon 02-13-2022 Lipase [Catalytic activity/Vol] 91.0 U/L Normal 73.0-393.0 [facility] Comment on above: Performed By: #### U HERNESTO UMICRO #### [facility] [address] [address] [address] Mark Cuellar MAGNESIUMon 02-13-2022 Magnesium [Mass/Vol] 1.9 mg/dL Normal 1.8-2.4 [facility] Comment on above: Performed By: #### U HERNESTO UMICRO #### [facility] [address] [address] [address] Mark Cuellar PROF 14(COMP METB)on 022 Albumin [Mass/Vol] 3.7 g/dL Normal 3.4-5.0 [facility] Comment on above: Performed By: #### U HERNESTO UMICRO #### [facility] [address] [place] [address] Dr. Mark Cuellar Albumin/Globulin [Mass ratio] 1.2 {ratio} Normal [facility] Comment on above: Performed By: #### U HERNESTO UMICRO #### [facility] [address] [place] [address] Dr. Mark Cuellar ALP [Catalytic activity/Vol] 45 U/L Critically low 46-116 [facility] Comment on above: Performed By: #### U HERNESTO UMICRO #### [facility] [address] [place] [address] Dr. Mark Cuellar ALT [Catalytic activity/Vol] 18 U/L Normal 14-59 [facility] Comment on above: Performed By: #### U HERNESTO UMICRO #### [facility] [address] [place] [address] Dr. Mark Cuellar Anion gap [Moles/Vol] 10.7 mmol/L Normal [facility] Comment on above: Performed By: #### U HERNESTO UMICRO #### [facility] [address] [place] [address] Dr. Mark Cuellar AST [Catalytic activity/Vol] 11 U/L Critically low 15-37 [facility] Comment on above: Performed By: #### U HERNESTO UMICRO #### [facility] [address] [address] [address] Mark Cuellar Bilirubin [Mass/Vol] 1.2 mg/dL Critically high 0.2-1.0 [facility] Comment on above: Performed By: #### U ACSKYAW, UMICRO #### [facility] [address] [address] [address] Mark Cuellar Chloride [Moles/Vol] 102 mmol/L Normal 98-107 [facility] Comment on above: Performed By: #### U ACSKYAW, UMICRO #### [facility] [address] [address] [address] Mark Cuellar CO2 [Moles/Vol] 26.0 mmol/L Normal 21.0-32.0 [facility] Comment on above: Performed By: #### U ACSKYAW, UMICRO #### [facility] [address] [place] [address] Dr. Mark Cuellar Creatinine [Mass/Vol] 0.67 mg/dL Normal 0.55-1.02 [facility] Comment on above: Performed By: #### U ACSKYAW, UMICRO #### [facility] [address] [address] [address] Mark Cuellar EGFR-AF HONG KONGER >60 Normal >=60 [facility] Comment on above: Performed By: #### U ACSKYAW, UMICRO #### [facility] [address] [place] [address] Dr. Mark Cuellar EGFR-NON AF [place]ER >60 Normal >=60 [facility] Comment on above: Performed By: #### U ACSKYAW, UMICRO #### [facility] [address] [address] [address] Mark Cuellar Globulin (S) [Mass/Vol] 3.2 g/dL Normal [facility] Comment on above: Performed By: #### U ACSKYAW, UMICRO #### [facility] [address] [address] [address] Mark Cuellar Glucose [Mass/Vol] 88 mg/dL Normal 74-106 [facility] Comment on above: Performed By: #### U ACSKYAW, UMICRO #### [facility] [address] [place] [address] Dr. Mark Cuellar Potassium [Moles/Vol] 3.7 mmol/L Normal 3.5-5.1 [facility] Comment on above: Performed By: #### U HERNESTO UMICRO #### [facility] [address] [place] [address] Dr. Mark Cuellar Protein [Mass/Vol] 6.9 g/dL Normal 6.4-8.2 [facility] Comment on above: Performed By: #### U HERNESTO UMICRO #### [facility] [address] [place] [address] Dr. Mark Cuellar Sodium [Moles/Vol] 135 mmol/L Critically low 136-145 [facility] Comment on above: Performed By: #### U HERNESTO UMICRO #### [facility] [address] [place] [address] Dr. Mark Cuellar Urea nitrogen [Mass/Vol] 13.0 mg/dL Normal 7.0-18.0 [facility] Comment on above: Performed By: #### Tarik ERIC UMICRO #### [facility] [address] [place] [address] Dr. Mark Cuellar Urea nitrogen/Creatinine [Mass ratio] 19.4 mg/mg Normal [facility] Comment on above: Performed By: #### Tarik ERIC UMICRO #### [facility] [address] [place] [address] Dr. Mark Cuellar TSHon 02-13-2022 TSH 0.326 uIU/mL Critically low 0.358-3.74 0 [facility] Comment on above: Performed By: #### U HERNESTO UMICRO #### [facility] [address] [place] [address] Dr. Mark Cuellar CBC AUTO DIFFon 02-06-2022 BASO # 0.0 103/ul Normal 0.0-0.1 [facility] Comment on above: Performed By: #### U HERNESTO UMICRO #### [facility] [address] [place] [address] Dr. Mark Cuellar Basophils/100 WBC (Bld) 0.2 % Normal 0.2-2.0 [facility] Comment on above: Performed By: #### U ACSKYAW UMICRO #### [facility] [address] [place] [address] Dr. Mark Cuellar EO # 0.1 103/ul Normal 0.0-0.7 [facility] Comment on above: Performed By: #### U ACSKYAW UMICRO #### [facility] [address] [place] [address] Dr. Mark Cuellar Eosinophils/100 WBC (Bld) 0.8 % Critically low 0.9-7.0 [facility] Comment on above: Performed By: #### U ACSKYAW ICRO #### [facility] [address] [place] [address] Dr. Mark Cuellar Erythrocyte distribution width (RBC) [Ratio] 12.0 % Normal 11.0-15.0 [facility] Comment on above: Performed By: #### U ACSKYAW ICRO #### [facility] [address] [place] [address] Dr. Mark Cuellar Hematocrit (Bld) [Volume fraction] 37.0 % Normal 36.0-48.0 [facility] Comment on above: Performed By: #### U ACSKYAW ICRO #### [facility] [address] [place] [address] Dr. Makr Cuellar Hemoglobin (Bld) [Mass/Vol] 13.0 g/dL Normal 12.0-16.0 [facility] Comment on above: Performed By: #### U ACSKYAW, ICRO #### [facility] [address] [place] [address] Dr. Mark Cuellar IG # 0.07 10e3/ul Critically high 0.00-0.03 [facility] Comment on above: Performed By: #### U ACSIND, UMICRO #### [facility] [address] [place] [address] Dr. Mark Cuellar IG % 0.6 % Critically high 0.0-0.5 [facility] Comment on above: Performed By: #### U HERNESTO UMICRO #### [facility] [address] [place] [address] Dr. Mark Cuellar LYMPH # 2.5 103/ul Normal 1.2-3.8 [facility] Comment on above: Performed By: #### U HERNESTO UMICRO #### [facility] [address] [place] [address] Dr. Mark Cuellar Lymphocytes/100 WBC (Bld) 22.5 % Normal 20.5-60.0 [facility] Comment on above: Performed By: #### U HERNESTO UMICRO #### [facility] [address] [place] [address] Dr. Mark Cuellar MANUAL DIFF REQ NO Normal [facility] Comment on above: Performed By: #### U HERNESTO UMICRO #### [facility] [address] [place] [address] Dr. Mark Cuellar MCH (RBC) [Entitic mass] 30.5 pg Normal 26.7-34.0 [facility] Comment on above: Performed By: #### U HERNESTO ICRO #### [facility] [address] [place] [address] Dr. Mark Cuellar MCHC (RBC) [Mass/Vol] 35.1 g/dL Normal 29.9-35.2 [facility] Comment on above: Performed By: #### U HERNESTO UMICRO #### [facility] [address] [place] [address] Dr. Mark Cuellar MCV (RBC) [Entitic vol] 86.9 fL Normal 81.0-99.0 [facility] Comment on above: Performed By: #### U ACSKYAW UMICRO #### [facility] [address] [place] [address] Dr. Mark Cuellar MONO # 0.7 103/ul Normal 0.3-0.8 [facility] Comment on above: Performed By: #### U ACSKYAW UMICRO #### [facility] [address] [address] [address] Mark Cuellar Monocytes/100 WBC (Bld) 6.2 % Normal 1.7-12.0 [facility] Comment on above: Performed By: #### U ACSKYAW UMICRO #### [facility] [address] [address] [address] Mark Cuellar NEUT # 7.7 103/ul Critically high 1.4-6.5 [facility] Comment on above: Performed By: #### U ACSKYAW, UMICRO #### [facility] [address] [address] [address] Mark Cuellar Neutrophils/100 WBC (Bld) 69.7 % Normal 43.0-75.0 [facility] Comment on above: Performed By: #### U HERNESTO UMICRO #### [facility] [address] [address] [address] Mark Cuellar Platelet mean volume (Bld) [Entitic vol] 9.3 fL Critically low 9.5-13.5 [facility] Comment on above: Performed By: #### U HERNESTO ICRO #### [facility] [address] [address] [address] Mark Cuellar PLT 225 103/ul Normal 150-450 [facility] Comment on above: Performed By: #### U HERNESTO UMICRO #### [facility] [address] [address] [address] Mark Cuellar RBC 4.26 106/ul Normal 4.20-5.40 [facility] Comment on above: Performed By: #### U ACSKYAW UMICRO #### [facility] [address] [address] [address] Mark Cuellar WBC 11.1 103/ul Critically high 4.0-11.0 [facility] Comment on above: Performed By: #### U ACSKYAW, UMICRO #### [facility] [address] [address] [address] Mark Cuellar PROF 14(COMP METB)on 022 Albumin [Mass/Vol] 3.5 g/dL Normal 3.4-5.0 [facility] Comment on above: Performed By: #### RISA ZELAYA #### [facility] [address] [place] [address] Dr. Mark Cuellar Albumin/Globulin [Mass ratio] 1.1 {ratio} Normal [facility] Comment on above: Performed By: #### RISA ZELAYA #### [facility] [address] [place] [address] Dr. Mark Cuellar ALP [Catalytic activity/Vol] 50 U/L Normal 46-116 [facility] Comment on above: Performed By: #### RISA ZELAYA #### [facility] [address] [place] [address] Dr. Mark Cuellar ALT [Catalytic activity/Vol] 20 U/L Normal 14-59 [facility] Comment on above: Performed By: #### RISA ZELAYA #### [facility] [address] [place] [address] Dr. Mark Cuellar Anion gap [Moles/Vol] 8.2 mmol/L Normal [facility] Comment on above: Performed By: #### RISA ZELAYA #### [facility] [address] [place] [address] Dr. Mark Cuellar AST [Catalytic activity/Vol] 12 U/L Critically low 15-37 [facility] Comment on above: Performed By: #### RISA ZELAYA #### [facility] [address] [place] [address] Dr. Mark Cuellar Bilirubin [Mass/Vol] 1.1 mg/dL Critically high 0.2-1.0 [facility] Comment on above: Performed By: #### RISA ZELAYA #### [facility] [address] [place] [address] Dr. Mark Cuellar Calcium [Mass/Vol] 9.1 mg/dL Normal 8.5-10.1 [facility] Comment on above: Performed By: #### RISA ZELAYA #### [facility] [address] [address] [address] Mark Cuellar Chloride [Moles/Vol] 104 mmol/L Normal 98-107 [facility] Comment on above: Performed By: #### RISA ZELAYA #### [facility] [address] [place] [address] Dr. Mark Cuellar CO2 [Moles/Vol] 26.1 mmol/L Normal 21.0-32.0 [facility] Comment on above: Performed By: #### VIGNESH ZELAYARO #### [facility] [address] [place] [address] Dr. Mark Cuellar Creatinine [Mass/Vol] 0.74 mg/dL Normal 0.55-1.02 [facility] Comment on above: Performed By: #### VIGNESH ZELAYARO #### [facility] [address] [place] [address] Dr. Mark Cuellar EGFR-AF [place] >60 Normal >=[address] [facility] Comment on above: Performed By: #### VIGNESH ZELAYARO #### [facility] [address] [place] [address] Dr. Mark Cuellar EGFR-NON AF [place] >60 Normal >=60 [facility] Comment on above: Performed By: #### VIGNESH ZELAYARO #### [facility] [address] [place] [address] Dr. Mark Cuellar Globulin (S) [Mass/Vol] 3.1 g/dL Normal T [facility] Comment on above: Performed By: #### VIGNESH ZELAYARO #### [facility] [address] [place] [address] Dr. Mark Cuellar Glucose [Mass/Vol] 93 mg/dL Normal 74-106 [facility] Comment on above: Performed By: #### VIGNESH ZELAYARO #### [facility] [address] [place] [address] Dr. Mark Cuellar Potassium [Moles/Vol] 3.3 mmol/L Critically low 3.5-5.1 [facility] Comment on above: Performed By: #### E RUR, UMICRO #### [facility] [address] [place] [address] Dr. Mark Cuellar Protein [Mass/Vol] 6.6 g/dL Normal 6.4-8.2 [facility] Comment on above: Performed By: #### E VANESSAR, UMICRO #### [facility] [address] [place] [address] Dr. Mark Cuellar Sodium [Moles/Vol] 135 mmol/L Critically low 136-145 [facility] Comment on above: Performed By: #### E JUSTIN, UMICRO #### [facility] [address] [place] [address] Dr. Mark Cuellar Urea nitrogen [Mass/Vol] 10.0 mg/dL Normal 7.0-18.0 [facility] Comment on above: Performed By: #### E JUSTIN UMICRO #### [facility] [address] [place] [address] Dr. Mark Cuellar Urea nitrogen/Creatinine [Mass ratio] 13.5 mg/mg Normal [facility] Comment on above: Performed By: #### E JUSTIN UMICRO #### [facility] [address] [place] [address] Dr. Mark Cuellar AMYLASEon 01-27-2022 Amylase [Catalytic activity/Vol] 40 U/L Normal 25-115 [facility] Comment on above: Performed By: #### C BC #### [facility] [address] [place] [address] Dr. Mark Cuellar CBC AUTO DIFFon 01-27-2022 BASO # 0.0 103/ul Normal 0.0-0.1 [facility] Comment on above: Performed By: #### E JUSTIN UMICRO #### [facility] [address] [place] [address] Dr. Mark Cuellar Basophils/100 WBC (Bld) 0.3 % Normal 0.2-2.0 [facility] Comment on above: Performed By: #### E JUSTIN UMICRO #### [facility] [address] [place] [address] Dr. Mark Cuellar EO # 0.0 103/ul Normal 0.0-0.7 [facility] Comment on above: Performed By: #### VIGNESH ZELAYARO #### [facility] [address] [place] [address] Dr. Mark Cuellar Eosinophils/100 WBC (Bld) 0.3 % Critically low 0.9-7.0 [facility] Comment on above: Performed By: #### THOMAS ZELAYAICRO #### [facility] [address] [place] [address] Dr. Mark Cuellar Erythrocyte distribution width (RBC) [Ratio] 11.8 % Normal 11.0-15.0 [facility] Comment on above: Performed By: #### Jonna ANDERSON UMICRO #### [facility] [address] [place] [address] Dr. Mark Cuellar Hematocrit (Bld) [Volume fraction] 36.9 % Normal 36.0-48.0 [facility] Comment on above: Performed By: #### Jonna ANDERSON UMICRO #### [facility] [address] [place] [address] Dr. Mark Cuellar Hemoglobin (Bld) [Mass/Vol] 13.2 g/dL Normal 12.0-16.0 [facility] Comment on above: Performed By: #### Jonna ANDERSON UMICRO #### [facility] [address] [place] [address] Dr. Mark Cuellar IG # 0.06 10e3/ul Critically high 0.00-0.03 [facility] Comment on above: Performed By: #### Jonna ANDERSON UMICRO #### [facility] [address] [place] [address] Dr. Mark Cuellar IG % 0.5 % Normal 0.0-0.5 [facility] Comment on above: Performed By: #### Jonna ANDERSON UMICRO #### [facility] [address] [place] [address] Dr. Mark Cuellar LYMPH # 2.4 103/ul Normal 1.2-3.8 [facility] Comment on above: Performed By: #### VIGNESH ZELAYARO #### [facility] [address] [place] [address] Dr. Mark Cuellar Lymphocytes/100 WBC (Bld) 18.8 % Critically low 20.5-60.0 [facility] Comment on above: Performed By: #### Jonna ANDERSON UMICRO #### [facility] [address] [place] [address] Dr. Mark Cuellar MANUAL DIFF REQ NO Normal [facility] Comment on above: Performed By: #### Jonna ANDERSON UMICRO #### [facility] [address] [place] [address] Dr. Mark Cuellar MCH (RBC) [Entitic mass] 30.6 pg Normal 26.7-34.0 [facility] Comment on above: Performed By: #### Jonna ANDERSON UMICRO #### [facility] [address] [place] [address] Dr. Mark Cuellar MCHC (RBC) [Mass/Vol] 35.8 g/dL Critically high 29.9-35.2 [facility] Comment on above: Performed By: #### THOMAS ZELAYAICRO #### [facility] [address] [place] [address] Dr. Mark Cuellar MCV (RBC) [Entitic vol] 85.6 fL Normal 81.0-99.0 [facility] Comment on above: Performed By: #### THOMAS ZELAYAICRO #### [facility] [address] [place] [address] Dr. Mark Cuellar MONO # 0.9 103/ul Critically high 0.3-0.8 [facility] Comment on above: Performed By: #### THOMAS ZELAYAICRO #### [facility] [address] [place] [address] Dr. Mark Cuellar Monocytes/100 WBC (Bld) 7.3 % Normal 1.7-12.0 [facility] Comment on above: Performed By: #### THOMAS ZELAYAICRO #### [facility] [address] [address] [address] Mark Cuellar NEUT # 9.3 103/ul Critically high 1.4-6.5 [facility] Comment on above: Performed By: #### THOMAS ZELAYAICRO #### [facility] [address] [place] [address] Dr. Mark Cuellar Neutrophils/100 WBC (Bld) 72.8 % Normal 43.0-75.0 [facility] Comment on above: Performed By: #### THOMAS ZELAYAICRO #### [facility] [address] [place] [address] Dr. Mark Cuellar Platelet mean volume (Bld) [Entitic vol] 9.3 fL Critically low 9.5-13.5 [facility] Comment on above: Performed By: #### Jonna ANDERSON UMICRO #### [facility] [address] [place] [address] Dr. Mark Cuellar PLT 239 103/ul Normal 150-450 [facility] Comment on above: Performed By: #### THOMAS ZELAYAICRO #### [facility] [address] [place] [address] Dr. Mark Cuellar RBC 4.31 106/ul Normal 4.20-5.40 [facility] Comment on above: Performed By: #### Jonna ANDERSON UMICRO #### [facility] [address] [place] [address] Dr. Mark Cuellar WBC 12.8 103/ul Critically high 4.0-11.[address] [facility] Comment on above: Performed By: #### Jonna ANDERSON UMICRO #### [facility] [address] [place] [address] Dr. Mark Cuellar CULTURE URINEon 01-27-2022 CULTURE URINE Culture Observations : NO GROWTH. Normal [facility] Comment on above: Performed By: #### Jonna ANDERSON UMICRO #### [facility] [address] [place] [address] Dr. Mark Cuellar ER URINE PROFILEon 2 Bilirubin Ql (U) Negative Normal NEGATIVE [facility] Comment on above: Performed By: #### Jonna ANDERSON UMICRO #### [facility] [address] [place] [address] Dr. Mark Cuellar Clarity (U) CLEAR Normal CLEAR [facility] Comment on above: Performed By: #### Jonna ANDERSON UMICRO #### [facility] [address] [place] [address] Dr. Mark Cuellar Color (U) LT. YELLOW Normal YELLOW [facility] Comment on above: Performed By: #### Jonna ANDERSON UMICRO #### [facility] [address] [place] [address] Dr. Mark Cuellar ERUAHD A micrscopic examina tion will be performed if indicated. Normal [facility] Comment on above: Performed By: #### Jonna ANDERSON UMICRO #### [facility] [address] [place] [address] Dr. Mark Cuellar Glucose Ql (U) Negative Normal NEGATIVE [facility] Comment on above: Performed By: #### Jonna ANDERSON UMICRO #### [facility] [address] [place] [address] Dr. Mark Cuellar Hemoglobin Ql (U) TRACE-INTACT Abnormal NEGATIVE [facility] Comment on above: Performed By: #### Jonna ANDERSON UMICRO #### [facility] [address] [place] [address] Dr. Mark Cuellar Ketones Ql (U) Negative Normal NEGATIVE [facility] Comment on above: Performed By: #### Jonna ANDERSON UMICRO #### [facility] [address] [place] [address] Dr. Mark Cuellar LEUKOCYTES SMALL Abnormal NEGATIVE [facility] Comment on above: Performed By: #### Jonna ANDERSON UMICRO #### [facility] [address] [place] [address] Dr. Mark Cuellar Nitrite Ql (U) Negative Normal NEGATIVE [facility] Comment on above: Performed By: #### Jonna ANDERSON UMICRO #### [facility] [address] [place] [address] Dr. Mark Cuellar pH (U) 8.0 [pH] Normal 5-9 [facility] Comment on above: Performed By: #### RISA ZELAYA #### [facility] [address] [place] [address] Dr. Mark Cuellar SPEC GRAVITY 1.010 Normal 1.005-<=1. 025 [facility] Comment on above: Performed By: #### RISA ZELAYA #### [facility] [address] [place] [address] Dr. Mark Cuellar UA PROTEIN Negative Normal NEGATIVE/ TRACE [facility] Comment on above: Performed By: #### VIGNESH ZELAYARO #### [facility] [address] [place] [address] Dr. Mark Cuellar UR MICRO IND INDICATED Normal [facility] Comment on above: Performed By: #### RISA ZELAYA #### [facility] [address] [place] [address] Dr. Mark Cuellar Urobilinogen Qn (U) 0.2 {[place]'U}/dL Normal 0.2 - 1. 0 [facility] Comment on above: Performed By: #### RISA ZELAYA #### [facility] [address] [place] [address] Dr. Mark Cuellar LIPASEon 01-27-2022 Lipase [Catalytic activity/Vol] 66.0 U/L Critically low 73.0-393.0 [facility] Comment on above: Performed By: #### C BC #### [facility] [address] [place] [address] Dr. Mark Cuellar PROF 14(COMP METB)on 022 Albumin [Mass/Vol] 3.8 g/dL Normal 3.4-5.0 [facility] Comment on above: Performed By: #### C BC #### [facility] [address] [place] [address] Dr. Mark Cuellar Albumin/Globulin [Mass ratio] 1.3 {ratio} Normal [facility] Comment on above: Performed By: #### C BC #### [facility] [address] [place] [address] Dr. Mark Cuellar ALP [Catalytic activity/Vol] 53 U/L Normal 46-116 [facility] Comment on above: Performed By: #### C BC #### [facility] [address] [place] [address] Dr. Mark Cuellar ALT [Catalytic activity/Vol] 21 U/L Normal 14-59 [facility] Comment on above: Performed By: #### C BC #### [facility] [address] [place] [address] Dr. Mark Cuellar Anion gap [Moles/Vol] 12.0 mmol/L Normal Th e [facility] Comment on above: Performed By: #### C BC #### [facility] [address] [place] [address] Dr. Mark Cuellar AST [Catalytic activity/Vol] 12 U/L Critically low 15-37 [facility] Comment on above: Performed By: #### C BC #### [facility] [address] [place] [address] Dr. Mark Cuellar Bilirubin [Mass/Vol] 1.5 mg/dL Critically high 0.2-1.0 [facility] Comment on above: Performed By: #### C BC #### [facility] [address] [place] [address] Dr. Mark Cuellar Calcium [Mass/Vol] 8.9 mg/dL Normal 8.5-10.1 [facility] Comment on above: Performed By: #### C BC #### [facility] [address] [place] [address] Dr. Mark Cuellar Chloride [Moles/Vol] 104 mmol/L Normal 98-107 [facility] Comment on above: Performed By: #### C BC #### [facility] [address] [place] [address] Dr. Mark Cuellar CO2 [Moles/Vol] 24.5 mmol/L Normal 21.0-32.0 [facility] Comment on above: Performed By: #### C BC #### [facility] [address] [place] [address] Dr. Mark Cuellar Creatinine [Mass/Vol] 0.73 mg/dL Normal 0.55-1.02 [facility] Comment on above: Performed By: #### C BC #### [facility] [address] [address] [address] Mark Cuellar EGFR-AF [place] >60 Normal >=60 [facility] Comment on above: Performed By: #### C BC #### [facility] [address] [address] [address] Mark Cuellar EGFR-NON AF [place] >60 Normal >=60 [facility] Comment on above: Performed By: #### C BC #### [facility] [address] [address] [address] Mark Cuellar Globulin (S) [Mass/Vol] 3.0 g/dL Normal T [facility] Comment on above: Performed By: #### C BC #### [facility] [address] [address] [address] Mark Cuellar Glucose [Mass/Vol] 90 mg/dL Normal 74-106 [facility] Comment on above: Performed By: #### C BC #### [facility] [address] [address] [address] Mark Cuellar Potassium [Moles/Vol] 3.5 mmol/L Normal 3.5-5.1 [facility] Comment on above: Performed By: #### C BC #### [facility] [address] [address] [address] Mark Cuellar Protein [Mass/Vol] 6.8 g/dL Normal 6.4-8.2 [facility] Comment on above: Performed By: #### C BC #### [facility] [address] [address] [address] Mark Cuellar Sodium [Moles/Vol] 137 mmol/L Normal 136-145 [facility] Comment on above: Performed By: #### C BC #### [facility] [address] [address] [address] Mark Cuellar Urea nitrogen [Mass/Vol] 9.0 mg/dL Normal 7.0-18.0 [facility] Comment on above: Performed By: #### C BC #### [facility] [address] [place] [address] Dr. Mark Cuellar Urea nitrogen/Creatinine [Mass ratio] 12.3 mg/mg Normal [facility] Comment on above: Performed By: #### C BC #### [facility] [address] [place] [address] Dr. Mark Cuellar URINE MICROSCOPIC ONLYon AMORPHOUS CRYSTALS FEW Normal [facility] Comment on above: Performed By: #### Jonna RUR, UMICRO #### [facility] [address] [place] [address] Dr. Mark Cuellar BACTERIA MODERATE Abnormal NONE SEEN [facility] Comment on above: Performed By: #### E JUSTIN UMICRO #### [facility] [address] [place] [address] Dr. Mark Cuellar Bacteria identified Cx Nom (U) INDICATED Normal [facility] Comment on above: Performed By: #### Jonna ANDERSON UMICRO #### [facility] [address] [place] [address] Dr. Mark Cuellar CAST NONE SEEN Normal NONE SEEN [facility] Comment on above: Performed By: #### Jonna ANDERSON UMICRO #### [facility] [address] [place] [address] Dr. Mark Cuellar Crystals LM Nom (Urine sed) SEEN Abnormal NONE SEEN [facility] Comment on above: Performed By: #### Jonna ANDERSON UMICRO #### [facility] [address] [place] [address] Dr. Mark Cuellar Epithelial cells LM Ql (Urine sed) FEW Abnormal NONE SEEN /RARE [facility] Comment on above: Performed By: #### Jonna ANDERSON UMICRO #### [facility] [address] [place] [address] Dr. Mark Cuellar MUCOUS NONE SEEN Normal NONE SEEN [facility] Comment on above: Performed By: #### E RUR UMICRO #### [facility] [address] [place] [address] Dr. Mark Cuellar RBC NONE SEEN Abnormal 0-2 [facility] Comment on above: Performed By: #### E RISA ANDERSON #### [facility] [address] [place], [place] [address] Dr. Mark Cuellar WBC 2-5 Abnormal NONE SEEN [facility] Comment on above: Performed By: #### E RISA ANDERSON #### [facility] [address] [place], [place] [address] Dr. Mark Cuellar US PREG TVon 01-24-2022 [...] by: NIRALI QUEVEDO Date: 2022-01-24 17:39 Normal [facility] COVID Quick Testingon 2020 Result Negative [facility] Other Quick Fluon 04-14-2021 FLUAV Ab CF (S) [Titer] Negative N [employer] Other FLUBV Ab CF (S) [Titer] Negative N [employer] Other Vital Signs Date Time Vital Sign Value Performing Clinician Facility 03-17-2024 15:03-0500 Body height 165.1 cm [facility] 03-17-2024 15:03-0500 Body mass index (BMI) [Ratio] 21.1 kg/m2 [facility] 03-17-2024 15:03-0500 Body temperature 97.2 [degF] [facility] 03-17-2024 15:03-0500 Body weight 57.6 kg [facility] 03-17-2024 15:03-0500 Diastolic blood pressure 64 mm[Hg] [facility] 03-17-2024 15:03-0500 Heart rate 101 /min [facility] 03-17-2024 15:03-0500 SaO2% (BldA) [Mass fraction] 98 % [facility] 03-17-2024 15:03-0500 Systolic blood pressure 120 mm[Hg] [facility] 02-25-2024 10:11-0400 Body height 165.1 cm [facility] Work Phone: [facility] 02-25-2024 10:11-0400 Body mass index (BMI) [Ratio] 21.3 kg/m2 [facility] Work Phone: [facility] 02-25-2024 10:11-0400 Body weight 58.06 kg [facility] Work Phone: [facility] 02-25-2024 10:11-0400 Diastolic blood pressure 76 mm[Hg] [facility] Work Phone: [facility] 02-25-2024 10:11-0400 Systolic blood pressure 122 mm[Hg] [place] Booksir Ted DO Work Phone: [facility] 01-22-2024 11:41-0400 Body height 165.1 cm [facility] 10-17-2023 10:290400 Body height 165.1 cm [facility] 10-17-2023 10:29-0400 Body mass index (BMI) [Ratio] 20.7 kg/m2 [facility] 10-17-2023 10:29-0400 Body weight 56.69 kg [facility] 10-17-2023 10:29-0400 Diastolic blood pressure 66 mm[Hg] [facility] 10-17-2023 10:29-0400 Heart rate 92 /min [facility] 10-17-2023 10:29-0400 SaO2% (BldA) [Mass fraction] 97 % [facility] 10-17-2023 10:29-0400 Systolic blood pressure 104 mm[Hg] [facility] 03-29-2023 13:45-0500 Body height 165.1 cm Libra Vazquez Other [facility] Other 03-29-2023 13:45-0500 Body mass index (BMI) [Ratio] 20.9 kg/m2 Libra Vazquez Other [facility] Other 03-29-2023 13:45-0500 Body weight 56.97 kg Libra Vazquez Other [facility] Other 03-29-2023 13:45-0500 Diastolic blood pressure 78 mm[Hg] Libra Vazquez Other [facility] Other 03-29-2023 13:45-0500 SaO2% (BldA) [Mass fraction] 97 % Libra Vazquez Other [facility] Other 03-29-2023 13:45-0500 Systolic blood pressure 110 mm[Hg] Libra Vazquez Other [facility] Other 02-19-2023 15:30-0400 Body height 165.1 cm Libra Vazquez Other [facility] Other 02-19-2023 15:30-0400 Body mass index (BMI) [Ratio] 20.93 kg/m2 Libra Vazquez Other [facility] Other 02-19-2023 15:30-0400 Body weight 57.06 kg Libra Vazquez Other [facility] Other 02-19-2023 15:30-0400 Diastolic blood pressure 70 mm[Hg] Libra Vazquez Other [facility] Other 02-19-2023 15:30-0400 Systolic blood pressure 104 mm[Hg] Libra Vazquez Other [facility] Other 04-08-2022 10:10-0500 Body height 165.1 cm Jocelyn Quach Other [facility] Other 04-08-2022 10:10-0500 Body mass index (BMI) [Ratio] 19.13 kg/m2 Jocelyn Carolinamond Other [facility] Other 04-08-2022 10:10-0500 Body temperature 98 [degF] Jocelyn Quach Other [facility] Other 04-08-2022 10:10-0500 Body weight 52.16 kg Jocelyn Quach Other [facility] Other 04-08-2022 10:10-0500 Respiratory rate 18 /min Jocelyn Carolinamond Other [facility] Other 04-08-2022 10:10-0500 SaO2% (BldA) [Mass fraction] 98 % Jocelyn Quach Other [facility] Other 04-03-2022 14:05-0500 Body height 165.1 cm Jocelyn Carolinamond Other [facility] Other 04-14-2021 11:45-0500 Body height 165.1 cm Melvi Steen Other [facility] Other 04-14-2021 11:45-0500 Body temperature 99.6 [degF] Melvi Steen Other [facility] Other 04-14-2021 11:45-0500 Respiratory rate 18 /min Melvi Steen Other [facility] Other 04-14-2021 11:45-0500 SaO2% (BldA) [Mass fraction] 97 % Melvi Steen Other [facility] Other Encounters Encounter Date Encounter Type Care Provider Facility Start: 03-17-2024 End: 03-17-2024 ambulatory [facility] Work Phone: Start: 03-17-2024 End: 03-17-2024 Patient encounter procedure [facility] Work Phone: Start: 02-25-2024 End: 02-25-2024 Bamboo flowsheet Sid Ted DO Work Phone: [facility] Start: 02-25-2024 End: 02-25-2024 Bamboo flowsheet Sid Ted DO Work Phone: [facility] Start: 02-25-2024 End: 02-25-2024 Clinisync Result Encounter Sid Ted DO Work Phone: [facility] External Department Unsolicited Start: 02-25-2024 Non-patient / Non-visit [facility] [employer] Work Phone: Start: 02-25-2024 End: 02-25-2024 Office outpatient visit 15 minutes Sid Ted DO Work Phone: [facility] Comment on above: Hormone disorder; Decreased libido; Pain in female genitalia on intercourse; Other fatigue Start: 02-25-2024 End: 02-25-2024 ambulatory SID TED Not Available Start: 01-22-2024 End: 01-22-2024 ambulatory [facility] Work Phone: Start: 01-22-2024 End: 01-22-2024 Patient encounter procedure [facility] Work Phone: Start: 01-10-2024 End: 01-10-2024 Bamboo flowsheet June Fry MD Work Phone: [facility] Start: 01-10-2024 End: 01-10-2024 Bamboo flowsheet June Fry MD Work Phone: [facility] Start: 01-10-2024 End: 01-10-2024 Office outpatient visit 15 minutes June Fry MD Work Phone: [facility] Comment on above: 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 Work Phone: Start: 10-17-2023 End: 10-17-2023 ambulatory [facility] Work Phone: Start: 10-17-2023 End: 10-17-2023 Patient encounter procedure [facility] Work Phone: Start: 06-07-2023 End: 06-07-2023 ambulatory Libra Vazquez Other [facility] Other Start: 06-07-2023 Telephone encounter Libra Vazquez [place] Start: 05-03-2023 End: 05-03-2023 ambulatory Libra Vazquez Other [facility] Other Start: 05-03-2023 Telephone encounter Libra Vazquez [place] Start: 04-16-2023 End: 04-16-2023 ambulatory Libra Vazquez Other [facility] Other Start: 04-16-2023 Telephone encounter Libra Vazquez [place] Start: 03-29-2023 End: 03-29-2023 ambulatory Libra George Other [facility] Other Start: 03-29-2023 Office outpatient visit 15 minutes Libra Vazquez [place] Start: 03-01-2023 End: 03-01-2023 ambulatory Libra Vazquez Other [facility] Other Start: 03-01-2023 Telephone encounter Libra Vazquez [place] Start: 02-19-2023 End: 02-19-2023 ambulatory Libra Vazquez Other [facility] Other Start: 02-19-2023 Office outpatient visit 15 minutes Libra Vazquez [place] Start: 10-30-2022 ambulatory Shravan Solomon Quintero ty:[facility] [place] Start: 09-03-2022 End: 09-04-2022 Evaluation and management of inpatient JHONATANBINA GOMEZLEE Facility:[facility] Start: 09-02-2022 End: 09-03-2022 ambulatory JHONATAN CASTILLO Facility:[facility] Start: 08-25-2022 End: 08-26-[address] SID JEAN . Facility:[facility] Start: 08-23-2022 End: 08-23-2022 ambulatory Libra Vazquez Other [facility] Other Start: 08-23-2022 Telephone encounter Libra Vazquez [place] Start: 08-21-2022 End: 08-21-[address] SID JEAN . Facility:[facility] Start: 08-14-2022 (Televisit) Televisit Libra Nuno [facility] Start: 08-14-2022 End: 08-14-2022 ambulatory Libra Vazquez Other [facility] Other Start: 08-07-2022 End: 08-07-[address] SID JEAN . Facility:[facility] Start: 07-20-2022 End: 07-20-[address] SID JEAN . Facility:[facility] Start: 07-10-2022 End: 07-11-[address] LIBRA VAZQUEZ Facility:[facility] Start: 06-26-2022 ambulatory Shravan TERRI Facility :[facility] Start: 06-25-2022 End: 06-26-2022 ambulatory Sid JEAN Facility:[id number] Start: 06-24-2022 End: 06-25-[address] LIBRA VAZQUEZ Facility:[facility] Start: 05-25-2022 End: 05-25-[address] LIBRA VAZQUEZ Facility:[facility] Start: 04-08-2022 End: 04-08-2022 ambulatory Jocelyn Quach Other [facility] Other Start: 04-08-2022 Office outpatient visit 15 minutes Jocelyn Philomena [facility] Start: 04-03-2022 End: 04-03-2022 ambulatory Jocelynkacy Quach Other [facility] Other Start: 04-03-2022 Office outpatient visit 15 minutes Jocelyn Philomena [facility] Start: 03-04-2022 End: 03-05-[address] LIBRA VAZQUEZ Facility:[facility] Start: 02-27-2022 End: 02-28-[address] LIBRA VAZQUEZ Facility:[facility] Start: 02-13-2022 End: 02-14-[address] LIBRA VAZQUEZ Facility:[facility] Start: 02-06-2022 End: 02-07-2022 ambulatory NAHID PRETTY Facility:[facility] Start: 01-27-2022 End: 01-27-[address] TERA Perez Facility:[facility] Start: 01-24-2022 End: 01-25-[address] LIBRA VAZQUEZ Facility:[facility] Start: 06-27-2021 End: 06-27-2021 ambulatory Nirali Siu Facility:[facility] Start: 04-14-2021 End: 04-14-2021 ambulatory Melvi Enio Other [facility] Other Start: 04-14-2021 Office outpatient visit 15 minutes Melvi Enio [facility] Procedures Date Procedure Procedure Detail Performing Clinician Start: 03-17-2024 Quick Strep (POC) Start: 02-25-2024 MLR HEMOGLOBIN A1C Core y Ted DO Work Phone: Start: 05-25-2022 Microscopic observat ion [Identifier] in Cervix by Cyto stain June Fry MD Work Phone: Start: 01-23-2022 Diabetes mellitus screening Libra George Other Plan of Treatment Date Care Activity Detail Author Start: 05-25-2025 Screening for malign ant neoplasm of cervix [facility] Start: 02-25-2024 End: 02-24-2025 C-peptide C-peptide Lab Routine Hormone disorder Decreased libido Expected: 02/25/2024 (Approximate), Expires: 02/24/2025 [facility] Comment on above: Expected: 02/25/2024 (Approximate), Expires: 02/24/2025 Start: 02-25-2024 End: 02-24-2025 Cortisol free Cortisol, free Lab Routine Hormone disorder Decreased libido Expected: 02/25/2024 (Approximate), Expires: 02/24/2025 [facility] Comment on above: Expected: 02/25/2024 (Approximate), Expires: 02/24/2025 Start: 02-25-2024 End: 02-24-2025 Glucose [Mass/volume] in Serum or Plasma Glucose, random Lab Routine Hormone disorder Decreased libido Expected: 02/25/2024 (Approximate), Expires: 02/24/2025 [facility] Comment on above: Expected: 02/25/2024 (Approximate), Expires: 02/24/2025 Start: 02-25-2024 End: 02-24-2025 Insulin, total Insulin, total Lab Routine Hormone disorder Decreased libido Expected: 02/25/2024 (Approximate), Expires: 02/24/2025 [facility] Comment on above: Expected: 02/25/2024 (Approximate), Expires: 02/24/2025 Start: 02-25-2024 End: 02-24-2025 Serotonin serum Serotonin serum Lab Routine Hormone disorder Decreased libido Expected: 02/25/2024 (Approximate), Expires: 02/24/2025 [facility] Comment on above: Expected: 02/25/2024 (Approximate), Expires: 02/24/2025 Start: 02-25-2024 End: 02-24-2025 Thyroglobulin Thyroglobulin Lab Routine Hormone disorder Decreased libido Expected: 02/25/2024 (Approximate), Expires: 02/24/2025 [facility] Comment on above: Expected: 02/25/2024 (Approximate), Expires: 02/24/2025 Start: 02-25-2024 End: 02-24-2025 Thyroglobulin Antibody Thyroglobulin Antibody Lab Routine Hormone disorder Decreased libido Expected: 02/25/2024 (Approximate), Expires: 02/24/2025 [facility] Comment on above: Expected: 02/25/2024 (Approximate), Expires: 02/24/2025 Start: 02-25-2024 End: 02-24-2025 Thyrotropin [Units/volume] in Serum or Plasma [facility] Comment on above: Ordered: 02/25/2024 Expected: 02/25/2024 (Approximate), Expires: 02/24/2025 Start: 02-25-2024 End: 02-25-2024 Patient encounter procedure 02/25/2024 9:50 AM EDT Office Visit [facility] [address] [phone] Sid Jean DO [address] [place] [address] Arrived [facility] Comment on above: Arrived Start: 01-14-2024 End: 01-14-2024 Patient encounter procedure 01/14/2024 10:45 AM EDT Office Visit [facility] [address] [place] [phone] June Fry MD [address] [place] [address] [facility] Start: 01-10-2024 End: 01-10-2024 Patient encounter procedure 01/10/2024 9:30 AM EDT [facility] [address] [place] [phone] June Fry MD [address] [place] [address] Arrived [facility] Comment on above: Arrived Start: 12-30-2023 Influenza vaccination Influenza Vacc ine (#1) [facility] Start: 11-16-2023 Screening for malign ant neoplasm of cervix HPV/Cotest [facility] DHEA-sulfate DHEA-sulfate Lab Routine Hormone disorder Decreased libido Ordered: 02/25/2024 [facility] Comment on above: Ordered: 02/25/2024 Estradiol Estradiol Lab Ro utine Hormone disorder Decreased libido Ordered: 02/25/2024 [facility] Work Phone: Comment on above: Ordered: 02/25/2024 Estrone Estrone Lab Rout ine Hormone disorder Decreased libido Ordered: 02/25/2024 [facility] Comment on above: Ordered: 02/25/2024 Ferritin [Mass/volum e] in Serum or Plasma Ferritin Lab Routine Hormone disorder Decreased libido Ordered: 02/25/2024 [facility] Comment on above: Ordered: 02/25/2024 Hemoglobin A1c/Hemoglobin.total in Blood Hemoglobin A1c Lab Routine Hormone disorder Decreased libido Ordered: 02/25/2024 [facility] Comment on above: Ordered: 02/25/2024 Progesterone Progesterone Lab Routine Hormone disorder Decreased libido Ordered: 02/25/2024 [facility] Comment on above: Ordered: 02/25/2024 Sex hormone binding globulin Sex hormone binding globulin Lab Routine Hormone disorder Decreased libido Ordered: 02/25/2024 [facility] Comment on above: Ordered: 02/25/2024 T3, reverse T3, reverse Lab Routine Hormone disorder Decreased libido Ordered: 02/25/2024 [facility] Comment on above: Ordered: 02/25/2024 TESTOSTERONE, FREE TESTOSTERONE, FREE Lab Routine Hormone disorder Decreased libido Ordered: 02/25/2024 [facility] Comment on above: Ordered: 02/25/2024 Testosterone, free, total Testos terone, free, total Lab Routine Hormone disorder Decreased libido Ordered: 02/25/2024 [facility] Comment on above: Ordered: 02/25/2024 Thyroid peroxidase antibody Thyroid peroxidase antibody Lab Routine Hormone disorder Decreased libido Ordered: 02/25/2024 [facility] Comment on above: Ordered: 02/25/2024 Thyroxine (T4) free [Mass/volume] in Serum or Plasma T4, free Lab Routine Hormone disorder Decreased libido Ordered: 02/25/2024 [facility] Comment on above: Ordered: 02/25/2024 Triiodothyronine (T3 ) Free [Mass/volume] in Serum or Plasma T3, free Lab Routine Hormone disorder Decreased libido Ordered: 02/25/2024 [facility] Comment on above: Ordered: 02/25/2024 Vitamin D 1,25 dihydroxy Vitamin D 1,25 dihydroxy Lab Routine Hormone disorder Decreased libido Ordered: 02/25/2024 [facility] Comment on above: Ordered: 02/25/2024 [facility] Immunizations Immunization Date Immunization Notes Care Provider Fa cili 04-26-2022 influenza virus vacc ine, unspecified formulation June Fry MD Work Phone: [facility] Payers Date Payer Category Payer Unknown [id number] 2021 Unknown 2021 Government (not [facility] care or Medicaid) [id number] 1993 Unknown [id number] 2.16.840.1.078049.3.579.2 .593 1993 Unknown [id number] 2.16.840.1.954869.3.579.2 .593 1993 Unknown [id number] 2.16.840.1.301578.3.579.2 .593 1993 Unknown [id number] 2.16.840.1.657956.3.579.2 .593 1993 Unknown [id number] 2.16.840.1.540612.3.579.2 .593 1993 Unknown [id number] 2.16.840.1.511497.3.579.2 .593 1993 Unknown [id number] 2.16.840.1.929753.3.579.2 .593 1993 Unknown [id number] 2.16.840.1.829098.3.579.2 .593 1993 Unknown [id number] 2.16.840.1.611881.3.579.2 .593 1993 Unknown [id number] 2.16.840.1.683899.3.579.2 .593 1993 Unknown [id number] 2.16.840.1.509458.3.579.2 .593 1993 Unknown [id number] 2.16.840.1.489134.3.579.2 .593 1993 Unknown [id number] 2.16.840.1.055629.3.579.2 .593 1993 Unknown [id number] 2.16.840.1.480873.3.579.2 .593 1993 Unknown [id number] 2.16.840.1.382651.3.579.2 .593 1993 Unknown [id number] 2.16.840.1.198474.3.579.2 .727 1993 Unknown [id number] 2.16.840.1.018271.3.579.2 .727 1993 Unknown [id number] 2.16.840.1.287364.3.579.2 .718 1993 Unknown [id number] 2.16.840.1.028956.3.579.2 .1259 1993 Unknown [id number] 2.16.840.1.098272.3.579.2 .9 1993 Unknown [id number] 2.16.840.1.298876.3.579.2 .1259 1993 Unknown [id number] 2.16.840.1.468138.3.579.2 .9 1993 Unknown [id number] 2.16.840.1.805533.3.579.2 .1259 1959 Self-pay 1959 Unknown [id number] 2.16.840.1.490809.19 Unknown [id number] 2.16.840.1.641656.3.579.2 .593 Unknown [facility] [id number] Social History Date Type Detail Facility Unknown if ever smoked [facility] Other Start: 10-17-2022 End: 01-10-2024 Sex Assigned At [place] [employer] Other Start: 09-19-2022 End: 03-29-2023 Tobacco smoking status NHIS Never smoked tobacco (finding) [facility] Start: 1995 Sex Assigned At Female F [facility] Start: 09-19-2022 Tobacco use and exposure Smokeless tobacco non-user [facility] Start: 12-10-2023 End: 01-10-2024 Alcoholic beverage intake Lifetime non-drinker (finding) [facility] Start: 10-17-2022 End: 01-10-2024 History of Social function [facility] Start: 1993 Sex assigned at Not on file [place] [facility] Start: 03-17-2024 Sex Female (finding) [facility] Clinical Notes 04-14-2021 to 02-25-2024 Sidsuzie PayneDO alannah - 02/25/2024 9:50 AM EDT Note Date & Type Note Facility 02-25-2024 History of Presen t illness Narrative Reason for Appointment: Patient ID: Bri Kirk is a 28 y.o. female who presents for Hormone questions Patient presents today for Acute Visit. MEDICATIONS No current outpatient medications ALLERGIES Allergies Allergen Reactions Latex PROBLEMS Active Ambulatory Problems Diagnosis Date Noted Sterilization consult 09/22/2022 Resolved Ambulatory Problems Diagnosis Date Noted No Resolved Ambulatory Problems Past Medical History: Diagnosis Date Anxiety Asthma (CMS/HCC) Asthma (CMS/HCC) Bronchitis Depression (CMS/HCC) Eye trauma 11/26/23 Head injury History of chromosomal abnormality History of elevated glucose Hyperemesis gravidarum Kidney stones HISTORY PAST MEDICAL HISTORY SOCIAL HISTORY Past Medical History: Diagnosis Date Anxiety Asthma (CMS/HCC) Asthma (CMS/HCC) Bronchitis Depression (CMS/HCC) Eye trauma 11/26/23 Head injury History of chromosomal abnormality History of elevated glucose Hyperemesis gravidarum Kidney stones Social History Tobacco Use Smoking status: Never Smokeless tobacco: Never Substance Use Topics Alcohol use: Never Drug use: Never FAMILY HISTORY Family History Problem Relation Name Age of Onset Asthma Sister Other (neurocardiogenic) Sister Diabetes Paternal Grandmother Cancer Paternal Grandmother Cancer Paternal Grandfather Tera Nash Diabetes Paternal Grandfather Tera Nash Cancer Maternal Grandfather Sharma SURGICAL HISTORY Past Surgical History: Procedure Laterality Date TUBAL LIGATION Bilateral REVIEW OF SYSTEMS Review of Systems: Review of Systems Genitourinary: Positive for vaginal pain. All other systems reviewed and are negative. OBJECTIVE Objective: Physical Exam Constitutional: Appearance: Normal appearance. She is well-developed. Cardiovascular: Rate and Rhythm: Normal rate and regular rhythm. Pulmonary: Effort: Pulmonary effort is normal. Breath sounds: Normal breath sounds. Abdominal: General: Bowel sounds are normal. There is no distension. Palpations: Abdomen is soft. Tenderness: There is no abdominal tenderness. There is no guarding or rebound. Musculoskeletal: General: No swelling. Normal range of motion. Right lower leg: No edema. Left lower leg: No edema. Neurological: Mental Status: She is alert and oriented to person, place, and time. Skin: General: Skin is warm and dry. Psychiatric: Mood and Affect: Mood normal. Behavior: Behavior normal. Vitals and nursing note reviewed. Exam conducted with a striping machine operator present. Vitals: Estimated body mass index is 21.3 kg/m as calculated from the following: Height as of this encounter: 5' 5 . Weight as of this encounter: 128 lb. BP: 122/76 Patient's last menstrual period was 02/12/2024. ASSESSMENT & PLAN ICD-10-CM 1. Hormone disorder E34.9 Estradiol Estrone Cortisol, free DHEA-sulfate Sex hormone binding globulin Insulin, total Serotonin serum TSH T4, free T3, reverse Progesterone Vitamin D 1,25 dihydroxy Ferritin T3, free Thyroglobulin Thyroglobulin Antibody Thyroid peroxidase antibody T4 TESTOSTERONE, FREE Testosterone, free, total Hemoglobin A1c Glucose, random C-peptide Cortisol, free Insulin, total Serotonin serum Thyroglobulin Thyroglobulin Antibody T4 Glucose, random C-peptide 2. Decreased libido R68.82 Estradiol Estrone Cortisol, free DHEA-sulfate Sex hormone binding globulin Insulin, total Serotonin serum TSH T4, free T3, reverse Progesterone Vitamin D 1,25 dihydroxy Ferritin T3, free Thyroglobulin Thyroglobulin Antibody Thyroid peroxidase antibody T4 TESTOSTERONE, FREE Testosterone, free, total Hemoglobin A1c Glucose, random C-peptide Cortisol, free Insulin, total Serotonin serum Thyroglobulin Thyroglobulin Antibody T4 Glucose, random C-peptide 3. Pain in female genitalia on intercourse N94.10 Patient presents today for hormone imbalance. Patient voiced that she has a decrease libido, increase in fatigue and discomfort with intercourse. Patient to have labs drawn and follow up in 2 months for annual and follow up medication and symptoms. Patient declines ultrasound and vaginal cultures at this time. Patient to start Dora-Be to help replace progesterone after she has labs drawn. Documented by Nai Priest LPN on behalf of: Sid Jean DO documented in this encounter [facility] 01-22-2024 Evaluation note Diagnosis Onset Date Resolution Chronic depression acute 2023 11:08am Hypoactive sexual desire disorder acute January 22, 2024 11:08am Bronchitis acute March 17, 2024 2:56pm [facility] Work Phone: [phone]) 842-391909-12-2024 History of Present illness Narrative* June Fry MD - 01/10/2024 9:30 AM EDT Assessment/Plan pred acetate bid documented [facility] encounter[facility] [id number] Evaluation note* Encounter Date Diagnosis Assessment Notes Treatment Notes Treatment Clinical Notes Apr, Other idiopathic scoliosis, 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 STATUS: new/continuous [facility] Other 10-23-2023 Evaluation note* Encounter Date Diagnosis Assessment Notes Treatment Notes Treatment Clinical Notes Jan, Acute non-recurrent maxillary sinusitis (ICD-10 - J01.00) Finish antibiotics as prescribed. Rest, hydration. Call if symptoms do not resolve. [facility] Other 04-17-2023 Evaluation note* Encounter Date Diagnosis Assessment Notes Treatment Notes Treatment Clinical Notes Jul, Acute non-recurrent sphenoidal sinusitis (ICD-10 - J01.30) Chose antibiotic as she is in her third trimester. Daughter has been ill. Discussed limited meds she is able to take while . [facility] Other 02-25-2023 NoteDISCHARGE SUMMARY NOTE DATE: 07/07/2022 [...] pain free and no longer on narcotics.[facility] [id number] NoteOPERATIVE NOTE OPERATION DATE: 06/25/2022 PREOPERATIVE DIAGNOSIS: Obstructing left ureteral calculus. POSTOPERATIVE DIAGNOSIS: Obstructing left ureteral calculus. PROCEDURE: 1. Cystoscopy. 2. Left rigid ureteral dilation. 3. Left ureteroscopy. 4. Left holmium laser lithotripsy of ureteral calculus. 5. Stone basket extraction from left ureter. ANESTHESIA: Spinal. ANESTHESIOLOGIST: Dr. Joy BLOOD LOSS: Minimal. COMPLICATIONS: None. INDICATIONS: Bri is a 26-year-old lady who is 25 [...] usual fashion. I started by passing a 22-Estonian Olympus cystoscope per urethra and into the bladder. Careful arteaga endoscopy showed no intravesical pathology but, while looking not the left ureter, one could see a large stone. I then passed a Glidewire through the scope and cannulated the left ureter and got the wire beyond the stone, up into the kidney. I then used an 8 and 10-Estonian rigid dilator to dilate the distal ureter. [...] into the bladder and then used the Lisa evacuator to get all of the stone pieces out from the base of the bladder. These were sent for stone analysis. I then drained the bladder of its contents and removed the scope. I then passed the 10-Estonian dilator back over the wire, up the left ureter, and then removed the dilator and the wire. She was then transferred to a rtemple bed and wheeled PACU in stable condition.[facility] [id number] Evaluation note* Encounter Date Diagnosis Assessment Notes Treatment Notes Treatment Clinical Notes Mar, Cough (ICD-10 - R05.9) Mar, Influenza A (ICD-10 - J10.1) Influenza: adult home care material was printed Drink plenty fluids, get plenty of rest. Continue your home medications as prescribed. Take Tylenol as needed for aches pains or fevers. Follow-up with your CLINICAL ACADEMIC ALLERGIST if no improvement in 2 to 3 [...] no improvement in 2 to 3 days [facility] Other 12-05-2022 Evaluation note* Encounter Date Diagnosis [...] Follow-up with your family physician or your CLINICAL ACADEMIC ALLERGIST if no improvement in 2 to 3 days. [facility] Other 12-16-2021 Evaluation note* Encounter Date Diagnosis Assessment Notes [...] Patient care instructions given in writting by [facility] document. [facility] Other Evaluation noteNo InformationNort Germin8 Other Evaluation note* Diagnosis Onset Date Resolution Status Anemia acute Fatigue acute [facility] Work Phone: Evaluation note* Diagnosis Onset Date Resolution Status Chronic depression acute Hypoactive sexual desire disorder [facility] Work Phone: Evaluation note* Diagnosis Hormone disorder Unspecified endocrine disorder Decreased libido Pain in female genitalia on intercourse Dyspareunia Other fatigue [facility] Diagnosis Herpes zoster dermatitis of eyelid- Primary documented in this encounter [facility] Narrative - Reported* Type Description Date Medical History asthma Surgical History d&c x2 Surgical History tonsillectomy Hospitalization History see above [facility] Other History general Narrative - Reported* Type Description Date Medical History asthma Medical History anxiety Medical History chronic depression Surgical History D&C x2 Surgical History d&c x2 Surgical History tonsillectomy Surgical History wisdom teeth Hospitalization History see above Hospitalization History hyperemisis gravidarum [facility] Other Hisqebq general Narrative - Reported* Type Description Date Medical History asthma Medical History anxiety Medical History chronic depression Surgical History D&C x2 Surgical History d&c x2 Surgical History tonsillectomy Surgical History wisdom teeth Surgical History Tubal 10/26/22 Hospitalization History see above Hospitalization History hyperemisis gravidarum [facility] Other Summary Purpose Family History No Family History Records FoundNo Family History Records FoundNo Family History Records FoundNo Family History Records Found Advance Directives Advance Directive Response Recorded Date/ Time Advance Directives No July 03 2:54pm Advance Directive Response Recorded Date/ Time Advance Directives No July 03 1:54pm Chief Complaint and Reason for Visit Chief Complaint blood work Reason for Visit Anemia Fatigue Chief Complaint Discuss Medication Reason for Visit Chronic depression Hypoactive sexual desire disorder Chief Complaint Admit Date Discuss Medication January 22, 2024 11:08am cough, chest congestion, fatigue Novembe r 2023 2:56pm Reason for Visit Admit Date Chronic depression January 22, 2024 11:08am Hypoactive sexual desire disorder Septem 2023 11:08am Bronchitis March 17, 2024 2:56pm Additional Source Comments REASON FOR VISIT (unrecogniz ed section and content) Reason Comments Hormone questions Reason Comments Itchy Eye INFORMATION SOURCE (unrecogn ized section and content) DATE CREATED AUTHOR 09/08/2022 [facility] DATE CREATED AUTHOR AUTHOR'S ORGANIZ ATION 11/27/2022 [facility] DATE CREATED AUTHOR AUTHOR'S ORGANIZ ATION 02/09/2024 [facility] DATE CREATED AUTHOR AUTHOR'S ORGANIZ ATION 02/25/2024 [facility] EPIC Care Teams (unrecognized sec tion and content) Team Status: Active Member Role Status Dates Libra Vazquez MD Primary Care Provider Active Team Status: Inactive Member Role Status Dates Libra Vazquez MD Primary Care Provide r, Attending Provider Active Start: January 22, 2024 End: January 22, 2024 Team Status: Active Member Role Status Dates Libra Vazquez MD Primary Care Provider Active Start: February 25, 2024 Sid Jean DO Attending Provider Active Start : February 25, 2024 Team Status: Inactive Member Role Status Dates Libra Vazquez MD Primary Care Provider Active Start: March 17, 2024 End: March 17, 2024 Danielle Grover APRN LICENSED PLUMBER-C Attending Provider Active Start: February End: March 17, 2024 Team Status: Active Member Role Status Dates Libra Vazquez MD Primary Care Provider Active Start: 2023 Nithin Cherry Attending Provider Active Start: 2023 Team Status: Inactive Member Role Status Dates Libra Vazquez MD Primary Care Provide r, Attending Provider Active Start: October 17, 2023 End: October 17, 2023 Vocal Artist Relationship Specialty Start Date End Date Libra Vazquez MD [address] [place] [facility] [place] [phone] PCP - General Family Medicine 09/26/22 Vocal Artist Relationship Specialty Start Date End Date Libra Vazquez MD [address] [place] [facility] [place] [phone] PCP - General Family Medicine 09/26/22 Vocal Artist Relationship Specialty Start Date End Date Libra Vazquez MD [address] [facility] [place] [phone] PCP - General Family Medicine 09/26/22 Vocal Artist Relationship Specialty Start Date End Date Libra Vazquez MD [address] [place] [facility] [place] [phone] PCP - General Family Medicine 09/26/22 Vocal Artist Relationship Specialty Start Date End Date Libra Vazquez MD [address] [place] [facility] [place] [phone] PCP - General Family Medicine 09/26/22 Goals (unrecognized section and content) Goals may [...] BE BASED ON THE PRIMARY CLINICAL RECORDS. [facility]. provides no warranty or guarantee of the accuracy or completeness of information in this document.
[2024-05-28 12:08] LABS: Age Gdln ACOG Testing Note (.); HPV Aptima Negative (Negative); IGP, Aptima HPV, rfx 16/18,45 Note (.)
== END 2024-05-21 19:04 | disposition home or self-care (01) ==
LOC: LAB 19:03
PROVIDERS: PCP Family Medicine; Visit Provider Obstetrics & Gynecology
DX: Z01.419 Encounter for gynecological examination (general) (routine) without abnormal findings (principal)
CPT/HCPCS: 87624; 88175

== ENCOUNTER 2024-08-13 11:06 | Outpatient (OUT) | payer OTHER, SELFPAY ==
[2024-08-13 12:18] LABS: Potassium 4.1 mmol/L (3.5-5.1)
== END 2024-08-13 11:07 | disposition home or self-care (01) ==
PROVIDERS: PCP Family Medicine
DX: L70.0 Acne vulgaris (principal)
CPT/HCPCS: 36415; 84132

== ENCOUNTER 2025-01-14 09:30 | Outpatient (OUT) | payer OTHER, SELFPAY ==
--- OUTSIDE RECORDS SUMMARY | 2025-01-15 09:08 | XMS_ITS | Encounter Summary ---
Author Organization [facility] Address [address] [place] [address] Care Team Providers Care Food Expeditor Name Role Phone Diana Joe MD Primary Care Provider [phone] Encounter Details Date Type Department Care Team (Late st Contact Info) Description 05/22/2024 Abstract [facility] [place] [facility] [address] [place] [address] Sid Jean DO [address] [place], [facility] Social History Tobacco Use Types Packs/Day Years Used Date Smoking Tobacco: Never Smokeless Tobacco: Never Alcohol Use Standard Drinks/Week Comments Never 0 (1 standard drink = 0.6 oz pur e alcohol) Comments No Sex and Gender Information Value Date Recorded Sex Assigned at Not on file Legal Sex Female 11:33 PM EDT Gender Identity Not on file Sexual Orientation Not on file documented as of this encounter Plan of Treatment Not on file documented as of this encounter Visit Diagnoses Not on filedocumented in this encounter Care Teams Food Expeditor Relationship Specialty Start Date End Date Diana Joe MD [address] [facility] [place] [phone] PCP - General Family Medicine 09/26/22 documented as of this encounter
--- OUTSIDE RECORDS SUMMARY | 2025-01-15 09:08 | XMS_ITS | Clinical Summary ---
Author Organization [facility] Address [address] [facility] [address] Care Team Providers Care Adult Basic Education Manager Name Role Phone Diana Joe MD Primary Care Provider [phone] Allergies Active Allergy Reactions Criticality Noted Date Comments Latex 09/16/2017 Medications norethindrone (Micronor) 0.35 MG tabletIndication s:Hormone disorder,Decreas ed libido,Pain in female genitalia on intercourse,Othe r fatigue Take 1 tablet (0.35 mg) by mouth Daily Take 1 tablet by mouth daily 84 tablet 05/16/2024 Active Active Problems Problem Noted Date Diagnosed Date Other fatigue 02/25/2024 Decreased libido 02/25/2024 Pain in female genitalia on intercourse 02/25/20 24 Hormone disorder 02/25/2024 Sterilization consult 09/22/2022 Encounters Date Type Department Care Team Description 11/26/2024 Telephone [facility] [address] [place] [address] [place] [address] Sid Jean DO from Last 3 Months Family History Medical History Relation Name Comments Cancer Maternal Grandfather Sharma Cancer Paternal Grandfather Tera Nash Diabetes Paternal Grandfather Tera Nash Cancer Paternal Grandmother Diabetes Paternal Grandmother Asthma Sister neurocardiogenic Sister Relation Name Status Comments Maternal Grandfather Sharma Paternal Grandfather Tera Nash Paternal Grandmother Sister Alive Social History Tobacco Use Types Packs/Day Years Used Date Smoking Tobacco: Never Smokeless Tobacco: Never Tobacco Cessation:Counseling Given: Not Answered Alcohol Use Standard Drinks/Week Comments Never 0 (1 standard drink = 0.6 oz pur e alcohol) Comments No Sex and Gender Information Value Date Recorded Sex Assigned at Not on file Legal Sex Female 11:33 PM EDT Gender Identity Not on file Sexual Orientation Not on file Last Filed Vital Signs Vital Sign Reading Time Taken Comments Blood Pressure 108/68 05/21/2024 1:58 PM EST Pulse - - Temperature - - Respiratory Rate - - Oxygen Saturation - - Inhaled Oxygen Concentration - - Weight 58.6 kg (129 lb 1.9 oz) 05/21/2024 1:58 P M EST Height 165.1 cm (5' 5 ) 02/25/2024 10:11 AM EDT Body Mass Index 21.49 02/25/2024 10:11 AM EDT Plan of Treatment Health Maintenance Due Date Last Done Comments Influenza Vaccine (#1) 2024 04/26/2022, 2020 Cervical Cancer Screening 05/21/2029 HPV/Cotest 05/21/2029 Pap Smear 05/21/2029 05/21/2024, 05/25/2022 Procedures Procedure Name Priority Date/Time Associated Diagnosis Comments PAP SMEAR Routine 05/21/2024 12:00 AM EST from Last 3 Months or Most Recently Relevant to Health Maintenance Results * Pap Smear (05/21/2024 12:00 AM EST) Swab Cervical swab / Unknown us Sid Ted DO LAB CYTOLOGY ORDERABLES Final Re sult EXTERNAL LAB from Last 3 Months or Most Recently Relevant to Health Maintenance Insurance Care Teams Adult Basic Education Manager Relationship Specialty Start Date End Date Diana Joe MD [address] [place] [address] PCP - General Family Medicine 09/26/22
--- OUTSIDE RECORDS SUMMARY | 2025-01-15 09:08 | XMS_ITS | Encounter Summary ---
Author Organization [facility] Address [address] [facility] [place] [address] Care Team Providers Care Svp Chief Marketing Officer Name Role Phone Diana Joe MD Primary Care Provider [phone] Encounter Details Date Type Department Care Team (Late st Contact Info) Description 05/29/2024 Orders Only FILEMON Farley OBGYGloria [address] [facility] [facility] [place] [id number] Sharlene Ndiaye MA [address] [place] [address] Social History Tobacco Use Types Packs/Day Years [...] on file documented as of this encounter Procedures Procedure Name Priority Date/Time Associated Diagnosis Comments PAP SMEAR Routine 05/21/2024 12:00 AM EST documented in this encounter Results * Pap Smear (05/21/2024 12:00 AM EST) Swab Cervical swab / Unknown us Sid Ted DO LAB CYTOLOGY ORDERABLES Final Re sult EXTERNAL LAB documented in this encounter Visit Diagnoses Not on filedocumented in this encounter Care Teams Svp Chief Marketing Officer Relationship Specialty Start Date End Date Diana Joe MD [address] [place] [address] PCP - General Family Medicine 09/26/22 documented as of this encounter
--- OUTSIDE RECORDS SUMMARY | 2025-01-15 09:08 | XMS_ITS | Encounter Summary ---
Author Organization [facility] Address [address] [place] [address] Care Team Providers Care Park Ranger Name Role Phone Diana Joe MD Primary Care Provider [phone] Encounter Details Date Type Department Care Team (Late st Contact Info) Description 05/09/2024 Abstract [facility] [address] [facility] [place] [address] Sid Jean DO [address] [facility] [address] [place], [facility]11 Social History Tobacco Use Types Packs/Day Years [...] on filedocumented in this encounter Care Teams Park Ranger Relationship Specialty Start Date End Date Diana Joe MD [address] [place] [facility] [place] [id number] PCP - General Family Medicine 09/26/22 documented as of this encounter
--- OUTSIDE RECORDS SUMMARY | 2025-01-15 09:08 | XMS_ITS | Clinical Summary ---
Author Organization [facility] tem Address [id number] [address] [place] [address] Care Team Providers Care Intermission Coordinator Name Role Phone Pcp, Not In System Primary Care Provider Unavail able Allergies Active Allergy Reactions Criticality Noted Date Comments Latex 09/16/2017 Medications ondansetron ODT (ZOFRAN ODT) 4 mg disintegrating tablet Dissolve 1 tablet (4 mg total) on tongue every 8 (eight) hours as needed for nausea or vomiting. Active promethazine (PHENERGAN) 12.5 mg tablet Take 1 tablet (12.5 mg total) by mouth every 6 (six) hours as needed for nausea or vomiting. Active pyridoxine, vitamin B6, (vitamin B-6) 25 mg tablet Take 1 tablet (25 mg total) by mouth in the morning. Active doxylamine (UNISOM) 25 mg tablet Take 1 tablet (25 mg total) by mouth nightly as needed for sleep. Active metoclopramide (REGLAN) 10 mg tablet Take 1 tablet (10 mg total) by mouth in the morning and 1 tablet (10 mg total) at noon and 1 tablet (10 mg total) in the evening and 1 tablet (10 mg total) before bedtime. Active Family History Medical History Relation Name Comments Cancer Maternal Grandfather Cancer Paternal Grandfather Diabetes Paternal Grandfather Asthma Sister Fainting Sister Relation Name Status Comments Maternal Grandfather Paternal Grandfather Sister Social History Tobacco Use Types Packs/Day Years Used Date Smoking Tobacco: Never Smokeless Tobacco: Never Tobacco Cessation:Counseling Given: Not Answered Alcohol Use Standard Drinks/Week Comments Not Currently 0 (1 standard drink = 0.6 oz pur e alcohol) Childcare Answer Date Recorded Childcare Unknown 10/09/2018 Employment Answer Date Recorded Employment Unknown 10/09/2018 Purpose - Life Answer Date Recorded Purpose and direction in life Unknown Comments No Sex and Gender Information Value Date Recorded Sex Assigned at Female 02/25/2020 11:52 AM EDT Legal Sex Female 11:53 AM EDT Gender Identity Female 02/25/2020 11:52 AM EDT Sexual Orientation Straight 02/25/2020 11 :52 AM EDT Last Filed Vital Signs Vital Sign Reading Time Taken Comments Blood Pressure 118/83 01/10/2020 3:45 AM EDT Pulse 93 01/10/2020 3:45 AM EDT Temperature 36.7 C (98.1 F) 01/10/2020 3:45 AM EDT Respiratory Rate 16 01/10/2020 3:45 AM EDT Oxygen Saturation 100% 01/10/2020 3:45 AM EDT Inhaled Oxygen Concentration - - Weight 49.9 kg (110 lb) 01/10/2020 3:45 AM EDT Height 165.1 cm (5' 5 ) 01/10/2020 3:45 AM EDT Body Mass Index 18.3 01/10/2020 3:45 AM EDT Plan of Treatment Health Maintenance Due Date Last Done Comments Depression Screening 2005 Tobacco Screening 2005 Adult BMI Screening 11/16/2011 DTaP,Tdap and Td Vaccines (1 - Tdap) 2012 Pap Smear 2014 Influenza Vaccine 12/29/2024 02/18/2021 Medical Devices Not on file Insurance Care Teams Intermission Coordinator Relationship Specialty Start Date End Date Pcp, [place] [address] PCP - General Family Medicine 09/16/17
--- OUTSIDE RECORDS SUMMARY | 2025-01-15 09:08 | XMS_ITS | Encounter Summary ---
Author Organization [facility] Address [address] [place] [address] Care Team Providers Care Materials Supervisor Name Role Phone Diana Joe MD Primary Care Provider [phone] Encounter Details Date Type Department Care Team (Late st Contact Info) Description 10/25/2022 Abstract [facility] [address] [facility] [place] [address] Sid Jean DO [address] [facility] [address] Jef[place], [facility]11 Social History Tobacco Use Types Packs/Day Years [...] on filedocumented in this encounter Care Teams Materials Supervisor Relationship Specialty Start Date End Date Diana Joe MD [address] [facility] [place] [address] PCP - General Family Medicine 09/26/22 documented as of this encounter
--- OUTSIDE RECORDS SUMMARY | 2025-01-15 09:08 | XMS_ITS | Clinical Summary ---
Author Organization [facility] Address [address] [place] [address] Care Team Providers Care Research Microbiologist Name Role Phone Marie Physician (Hist) Primary Care Provider Allergies No known active allergies Medications ondansetron orally disintegrating (ZOFRAN ODT) 4 mg disintegrating tablet Take 1 tablet by mouth every 6 hours. 8 tablet 6 Active Social History Tobacco Use Types Packs/Day Years Used Date Smoking Tobacco: Never Smokeless Tobacco: Never Alcohol Use Standard Drinks/Week Comments No 0 (1 standard drink = 0.6 oz pur e alcohol) Comments No Sex and Gender Information Value Date Recorded Sex Assigned at Not on file Legal Sex Female 8:33 AM EST Gender Identity Not on file Sexual Orientation Not on file Last Filed Vital Signs Vital Sign Reading Time Taken Comments Blood Pressure 122/72 04/27/2016 4:14 PM EST Pulse 82 04/27/2016 4:14 PM EST Temperature 36.2 C (97.1 F) 04/27/2016 12:56 PM EST Respiratory Rate 14 04/27/2016 4:14 PM EST Oxygen Saturation 100% 04/27/2016 4:14 PM EST Inhaled Oxygen Concentration - - Weight 51.3 kg (113 lb) 04/27/2016 12:56 PM EST Height 165.1 cm (5' 5 ) 04/27/2016 12:56 PM EST Body Mass Index 18.8 04/27/2016 12:56 PM EST Plan of Treatment Not on file [facility] [place] [id number] [facility] Care Teams Research Microbiologist Relationship Specialty Start Date End Date [place], Physician (Hist) [facility] [address] [place] [id number] PCP - General Internal Medicine 04/19/15
--- OUTSIDE RECORDS SUMMARY | 2025-01-15 09:09 | XMS_ITS | Encounter Summary ---
Author Organization [facility] Address [address] [place] [address] Care Team Providers Care Civil Structural Designer Name Role Phone Diana Joe MD Primary Care Provider [phone] Encounter Details Date Type Department Care Team (Late st Contact Info) Description 11/14/2022 Abstract [facility] [address] [facility] [place] [address] Sid Jean DO [address] [facility] [address] Jeferson Farley, [facility]11 Social History Tobacco Use Types Packs/Day Years [...] on filedocumented in this encounter Care Teams Civil Structural Designer Relationship Specialty Start Date End Date Diana Joe MD [address] [facility] [place] [address] PCP - General Family Medicine 09/26/22 documented as of this encounter
--- OUTSIDE RECORDS SUMMARY | 2025-01-15 09:09 | XMS_ITS | Encounter Summary ---
Author Organization [facility] Address [address] [facility] [place] [address] Care Team Providers Care Home Care Manager Rn Name Role Phone Diana Joe MD Primary Care Provider [phone] Encounter Details Date Type Department Care Team (Late st Contact Info) Description 10/20/2022 Abstract [facility]BGURDE[facility] [address] [facility] [place] [address] Winter Basilio PA [address] [facility] [address] [place], [facility]11 Social History Tobacco [...] on filedocumented in this encounter Care Teams Home Care Manager Rn Relationship Specialty Start Date End Date Diana Joe MD [address] [facility] [place] [phone] PCP - General Family Medicine 09/26/22 documented as of this encounter
--- OUTSIDE RECORDS SUMMARY | 2025-01-15 09:09 | XMS_ITS | Encounter Summary ---
Author Organization [facility] Address [address] [place] [address] Care Team Providers Care Lifeline Representatives Name Role Phone Diana Joe MD Primary Care Provider [phone] Encounter Details Date Type Department Care Team (Late st Contact Info) Description 09/23/2022 Abstract [facility] [address] [facility] [place] [address] Sid Jean DO [address] [facility] [address] Jef[place], [facility]11 Social History Tobacco Use Types Packs/Day Years Used Date Smoking Tobacco: Never Smokeless Tobacco: Never Alcohol Use Standard Drinks/Week Comments Never 0 (1 standard drink = 0.6 oz pur e alcohol) Comments Unknown Sex and Gender Information Value Date Recorded Sex Assigned at Not on file Legal Sex Female 11:33 PM EDT Gender Identity Not on file Sexual Orientation Not on file documented as of this encounter Plan of Treatment Not on file documented as of this encounter Visit Diagnoses Not on filedocumented in this encounter Care Teams Lifeline Representatives Relationship Specialty Start Date End Date Diana Joe MD [address] [facility] [place] [phone] PCP - General Family Medicine 09/26/22 documented as of this encounter
--- OUTSIDE RECORDS SUMMARY | 2025-01-15 09:09 | XMS_ITS | Encounter Summary ---
Author Organization [facility] Address [address] [facility] [place] [address] Care Team Providers Care Offbearer Name Role Phone Diana Joe MD Primary Care Provider [phone] Encounter Details Date Type Department Care Team (Late st Contact Info) Description 09/19/2022 Abstract [facility] [address] [facility] [address] Sid Jean DO [address] [facility] [address] Jeferson [place], [facility]11 Social History Tobacco Use Types Packs/Day [...] on filedocumented in this encounter Care Teams Offbearer Relationship Specialty Start Date End Date Diana Joe MD [address] [place] [facility] [place] [address] PCP - General Family Medicine 09/26/22 documented as of this encounter
--- OUTSIDE RECORDS SUMMARY | 2025-01-15 09:11 | XMS_ITS | CCD ---
Author Organization [facility] CliniSymt Care Team Providers Care Chemical Laboratory Tester Name Role Phone Melvi Steen Unavailable Jocelyn Quach Unavailable Libra Vazquez Unavailable GEORGE, DR LIBRA Coyle Primary Care Unavailable TED ., DR AMES Admitting Unavailable TED ., DR AMES Attending Unavailable TED ., DR AMES Consulting Unavailable JHONATAN CASTILLO Attending Unavailable JHONATAN CASTILLO Admitting Unavailable TED ., DR AMES Primary Care Unavailable KARHUSSEINK ., DR MALHOTRA Consulting UnavailJHONATAN Obrien Consulting [...] Unavailable TED ., DR AMES Admitting Unavailable ETD ., DR AMES Attending Unavailable TED ., DR AMES Consulting Unavailable GEORGE, DR LIBRA Coyle Primary Care Unavailable TED ., DR AMES Attending Unavailable TED ., DR AMES Admitting Unavailable SAE, DR NIRALI Jacome Consulting Unavailable TED ., [...] Unavailable MARIA DE JESUS, NAHID Admitting Unavailable [facility], DR SELLERS Primary Care Unavailable VAZQUEZ, DR [...] Unavailable Libra Vazquez MD Primary Care Provider [phone] SID JEAN Attending Unavailable JUNE FRY Attending Unavailable JUNE FRY Attending Unavailable JUNE FRY Attending Unavailable JUNE FRY Attending Unavailable SID JEAN Attending Unavailable Libra Vazquez MD Primary Care Provider Danielle Grover APRN Attending Provider Danielle Grover Attending Unavailable Danielle Grover Admitting Unavailable Libra Vazquez MD Attending Provider Allergies Allergy Classification Reported Allergen(s) Allergy Type Date of Onset Reaction(s) Facility (1 source) No Known Medication Allergies; Translations: [No Known Medication Allergies] Propensity to adverse reactions to drug (disorder) [facility] (10 sources) Latex Propensity to adverse reactions 8 [facility] Medications Current Medications Medication Drug Class(es) Dates Sig (Normalized) Sig (Original) Albuterol Sulfate 90 mcg/actuation HFA aerosol inhaler (2 sources) Start: 03-17-2024 take 1 puff(s) by inhalation every four to six hours as needed for wheezing Albuterol Sulfate 90 mcg/actuation HFA aerosol inhaler Active 2 PUFF INHALATION EVERY 4-6 HOURS as needed for shortness of breath or wheezing 6.7 March 17, 2024 1:00am Start: 03-17-2024 take 1 puff(s) by in halation every four to six hours as needed [...] 8 hrs for 7 days Jul, Active Cephalexin (4 sources) Cephalosporin Antibacterial [...] (5 sources) Histamine-2 Receptor Antagonist Pepcid Active norethindrone 0.35 mg oral tablet (7 sources) Start: 02-25-2024 End: 08-08-2024 take 1 tablet by mouth once daily, then take 1 tablet by mouth once daily norethindrone (Micronor) 0.35 MG tablet Indications: Hormone disorder , Decreased libido , Pain in female genitalia on intercourse , Other fatigue Take 1 tablet (0.35 mg) by mouth Daily Take 1 tablet by mouth daily 84 tablet 05/16/2024 08/08/2024 Active polymyxin b 59235 unt/ml / trimethoprim 1 mg/ml ophthalmic solution (4 sources) Dihydrofolate Reductase Inhibitor Antibacterial, Polymyxin-class Antibacterial Start: 04-08-2022 take 1 drop(s) into the eye(s) four times daily Polymyxin B-Trimethoprim 41465-0.1 UNIT/ML 1 drop both eyes Four times [...] 1-2 tablets by mouth every six hours HYDROcodone-acetam inophen ([place]) 5-325 MG tablet TAKE 1 TO 2 TABLETS BY MOUTH EVERY 6 HOURS UP TO 5 (FIVE) DAYS 2023 02/25/2024 Discontinued acetaminophen 325 mg / oxyCODONE hydrochloride 5 mg oral tablet (5 sources) Opioid Agonist Start: 12-02-2023 End: 02-25-2024 take 1 tablet by mouth every six hours oxyCODONE-acetamin ophen (Percocet) 5-325 MG tablet Take 1 tablet by mouth every 6 (six) hours 12/02/2023 02/25/2024 Discontinued [id number] 200 actuat albuterol 0.09 mg/actuat metered dose inhaler (4 sources) beta2-Adrenergic Agonist Start: 03-17-2024 End: 12-04-2024 take 1 puff(s) by inhalation every four to six hours as needed for wheezing Albuterol Sulfate 90 mcg/actuation HFA aerosol inhaler Discontinued 2 PUFF INHALATION EVERY 4-6 HOURS as needed for shortness of breath or wheezing 6.7 30 March 17, 2024 1:00am December 04, 2024 11:42am Albuterol Sulfat e Active azithromycin 250 mg oral tablet (11 sources) Macrolide Antimicrobial Start: 03-17-2024 End: 08-21-2024 Azithromycin 250 mg tablet Discontinued 0 PO daily 6 August 13, 2024 12:00am August 21, 2024 10:18am Take 2 on day 1 and then [...] 4 more days for 5 Jul, Active 120 actuat budesonide 0.08 mg/actuat / formoterol fumarate 0.0045 mg/actuat metered dose inhaler (1 source) Corticosteroid, beta2-Adrenergic Agonist Start: 07-17-2012 take 2 puff(s) by inhalation twice daily Symbicort 80-4.5 MCG/ACT 2 puffs Inhalation Twice a day Jun, Not-Taking cefdinir 300 mg oral capsule (3 sources) Cephalosporin Antibacterial Start: 12-04-2024 End: 01-06-2025 take 1 capsule by mouth twice daily Cefdinir 300 mg capsule Discontinued 300 MG PO Twice daily 14 December 04, 2024 12:00am January 06, 2025 11:02am ciprofloxacin 500 mg oral tablet (5 sources) Quinolone Antimicrobial Start: 2023 End: 02-25-2024 take 1 tablet by mouth in the morning ciprofloxacin (Cipro) 500 MG tablet Take 500 mg by mouth in the morning and 500 mg before bedtime. 2023 02/25/2024 Discontinued clindamycin 10 mg/ml topical solution (4 sources) Lincosamide Antibacterial Start: 08-13-2024 End: 12-04-2024 Clindamycin Phosphate 1 % solution Discontinued 1 APPLIC TOPICAL Daily August 13, 2024 12:00am December 04, 2024 11:42am docusate sodium 100 mg oral capsule (5 sources) End: 02-25-2024 take 1 capsule by mouth in the morning docusate sodium (Colace) 100 MG capsule Take 100 mg by mouth in the morning and 100 mg before bedtime. 02/25/2024 Discontinued doxycycline monohydrate 100 mg oral tablet (3 sources) Tetracycline-class Drug Start: 08-21-2024 End: 12-04-2024 take 1 tablet by mouth twice daily Doxycycline Monohydrate 100 mg tablet Discontinued 100 MG PO Twice daily 14 August 21, 2024 12:00am December 04, 2024 11:42am flibanserin 100 mg oral tablet (6 sources) Start: 01-22-2024 End: 03-17-2024 take 1 tablet by mouth once daily at bedtime Flibanserin (Addyi) 100 mg tablet Discontinued 100 MG PO Daily at bedtime January 22, 2024 12:00am March 17, 2024 4:06pm fluticasone propionate 0.05 mg/actuat metered dose nasal spray (4 sources) Corticosteroid Start: 08-13-2024 End: 12-04-2024 take 1 spray(s) nasal route twice daily Fluticasone Propionate (Flonase Allergy Relief) 50 mcg/actuation spray,suspension Discontinued 1 SPRAY INTRANASAL Twice daily August 13, 2024 12:00am December 04, 2024 11:42am administer into each nostril 200 actuat levalbuterol 0.045 mg/actuat metered dose inhaler (1 source) beta2-Adrenergic Agonist Start: 09-19-2012 take 2 puff(s) by inhalation every six hours Xopenex HFA 45 MCG/ACT 2 puffs Inhalation every 6 hrs for 30 days August, Not-Taking methylPREDNISolone 4 mg oral tablet (10 sources) Corticosteroid Start: 03-17-2024 End: 08-21-2024 take 1 tablet by mouth once Methylprednisolone (Medrol (Fco)) 4 mg tablets,dose pack Discontinued 0 PO per package directions August 13, 2024 12:00am August 21, 2024 10:19am PO PER PKG DIR Start: 04-14-2021 methylPREDNISo lone 4 MG as directed Orally Once a day for 6 days Mar, Active ondansetron 4 mg disintegrating oral tablet (5 sources) Serotonin-3 Receptor Antagonist Start: 2023 End: 02-25-2024 ondansetron ODT (Zofran-ODT) 4 MG disintegrating tablet DISSOLVE 1 (ONE) TABLET ON THE TONGUE EVERY 8 HOURS NEEDED 2023 02/25/2024 Discontinued prednisoLONE acetate 10 mg/ml ophthalmic suspension (7 sources) Corticosteroid Start: 12-02-2023 End: 03-17-2024 Prednisolone Acetate 1 % drops,suspension Discontinued DROPS OPHTHALMIC December 02, 2023 12:00am March 17, 2024 4:06pm Start: 12-02-2023 Prednisolone A cetate Active DROPS OPHTHALMIC December 02, 2023 12:00am predniSONE 50 mg oral tablet (5 sources) Start: 12-02-2023 End: 02-25-2024 predniSONE (Deltasone) 50 MG tablet take 1 tablet by mouth once daily for 5 days ADMINISTER 13 HOURS ... (REFER TO PRESCRIPTION NOTES). 12/02/2023 02/25/2024 Discontinued [id number] Fum-Folic Ac-O m3 (One A Day Women's Dha) 28 mg iron- 800 mcg combo pack (1 source) Start: 06-27-2024 End: 08-13-2024 Onwzmo09-Qkwc Fum-Folic Ac-O m3 (One A Day Women's Dha) 28 mg iron- 800 mcg combo pack Discontinued PKG PO June 27, 2024 1:00am August 13, 2024 10:32am 75-Iron Fum-Folic-O m3 (One A Day Women's Dha) 28 mg iron- 800 mcg combo pack (3 sources) Start: 06-27-2024 End: 08-13-2024 75-Iron Fum-Folic-O m3 (One A Day Women's Dha) 28 mg iron- 800 mcg combo pack Discontinued PKG PO June 27, 2024 1:00am August 13, 2024 10:32am MV-Min-Fe Fum-FA-DH A ( 1 PO) (5 sources) End: 02-25-2024 MV-Min-Fe Fum-FA-DH A ( 1 PO) Take 1 tablet by mouth in the morning. 02/25/2024 Discontinued MV-Min- Fe Fum-FA-DHA ( 1 PO) Take 1 tablet by mouth in the morning. Active sertraline 50 mg oral tablet (12 sources) Serotonin Reuptake Inhibitor Start: 06-27-2024 End: 08-13-2024 take 1 tablet by mouth once daily Sertraline 50 mg tablet Discontinued 1 TAB PO Daily June 27, 2024 1:00am August 13, 2024 10:32am FreeTextSi tablet Orally Once a day; Note: Source Status: Start; Refills: 3; Provider: George Ortiz ( ) Start: 07-19-2023 End: 02-25-2024 take 1 tablet [...] a day for 30 day(s) Feb, Active spironolactone 25 mg oral tablet (4 sources) Aldosterone Antagonist Start: 08-13-2024 End: 12-04-2024 take 1 tablet by mouth once daily Spironolactone 25 mg tablet Discontinued 25 MG PO Daily August 13, 2024 12:00am December 04, 2024 11:42am tretinoin 0.25 mg/ml topical cream (4 sources) Retinoid Start: 08-13-2024 End: 12-04-2024 Tretinoin 0.025 % cream Discontinued 1 APPLIC TOPICAL Daily at bedtime August 13, 2024 12:00am December 04, 2024 11:42am valACYclovir 1000 mg oral tablet (5 sources) [...] sources) Serotonin and Norepinephrine Reuptake Inhibitor Start: 11-12-2023 End: 01-07-2024 take 1 capsule [...] daily with food 10/29/2023 02/25/2024 Discontinued Start: 07-04-2023 End: 03-17-2024 take 1 capsule by mouth once daily at mealtime Venlafaxine 37.5 mg capsule,extended release 24hr Discontinued 0 .ROUTE .COMPLEX January 09, 2024 9:46am March 17, 2024 4:06pm TAKE 1 CAPSULE BY MOUTH DAILY WITH FOOD Start: 07-04-2023 End: 10-29-2023 take 1 capsule [...] food Start: 07-04-2023 take 1 capsule by [facility] once daily at mealtime Venlafaxine Active 0 .ROUTE .COMPLEX July 04, 2023 3:06pm take 1 capsule by mouth once daily with food Start: 07-04-2023 End: 07-04-2023 take 1 capsule by mouth once daily Venlafaxine 37.5 mg capsule,extended release 24hr Discontinued 37.5 MG PO Daily July 04, 2023 1:00am July 04, 2023 3:06pm Start: 06-08-2023 take 1 capsule by [facility] every twenty-four hours Venlafaxine HCl ER 37.5 [...] Episodic Chronic obstructive pulmonary disease and bronchiectasis (10 sources) Bronchitis, not specified as acute or chronic; Translations: [Bronchitis] Onset: 04-14-2021 Resolved: 04-14-2021 Episodic Deficiency and other anemia (7 sources) Anemia; Translations: [Anemia, unspecified] 10-17-2023 Episodic [...] unspecified] Episodic Genitourinary symptoms and ill-defined conditions (3 sources) Dysuria; Translations: [Dysuria] Onset: 12-04-2024 Episodic Headache; including migraine (2 sources) Refractory [...] other respiratory manifestations Episodic Malaise and fatigue (19 sources) Fatigue; Translations: [Other fatigue] Onset: 02-25-2024 10-17-2023 Episodic Miscellaneous mental health disorders (8 sources) Lack or loss of sexual desire; Translations: [Hypoactive sexual desire disorder] 01-22-2024 Chronic Miscellaneous mental health disorders (4 sources) depression; Translations: [ depression] Onset: 07-29-2018 Episodic Mood disorders (8 sources) Chronic depression; Translations: [Chronic depression] 01-22-2024 [...] URETRL CALCUL OBST] Onset: 06-29-2022 Episodic Other female genital disorders (9 sources) Pain in female genitalia on intercourse; [...] Onset: 03-01-2022 Episodic Other upper respiratory infections (20 sources) Sore throat symptom; Translations: [Acute pharyngitis, unspecified] Onset: 09-08-2014 Episodic Otitis media and related conditions (7 sources) Otitis media; Translations: [Otitis media, unspecified, unspecified ear] Onset: 07-22-2013 08-13-2024 Episodic Residual codes; unclassified (1 source) 37 [...] [OTH SPCF DIS/COND COMPL ] Onset: 06-29-2022 Urinary tract infections (6 sources) Urinary tract infectious disease; Translations: [Urinary tract infection, site not specified] 12-04-2024 Episodic Viral infection (10 sources) Herpes zoster; Translations: [Zoster without complications] 12-02-2023 Episodic Past or Other Problems Problem Classification Problem Date Documented Date Episodic/Chronic Contraceptive and procreative management (12 sources) Patient encounter status; Translations: [Encounter for other general counseling and advice on contraception] Onset: 09-22-2022 09-22-2022 Episodic Noninfectious gastroenteritis (2 sources) Noninfectious gastroenteritis; Translations: [Other and unspecified noninfectious gastroenteritis and colitis] Onset: 09-02-2013 Episodic Other complications of (4 sources) Mild hyperemesis gravidarum; Translations: [MILD HYPEREMESIS GRAVIDARUM] Onset: 03-04-2022 Episodic Other endocrine disorders (9 sources) Disorder of endocrine system; Translations: [Endocrine disorder, unspecified] Onset: 02-25-2024 02-25-2024 Episodic Other female genital disorders (4 sources) Other specified noninflammatory disorders of vagina; Translations: [OT SPEC NONINFLAMMATORY D/O VAGINA] Onset: 05-25-2022 Episodic Other lower respiratory disease (1 source) Shortness of breath Onset: 04-14-2021 Resolved: 04-14-2021 Episodic Residual codes; unclassified (1 source) 11 [...] [WEEKS GESTATION NOT SPEC] Onset: 01-31-2022 Episodic Residual codes; unclassified (9 sources) Reduced libido; Translations: [Decreased libido] Onset: 02-25-2024 02-25-2024 Episodic Unclassified (1 source) Cough R05.9 Results Test Name Value Interpretation Reference Range Facility No Panel InformationOrdered By: Danielle Grover on 12-04-2024 [facility] Urine Cultureon 12-04-2024 Bacteria identified Cx Nom (U) ORGANISM: Escherichia coli (O:ESCCOL) Hamer Count >100,000 Aerobic NIKITA Charge (NMIC56) - SUSCEPTIBILITY ORGANISM: O:ESCCOL ANTIBIOTIC INTERPRETATION NIKITA Amikacin S <16 Amoxacillin/K Clavulanate S <8 Ampicillin S <8 Ampicillin/Sulbactam S <4 Aztreonam S <4 Cefazolin S <2 Cefepime S <2 Ceftazidime S <1 Ceftazidime/Avibactam S <4 Ceftolozane/Tazobactam S <2 Ceftriaxone S <1 Cefuroxime S <4 Ciprofloxacin S <0.25 Ertapenem S <0.5 Gentamicin S <2 Levofloxacin S <0.5 Meropenem S <1 Meropenem/Vaborbactam S <2 Nitrofurantoin S <32 Piperacillin/Tazobactam S <8 Tetracycline S <4 Tigecycline S <2 Tobramycin S <2 Trimethoprim/Sulfamethox azole S <0.5 S = SUSCEPTIBLE I = INTERMEDIATE R = RESISTANT BLANK = DATA NOT AVAILABLE, OR DRUG NOT ADVISABLE OR TESTED R* = RESISTANCE DUE TO EXTENDED SPECTRUM BETA-LACTAMASES ESBL = EXTENDED SPECTRUM BETA-LACTAMASE TFG = THYMIDINE-DEPENDENT STRAIN SHANA = BETA-LACTAMASE POSITIVE IB = INDUCIBLE BETA-LACTAMASE. APPEARS IN PLACE OF 'S' WITH SPECIES KNOWN TO POSSESS INDUCIBLE BETA-LACTAMASES. POTENTIALLY THEY MAY BECOME RESISTANT TO ALL B-LACTAM DRUGS. PERFORMED BY: [place] [address] PATHOLOGIST HOB MACHINE OPERATOR ELIJAH FLANAGAN M.D. Normal [facility] Comment on above: Performed By: #### C UU #### [address] Urine cultureOrdered By: Nova Grover on 12-04-2024 Bacteria identified Cx Nom (U) Escherichia coli Abnormal [facility] IGP,APTIMA HPV,AGE GDLNon AGE GDLN ACOG TESTING Note . [facility] Comment on above: TESTS RESULT FLAG UN ITS REF RANGE LAB Clinician Provided Cytology Information Source.............Cervix;Endocervix No. of containers..01 ThinPrep Vial Age Algo ACOG [place]... FLAG LEGEND: L-Low Normal,H-High Normal,LL-Alert Low,HH-Alert High <-Panic Low,>-Panic High,A-Abnormal,AA-Critical Abnormal Performed at: 01 =[address] [address] Jojo Humphreys MD, HPV APTIMA Negative Negative [facility] Comment on above: This nucleic acid am plification test detects fourteen high- risk HPV types (16,18,31,33,35,39,45,51,52,56,58,59,66,68) without differentiation. Performed at: =[address] [id number] Sausage Canner: Jojo Humphreys MD, Phone: [phone] Performed at: [address] [id number] Sausage Canner: Jojo Humphreys MD, Phone: [phone] IGP, APTIMA HPV, RFX 16/18,45 Note . [facility] Comment on above: TESTS RESULT FLAG UN ITS REF RANGE LAB DIAGNOSIS: 02 NEGATIVE FOR INTRAEPITHELIAL LESION OR MALIGNANCY. REACTIVE CELLULAR CHANGES AND/OR REPAIR ARE PRESENT. Specimen adequacy: 02 Satisfactory for evaluation. No endocervical component is identified. Performed by: Jacob Rodriguez, [place] (ASCP) Electronically si... Mark Flores MD, Pathologist . 02 Note: Note 02 The Pap smear is a screening test designed to aid in the detection of premalignant and malignant conditions of the uterine cervix. It is not a diagnostic procedure and should not be used as the sole means of detecting cervical cancer. Both false-positive and false-negative reports do occur. Test Methodology: Note 02 This liquid based ThinPrep(R) pap test was screened with the use of an image guided system. HPV Genotype Reflex Note 02 Criteria not met, HPV Genotype not performed. FLAG LEGEND: L-Low Normal,H-High Normal,LL-Alert Low,HH-Alert High <-Panic Low,>-Panic High,A-Abnormal,AA-Critical Abnormal Performed at: 02 [facility] [address] [place] [address] Jojo Humphreys MD, BRUSH-SPATULA CERVIX ENDOCERVIX CLINIS[facility]NC [facility] Human papilloma virus 16+18+ 31+33+35+39+45+51+52+56+58+59+66+68 DNA [Presence] in Zbigniew 05-21-2024 HPV 16+18+31+33+35+39+45+51 +52+56+58+59+66+68 DNA Probe+sig amp Ql (Cvx) Human papilloma virus 16+18+31+33+35+39+45+51+ 52+56+58+59+66+68 DNA [Presence] in Cer Negative [facility] Comment on above: This nucleic acid am plification test detects fourteen high-risk HPV types (16,18,31,33,35,39,45,51,52,56,58,59,66,68)without differentiation.Performed at: = - [facility] [id number] Director: Jojo Humphreys MD, Phone: [phone] at: - [facility] [id number] Director: Jojo Humphreys MD, Phone: [phone] No Panel Informationon 05-21 HPV High Risk Other Comment Note . [facility] Comment on above: TESTS RESULT FLAG UN ITS REF RANGE LAB -DIAGNOSIS: 02 NEGATIVE FOR INTRAEPITHELIAL LESION OR MALIGNANCY. REACTIVE CELLULAR CHANGES AND/OR REPAIR ARE PRESENT.Specimen adequacy: 02 Satisfactory for evaluation. No endocervical component is identified.Performed by: 02 Jacob Rodriguez, [place] (ASCP)Electronically si... 02 Mark Flores MD, Pathologist. 02Note: Note 02 The Pap smear is a screening test designed to aid in the detection of premalignant and malignant conditions of the uterine cervix. It is not a diagnostic procedure and should not be used as the sole means of detecting cervical cancer. Both false-positive and false-negative reports do occur.Test Methodology: Note 02 This liquid based ThinPrep(R) pap test was screened with the use of an image guided system.HPV Genotype Reflex Note 02 Criteria not met, HPV Genotype not performed. -------- FLAG LEGEND: L-Low Normal,H-High Normal,LL-Alert Low,HH-Alert High <-Panic Low,>-Panic High,A-Abnormal,AA-Critical Abnormal ------Performed at:02 [facility] [address] [address] Jojo Humphreys MD, Reference Lab Test Patient Age Note . [facility] Comment on above: TESTS RESULT FLAG UN ITS REF RANGE LAB - Clinician Provided Cytology Information Source.............Cervix;Endocervix No. of containers..01 ThinPrep VialAge Joe WEISS Ari[place]... 30-65 01 FLAG LEGEND: L-Low Normal,H-High Normal,LL-Alert Low,HH-Alert High <-Panic Low,>-Panic High,A-Abnormal,AA-Critical Abnormal ------Performed at:01 =G [facility] [address] Jojo Humphreys MD, No Panel InformationOrdered By: Danielle Grover on 03-17-2024 Quick Strep (POC) [facility] 1,25-dihydroxyvitamin D3 [Ma ss/Vol]on 02-25-2024 1,25 Dihydroxy Vitamin D 64.9 pg/mL 24.8-81.5 [facility] Comment on above: Performed at: [facility] [address] [id number] Director: Chico Silveira MD, Phone: [phone] Free testosterone measuremen t by LC-MS/MSon 02-25-2024 Testosterone Free [Mass/Vol] Free testosterone measurement by LC-MS/MS 0.0-4.2 [facility] Comment on above: Performed at: [facility] [address] [id number] Director: Anival Paul PhD, Phone: [phone] at: [facility] [id number] Director: Chico Silveira MD, Phone: [phone] Glucose mean value [Mass/vol ume] in Blood Estimated from glycated hemoglobinon 02-25-2024 Average glucose Estimated from glycated hemoglobin (Bld) [Mass/Vol] Glucose mean value [Mass/volume] in Blood Estimated from glycated hemoglobin [facility] - Chemistry and C hemistry - challengeon 02-25-2024 Ferritin [Mass/Vol] 87.0 ng/mL 8.0-252.0 [facility] Free T4 [Mass/Vol] 0.94 ng/dL 0.76-1.46 [facility] Glucose [Mass/Vol] 82 mg/dL 74-106 [facility] T4 [Mass/Vol] 7.10 ug/dL 4.80-13.90 [facility] TSH Qn 0.502 m[IU]/L 0.358-3.74 0 [facility] - Hematology and Cell countson 02-25-2024 HbA1c (Bld) [Mass fraction] 4.2 % Low 4.5-6.2 [facility] Comment on above: ADA RECOMMENDED LIMI T 4.0 - 6.0ADA THERAPEUTIC TARGET < 7.0ACTION SUGGESTED> 7.0 MLR HEMOGLOBIN A1Con 024 Glucose [Mass/Vol] 74 mg/dL [facility] HbA1c (Bld) [Mass fraction] 4.2 % Low 4.5 - 6.2 % [facility] Comment on above: ADA RECOMMENDED LIMI T 4.0 - 6.0 ADA THERAPEUTIC TARGET < 7.0 ACTION SUGGESTED > 7.0 Interpretation and review of laboratory results Abnormal [facility] No Panel Informationon 02-24 C-Peptide 1.3 ng/mL 1.1-4.4 [facility] Comment on above: C-Peptide reference interval is for fasting patients.Performed at: [facility] [address] [id number] Director: Anival Paul PhD, Phone: [phone] Dehydroepiandrosterone Sulfate 210.0 ug/dL 84.8-378.0 [facility] Free Cortisol, Dialysis, LCMS 0.363 ug/dL . [facility] Comment on above: These tests were dev eloped and their performancecharacteristics determined by [facility]. They have not beencleared or approved by the Food and Drug Administration.Reference Range:8 AM 0.10 - 1.204 PM 0.042 - 0.872Performed at: ES [facility] [place], [place] [id number] Director: Fede Gunter MD, Phone: [phone] Free Triiodothyronine 2.50 pg/mL 2.18-3.98 [facility] Reverse Triiodothyronine (T3) 20.1 ng/dL 9.2-24.1 [facility] Comment on above: This test was develo ped and its performance characteristicsdetermined by [facility]. It has not been cleared orapproved by the Food and Drug Administration.Performed at: [facility] [id number] Director: Chico Silveira MD, Phone: [phone] Sex Hormone Binding Globulin 47.9 nmol/L 24.6-122.0 [facility] Comment on above: Performed at: [address] [id number] Director: Anival Paul PhD, Phone: [phone] Testosterone Level 18 ng/dL 13-71 [facility] Serotonin (P) [Mass/Vol]on Serotonin 34 ng/mL 31-207 [facility] Comment on above: This test was develo ped and its performance characteristicsdetermined by [employer]. It has not been cleared orapproved by the Food and Drug Administration.Performed at: [facility] [address] [id number] Director: Chico Silveira MD, Phone: [phone] Serum estrone measurementon 02-25-2024 E1 [Mass/Vol] Serum estrone measurement 27-231 [facility] Comment on above: Range Adult (Premeno pausal) 27 - 231 Menstrual Cycle (1-10 days) 19 - 149 Menstrual Cycle (11-20 days) 32 - 176 Menstrual Cycle (21-30 days) 37 - 200Performed at: [facility] [employer] [id number] Director: Chico Silveira MD, Phone: [phone] Serum or plasma estradiol (E 2) measurement (mass/volume)on 02-25-2024 E2 [Mass/Vol] Serum or plasma estradiol (E2) measurement (mass/volume) . [facility] Comment on above: Adult Female Range F ollicular phase 12.5 - 166.0 Ovulation phase 85.8 - 498.0 Luteal phase 43.8 - 211.0 Postmenopausal <6.0 - 54.7 1st trimester 215.0 - >4300.0Roche ECLIA methodology Serum or plasma insulin pierce urement (units/volume)on 02-25-2024 Insulin Qn Serum or plasma insu juan luis measurement (units/volume) 2.6-24.9 [facility] Comment on above: Performed at: [facility] [address] [id number] Director: Anival Paul PhD, Phone: [phone] Serum or plasma progesterone measurement (mass/volume)on 02-25-2024 Progesterone [Mass/Vol] Serum or plasma progesterone measurement (mass/volume) . [facility] Comment on above: Follicular phase 0.1 - 0.9 Luteal phase 1.8 - 23.9 Ovulation phase 0.1 - 12.0 First trimester 11.0 - 44.3 Second trimester 25.4 - 83.3 Third trimester 58.7 - 214.0 Postmenopausal 0.0 - 0.1 TPO Ab Qnon 02-25-2024 Thyroid Peroxidase Antibodies 15 [IU]/mL 0-34 [facility] Thyroglobulin Ab Qnon 2023 Anti-Thyroglobulin Antibody <1.0 [IU]/mL 0.0-0.9 [facility] Comment on above: Thyroglobulin Antibo dy measured by LegalSherpaMethodologyIt should be noted that the presence of thyroglobulinantibodies may not be pathogenic nor diagnostic, especiallyat very low levels. The assay bulk cooler installer has found thatfour percent of individuals without evidence of thyroiddisease or autoimmunity will have positive TgAb levels upto 4 IU/mL.Performed at: [employer] [facility] [address] [id number] Director: Anival Paul PhD, Phone: [phone] Basophils Auto (Bld) [#/Vol] on 2023 Basophils (Bld) [#/Vol] 0.0 10 3/uL 0.0-0.1 [facility] Basophils/100 WBC Auto (Bld) on 2023 Basophils/100 WBC (Bld) 0.3 % 0.2-2.0 [facility] Eosinophils/100 WBC Auto (Bl d)on 2023 Eosinophils/100 WBC (Bld) 1.0 % 0.9-7.0 [facility] Erythrocyte distribution wid th Auto (RBC) [Ratio]on 2023 Erythrocyte distribution width (RBC) [Ratio] 12.1 % 11.0-15.0 [facility] Hematocrit Auto (Bld) [Volum e fraction]on 2023 Hematocrit (Bld) [Volume fraction] 39.5 % 36.0-48.0 [facility] Hemoglobin [Mass/volume] in Bloodon 2023 Hemoglobin (Bld) [Mass/Vol] 13.7 g/dL 12.0-16.0 [facility] Laboratory - Chemistry and C hemistry - challengeon 2023 Bilirubin Ql (U) Negative NEGATIVE [facility] Glucose (U) [Mass/Vol] Negative NEGATIVE [facility] Ketones Ql (U) Negative NEGATIVE [facility] pH (U) 6.0 [pH] 5.0-9.0 [facility] Specific gravity (U) [Rel density] 1.025 1.005-1.02 5 [facility] Urobilinogen Qn (U) 1.0 {Ariana'U}/dL 0.2-1.0 [facility] - Hematology and Cell countson 2023 Immature granulocytes/100 WBC (Bld) 0.8 % High 0.0-0.5 [facility] - Specimen inform ationon 2023 Appearance (U) CLEAR CLEAR [facility] Color (U) YELLOW YELLOW [facility] - Urinalysison Leukocyte esterase Test strip Ql (U) Negative NEGATIVE [facility] Mucus Ql (Urine sed) TRACE Abnormal NONE SEEN [facility] Nitrite Ql (U) Negative NEGATIVE [facility] Protein Ql (U) TRACE mg/dL NEG/TRACE [facility] Leukocytes [#/volume] correc mary for nucleated erythrocytes in Blood by Automated counon 2023 WBC corrected for nucl RBC Auto (Bld) [#/Vol] 7.9 10 3/uL 4.0-11.0 [facility] Lymphocytes Auto (Bld) [#/Vo l]on 2023 Lymphocytes (Bld) [#/Vol] 2.4 10 3/uL 1.2-3.8 [facility] Lymphocytes/100 WBC Auto (Bl d)on 2023 Lymphocytes/100 WBC (Bld) 30.4 % 20.5-60.0 [facility] MCH Auto (RBC) [Entitic mass ]on 2023 MCH (RBC) [Entitic mass] 30.3 pg 26.7-34.0 [facility] MCHC Auto (RBC) [Mass/Vol]on 2023 MCHC (RBC) [Mass/Vol] 34.7 g/dL 29.9-35.2 [facility] MCV Auto (RBC) [Entitic vol] on 2023 MCV (RBC) [Entitic vol] 87.4 fL 81.0-99.0 [facility] Monocytes Auto (Bld) [#/Vol] on 2023 Monocytes (Bld) [#/Vol] 0.6 10 3/uL 0.3-0.8 [facility] Monocytes/100 WBC Auto (Bld) on 2023 Monocytes/100 WBC (Bld) 7.1 % 1.7-12.0 [facility] Neutrophils Auto (Bld) [#/Vo l]on 2023 Neutrophils (Bld) [#/Vol] 4.8 10 3/uL 1.4-6.5 [facility] Neutrophils/100 WBC Auto (Bl d)on 2023 Neutrophils/100 WBC (Bld) 60.4 % 43.0-75.0 [facility] No Panel Informationon 11-14 Eosinophils # (Auto) 0.1 10 3/uL 0.0-0.7 [facility] Immature Granulocyte # (Auto) 0.06 10 3/uL High 0.00-0.03 [facility] Urine Bacteria MODERATE #/HPF Abnormal NONE SEEN [facility] Urine Culture Reflexed YES [facility] Urine Microscopic Review YES [facility] Urine Occult Blood LARGE Abnormal NEGATIVE [facility] Urine Other Casts NONE SEEN #/LPF NONE SEEN [facility] Urine Other Crystals None Seen #/HPF None Seen [facility] Urine RBC >100 #/HPF Abnormal 0-2 [facility] Urine Squamous Epithelial Cells FEW #/LPF Abnormal NONE/RARE [facility] Urine WBC 2-5 #/HPF Abnormal NONE SEEN [facility] Platelet mean volume Auto (B ld) [Entitic vol]on 2023 Platelet mean volume (Bld) [Entitic vol] 10.3 fL 9.5-13.5 [facility] Platelets Auto (Bld) [#/Vol] on 2023 Platelets (Bld) [#/Vol] 223 10 3/uL 150-450 [facility] RBC Auto (Bld) [#/Vol]on RBC (Bld) [#/Vol] 4.52 10 6/uL 4.20-5.40 [facility] Yeast detection in urine sed iment by light microscopyon 2023 Yeast LM Ql (Urine sed) SEEN Abnormal NONE SEEN [facility] Patient Letter FTMCon 2022 Patient Letter FT (Inserted Image. Rebecca ble to display) November 27, 20[address] BRI KIRK [address] [place] [id number] : 1995 Dear Bri Kirk, [facility] [...] [facility] , option #3 Normal [facility] RAD - MISCon 10-16-2022 RAD - MISC [id number] Normal [facility] CBC AUTO DIFFon 09-04-2022 BASO # 0.1 103/ul Normal 0.0-0.1 [facility] Comment on above: Performed By: #### D DEEPA #### [facility] [address] [address] [address] Mark Cuellar Basophils/100 WBC (Bld) 0.4 % Normal 0.2-2.0 [facility] Comment on above: Performed By: #### D DEEPA #### [facility] [address] [address] [address] Mark Cuellar EO # 0.1 103/ul Normal 0.0-0.7 [facility] Comment on above: Performed By: #### D DEEPA #### [facility] [address] [address] [address] Mark Cuellar Eosinophils/100 WBC (Bld) 0.6 % Critically low 0.9-7.0 [facility] Comment on above: Performed By: #### D DEEPA #### [facility] [address] [address] [address] Mark Cuellar Erythrocyte distribution width (RBC) [Ratio] 13.4 % Normal 11.0-15.0 [facility] Comment on above: Performed By: #### D DEEPA #### [facility] [address] [address] [address] Mark Cuellar Hematocrit (Bld) [Volume fraction] 31.6 % Critically low 36.0-48.0 [facility] Comment on above: Performed By: #### D DEEPA #### [facility] [address] [address] [address] Mark Cuellar Hemoglobin (Bld) [Mass/Vol] 10.9 g/dL Critically low 12.0-16.0 [facility] Comment on above: Performed By: #### D DEEPA #### [facility] [address] [address] [address] Mark Cuellar IG # 0.41 10e3/ul Critically high 0.00-0.03 [facility] Comment on above: Performed By: #### D DEEPA #### [facility] [address] [address] [address] Mrak Cuellar IG % 2.9 % Critically high 0.0-0.5 [facility] Comment on above: Performed By: #### D DEEPA #### [facility] [address] [address] [address] Mark Cuellar LYMPH # 2.5 103/ul Normal 1.2-3.8 [facility] Comment on above: Performed By: #### D DEEPA #### [facility] [address] [address] [address] Mark Cuellar Lymphocytes/100 WBC (Bld) 18.0 % Critically low 20.5-60.0 [facility] Comment on above: Performed By: #### D DEEPA #### [facility] [address] [place] [address] Dr. Mark Cuellar MANUAL DIFF REQ NO Normal [facility] Comment on above: Performed By: #### D DEEPA #### [facility] [address] [place] [address] Dr. aMrk Cuellar MCH (RBC) [Entitic mass] 30.7 pg Normal 26.7-34.0 [facility] Comment on above: Performed By: #### D DEEPA #### [facility] [address] [place] [address] Dr. Mark Cuellar MCHC (RBC) [Mass/Vol] 34.5 g/dL Normal 29.9-35.2 [facility] Comment on above: Performed By: #### D DEEPA #### [facility] [address] [place] [address] Dr. Makr Cuellar MCV (RBC) [Entitic vol] 89.0 fL Normal 81.0-99.0 [facility] Comment on above: Performed By: #### D DEEPA #### [facility] [address] [place] [address] Dr. Mark Cuellar MONO # 1.2 103/ul Critically high 0.3-0.8 [facility] Comment on above: Performed By: #### D DEEPA #### [facility] [address] [place] [address] Dr. Mark Cuellar Monocytes/100 WBC (Bld) 8.3 % Normal 1.7-12.0 [facility] Comment on above: Performed By: #### D DEEPA #### [facility] [address] [address] [address] Mark Cuellar NEUT # 9.8 103/ul Critically high 1.4-6.5 [facility] Comment on above: Performed By: #### D DEEPA #### [facility] [address] [place] [address] Dr. Mark Cuellar Neutrophils/100 WBC (Bld) 69.8 % Normal 43.0-75.0 [facility] Comment on above: Performed By: #### D DEEPA #### [facility] [address] [place] [address] Dr. Mark Cuellar Platelet mean volume (Bld) [Entitic vol] 10.2 fL Normal 9.5-13.5 [facility] Comment on above: Performed By: #### D DEEPA #### [facility] [address] [place] [address] Dr. Mark Cuellar PLT 153 103/ul Normal 150-450 [facility] Comment on above: Performed By: #### D DEEPA #### [facility] [address] [place] [address] Dr. Mark Cuellar RBC 3.55 106/ul Critically low 4.20-5.40 [facility] Comment on above: Performed By: #### D DEEPA #### [facility] [address] [place] [address] Dr. Mark Cuellar WBC 14.1 103/ul Critically high 4.0-11.0 [facility] Comment on above: Performed By: #### D DEEPA #### [facility] [address] [address] [address] Mark Cuellar CBC AUTO DIFFon 09-03-2022 BASO # 0.1 103/ul Normal 0.0-0.1 [facility] Comment on above: Performed By: #### D DEEPA #### [facility] [address] [place] [address] Dr. Mark Cuellar Basophils/100 WBC (Bld) 0.5 % Normal 0.2-2.0 [facility] Comment on above: Performed By: #### D DEEPA #### [facility] [address] [address] [address] Mark Cuellar EO # 0.2 103/ul Normal 0.0-0.7 [facility] Comment on above: Performed By: #### D DEEPA #### [facility] [address] [place] [address] Dr. Mark Cuellar Eosinophils/100 WBC (Bld) 1.1 % Normal 0.9-7.0 [facility] Comment on above: Performed By: #### D DEEPA #### [facility] [address] [place] [address] Dr. Mark Cuellar Erythrocyte distribution width (RBC) [Ratio] 13.0 % Normal 11.0-15.0 [facility] Comment on above: Performed By: #### D DEEPA #### [facility] [address] [place] [address] Dr. Mark Cuellar Hematocrit (Bld) [Volume fraction] 35.3 % Critically low 36.0-48.0 [facility] Comment on above: Performed By: #### D DEEPA #### [facility] [address] [place] [address] Dr. Mark Cuellar Hemoglobin (Bld) [Mass/Vol] 12.7 g/dL Normal 12.0-16.0 [facility] Comment on above: Performed By: #### D DEEPA #### [facility] [address] [place] [address] Dr. Mark Cuellar IG # 0.36 10e3/ul Critically high 0.00-0.03 [facility] Comment on above: Performed By: #### D DEEPA #### [facility] [address] [place] [address] Dr. Mark Cuellar IG % 2.6 % Critically high 0.0-0.5 [facility] Comment on above: Performed By: #### D DEEPA #### [facility] [address] [place] [address] Dr. Mark Cuellar LYMPH # 2.9 103/ul Normal 1.2-3.8 [facility] Comment on above: Performed By: #### D DEEPA #### [facility] [address] [place] [address] Dr. Mark Cuellar Lymphocytes/100 WBC (Bld) 21.3 % Normal 20.5-60.0 [facility] Comment on above: Performed By: #### D DEEPA #### [facility] [address] [place] [address] Dr. Mark Cuellar MANUAL DIFF REQ NO Normal [facility] Comment on above: Performed By: #### D DEEPA #### [facility] [address] [place] [address] Dr. Mark Cuellar MCH (RBC) [Entitic mass] 30.8 pg Normal 26.7-34.0 [facility] Comment on above: Performed By: #### D DEEPA #### [facility] [address] [place] [address] Dr. Mark Cuellar MCHC (RBC) [Mass/Vol] 36.0 g/dL Critically high 29.9-35.2 [facility] Comment on above: Performed By: #### D DEEPA #### [facility] [address] [place] [address] Dr. Mark Cuellar MCV (RBC) [Entitic vol] 85.7 fL Normal 81.0-99.0 [facility] Comment on above: Performed By: #### D DEEPA #### [facility] [address] [place] [address] Dr. Mark Cuellar MONO # 1.2 103/ul Critically high 0.3-0.8 [facility] Comment on above: Performed By: #### D DEEPA #### [facility] [address] [place] [address] Dr. Mark Cuellar Monocytes/100 WBC (Bld) 8.6 % Normal 1.7-12.0 [facility] Comment on above: Performed By: #### D DEEPA #### [facility] [address] [place] [address] Dr. Mark Cuellar NEUT # 9.1 103/ul Critically high 1.4-6.5 [facility] Comment on above: Performed By: #### D DEEPA #### [facility] [address] [place] [address] Dr. Mark Cuellar Neutrophils/100 WBC (Bld) 65.9 % Normal 43.0-75.0 [facility] Comment on above: Performed By: #### D DEEPA #### [facility] [address] [place] [address] Dr. Mark Cuellar Platelet mean volume (Bld) [Entitic vol] 10.1 fL Normal 9.5-13.5 [facility] Comment on above: Performed By: #### D DEEPA #### [facility] [address] [place] [address] Dr. Mark Cuellar PLT 211 103/ul Normal 150-450 [facility] Comment on above: Performed By: #### D DEEPA #### [facility] [address] [place] [address] Dr. Mark Cuellar RBC 4.12 106/ul Critically low 4.20-5.40 [facility] Comment on above: Performed By: #### D DEEPA #### [facility] [address] [place] [address] Dr. Mark Cuellar WBC 13.7 103/ul Critically high 4.0-11.0 [facility] Comment on above: Performed By: #### D DEEPA #### [facility] [address] [place] [address] Dr. Mark Cuellar TYPE AND SCREENon 09-03-2022 TYPE AND SCREEN Negative Normal [facility] Comment on above: Performed By: #### Jonna ANDERSON ICRO #### [facility] [address] [place] [address] Dr. Mark Cuellar DRUG SCREEN RAPID (URINE)on 09-02-2022 AMP Negative Normal NEGATIVE [facility] Comment on above: Performed By: #### U HERNESTO UMICRO #### [facility] [address] [place] [address] Dr. Mark Cuellar BAR Negative Normal NEGATIVE [facility] Comment on above: Performed By: #### U ACSKYAW UMICRO #### [facility] [address] [place] [address] Dr. Mark Cuellar BUP Negative Normal NEGATIVE [facility] Comment on above: Performed By: #### U ACSIND, UMICRO #### [facility] [address] [address] [address] Mark Cuellar BZO Negative Normal NEGATIVE [facility] Comment on above: Performed By: #### U ACSIND, UMICRO #### [facility] [address] [address] [address] Mark Cuellar MYRA Negative Normal NEGATIVE [facility] Comment on above: Performed By: #### U ACSIND, UMICRO #### [facility] [address] [address] [address] Mark Cuellar CUT-OFFS SEE BELOW Normal [facility] Comment on above: Result Comment: AMP [...] Performed By: #### U ACSIND, UMICRO #### [facility] [address] [address] [address] Mark Cuellar DRUG CUT HEADER DRUG CLASS TEST SYST EM CUT-OFF CONCENTRATIONS ARE FOLLOWS: Normal [facility] Comment on above: Performed By: #### U ACSIND, UMICRO #### [facility] [address] [address] [address] Mark Cuellar mAMP Negative Normal NEGATIVE [facility] Comment on above: Performed By: #### U ACSIND, UMICRO #### [facility] [address] [address] [address] Mark Cuellar MTD Negative Normal NEGATIVE [facility] Comment on above: Performed By: #### U ACSIND, UMICRO #### [facility] [address] [address] [address] Mark Cuellar OPI Negative Normal NEGATIVE [facility] Comment on above: Performed By: #### U ACSIND, UMICRO #### [facility] [address] [address] [address] Mark Cuellar OXY Negative Normal NEGATIVE [facility] Comment on above: Performed By: #### U ACSKYAW, UMICRO #### [facility] [address] [address] [address] Mark Cuellar PCP Negative Normal NEGATIVE [facility] Comment on above: Performed By: #### U ACSKYAW, UMICRO #### [facility] [address] [address] [address] Mark Cuellar PPX Negative Normal NEGATIVE [facility] Comment on above: Performed By: #### U ACSKYAW, UMICRO #### [facility] [address] [place] [address] Dr. Mark Cuellar TCA Negative Normal NEGATIVE [facility] Comment on above: Performed By: #### U ACSKYAW, ICRO #### [facility] [address] [place] [address] Dr. Mark Cuellar THC Negative Normal NEGATIVE [facility] Comment on above: Performed By: #### U ACSKYAW, UMICRO #### [facility] [address] [place] [address] Dr. Mark Cuellar UA (CLEAN/CATCH) USER SUPPORT ANALYST SUPERVISOR/MICRO I F IND.on 09-02-2022 Bilirubin Ql (U) Negative Normal NEGATIVE [facility] Comment on above: Performed By: #### E JUSTIN UMICRO #### [facility] [address] [place] [address] Dr. Mark Cuellar Clarity (U) CLEAR Normal CLEAR [facility] Comment on above: Performed By: #### E JUSTIN UMICRO #### [facility] [address] [place] [address] Dr. Mark Cuellar Color (U) LT. YELLOW Normal YELLOW [facility] Comment on above: Performed By: #### E RUSolomon UMICRO #### [facility] [address] [place] [address] Dr. Mark Cuellar Glucose Ql (U) Negative Normal NEGATIVE [facility] Comment on above: Performed By: #### VIGNESH ZELAYARO #### [facility] [address] [place] [address] Dr. Mark Cuellar Hemoglobin Ql (U) TRACE-INTACT Abnormal NEGATIVE [facility] Comment on above: Performed By: #### THOMAS ZELAYAICRO #### [facility] [address] [place] [address] Dr. Mark Cuellar Ketones Ql (U) Negative Normal NEGATIVE [facility] Comment on above: Performed By: #### THOMAS ZELAYAICRO #### [facility] [address] [place] [address] Dr. Mark Cuellar LEUKOCYTES Negative Normal NEGATIVE [facility] Comment on above: Performed By: #### VIGNESH ZELAYARO #### [facility] [address] [place] [address] Dr. Mark Cuellar Nitrite Ql (U) Negative Normal NEGATIVE [facility] Comment on above: Performed By: #### VIGNESH ZELAYARO #### [facility] [address] [place] [address] Dr. Mark Cuellar pH (U) 7.0 [pH] Normal 5-9 [facility] Comment on above: Performed By: #### VIGNESH ZELAYARO #### [facility] [address] [place] [address] Dr. Mark Cuellar SPEC GRAVITY 1.010 Normal 1.005-<=1. 025 [facility] Comment on above: Performed By: #### THOMAS ZELAYAICRO #### [facility] [address] [place] [address] Dr. Mark Cuellar UA PROTEIN Negative Normal NEGATIVE/ TRACE [facility] Comment on above: Performed By: #### Jonna ANDERSON UMICRO #### [facility] [address] [place] [address] Dr. Mark Cuellar UR MICRO IND INDICATED Normal [facility] Comment on above: Performed By: #### E RUR, UMICRO #### [facility] [address] [place] [address] Dr. Mark Cuellar Urobilinogen Qn (U) 0.2 {Ariana'U}/dL Normal 0.2 - 1. 0 [facility] Comment on above: Performed By: #### E RUR, UMICRO #### [facility] [address] [place] [address] Dr. Mark Cuellar URINE MICROSCOPIC ONLYon BACTERIA TRACE Abnormal NONE SEEN [facility] Comment on above: Performed By: #### E RUR, UMICRO #### [facility] [address] [place] [address] Dr. Mark Cuellar Bacteria identified Cx Nom (U) NOT INDICATED Normal [facility] Comment on above: Performed By: #### E VANESSAR, UMICRO #### [facility] [address] [place] [address] Dr. Mark Cuellar CAST NONE SEEN Normal NONE SEEN [facility] Comment on above: Performed By: #### E JUSTIN, UMICRO #### [facility] [address] [place] [address] Dr. Mark Cuellar Crystals LM Nom (Urine sed) NONE SEEN Normal NONE SEEN [facility] Comment on above: Performed By: #### Jonna ANDERSON, UMICRO #### [facility] [address] [place] [address] Dr. Mark Cuellar Epithelial cells LM Ql (Urine sed) FEW Abnormal NONE SEEN /RARE [facility] Comment on above: Performed By: #### E RUR, UMICRO #### [facility] [address] [place] [address] Dr. Mark Cuellar MUCOUS NONE SEEN Normal NONE SEEN [facility] Comment on above: Performed By: #### E RUR, UMICRO #### [facility] [address] [place] [address] Dr. Mark Cuellar RBC 5-10 Abnormal 0-2 [facility] Comment on above: Performed By: #### E RUR, UMICRO #### [facility] [address] [place] [address] Dr. Mark Cuellar WBC 0-2 Abnormal NONE SEEN [facility] Comment on above: Performed By: #### E RISA ANDERSON #### [facility] [id number] Mark Cuellar US KIDNEYSon 08-26-2022 US [...] by: SAMANTHA LAZAR Date: 2022-08-25 22:02 Normal [facility] BUNon 08-25-2022 Urea nitrogen [Mass/Vol] 5.0 mg/dL Critically low 7.0-18.0 [facility] Comment on above: Performed By: #### U RISA ERIC #### [facility] [address] [address] [address] Mark Cuellar CBC AUTO DIFFon 08-25-2022 BASO # 0.1 103/ul Normal 0.0-0.1 [facility] Comment on above: Performed By: #### E RISA ANDERSON #### [facility] [id number] Mark Cuellar Basophils/100 WBC (Bld) 0.6 % Normal 0.2-2.0 [facility] Comment on above: Performed By: #### RISA ZELAYA #### [facility] [address] [place] [address] Dr. Mark Cuellar EO # 0.2 103/ul Normal 0.0-0.7 [facility] Comment on above: Performed By: #### VIGNESH ZELAYARO #### [facility] [address] [place] [address] Dr. Mark Cuellar Eosinophils/100 WBC (Bld) 1.2 % Normal 0.9-7.0 [facility] Comment on above: Performed By: #### VIGNESH ZELAYARO #### [facility] [address] [place] [address] Dr. Mark Cuellar Erythrocyte distribution width (RBC) [Ratio] 13.2 % Normal 11.0-15.0 [facility] Comment on above: Performed By: #### VIGNESH ZELAYARO #### [facility] [address] [place] [address] Dr. Mark Cuellar Hematocrit (Bld) [Volume fraction] 35.4 % Critically low 36.0-48.0 [facility] Comment on above: Performed By: #### VIGNESH ZELAYARO #### [facility] [address] [place] [address] Dr. Mark Cuellar Hemoglobin (Bld) [Mass/Vol] 12.5 g/dL Normal 12.0-16.0 [facility] Comment on above: Performed By: #### VIGNESH ZELAYARO #### [facility] [address] [place] [address] Dr. Mark Cuellar IG # 0.55 10e3/ul Critically high 0.00-0.03 [facility] Comment on above: Performed By: #### VIGNESH ZELAYARO #### [facility] [address] [place] [address] Dr. Mark Cuellar IG % 4.1 % Critically high 0.0-0.5 [facility] Comment on above: Performed By: #### VIGNESH ZELAYARO #### [facility] [address] [place] [address] Dr. Mark Cuellar LYMPH # 2.4 103/ul Normal 1.2-3.8 [facility] Comment on above: Performed By: #### Jonna ANDERSON, UMICRO #### [facility] [address] [place] [address] Dr. Mark Cuellar Lymphocytes/100 WBC (Bld) 17.8 % Critically low 20.5-60.0 [facility] Comment on above: Performed By: #### Jonna ANDERSON, UMICRO #### [facility] [address] [place] [address] Dr. Mark Cuellar MANUAL DIFF REQ NO Normal [facility] Comment on above: Performed By: #### Jonna ANDERSON, ICRO #### [facility] [address] [place] [address] Dr. Mark Cuellar MCH (RBC) [Entitic mass] 30.8 pg Normal 26.7-34.0 [facility] Comment on above: Performed By: #### Jonna ANDERSON UMICRO #### [facility] [address] [place] [address] Dr. Mark Cuellar MCHC (RBC) [Mass/Vol] 35.3 g/dL Critically high 29.9-35.2 [facility] Comment on above: Performed By: #### Jonna ANDERSON UMICRO #### [facility] [address] [place] [address] Dr. Mark Cuellar MCV (RBC) [Entitic vol] 87.2 fL Normal 81.0-99.0 [facility] Comment on above: Performed By: #### Jonna ANDERSON, UMICRO #### [facility] [address] [place] [address] Dr. Mark Cuellar MONO # 1.2 103/ul Critically high 0.3-0.8 [facility] Comment on above: Performed By: #### Jonna ANDERSON, UMICRO #### [facility] [address] [place] [address] Dr. Mark Cuellar Monocytes/100 WBC (Bld) 9.3 % Normal 1.7-12.0 [facility] Comment on above: Performed By: #### RISA ZELAYA #### [facility] [address] [place] [address] Dr. Mark Cuellar NEUT # 8.9 103/ul Critically high 1.4-6.5 [facility] Comment on above: Performed By: #### RISA ZELAYA #### [facility] [address] [place] [address] Dr. Mark Cuellar Neutrophils/100 WBC (Bld) 67.0 % Normal 43.0-75.0 [facility] Comment on above: Performed By: #### RISA ZELAYA #### [facility] [address] [place] [address] Dr. Mark Cuellar Platelet mean volume (Bld) [Entitic vol] 9.7 fL Normal 9.5-13.5 [facility] Comment on above: Performed By: #### RISA ZELAYA #### [facility] [address] [place] [address] Dr. Mark Cuellar PLT 219 103/ul Normal 150-450 [facility] Comment on above: Performed By: #### RISA ZELAYA #### [facility] [address] [place] [address] Dr. Mark Cuellar RBC 4.06 106/ul Critically low 4.20-5.40 [facility] Comment on above: Performed By: #### RISA ZELAYA #### [facility] [address] [place] [address] Dr. Mark Cuellar WBC 13.3 103/ul Critically high 4.0-11.0 [facility] Comment on above: Performed By: #### RISA ZELAYA #### [facility] [address] [place] [address] Dr. Mark Cuellar CREATININEon 08-25-2022 Creatinine [Mass/Vol] 0.68 mg/dL Normal 0.55-1.02 [facility] Comment on above: Performed By: #### RISA CASTILLO #### [facility] [address] [address] [address] Mark Cuellar EGFR-AF BELARUSIAN >60 Normal >=60 [facility] Comment on above: Performed By: #### U ACSIND, UMICRO #### [facility] [address] [address] [address] Mark Cuellar EGFR-NON AF BELARUSIAN >60 Normal >=60 [facility] Comment on above: Performed By: #### U ACSIND, UMICRO #### [facility] [address] [place] [address] Dr. 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 Mark Cuellar Clarity (U) CLEAR Normal CLEAR [facility] Comment on above: Performed By: #### U ACSKYAW, UMICRO #### [facility] [address] [address] [address] Mark Cuellar Color (U) LT. YELLOW Normal YELLOW [facility] Comment on above: Performed By: #### U ACSKYAW, UMICRO #### [facility] [address] [place] [address] Dr. Mark Cuellar Glucose Ql (U) Negative Normal NEGATIVE [facility] Comment on above: Performed By: #### U ACSIND, UMICRO #### [facility] [address] [place] [address] Dr. Mark Cuellar Hemoglobin Ql (U) SMALL Abnormal NEGATIVE [facility] Comment on above: Performed By: #### U ACSIND, UMICRO #### [facility] [address] [place] [address] Dr. Mark Cuellar Ketones Ql (U) Negative Normal NEGATIVE [facility] Comment on above: Performed By: #### U ACSIND, UMICRO #### [facility] [address] [place] [address] Dr. Mark Cuellar LEUKOCYTES TRACE Abnormal NEGATIVE [facility] Comment on above: Performed By: #### U ACSIND, UMICRO #### [facility] [address] [address] [address] Mark Cuellar Nitrite Ql (U) Negative Normal NEGATIVE [facility] Comment on above: Performed By: #### U ACSIND, UMICRO #### [facility] [address] [address] [address] Mark Cuellar pH (U) 7.0 [pH] Normal 5-9 [facility] Comment on above: Performed By: #### U ACSIND, UMICRO #### [facility] [address] [place] [address] Dr. Mark Cuellar SPEC GRAVITY <=1.005 Abnormal 1.005-<=1. 025 [facility] Comment on above: Performed By: #### U ACSIND, UMICRO #### [facility] [address] [place] [address] Dr. Mark Cuellar UA PROTEIN Negative Normal NEGATIVE/ TRACE [facility] Comment on above: Performed By: #### U ACSIND, UMICRO #### [facility] [address] [address] [address] Mark Cuellar UR MICRO IND INDICATED Normal [facility] Comment on above: Performed By: #### U ACSIND, UMICRO #### [facility] [address] [place] [address] Dr. Mark Cuellar Urobilinogen Qn (U) 0.2 {Ariana'U}/dL Normal 0.2 - 1. 0 [facility] Comment on above: Performed By: #### U ACSIND, UMICRO #### [facility] [address] [address] [address] Mark Cuellar URINE MICROSCOPIC ONLYon BACTERIA NONE SEEN Normal NONE SEEN [facility] Comment on above: Performed By: #### U ACSIND, UMICRO #### [facility] [address] [address] [address] Mark Cuellar Bacteria identified Cx Nom (U) NOT INDICATED Normal [facility] Comment on above: Performed By: #### U ACSKYAW, UMICRO #### [facility] [address] [address] [address] Mark Cuellar CAST NONE SEEN Normal NONE SEEN [facility] Comment on above: Performed By: #### U ACSKYAW, UMICRO #### [facility] [address] [address] [address] Mark Cuellar Crystals LM Nom (Urine sed) NONE SEEN Normal NONE SEEN [facility] Comment on above: Performed By: #### U ACSKYAW, UMICRO #### [facility] [address] [place] [address] Dr. aMrk Cuellar Epithelial cells LM Ql (Urine sed) RARE Normal NONE SEEN /RARE [facility] Comment on above: Performed By: #### U ACSKYAW UMICRO #### [facility] [address] [place] [address] Dr. Mark Cuellar MUCOUS NONE SEEN Normal NONE SEEN [facility] Comment on above: Performed By: #### U ACSKYAW UMICRO #### [facility] [address] [place] [address] Dr. Mark Cuellar RBC 0-2 Normal 0-2 [facility] Comment on above: Performed By: #### U HERNESTO UMICRO #### [facility] [address] [place] [address] Dr. Mark Cuellar WBC 0-2 Abnormal NONE SEEN [facility] Comment on above: Performed By: #### U HERNESTO UMICRO #### [facility] [address] [place] [address] Dr. Mark Cuellar GROUP B STREP CULTUREon 07-30 S. agalactiae Ag Ql (Unsp spec) Culture Observations: NEGATIVE FOR GROUP B STREPTOCOCCUS. Normal [facility] Comment on above: Performed By: #### G BSCX #### [facility] [address] [place] [address] Dr. Mark Cuellar US PREG BIOPHY W [...] 2. heart rate is 151 bpm 3. Striping Machine Operator noted that it was very difficult to get fetus to move to document gross body movements. Electronically authenticated by: ISAIAH VELAZCO Date: 2022-08-07 15:10 Normal [facility] CULTURE URINEon 07-20-2022 CULTURE URINE Culture Observations : NO GROWTH. Normal [facility] Comment on above: Performed By: #### U RCX #### [facility] [address] [place] [address] Dr. Mark Cuellar UA (CLEAN/CATCH) USER SUPPORT ANALYST SUPERVISOR/MICRO I F IND.on 07-20-2022 Bilirubin Ql (U) Negative Normal NEGATIVE [facility] Comment on above: Performed By: #### U ACSIND, UMICRO #### [facility] [address] [place] [address] Dr. Mark Cuellar Clarity (U) CLEAR Normal CLEAR [facility] Comment on above: Performed By: #### U ACSIND, UMICRO #### [facility] [address] [place] [address] Dr. Mark Cuellar Color (U) LT. YELLOW Normal YELLOW [facility] Comment on above: Performed By: #### U ACSIND, UMICRO #### [facility] [address] [place] [address] Dr. Mark Cuellar Glucose Ql (U) Negative Normal NEGATIVE [facility] Comment on above: Performed By: #### U ACSIND, UMICRO #### [facility] [address] [place] [address] Dr. Mark Cuellar Hemoglobin Ql (U) Negative Normal NEGATIVE [facility] Comment on above: Performed By: #### U ACSIND, UMICRO #### [facility] [address] [place] [address] Dr. Mark Cuellar Ketones Ql (U) Negative Normal NEGATIVE [facility] Comment on above: Performed By: #### U ACSIND, UMICRO #### [facility] [address] [place] [address] Dr. Mark Cuellar LEUKOCYTES SMALL Abnormal NEGATIVE [facility] Comment on above: Performed By: #### U ACSIND, UMICRO #### [facility] [address] [address] [address] Mark Cuellar Nitrite Ql (U) Negative Normal NEGATIVE [facility] Comment on above: Performed By: #### U ACSIND, UMICRO #### [facility] [address] [address] [address] Mark Cuellar pH (U) 7.0 [pH] Normal 5-9 [facility] Comment on above: Performed By: #### U ACSIND, UMICRO #### [facility] [address] [place] [address] Dr. Mark Cuellar SPEC GRAVITY 1.010 Normal 1.005-<=1. 025 [facility] Comment on above: Performed By: #### U ACSIND, ICRO #### [facility] [address] [place] [address] Dr. Mark Cuellar UA PROTEIN Negative Normal NEGATIVE/ TRACE [facility] Comment on above: Performed By: #### U ACSIND, UMICRO #### [facility] [address] [place] [address] Dr. Mark Cuellar UR MICRO IND INDICATED Normal [facility] Comment on above: Performed By: #### U ACSIND, UMICRO #### [facility] [address] [place] [address] Dr. Mark Cuellar Urobilinogen Qn (U) 1.0 {Ariana'U}/dL Normal 0.2 - 1. 0 [facility] Comment on above: Performed By: #### U ACSIND, UMICRO #### [facility] [address] [place] [address] Dr. Mark Cuellar URINE MICROSCOPIC ONLYon BACTERIA TRACE Abnormal NONE SEEN [facility] Comment on above: Performed By: #### U ACSIND, UMICRO #### [facility] [address] [address] [address] Mark Cuellar Bacteria identified Cx Nom (U) INDICATED Normal [facility] Comment on above: Performed By: #### U ACSIND, UMICRO #### [facility] [address] [place] [address] Dr. Mark Cuellar CAST NONE SEEN Normal NONE SEEN [facility] Comment on above: Performed By: #### U ACSIND, UMICRO #### [facility] [address] [address] [address] Mark Cuellar Crystals LM Nom (Urine sed) NONE SEEN Normal NONE SEEN [facility] Comment on above: Performed By: #### U ACSIND, UMICRO #### [facility] [address] [place] [address] Dr. Mark Cuellar Epithelial cells LM Ql (Urine sed) FEW Abnormal NONE SEEN /RARE [facility] Comment on above: Performed By: #### U ACSKYAW, UMICRO #### [facility] [address] [place] [address] Dr. Mark Cuellar MUCOUS NONE SEEN Normal NONE SEEN [facility] Comment on above: Performed By: #### U ACSKYAW, UMICRO #### [facility] [address] [place] [address] Dr. Mark Cuellar RBC 0-2 Normal 0-2 [facility] Comment on above: Performed By: #### U ACSKYAW UMICRO #### [facility] [address] [place] [address] Dr. Mark Cuellar WBC 5-10 Abnormal NONE SEEN [facility] Comment on above: Performed By: #### U ACSKYAW UMICRO #### [facility] [address] [place] [address] Dr. Mark Cuellar US PREG GROWTHon 07-10-2022 [...] by: ISAIAH VELAZCO Date: 2022-07-10 21:19 Normal [facility] RAD - MISCon 07-02-2022 [facility] [id number]:1 27 Normal [facility] CALCULI, URINARYon 3 2,8 Dihydroxyadenine Normal [facility] Comment on above: Performed By: #### VIGNESH ZELAYARO #### [facility] [address] [place] [address] Dr. Mark Cuellar Ammonium Acid Urate Normal [facility] Comment on above: Performed By: #### Jonna ANDERSON UMICRO #### [facility] [address] [address] [address] Mark Cuellar Bilirubin Ql (U) Normal [facility] Comment on above: Performed By: #### Jonna ANDERSON UMICRO #### [facility] [address] [address] [address] Mark Cuellar Ca Oxalate Dihydrate 50 % Normal [facility] Comment on above: Performed By: #### Jonna ANDERSON UMICRO #### [facility] [address] [place] [address] Dr. Mark Cuellar CaHPO4 (Brushite) Normal [facility] Comment on above: Performed By: #### Jonna ANDERSON UMICRO #### [facility] [address] [place] [address] Dr. Mark Cuellar Calcium Bilirubinate Normal [facility] Comment on above: Performed By: #### Jonna ANDERSON UMICRO #### [facility] [address] [place] [address] Dr. Mark Cuellar Calcium Carbonate [facility] Comment on above: Performed By: #### Jonna ANDERSON UMICRO #### [facility] [address] [address] [address] Mark Cuellar Calcium Oxalate Monohydrate 20 % [facility] Comment on above: Performed By: #### Jonna ANDERSON UMICRO #### [facility] [address] [place] [address] Dr. Mark Cuellar Calcium Palmitate [facility] Comment on above: Performed By: #### Jonna ANDERSON UMICRO #### [facility] [address] [place] [address] Dr. Mark Cuellar Calcium Phosphate [facility] Comment on above: Performed By: #### Jonna ANDERSON UMICRO #### [facility] [address] [place] [address] Dr. Mark Cuellar Calcium Stearate [facility] Comment on above: Performed By: #### Jonna ANDERSON UMICRO #### [facility] [address] [place] [address] Dr. Mark Cuellar Carbonate Apatite [place] [facility] Comment on above: Performed By: #### Jonna ANDERSON UMICRO #### [facility] [address] [place] [address] Dr. Mark Cuellar Cellular Material [facility] Comment on above: Performed By: #### Jonna ANDERSON UMICRO #### [facility] [address] [place] [address] Dr. Mark Davalos [facility] Comment on above: Performed By: #### Jonna ANDERSON UMICRO #### [facility] [address] [place] [address] Dr. Mark Cuellar Color (U) Brown [facility] Comment on above: Performed By: #### VIGNESH ZELAYARO #### [facility] [address] [place] [address] Dr. Mark Cuellar Comment Comment Normal [facility] Comment on above: Result Comment: Calc ium phosphate (hydroxyl form) includes hydroxyapatite, amorphous calcium phosphate, and whitlockite. Hydroxyapatite is the most common of the calcium phosphate salts found in human kidney stones. Performed By: #### VIGNESH ZELAYARO #### [facility] [address] [place] [address] Dr. Mark Cuellar Result Comment: Calc ulus received wet. Wet calculi must be dried before analysis, which delays reporting of results. Leaving calculi wet (such as water, saline, blood, urine) may lead to changes in composition. Comment: Comment Normal [facility] Comment on above: Result Comment: Addie watson questions regarding Calculi Analysis contact [facility] at: [phone]. Performed By: #### VIGNESH ZELAYARO #### [facility] [address] [place] [address] Dr. Mark Cuellar Composition Comment Normal [facility] Comment on above: Result Comment: Perc entage (Represents the % composition) Performed By: #### RISA ZELAYA #### [facility] [address] [place] [address] Dr. Mark Cuellar Cystine Normal [facility] Comment on above: Performed By: #### RISA ZELAYA #### [facility] [address] [place] [address] Dr. Mark Cuellar Disclaimer: Comment Normal [facility] Comment on above: Result Comment: This test was developed and its performance characteristics determined by [facility]. It has not been cleared or approved by the Food and Drug Administration. Performed By: #### VIGNESH ZELAYARO #### [facility] [address] [place] [address] Dr. Mark Cuellar Dried Blood Normal [facility] Comment on above: Performed By: #### RISA ZELAYA #### [facility] [address] [place] [address] Dr. Mark Cuellar Drug or Metabolite Normal [facility] Comment on above: Performed By: #### E RUR, UMICRO #### [facility] [address] [address] [address] Mark Cuellar Hydroxyapatite 30 % Normal [facility] Comment on above: Performed By: #### E RUR, UMICRO #### [facility] [address] [address] [address] Mark Cuellar Mg NH4 PO4 (Struvite) [facility] Comment on above: Performed By: #### E RUR, UMICRO #### [facility] [address] [address] [address] Mark Cuellar MgHPO4 (Newberyite) [facility] Comment on above: Performed By: #### E RUR, UMICRO #### [facility] [address] [place] [address] Dr. Mark Cuellar Other component(s) Normal [facility] Comment on above: Performed By: #### E RUR, UMICRO #### [facility] [address] [place] [address] Dr. Mark Cuellar PDF . [facility] Comment on above: Performed By: #### E JUSTIN, UMICRO #### [facility] [address] [place] [address] Dr. Mark Cuellar Photo Comment [facility] Comment on above: Result Comment: Phot ograph will follow under a separate cover Performed By: #### E VANESSAR, UMICRO #### [facility] [address] [place] [address] Dr. Mark Cuellar Please note: Comment Normal [facility] Comment on above: Result Comment: Calc noris report will follow via computer, mail or high school math teacher delivery. Performed By: #### E RUR, UMICRO #### [facility] [address] [address] [address] Mark Cuellar Size 3x3 Normal [facility] Comment on above: Result Comment: Mult iple pieces received. Dimensions of the largest piece reported. Performed By: #### Jonna ANDERSON UMICRO #### [facility] [address] [address] [address] Mark Cuellar Sodium Acid Urate Normal [facility] Comment on above: Performed By: #### Jonna ANDERSON UMICRO #### [facility] [address] [address] [address] Mark Cuellar Source Comment Normal [facility] Comment on above: Result Comment: Left Ureter Performed By: #### Jonna ANDERSON UMICRO #### [facility] [address] [address] [address] Mark Cuellar Triamte[facility] [facility] Comment on above: Performed By: #### Jonna ANDERSON UMICRO #### [facility] [address] [place] [address] Dr. Mark Cuellar Uric Acid [facility] Comment on above: Performed By: #### Jonna ANDERSON UMICRO #### [facility] [address] [address] [address] Mark Cuellar Uric Acid Dihydrate Normal [facility] Comment on above: Performed By: #### Jonna ANDERSON UMICRO #### [facility] [address] [address] [address] Mark Cuellar Weight 57 mg Normal [facility] Comment on above: Performed By: #### Jonna ANDERSON UMICRO #### [facility] [address] [address] [address] Mark Cuellar Xanthine [facility] Comment on above: Performed By: #### Jonna ANDERSON UMICRO #### [facility] [address] [address] [address] Mark Cuellar Consultation Noteon 06-27-19 Consultation Note [id number]: 127 Normal [facility] Insurance Correspondence Off iceon 06-27-2022 Insurance Correspondence Office [id number]: 127 Normal [facility] Operative Reporton 3 Operative Report [id number]: 127 Normal [facility] BUNon 06-24-2022 Urea nitrogen [Mass/Vol] 6.0 mg/dL Critically low 7.0-18.0 [facility] Comment on above: Performed By: #### U HERNESTO UMSALLYRO #### [facility] [address] [place] [address] Dr. Mark Cuellar CBC AUTO DIFFon 06-24-2022 BASO # 0.0 103/ul Normal 0.0-0.1 [facility] Comment on above: Performed By: #### U THOMAS ERICICRO #### [facility] [address] [place] [address] Dr. Mark Cuellar Basophils/100 WBC (Bld) 0.3 % Normal 0.2-2.0 [facility] Comment on above: Performed By: #### THOMAS CASTILLOICRO #### [facility] [address] [place] [address] Dr. Mark Cuellar EO # 0.1 103/ul Normal 0.0-0.7 [facility] Comment on above: Performed By: #### U HERNESTO ICRO #### [facility] [address] [place] [address] Dr. Mark Cuellar Eosinophils/100 WBC (Bld) 0.6 % Critically low 0.9-7.0 [facility] Comment on above: Performed By: #### U HERNESTO UMICRO #### [facility] [address] [place] [address] Dr. Mark Cuellar Erythrocyte distribution width (RBC) [Ratio] 13.2 % Normal 11.0-15.0 [facility] Comment on above: Performed By: #### U HERNESTO UMICRO #### [facility] [address] [place] [address] Dr. Mark Cuellar Hematocrit (Bld) [Volume fraction] 31.7 % Critically low 36.0-48.0 [facility] Comment on above: Performed By: #### U ACSIND, UMICRO #### [facility] [address] [address] [address] Mark Cuellar Hemoglobin (Bld) [Mass/Vol] 11.1 g/dL Critically low 12.0-16.0 [facility] Comment on above: Performed By: #### U ACSIND, UMICRO #### [facility] [address] [place] [address] Dr. Mark Cuellar IG # 0.26 10e3/ul Critically high 0.00-0.03 [facility] Comment on above: Performed By: #### U ACSIND, UMICRO #### [facility] [address] [place] [address] Dr. Mark Cuellar IG % 2.3 % Critically high 0.0-0.5 [facility] Comment on above: Performed By: #### U ACSIND, UMICRO #### [facility] [address] [place] [address] Dr. Mark Cuellar LYMPH # 1.7 103/ul Normal 1.2-3.8 [facility] Comment on above: Performed By: #### U ACSKYAW, UMICRO #### [facility] [address] [place] [address] Dr. Mark Cuellar Lymphocytes/100 WBC (Bld) 14.4 % Critically low 20.5-60.0 [facility] Comment on above: Performed By: #### U ACSKYAW, UMICRO #### [facility] [address] [place] [address] Dr. Mark Cuellar MANUAL DIFF REQ NO Normal [facility] Comment on above: Performed By: #### U ACSIND, UMICRO #### [facility] [address] [place] [address] Dr. Mark Cuellar MCH (RBC) [Entitic mass] 30.4 pg Normal 26.7-34.0 [facility] Comment on above: Performed By: #### U ACSIND, UMICRO #### [facility] [address] [place] [address] Dr. Mark Cuellar MCHC (RBC) [Mass/Vol] 35.0 g/dL Normal 29.9-35.2 [facility] Comment on above: Performed By: #### U HERNESTO UMICRO #### [facility] [address] [place] [address] Dr. Mark Cuellar MCV (RBC) [Entitic vol] 86.8 fL Normal 81.0-99.0 [facility] Comment on above: Performed By: #### U ACSKYAW UMICRO #### [facility] [address] [place] [address] Dr. Mark Cuellar MONO # 0.8 103/ul Normal 0.3-0.8 [facility] Comment on above: Performed By: #### U ACSKYAW ICRO #### [facility] [address] [place] [address] Dr. Mark Cuellar Monocytes/100 WBC (Bld) 6.7 % Normal 1.7-12.0 [facility] Comment on above: Performed By: #### U ACSKYAW ICRO #### [facility] [address] [place] [address] Dr. Mark Cuellar NEUT # 8.7 103/ul Critically high 1.4-6.5 [facility] Comment on above: Performed By: #### U ACSKYAW ICRO #### [facility] [address] [place] [address] Dr. Mark Cuellar Neutrophils/100 WBC (Bld) 75.7 % Critically high 43.0-75.0 [facility] Comment on above: Performed By: #### U ACSKYAW, ICRO #### [facility] [address] [place] [address] Dr. Mark Cuellar Platelet mean volume (Bld) [Entitic vol] 9.5 fL Normal 9.5-13.5 [facility] Comment on above: Performed By: #### U ACSKYAW UMICRO #### [facility] [address] [place] [address] Dr. Mark Cuellar PLT 185 103/ul Normal 150-450 [facility] Comment on above: Performed By: #### U ACSKYAW, UMICRO #### [facility] [address] [address] [address] Mark Cuellar RBC 3.65 106/ul Critically low 4.20-5.40 [facility] Comment on above: Performed By: #### U ACSKYAW, UMICRO #### [facility] [address] [place] [address] Dr. Mark Cuellar WBC 11.5 103/ul Critically high 4.0-11.0 [facility] Comment on above: Performed By: #### U ACSKYAW, UMICRO #### [facility] [address] [place] [address] Dr. Mark Cuellar CREATININEon 06-24-2022 Creatinine [Mass/Vol] 0.59 mg/dL Normal 0.55-1.02 [facility] Comment on above: Performed By: #### U ACSKYAW UMICRO #### [facility] [address] [place] [address] Dr. Mark Cuellar EGFR-AF BELARUSIAN >60 Normal >=60 [facility] Comment on above: Performed By: #### U ACSKYAW UMICRO #### [facility] [address] [place] [address] Dr. Mark Cuellar EGFR-NON AF BELARUSIAN >60 Normal >=60 [facility] Comment on above: Performed By: #### U ACSKYAW, UMICRO #### [facility] [address] [place] [address] Dr. Mark Cuellar UA (CLEAN/CATCH) USER SUPPORT ANALYST SUPERVISOR/MICRO I F IND.on 06-24-2022 Bilirubin Ql (U) Negative Normal NEGATIVE [facility] Comment on above: Performed By: #### E JUSTIN UMICRO #### [facility] [address] [place] [address] Dr. Mark Cuellar Clarity (U) CLEAR Normal CLEAR [facility] Comment on above: Performed By: #### E RUSolomon UMICRO #### [facility] [address] [place] [address] Dr. Mark Cuellar Color (U) LT. YELLOW Normal YELLOW [facility] Comment on above: Performed By: #### THOMAS ZELAYAICRO #### [facility] [address] [address] [address] Mark Cuellar Glucose Ql (U) 100 mg/dl Abnormal NEGATIVE [facility] Comment on above: Performed By: #### Jonna ANDERSON UMICRO #### [facility] [address] [place] [address] Dr. Mark Cuellar Hemoglobin Ql (U) LARGE Abnormal NEGATIVE [facility] Comment on above: Performed By: #### Jonna ANDERSON UMICRO #### [facility] [address] [place] [address] Dr. Mark Cuellar Ketones Ql (U) Negative Normal NEGATIVE [facility] Comment on above: Performed By: #### Jonna ANDERSON UMICRO #### [facility] [address] [place] [address] Dr. Mark Cuellar LEUKOCYTES Negative Normal NEGATIVE [facility] Comment on above: Performed By: #### VIGNESH ZELAYARO #### [facility] [address] [place] [address] Dr. Mark Cuellar Nitrite Ql (U) Negative Normal NEGATIVE [facility] Comment on above: Performed By: #### VIGNESH ZELAYARO #### [facility] [address] [place] [address] Dr. Mark Cuellar pH (U) 7.0 [pH] Normal 5-9 [facility] Comment on above: Performed By: #### VIGNESH ZELAYARO #### [facility] [address] [place] [address] Dr. Mark Cuellar SPEC GRAVITY 1.010 Normal 1.005-<=1. 025 [facility] Comment on above: Performed By: #### VIGNESH ZELAYARO #### [facility] [address] [place] [address] Dr. Mark Cuellar UA PROTEIN Negative Normal NEGATIVE/ TRACE [facility] Comment on above: Performed By: #### VIGNESH ZELAYARO #### [facility] [address] [place] [address] Dr. Mark Cuellar UR MICRO IND INDICATED Normal [facility] Comment on above: Performed By: #### Jonna ANDERSON UMICRO #### [facility] [address] [place] [address] Dr. Mark Cuellar Urobilinogen Qn (U) 0.2 {Ariana'U}/dL Normal 0.2 - 1. 0 [facility] Comment on above: Performed By: #### Jonna ANDERSON UMICRO #### [facility] [address] [place] [address] Dr. Mark Cuellar URINE MICROSCOPIC ONLYon BACTERIA NONE SEEN Normal NONE SEEN [facility] Comment on above: Performed By: #### Jonna ANDERSON UMICRO #### [facility] [address] [place] [address] Dr. Mark Cuellar Bacteria identified Cx Nom (U) NOT INDICATED Normal [facility] Comment on above: Performed By: #### Jonna ANDERSON UMICRO #### [facility] [address] [place] [address] Dr. Mark Cuellar CAST NONE SEEN Normal NONE SEEN [facility] Comment on above: Performed By: #### Jonna ANDERSON UMICRO #### [facility] [address] [place] [address] Dr. Mark Cuellar Crystals LM Nom (Urine sed) NONE SEEN Normal NONE SEEN [facility] Comment on above: Performed By: #### Jonna ANDERSON UMICRO #### [facility] [address] [place] [address] Dr. Mark Cuellar Epithelial cells LM Ql (Urine sed) MODERATE Abnormal NONE SEEN /RARE [facility] Comment on above: Performed By: #### Jonna ANDERSON UMICRO #### [facility] [address] [place] [address] Dr. Mark Cuellar MUCOUS TRACE Abnormal NONE SEEN [facility] Comment on above: Performed By: #### Jonna ANDERSON UMICRO #### [facility] [address] [place] [address] Dr. Mark Cuellar RBC 10-20 Abnormal 0-2 [facility] Comment on above: Performed By: #### E RISA ANDERSON #### [facility] [address] [place], [place] [address] Dr. Mark Cuellar WBC NONE SEEN Normal NONE SEEN [facility] Comment on above: Performed By: #### E RISA ANDERSON #### [facility] [address] [place], [place] [address] Dr. Mark Cuellar US KIDNEYSon 06-24-2022 US [...] STEPHEN SIDHU Date: 2022-06-24 16:10 Normal [facility] XR KUB 1 VIEWon 06-24-2022 XR KUB 1 VIEW EXAM: XR KUB 1 VIEW HISTORY: The patient is a 26-year-old female. pain COMPARISON: ultrasound from 01/24/2022. IMPRESSION: There is a fetus in vertex position. There is a 7 mm calcification within the inferior pelvis to the left of midline. Electronically authenticated by: FERMIN BUSCH Date: 2022-06-24 17:49 Normal [facility] PAP ACOG PANEL 2: 19 to 27on 05-31-2022 . . Normal [facility] Comment on above: Performed By: #### D DEEPA #### [facility] [address] [address] [address] Mark Cuellar Age Gdln ACOG Testing 21-29 Normal [facility] Comment on above: Performed By: #### D DEEPA #### [facility] [address] [address] [address] Mark Cuellar DIAGNOSIS: Comment Normal [facility] Comment on above: Result Comment: NEGA TIVE FOR INTRAEPITHELIAL LESION OR MALIGNANCY. Performed By: #### D DEEPA #### [facility] [address] [address] [address] Mark Cuellar Methodology: Comment Normal [facility] Comment on above: Result Comment: This liquid based ThinPrep(R) pap test was screened with the use of an image guided system. Performed By: #### D DEEPA #### [facility] [address] [place] [address] Dr. Mark Cuellar Note: Comment Normal [facility] Comment on above: Result Comment: The Pap smear is a screening test designed to aid in the detection of premalignant and malignant conditions of the uterine cervix. It is not a diagnostic procedure and should not be used as the sole means of detecting cervical cancer. Both false-positive and false-negative reports do occur. . Performed By: #### D DEEPA #### [facility] [address] [address] [address] Mark Cuellar Performed by: Comment [facility] Comment on above: Result Comment: [place], [place] (ASCP) Performed By: #### D DEEPA #### [facility] [address] [address] [address] Mark Cuellar Reflex Criteria: Comment Normal [facility] Comment on above: Result Comment: The HPV DNA reflex criteria were not met with this specimen result therefore, no HPV testing was performed. . Performed By: #### D DEEPA #### [facility] [address] [address] [address] Mark Cuellar Specimen adequacy: Comment Normal [facility] Comment on above: Result Comment: Sati sfactory for evaluation. No endocervical component is identified. Performed By: #### D DEEPA #### [facility] [address] [address] [address] Mark Cuellar CHLAMYDIA/GONOCOCCUS LEANDRO (SW AB/URINE/PAPon 05-29-2022 Chlamydia trachomatis, LEANDRO Negative Normal Negative [facility] Comment on above: Performed By: #### Jonna ANDERSON UMICRO #### [facility] [address] [address] [address] Mark Cuellar Neisseria gonorrhoeae, LEANDRO Negative Normal Negative [facility] Comment on above: Performed By: #### Jonna ANDERSON, UMICRO #### [facility] [address] [address] [address] Mark Cuellar VAGINITIS/VAGINOSIS DNA PROB Alfredo 05-27-2022 Karen species Negative Normal Negative [facility] Comment on above: Performed By: #### Jonna ANDERSON UMICRO #### [facility] [address] [place] [address] Dr. Mark Cuellar Gardnerella vaginalis Negative Normal Negative [facility] Comment on above: Performed By: #### Jonna ANDERSON UMICRO #### [facility] [address] [place] [address] Dr. Mark Cuellar Trichomonas vaginalis Negative Normal Negative [facility] Comment on above: Performed By: #### Jonna ANDERSON, UMICRO #### [facility] [address] [place] [address] Dr. Mark Cuellar COVID/FLU RT-PCRon 2 SARS-CoV-2 (COVID-19) RNA LEANDRO+probe Ql (Unsp spec) Negative [employer] Other COVID/FLU RT-PCR Positive [employer] Other COVID/FLU RT-PCR Negative [facility] Other COVID/FLU RT-PCRon 2 SARS-CoV-2 (COVID-19) RNA LEANDRO+probe Ql (Unsp spec) Negative [employer] Other COVID/FLU RT-PCR Negative [facility] Other CBC AUTO DIFFon 03-04-2022 BASO # 0.0 103/ul Normal 0.0-0.1 [facility] Comment on above: Performed By: #### C BC #### [facility] [address] [address] [address] Mark Cuellar Basophils/100 WBC (Bld) 0.2 % Normal 0.2-2.0 [facility] Comment on above: Performed By: #### C BC #### [facility] [address] [address] [address] Mark Cuellar EO # 0.1 103/ul Normal 0.0-0.7 [facility] Comment on above: Performed By: #### C BC #### [facility] [address] [place] [address] Dr. Mrak Cuellar Eosinophils/100 WBC (Bld) 0.6 % Critically low 0.9-7.0 [facility] Comment on above: Performed By: #### C BC #### [facility] [address] [place] [address] Dr. Mark Cuellar Erythrocyte distribution width (RBC) [Ratio] 12.1 % Normal 11.0-15.0 [facility] Comment on above: Performed By: #### C BC #### [facility] [address] [place] [address] Dr. Mark Cuellar Hematocrit (Bld) [Volume fraction] 34.7 % Critically low 36.0-48.0 [facility] Comment on above: Performed By: #### C BC #### [facility] [address] [place] [address] Dr. Mark Cuellar Hemoglobin (Bld) [Mass/Vol] 12.5 g/dL Normal 12.0-16.0 [facility] Comment on above: Performed By: #### C BC #### [facility] [address] [place] [address] Dr. Mark Cuellar IG # 0.08 10e3/ul Critically high 0.00-0.03 [facility] Comment on above: Performed By: #### C BC #### [facility] [address] [place] [address] Dr. Mark Cuellar IG % 0.7 % Critically high 0.0-0.5 [facility] Comment on above: Performed By: #### C BC #### [facility] [address] [place] [address] Dr. Mark Cuellar LYMPH # 2.6 103/ul Normal 1.2-3.8 [facility] Comment on above: Performed By: #### C BC #### [facility] [address] [place] [address] Dr. Mark Cuellar Lymphocytes/100 WBC (Bld) 21.3 % Normal 20.5-60.0 [facility] Comment on above: Performed By: #### C BC #### [facility] [address] [place] [address] Dr. Mark Cuellar MANUAL DIFF REQ NO Normal [facility] Comment on above: Performed By: #### C BC #### [facility] [address] [place] [address] Dr. Mark Cuellar MCH (RBC) [Entitic mass] 30.0 pg Normal 26.7-34.0 [facility] Comment on above: Performed By: #### C BC #### [facility] [address] [place] [address] Dr. Mark Cuellar MCHC (RBC) [Mass/Vol] 36.0 g/dL Critically high 29.9-35.2 [facility] Comment on above: Performed By: #### C BC #### [facility] [address] [place] [address] Dr. Mark Cuellar MCV (RBC) [Entitic vol] 83.4 fL Normal 81.0-99.0 [facility] Comment on above: Performed By: #### C BC #### [facility] [address] [place] [address] Dr. Mark Cuellar MONO # 0.8 103/ul Normal 0.3-0.8 [facility] Comment on above: Performed By: #### C BC #### [facility] [address] [place] [address] Dr. Mark Cuellar Monocytes/100 WBC (Bld) 6.9 % Normal 1.7-12.0 [facility] Comment on above: Performed By: #### C BC #### [facility] [address] [place] [address] Dr. Mark Cuellar NEUT # 8.5 103/ul Critically high 1.4-6.5 [facility] Comment on above: Performed By: #### C BC #### [facility] [address] [place] [address] Dr. Mark Cuellar Neutrophils/100 WBC (Bld) 70.3 % Normal 43.0-75.0 [facility] Comment on above: Performed By: #### C BC #### [facility] [address] [place] [address] Dr. Mark Cuellar Platelet mean volume (Bld) [Entitic vol] 9.5 fL Normal 9.5-13.5 [facility] Comment on above: Performed By: #### C BC #### [facility] [address] [place] [address] Dr. Mark Cuellar PLT 234 103/ul Normal 150-450 [facility] Comment on above: Performed By: #### C BC #### [facility] [address] [place] [address] Dr. Mark Cuellar RBC 4.16 106/ul Critically low 4.20-5.40 [facility] Comment on above: Performed By: #### C BC #### [facility] [address] [place] [address] Dr. Mark Cuellar WBC 12.0 103/ul Critically high 4.0-11.0 [facility] Comment on above: Performed By: #### C BC #### [facility] [address] [place] [address] Dr. Mark Cuellar ER URINE PROFILEon 2 Bilirubin Ql (U) Negative Normal NEGATIVE [facility] Comment on above: Performed By: #### U ACSIND, UMICRO #### [facility] [address] [place] [address] Dr. Mark Cuellar Clarity (U) CLEAR Normal CLEAR [facility] Comment on above: Performed By: #### U ACSIND, UMICRO #### [facility] [address] [address] [address] Mark Cuellar Color (U) LT. YELLOW Normal YELLOW [facility] Comment on above: Performed By: #### U ACSIND, UMICRO #### [facility] [address] [address] [address] Mark Cuellar ERUAHD A micrscopic examina tion will be performed if indicated. Normal [facility] Comment on above: Performed By: #### U ACSIND, UMICRO #### [facility] [address] [address] [address] Mark Cuellar Glucose Ql (U) Negative Normal NEGATIVE [facility] Comment on above: Performed By: #### U ACSIND, UMICRO #### [facility] [address] [address] [address] Mark Cuellar Hemoglobin Ql (U) Negative Normal NEGATIVE [facility] Comment on above: Performed By: #### U ACSIND, UMICRO #### [facility] [address] [address] [address] Mark Cuellar Ketones Ql (U) TRACE Abnormal NEGATIVE [facility] Comment on above: Performed By: #### U ACSIND, UMICRO #### [facility] [address] [address] [address] Mark Cuellar LEUKOCYTES Negative Normal NEGATIVE [facility] Comment on above: Performed By: #### U ACSIND, UMICRO #### [facility] [address] [address] [address] Mark Cuellar Nitrite Ql (U) Negative Normal NEGATIVE [facility] Comment on above: Performed By: #### U ACSIND, UMICRO #### [facility] [address] [address] [address] Mark Cuellar pH (U) 7.0 [pH] Normal 5-9 [facility] Comment on above: Performed By: #### U ACSIND, UMICRO #### [facility] [address] [place] [address] Dr. Mark Cuellar SPEC GRAVITY 1.015 Normal 1.005-<=1. 025 [facility] Comment on above: Performed By: #### U HERNESTO UMICRO #### [facility] [address] [place] [address] Dr. Mark Cuellar UA PROTEIN Negative Normal NEGATIVE/ TRACE [facility] Comment on above: Performed By: #### U HERNESTO UMICRO #### [facility] [address] [place] [address] Dr. Mark Cuellar UR MICRO IND NOT INDICATED Normal [facility] Comment on above: Performed By: #### U HERNESTO UMICRO #### [facility] [address] [place] [address] Dr. Mark Cuellar Urobilinogen Qn (U) 0.2 {Ariana'U}/dL Normal 0.2 - 1. 0 [facility] Comment on above: Performed By: #### U HERNESTO UMICRO #### [facility] [address] [place] [address] Dr. Mark Cuellar PROF 14(COMP METB)on 022 Albumin [Mass/Vol] 3.5 g/dL Normal 3.4-5.0 [facility] Comment on above: Performed By: #### E JUSTIN UMICRO #### [facility] [address] [place] [address] Dr. Mark Cuellar Albumin/Globulin [Mass ratio] 1.1 {ratio} Normal [facility] Comment on above: Performed By: #### E JUSTIN UMICRO #### [facility] [address] [place] [address] Dr. Mark Cuellar ALP [Catalytic activity/Vol] 49 U/L Normal 46-116 [facility] Comment on above: Performed By: #### E JUSTIN UMICRO #### [facility] [address] [place] [address] Dr. Mark Cuellar ALT [Catalytic activity/Vol] 18 U/L Normal 14-59 [facility] Comment on above: Performed By: #### Jonna ANDERSON UMICRO #### [facility] [address] [address] [address] Mark Cuellar Anion gap [Moles/Vol] 10.7 mmol/L Normal [facility] Comment on above: Performed By: #### Jonna ANDERSON UMICRO #### [facility] [address] [place] [address] Dr. Mark Cuellar AST [Catalytic activity/Vol] 12 U/L Critically low 15-37 [facility] Comment on above: Performed By: #### Jonna ANDERSON UMICRO #### [facility] [address] [place] [address] Dr. Mark Cuellar Bilirubin [Mass/Vol] 0.9 mg/dL Normal 0.2-1.0 [facility] Comment on above: Performed By: #### Jonna ANDERSON UMICRO #### [facility] [address] [place] [address] Dr. Mark Cuellar Calcium [Mass/Vol] 9.8 mg/dL Normal 8.5-10.1 [facility] Comment on above: Performed By: #### Jonna ANDERSON UMICRO #### [facility] [address] [place] [address] Dr. Mark Cuellar Chloride [Moles/Vol] 102 mmol/L Normal 98-107 [facility] Comment on above: Performed By: #### Jonna ANDERSON UMICRO #### [facility] [address] [place] [address] Dr. Mark Cuellar CO2 [Moles/Vol] 24.8 mmol/L Normal 21.0-32.0 [facility] Comment on above: Performed By: #### Jonna ANDERSON UMICRO #### [facility] [address] [place] [address] Dr. Mark Cuellar Creatinine [Mass/Vol] 0.62 mg/dL Normal 0.55-1.02 [facility] Comment on above: Performed By: #### Jonna ANDERSON UMICRO #### [facility] [address] [place] [address] Dr. Mark Cuellar EGFR-AF BELARUSIAN >60 Normal >=60 [facility] Comment on above: Performed By: #### RISA ZELAYA #### [facility] [address] [place] [address] Dr. Mark Cuellar EGFR-NON AF BELARUSIAN >60 Normal >=60 [facility] Comment on above: Performed By: #### RISA ZELAYA #### [facility] [address] [place] [address] Dr. Mark Cuellar Globulin (S) [Mass/Vol] 3.2 g/dL Normal [facility] Comment on above: Performed By: #### RISA ZELAYA #### [facility] [address] [place] [address] Dr. Mark Cuellar Glucose [Mass/Vol] 88 mg/dL Normal 74-106 [facility] Comment on above: Performed By: #### RISA ZELAYA #### [facility] [address] [place] [address] Dr. Mark Cuellar Potassium [Moles/Vol] 3.5 mmol/L Normal 3.5-5.1 [facility] Comment on above: Performed By: #### RISA ZELAYA #### [facility] [address] [place] [address] Dr. Mark Cuellar Protein [Mass/Vol] 6.7 g/dL Normal 6.4-8.2 [facility] Comment on above: Performed By: #### RISA ZELAYA #### [facility] [address] [place] [address] Dr. Mark Cuellar Sodium [Moles/Vol] 134 mmol/L Critically low 136-145 [facility] Comment on above: Performed By: #### RISA ZELAYA #### [facility] [address] [place] [address] Dr. Mark Cuellar Urea nitrogen [Mass/Vol] 13.0 mg/dL Normal 7.0-18.0 [facility] Comment on above: Performed By: #### RISA ZELAYA #### [facility] [address] [address] [address] Mark Cuellar Urea nitrogen/Creatinine [Mass ratio] 21.0 mg/mg Normal [facility] Comment on above: Performed By: #### E RUR, UMICRO #### [facility] [address] [address] [address] Mark Cuellar HEP B SURFACE ANTIGEN SCREEN on 02-28-2022 HBsAg Screen Negative Normal Negative [facility] Comment on above: Performed By: #### U ACSKYAW, UMICRO #### [facility] [address] [address] [address] Mark Cuellar HEPATITIS C VIRUS AB W/ REFL EX QUANTon 02-28-2022 HCV AB <0.1 Normal 0.0-0.9 [facility] Comment on above: Performed By: #### U ACSKYAW, UMICRO #### [facility] [address] [address] [address] Mark Cuellar Interpretation: Comment Normal [facility] Comment on above: Result Comment: Nega tive Not infected with HCV, unless recent infection is suspected or other evidence exists to indicate HCV infection. Performed By: #### U ACSKYAW, UMICRO #### [facility] [address] [address] [address] Mark Cuellar HIV 1 AND 2 WITH REFLEXon HIV Screen 4th Generation wRfx Non-Reactive Normal Non Reactive [facility] Comment on above: Result Comment: HIV Negative HIV-1/HIV-2 antibodies and HIV-1 p24 antigen were NOT detected. There is no laboratory evidence of HIV infection. Performed By: #### H IV12 #### [facility] [address] [place] [address] Dr. Mark Cuellar RPR QUANTon 02-28-2022 Rapid Plasma Reagin, Quant Non-Reactive Normal NonRea<1:1 [facility] Comment on above: Result Comment: Plea se Note: This test does not meet current guidelines for screening and diagnosis of syphilis. This test is intended for following treatment response in patients being treated for syphilis infection. To screen for syphilis infection, a reflex cascade that includes both RPR and a treponema-specific assay should be utilized, such as Treponema pallidum (Syphilis) Screening [place] (887585) or Rapid Plasma Reagin (RPR) Test With Reflex to Quantitative RPR and Confirmatory Treponema pallidum Antibodies (370352). Performed By: #### D DEEPA #### [facility] [address] [place] [address] Dr. Mark Cuellar RUBELLA AB IGGon 02-28-2022 Rubella Antibodies, IgG 3.31 index Normal Immu ne >0.99 [facility] Comment on above: Result Comment: Non- immune <0.90 Equivocal 0.90 - 0.99 Immune >0.99 Performed By: #### U RISA ERIC #### [facility] [address] [place] [address] Dr. Mark Cuellar CBC AUTO DIFFon 02-27-2022 BASO # 0.0 103/ul Normal 0.0-0.1 [facility] Comment on above: Performed By: #### U VIGNESH ERICRO #### [facility] [address] [place] [address] Dr. Mark Cuellar Basophils/100 WBC (Bld) 0.2 % Normal 0.2-2.0 [facility] Comment on above: Performed By: #### U HERNESTO SALLYRO #### [facility] [address] [place] [address] Dr. Mark Cuellar EO # 0.1 103/ul Normal 0.0-0.7 [facility] Comment on above: Performed By: #### Tarik ERIC SALLYRO #### [facility] [address] [place] [address] Dr. Mark Cuellar Eosinophils/100 WBC (Bld) 0.7 % Critically low 0.9-7.0 [facility] Comment on above: Performed By: #### U VIGNESH ERICRO #### [facility] [address] [place] [address] Dr. Mark Cuellar Erythrocyte distribution width (RBC) [Ratio] 11.9 % Normal 11.0-15.0 [facility] Comment on above: Performed By: #### U ACSIND, UMICRO #### [facility] [address] [place] [address] Dr. Mark Cuellar Hematocrit (Bld) [Volume fraction] 36.0 % Normal 36.0-48.0 [facility] Comment on above: Performed By: #### U ACSIND, UMICRO #### [facility] [address] [place] [address] Dr. Mark Cuellar Hemoglobin (Bld) [Mass/Vol] 13.0 g/dL Normal 12.0-16.0 [facility] Comment on above: Performed By: #### U ACSKYAW, UMICRO #### [facility] [address] [place] [address] Dr. Mark Cuellar IG # 0.04 10e3/ul Critically high 0.00-0.03 [facility] Comment on above: Performed By: #### U ACSKYAW UMICRO #### [facility] [address] [place] [address] Dr. Mark Cuellar IG % 0.5 % Normal 0.0-0.5 [facility] Comment on above: Performed By: #### U ACSKYAW UMICRO #### [facility] [address] [place] [address] Dr. Mark Cuellar LYMPH # 1.6 103/ul Normal 1.2-3.8 [facility] Comment on above: Performed By: #### U ACSKYAW UMICRO #### [facility] [address] [place] [address] Dr. Mark Cuellar Lymphocytes/100 WBC (Bld) 17.6 % Critically low 20.5-60.0 [facility] Comment on above: Performed By: #### U ACSKYAW UMICRO #### [facility] [address] [place] [address] Dr. Mark Cuellar MANUAL DIFF REQ NO Normal [facility] Comment on above: Performed By: #### U ACSIND, UMICRO #### [facility] [address] [place] [address] Dr. Mark Cuellar MCH (RBC) [Entitic mass] 30.7 pg Normal 26.7-34.0 [facility] Comment on above: Performed By: #### U HERNESTO UMICRO #### [facility] [address] [address] [address] Mark Cuellar MCHC (RBC) [Mass/Vol] 36.1 g/dL Critically high 29.9-35.2 [facility] Comment on above: Performed By: #### U ACSKYAW UMICRO #### [facility] [address] [address] [address] Mark Cuellar MCV (RBC) [Entitic vol] 84.9 fL Normal 81.0-99.0 [facility] Comment on above: Performed By: #### U ACSKYAW UMICRO #### [facility] [address] [place] [address] Dr. Mark Cuellar MONO # 0.6 103/ul Normal 0.3-0.8 [facility] Comment on above: Performed By: #### U ACSKYAW UMICRO #### [facility] [address] [place] [address] Dr. Mark Cuellar Monocytes/100 WBC (Bld) 6.3 % Normal 1.7-12.0 [facility] Comment on above: Performed By: #### U ACSKYAW, UMICRO #### [facility] [address] [place] [address] Dr. Mark Cuellar NEUT # 6.6 103/ul Critically high 1.4-6.5 [facility] Comment on above: Performed By: #### U ACSKYAW, UMICRO #### [facility] [address] [place] [address] Dr. Mark Cuellar Neutrophils/100 WBC (Bld) 74.7 % Normal 43.0-75.0 [facility] Comment on above: Performed By: #### U ACSKYAW, UMICRO #### [facility] [address] [address] [address] Mark Cuellar Platelet mean volume (Bld) [Entitic vol] 9.1 fL Critically low 9.5-13.5 [facility] Comment on above: Performed By: #### U ACSKYAW UMICRO #### [facility] [address] [address] [address] Mark Cuellar PLT 214 103/ul Normal 150-450 [facility] Comment on above: Performed By: #### U ACSKYAW UMICRO #### [facility] [address] [address] [address] Mark Cuellar RBC 4.24 106/ul Normal 4.20-5.40 [facility] Comment on above: Performed By: #### U ACSKYAW UMICRO #### [facility] [address] [place] [address] Dr. Mark Cuellar WBC 8.8 103/ul Normal 4.0-11.0 [facility] Comment on above: Performed By: #### U HERNESTO UMICRO #### [facility] [address] [place] [address] Dr. Mark Cuellar CULTURE URINEon 02-27-2022 CULTURE URINE Culture Observations : LIGHT GROWTH OF MIXED GENITAL VALENTÍN. NO POTENTIAL PATHOGENS SEEN. Normal [facility] Comment on above: Performed By: #### U RCX #### [facility] [address] [place] [address] Dr. Mark Cuellar GLYCOHEMOGLOBIN A1Con 2021 ADA RECOMMENDATION SEE BELOW Normal [facility] Comment on above: Result Comment: ADA RECOMMENDED LIMIT 4.0 - 6.0 ADA THERAPEUTIC TARGET < 7.0 ACTION SUGGESTED > 7.0 Performed By: #### VIGNESH ZELAYARO #### [facility] [address] [place] [address] Dr. Mark Cuellar Glucose [Mass/Vol] 74 mg/dL Normal [facility] Comment on above: Performed By: #### VIGNESH ZELAYARO #### [facility] [address] [place] [address] Dr. Mark Cuellar HbA1c (Bld) [Mass fraction] 4.2 % Critically low 4.5-6.2 [facility] Comment on above: Performed By: #### VIGNESH ZELAYARO #### [facility] [address] [place] [address] Dr. Mark Cuellar JOE BOX TEST PT SEND OUTo n 02-27-2022 SENT TO REF LAB 02/27/2022 Normal [facility] Comment on above: Performed By: #### E VIGNESH ANDERSONRO #### [facility] [address] [place] [address] Dr. Mark Cuellar TYPE AND SCREENon 02-27-2022 TYPE AND SCREEN Negative Normal [facility] Comment on above: Performed By: #### E RUSolomon UMICRO #### [facility] [address] [place] [address] Dr. Mark Cuellar AMYLASEon 02-13-2022 Amylase [Catalytic activity/Vol] 45 U/L Normal 25-115 [facility] Comment on above: Performed By: #### U HERNESTO UMICRO #### [facility] [address] [place] [address] Dr. Mark Cuellar BILIRUBIN CONJUGATED (DIRECT )on 02-13-2022 BILI, CONJUGATED 0.2 mg/dL Normal 0.0-0.2 [facility] Comment on above: Performed By: #### D DEEPA #### [facility] [address] [place] [address] Dr. Mark Cuellar CALCIUMon 02-13-2022 Calcium [Mass/Vol] 9.3 mg/dL Normal 8.5-10.1 [facility] Comment on above: Performed By: #### U ACSTHOMAS CARDICRO #### [facility] [address] [place] [address] Dr. Mark Cuellar CBC AUTO DIFFon 02-13-2022 BASO # 0.0 103/ul Normal 0.0-0.1 [facility] Comment on above: Performed By: #### E RUVIGNESH CarbajalRO #### [facility] [address] [place] [address] Dr. Mark Cuellar Basophils/100 WBC (Bld) 0.2 % Normal 0.2-2.0 [facility] Comment on above: Performed By: #### E RUVIGNESH CarbajalRO #### [facility] [address] [place] [address] Dr. Mark Cuellar EO # 0.1 103/ul Normal 0.0-0.7 [facility] Comment on above: Performed By: #### Jonna ANDERSON UMICRO #### [facility] [address] [place] [address] Dr. Mark Cuellar Eosinophils/100 WBC (Bld) 1.0 % Normal 0.9-7.0 [facility] Comment on above: Performed By: #### Jonna ANDERSON UMICRO #### [facility] [address] [place] [address] Dr. Mark Cuellar Erythrocyte distribution width (RBC) [Ratio] 11.9 % Normal 11.0-15.0 [facility] Comment on above: Performed By: #### Jonna ANDERSON UMICRO #### [facility] [address] [place] [address] Dr. Mark Cuellar Hematocrit (Bld) [Volume fraction] 37.6 % Normal 36.0-48.0 [facility] Comment on above: Performed By: #### Jonna ANDERSON UMICRO #### [facility] [address] [place] [address] Dr. aMrk Cuellar Hemoglobin (Bld) [Mass/Vol] 13.5 g/dL Normal 12.0-16.0 [facility] Comment on above: Performed By: #### Jonna ANDERSON UMICRO #### [facility] [address] [place] [address] Dr. Mark Cuellar IG # 0.04 10e3/ul Critically high 0.00-0.03 [facility] Comment on above: Performed By: #### Jonna ANDERSON UMICRO #### [facility] [address] [place] [address] Dr. Mark Cuellar IG % 0.4 % Normal 0.0-0.5 [facility] Comment on above: Performed By: #### Jonna ANDERSON UMICRO #### [facility] [address] [place] [address] Dr. Mark Cuellar LYMPH # 2.2 103/ul Normal 1.2-3.8 [facility] Comment on above: Performed By: #### RISA ZELAYA #### [facility] [address] [place] [address] Dr. Mark Cuellar Lymphocytes/100 WBC (Bld) 19.7 % Critically low 20.5-60.0 [facility] Comment on above: Performed By: #### VIGNESH ZELAYARO #### [facility] [address] [place] [address] Dr. Mark Cuellar MANUAL DIFF REQ NO Normal [facility] Comment on above: Performed By: #### VIGNESH ZELAYARO #### [facility] [address] [place] [address] Dr. Mark Cuellar MCH (RBC) [Entitic mass] 30.8 pg Normal 26.7-34.0 [facility] Comment on above: Performed By: #### VIGNESH ZELAYARO #### [facility] [address] [place] [address] Dr. Mark Cuellar MCHC (RBC) [Mass/Vol] 35.9 g/dL Critically high 29.9-35.2 [facility] Comment on above: Performed By: #### VIGNESH ZELAYARO #### [facility] [address] [place] [address] Dr. Mark Cuellar MCV (RBC) [Entitic vol] 85.6 fL Normal 81.0-99.0 [facility] Comment on above: Performed By: #### VIGNESH ZELAYARO #### [facility] [address] [place] [address] Dr. Mark Cuellar MONO # 0.8 103/ul Normal 0.3-0.8 [facility] Comment on above: Performed By: #### VIGNESH ZELAYARO #### [facility] [address] [place] [address] Dr. Mark Cuellar Monocytes/100 WBC (Bld) 7.6 % Normal 1.7-12.0 [facility] Comment on above: Performed By: #### VIGNESH ZELAYARO #### [facility] [address] [address] [address] Mark Cuellar NEUT # 7.9 103/ul Critically high 1.4-6.5 [facility] Comment on above: Performed By: #### Jonna ANDERSON UMICRO #### [facility] [address] [place] [address] Dr. Mark Cuellar Neutrophils/100 WBC (Bld) 71.1 % Normal 43.0-75.0 [facility] Comment on above: Performed By: #### Jonna ANDERSON UMICRO #### [facility] [address] [place] [address] Dr. Mark Cuellar Platelet mean volume (Bld) [Entitic vol] 9.2 fL Critically low 9.5-13.5 [facility] Comment on above: Performed By: #### Jonna ANDERSON UMICRO #### [facility] [address] [place] [address] Dr. Mark Cuellar PLT 218 103/ul Normal 150-450 [facility] Comment on above: Performed By: #### Jonna ANDERSON UMICRO #### [facility] [address] [place] [address] Dr. Mark Cuellar RBC 4.39 106/ul Normal 4.20-5.40 [facility] Comment on above: Performed By: #### Jonna ANDERSON UMICRO #### [facility] [address] [place] [address] Dr. Mark Cuellar WBC 11.0 103/ul Normal 4.0-11.0 [facility] Comment on above: Performed By: #### Jonna ANDERSON UMICRO #### [facility] [address] [place] [address] Dr. Mark Cuellar FREE T4on 02-13-2022 Free T4 [Mass/Vol] 1.36 ng/dL Normal 0.76-1.46 [facility] Comment on above: Performed By: #### Jonna ANDERSON UMICRO #### [facility] [address] [place] [address] Dr. Mark Cuellar LIPASEon 02-13-2022 Lipase [Catalytic activity/Vol] 91.0 U/L Normal 73.0-393.0 [facility] Comment on above: Performed By: #### U ACSKYAW UMICRO #### [facility] [address] [address] [address] Mark Cuellar MAGNESIUMon 02-13-2022 Magnesium [Mass/Vol] 1.9 mg/dL Normal 1.8-2.4 [facility] Comment on above: Performed By: #### U ACSKYAW, UMICRO #### [facility] [address] [address] [address] Mark Cuellar PROF 14(COMP METB)on 022 Albumin [Mass/Vol] 3.7 g/dL Normal 3.4-5.0 [facility] Comment on above: Performed By: #### U ACSKYAW, UMICRO #### [facility] [address] [place] [address] Dr. Mark Cuellar Albumin/Globulin [Mass ratio] 1.2 {ratio} Normal [facility] Comment on above: Performed By: #### U ACSKYAW, UMICRO #### [facility] [address] [address] [address] Mark Cuellar ALP [Catalytic activity/Vol] 45 U/L Critically low 46-116 [facility] Comment on above: Performed By: #### U ACSKYAW, UMICRO #### [facility] [address] [address] [address] Mark Cuellar ALT [Catalytic activity/Vol] 18 U/L Normal 14-59 [facility] Comment on above: Performed By: #### U ACSKYAW, UMICRO #### [facility] [address] [address] [address] Mark Cuellar Anion gap [Moles/Vol] 10.7 mmol/L Normal [facility] Comment on above: Performed By: #### U ACSKYAW, UMICRO #### [facility] [address] [address] [address] Mark Cuellar AST [Catalytic activity/Vol] 11 U/L Critically low 15-37 [facility] Comment on above: Performed By: #### U ACSKYAW UMICRO #### [facility] [address] [address] [address] Mark Cuellar Bilirubin [Mass/Vol] 1.2 mg/dL Critically high 0.2-1.0 [facility] Comment on above: Performed By: #### U ACSKYAW UMICRO #### [facility] [address] [address] [address] Mark Cuellar Chloride [Moles/Vol] 102 mmol/L Normal 98-107 [facility] Comment on above: Performed By: #### U ACSKYAW UMICRO #### [facility] [address] [place] [address] Dr. Mark Cuellar CO2 [Moles/Vol] 26.0 mmol/L Normal 21.0-32.0 [facility] Comment on above: Performed By: #### U ACSKYAW UMICRO #### [facility] [address] [place] [address] Dr. Mark Cuellar Creatinine [Mass/Vol] 0.67 mg/dL Normal 0.55-1.02 [facility] Comment on above: Performed By: #### U ACSKYAW UMICRO #### [facility] [address] [place] [address] Dr. Mark Cuellar EGFR-AF BELARUSIAN >60 Normal >=60 [facility] Comment on above: Performed By: #### U ACSKYAW UMICRO #### [facility] [address] [place] [address] Dr. Mark Cuellar EGFR-NON AF BELARUSIAN >60 Normal >=60 [facility] Comment on above: Performed By: #### U ACSKYAW UMICRO #### [facility] [address] [place] [address] Dr. Mark Cuellar Globulin (S) [Mass/Vol] 3.2 g/dL Normal [facility] Comment on above: Performed By: #### U ACSKYAW UMICRO #### [facility] [address] [place] [address] Dr. Mark Cuellar Glucose [Mass/Vol] 88 mg/dL Normal 74-106 [facility] Comment on above: Performed By: #### U THOMAS ERICICRO #### [facility] [address] [address] [address] Mark Cuellar Potassium [Moles/Vol] 3.7 mmol/L Normal 3.5-5.1 [facility] Comment on above: Performed By: #### Tarik ERIC UMICRO #### [facility] [address] [address] [address] Mark Cuellar Protein [Mass/Vol] 6.9 g/dL Normal 6.4-8.2 [facility] Comment on above: Performed By: #### Tarik ERIC UMICRO #### [facility] [address] [place] [address] Dr. Mark Cuellar Sodium [Moles/Vol] 135 mmol/L Critically low 136-145 [facility] Comment on above: Performed By: #### Tarik ERIC UMICRO #### [facility] [address] [place] [address] Dr. Mark Cuellar Urea nitrogen [Mass/Vol] 13.0 mg/dL Normal 7.0-18.0 [facility] [facility] Comment on above: Performed By: #### Tarik ERIC UMICRO #### [facility] [address] [place] [address] Dr. Mark Cuellar Urea nitrogen/Creatinine [Mass ratio] 19.4 mg/mg Normal [facility] Comment on above: Performed By: #### U HERNESTO UMICRO #### [facility] [address] [place] [address] Dr. Mark Cuellar TSHon 02-13-2022 TSH 0.326 uIU/mL Critically low 0.358-3.74 0 [facility] Comment on above: Performed By: #### U HERNESTO UMICRO #### [facility] [address] [place] [address] Dr. Mark Cuellar CBC AUTO DIFFon 02-06-2022 BASO # 0.0 103/ul Normal 0.0-0.1 [facility] Comment on above: Performed By: #### U THOMAS ERICICRO #### [facility] [address] [place] [address] Dr. Mark Cuellar Basophils/100 WBC (Bld) 0.2 % Normal 0.2-2.0 [facility] Comment on above: Performed By: #### THOMAS CASTILLOICRO #### [facility] [address] [place] [address] Dr. Mark Cuellar EO # 0.1 103/ul Normal 0.0-0.7 [facility] Comment on above: Performed By: #### THOMAS CASTILLOICRO #### [facility] [address] [place] [address] Dr. Mark Cuellar Eosinophils/100 WBC (Bld) 0.8 % Critically low 0.9-7.0 [facility] Comment on above: Performed By: #### VIGNESH CASTILLORO #### [facility] [address] [place] [address] Dr. Mark Cuellar Erythrocyte distribution width (RBC) [Ratio] 12.0 % Normal 11.0-15.0 [facility] Comment on above: Performed By: #### VIGNESH CASTILLORO #### [facility] [address] [place] [address] Dr. Mark Cuellar Hematocrit (Bld) [Volume fraction] 37.0 % Normal 36.0-48.0 [facility] Comment on above: Performed By: #### VIGNESH CASTILLORO #### [facility] [address] [place] [address] Dr. Mark Cuellar Hemoglobin (Bld) [Mass/Vol] 13.0 g/dL Normal 12.0-16.0 [facility] Comment on above: Performed By: #### VIGNESH CASTILLORO #### [facility] [address] [place] [address] Dr. Mark Cuellar IG # 0.07 10e3/ul Critically high 0.00-0.03 [facility] Comment on above: Performed By: #### U ACSIND, UMICRO #### [facility] [address] [address] [address] Mark Cuellar IG % 0.6 % Critically high 0.0-0.5 [facility] Comment on above: Performed By: #### U ACSIND, UMICRO #### [facility] [address] [address] [address] Mark Cuellar LYMPH # 2.5 103/ul Normal 1.2-3.8 [facility] Comment on above: Performed By: #### U ACSIND, UMICRO #### [facility] [address] [address] [address] Mark Cuellar Lymphocytes/100 WBC (Bld) 22.5 % Normal 20.5-60.0 [facility] Comment on above: Performed By: #### U ACSIND, UMICRO #### [facility] [address] [place] [address] Dr. Mark Cuellar MANUAL DIFF REQ NO Normal [facility] Comment on above: Performed By: #### U ACSIND, ICRO #### [facility] [address] [place] [address] Dr. Mark Cuellar MCH (RBC) [Entitic mass] 30.5 pg Normal 26.7-34.0 [facility] Comment on above: Performed By: #### U ACSKYAW, ICRO #### [facility] [address] [place] [address] Dr. Mark Cuellar MCHC (RBC) [Mass/Vol] 35.1 g/dL Normal 29.9-35.2 [facility] Comment on above: Performed By: #### U ACSIND, UMICRO #### [facility] [address] [address] [address] Mark Cuellar MCV (RBC) [Entitic vol] 86.9 fL Normal 81.0-99.0 [facility] Comment on above: Performed By: #### U ACSIND, UMICRO #### [facility] [address] [address] [address] Mark Cuellar MONO # 0.7 103/ul Normal 0.3-0.8 [facility] Comment on above: Performed By: #### U THOMAS ERICICRO #### [facility] [address] [address] [address] Mark Cuellar Monocytes/100 WBC (Bld) 6.2 % Normal 1.7-12.0 [facility] Comment on above: Performed By: #### THOMAS CASTILLOICRO #### [facility] [address] [place] [address] Dr. Mark Cuellar NEUT # 7.7 103/ul Critically high 1.4-6.5 [facility] Comment on above: Performed By: #### THOMAS CASTILLOICRO #### [facility] [address] [place] [address] Dr. Mark Cuellar Neutrophils/100 WBC (Bld) 69.7 % Normal 43.0-75.0 [facility] Comment on above: Performed By: #### THOMAS CASTILLOICRO #### [facility] [address] [place] [address] Dr. Mark Cuellar Platelet mean volume (Bld) [Entitic vol] 9.3 fL Critically low 9.5-13.5 [facility] Comment on above: Performed By: #### THOMAS CASTILLOICRO #### [facility] [address] [place] [address] Dr. Mark Cuellar PLT 225 103/ul Normal 150-450 [facility] Comment on above: Performed By: #### THOMAS CASTILLOICRO #### [facility] [address] [place] [address] Dr. Mark Cuellar RBC 4.26 106/ul Normal 4.20-5.40 [facility] Comment on above: Performed By: #### U THOMAS ERICICRO #### [facility] [address] [place] [address] Dr. Mark Cuellar WBC 11.1 103/ul Critically high 4.0-11.0 [facility] Comment on above: Performed By: #### THOMAS CASTILLOICRO #### [facility] [address] [address] [address] Mark Cuellar PROF 14(COMP METB)on 022 Albumin [Mass/Vol] 3.5 g/dL Normal 3.4-5.0 [facility] Comment on above: Performed By: #### Jonna ANDERSON, UMICRO #### [facility] [address] [address] [address] Mark Cuellar Albumin/Globulin [Mass ratio] 1.1 {ratio} Normal [facility] Comment on above: Performed By: #### Jonna ANDERSON, UMICRO #### [facility] [address] [address] [address] Mark Cuellar ALP [Catalytic activity/Vol] 50 U/L Normal 46-116 [facility] Comment on above: Performed By: #### Jonna ANDERSON, UMICRO #### [facility] [address] [place] [address] Dr. Mark Cuellar ALT [Catalytic activity/Vol] 20 U/L Normal 14-59 [facility] Comment on above: Performed By: #### Jonna ANDERSON, UMICRO #### [facility] [address] [address] [address] Mark Cuellar Anion gap [Moles/Vol] 8.2 mmol/L Normal [facility] Comment on above: Performed By: #### Jonna ANDERSON, UMICRO #### [facility] [address] [place] [address] Dr. Mark Cuellar AST [Catalytic activity/Vol] 12 U/L Critically low 15-37 [facility] Comment on above: Performed By: #### Jonna ANDERSON, UMICRO #### [facility] [address] [address] [address] Mark Cuellar Bilirubin [Mass/Vol] 1.1 mg/dL Critically high 0.2-1.0 [facility] Comment on above: Performed By: #### Jonna ANDERSON, UMICRO #### [facility] [address] [address] [address] Mark Cuellar Calcium [Mass/Vol] 9.1 mg/dL Normal 8.5-10.1 [facility] Comment on above: Performed By: #### VIGNESH ZELAYARO #### [facility] [address] [address] [address] Mark Cuellar Chloride [Moles/Vol] 104 mmol/L Normal 98-107 [facility] Comment on above: Performed By: #### Jonna ANDERSON UMICRO #### [facility] [address] [place] [address] Dr. Mark Cuellar CO2 [Moles/Vol] 26.1 mmol/L Normal 21.0-32.0 [facility] Comment on above: Performed By: #### Jonna ANDERSON UMSALLYRO #### [facility] [address] [place] [address] Dr. Mark Cuellar Creatinine [Mass/Vol] 0.74 mg/dL Normal 0.55-1.02 [facility] Comment on above: Performed By: #### Jonna ANDERSON UMSALLYRO #### [facility] [address] [place] [address] Dr. Mark Cuellar EGFR-AF BELARUSIAN >60 Normal >=60 [facility] Comment on above: Performed By: #### VIGNESH ZELAYARO #### [facility] [address] [place] [address] Dr. Mark Cuellar EGFR-NON AF BELARUSIAN >60 Normal >=60 [facility] Comment on above: Performed By: #### VIGNESH ZELAYARO #### [facility] [address] [place] [address] Dr. Mark Cuellar Globulin (S) [Mass/Vol] 3.1 g/dL Normal [facility] Comment on above: Performed By: #### Jonna ANDERSON UMICRO #### [facility] [address] [place] [address] Dr. Mark Cuellar Glucose [Mass/Vol] 93 mg/dL Normal 74-106 [facility] Comment on above: Performed By: #### Jonna ANDERSON UMICRO #### [facility] [address] [place] [address] Dr. Mark Cuellar Potassium [Moles/Vol] 3.3 mmol/L Critically low 3.5-5.1 [facility] Comment on above: Performed By: #### RISA ZELAYA #### [facility] [address] [place] [address] Dr. Mark Cuellar Protein [Mass/Vol] 6.6 g/dL Normal 6.4-8.2 [facility] Comment on above: Performed By: #### RISA ZELAYA #### [facility] [address] [place] [address] Dr. Mark Cuellar Sodium [Moles/Vol] 135 mmol/L Critically low 136-145 [facility] Comment on above: Performed By: #### RISA ZELAYA #### [facility] [address] [place] [address] Dr. Mark Cuellar Urea nitrogen [Mass/Vol] 10.0 mg/dL Normal 7.0-18.0 [facility] Comment on above: Performed By: #### RISA ZELAYA #### [facility] [address] [place] [address] Dr. Mark Cuellar Urea nitrogen/Creatinine [Mass ratio] 13.5 mg/mg Normal [facility] Comment on above: Performed By: #### RISA ZELAYA #### [facility] [address] [place] [address] Dr. Mark Cuellar AMYLASEon 01-27-2022 Amylase [Catalytic activity/Vol] 40 U/L Normal 25-115 [facility] Comment on above: Performed By: #### C BC #### [facility] [address] [place] [address] Dr. Mark Cuellar CBC AUTO DIFFon 01-27-2022 BASO # 0.0 103/ul Normal 0.0-0.1 [facility] Comment on above: Performed By: #### VIGNESH ZELAYARO #### [facility] [address] [place] [address] Dr. Mark Cuellar Basophils/100 WBC (Bld) 0.3 % Normal 0.2-2.0 [facility] Comment on above: Performed By: #### RISA ZELAYA #### [facility] [address] [place] [address] Dr. Mark Cuellar EO # 0.0 103/ul Normal 0.0-0.7 [facility] Comment on above: Performed By: #### RISA ZELAYA #### [facility] [address] [place] [address] Dr. Mark Cuellar Eosinophils/100 WBC (Bld) 0.3 % Critically low 0.9-7.0 [facility] Comment on above: Performed By: #### RISA ZELAYA #### [facility] [address] [place] [address] Dr. Mark Cuellar Erythrocyte distribution width (RBC) [Ratio] 11.8 % Normal 11.0-15.0 [facility] Comment on above: Performed By: #### RISA ZELAYA #### [facility] [address] [place] [address] Dr. Mark Cuellar Hematocrit (Bld) [Volume fraction] 36.9 % Normal 36.0-48.0 [facility] Comment on above: Performed By: #### RISA ZELAYA #### [facility] [address] [place] [address] Dr. Mark Cuellar Hemoglobin (Bld) [Mass/Vol] 13.2 g/dL Normal 12.0-16.0 [facility] Comment on above: Performed By: #### RISA ZELAYA #### [facility] [address] [place] [address] Dr. Mark Cuellar IG # 0.06 10e3/ul Critically high 0.00-0.03 [facility] Comment on above: Performed By: #### RISA ZELAYA #### [facility] [address] [place] [address] Dr. Mark Cuellar IG % 0.5 % Normal 0.0-0.5 [facility] Comment on above: Performed By: #### RISA ZELAYA #### [facility] [address] [place] [address] Dr. Mark Cuellar LYMPH # 2.4 103/ul Normal 1.2-3.8 [facility] Comment on above: Performed By: #### VIGNESH ZELAYARO #### [facility] [address] [place] [address] Dr. Mark Cuellar Lymphocytes/100 WBC (Bld) 18.8 % Critically low 20.5-60.0 [facility] Comment on above: Performed By: #### VIGNESH ZELAYARO #### [facility] [address] [place] [address] Dr. Mark Cuellar MANUAL DIFF REQ NO Normal [facility] Comment on above: Performed By: #### THOMAS ZELAYAICRO #### [facility] [address] [place] [address] Dr. Mark Cuellar MCH (RBC) [Entitic mass] 30.6 pg Normal 26.7-34.0 [facility] Comment on above: Performed By: #### THOMAS ZELAYAICRO #### [facility] [address] [place] [address] Dr. Mark Cuellar MCHC (RBC) [Mass/Vol] 35.8 g/dL Critically high 29.9-35.2 [facility] Comment on above: Performed By: #### Jonna ANDERSON UMICRO #### [facility] [address] [place] [address] Dr. Mark Cuellar MCV (RBC) [Entitic vol] 85.6 fL Normal 81.0-99.0 [facility] Comment on above: Performed By: #### THOMAS ZELAYAICRO #### [facility] [address] [place] [address] Dr. Mark Cuellar MONO # 0.9 103/ul Critically high 0.3-0.8 [facility] Comment on above: Performed By: #### Jonna ANDERSON UMICRO #### [facility] [address] [place] [address] Dr. Mark Cuellar Monocytes/100 WBC (Bld) 7.3 % Normal 1.7-12.0 [facility] Comment on above: Performed By: #### VIGNESH ZELAYARO #### [facility] [address] [address] [address] Mark Cuellar NEUT # 9.3 103/ul Critically high 1.4-6.5 [facility] Comment on above: Performed By: #### THOMAS ZELAYAICRO #### [facility] [address] [place] [address] Dr. Mark Cuellar Neutrophils/100 WBC (Bld) 72.8 % Normal 43.0-75.0 [facility] Comment on above: Performed By: #### VIGNESH ZELAYARO #### [facility] [address] [place] [address] Dr. Mark Cuellar Platelet mean volume (Bld) [Entitic vol] 9.3 fL Critically low 9.5-13.5 [facility] Comment on above: Performed By: #### VIGNESH ZELAYARO #### [facility] [address] [place] [address] Dr. Mark Cuellar PLT 239 103/ul Normal 150-450 [facility] Comment on above: Performed By: #### VIGNESH ZELAYARO #### [facility] [address] [place] [address] Dr. Mark Cuellar RBC 4.31 106/ul Normal 4.20-5.40 [facility] Comment on above: Performed By: #### VIGNESH ZELAYARO #### [facility] [address] [place] [address] Dr. Mark Cuellar WBC 12.8 103/ul Critically high 4.0-11.0 [facility] Comment on above: Performed By: #### VIGNESH ZELAYARO #### [facility] [address] [place] [address] Dr. Mark Cuellar CULTURE URINEon 01-27-2022 CULTURE URINE Culture Observations : NO GROWTH. Normal [facility] Comment on above: Performed By: #### VIGNESH ZELAYARO #### [facility] [address] [place] [address] Dr. Mark Cuellar ER URINE PROFILEon 2 Bilirubin Ql (U) Negative Normal NEGATIVE [facility] Comment on above: Performed By: #### Jonna ANDERSON UMICRO #### [facility] [address] [place] [address] Dr. Mark Cuellar Clarity (U) CLEAR Normal CLEAR [facility] Comment on above: Performed By: #### Jonna ANDERSON UMICRO #### [facility] [address] [place] [address] Dr. Mark Cuellar Color (U) LT. YELLOW Normal YELLOW [facility] Comment on above: Performed By: #### Jonna ANDERSON UMICRO #### [facility] [address] [place] [address] Dr. Mark FELIZ A micrscopic examina tion will be performed if indicated. Normal [facility] Comment on above: Performed By: #### Jonna ANDERSON UMICRO #### [facility] [address] [place] [address] Dr. Mark Cuellar Glucose Ql (U) Negative Normal NEGATIVE [facility] Comment on above: Performed By: #### Jonna ANDERSON UMICRO #### [facility] [address] [place] [address] Dr. Mark Cuellar Hemoglobin Ql (U) TRACE-INTACT Abnormal NEGATIVE [facility] Comment on above: Performed By: #### Jonna ANDERSON UMICRO #### [facility] [address] [place] [address] Dr. Mark Cuellar Ketones Ql (U) Negative Normal NEGATIVE [facility] Comment on above: Performed By: #### E RUR UMICRO #### [facility] [address] [place] [address] Dr. Mark Cuellar LEUKOCYTES SMALL Abnormal NEGATIVE [facility] Comment on above: Performed By: #### E RUR UMICRO #### [facility] [address] [place] [address] Dr. Mark Cuellar Nitrite Ql (U) Negative Normal NEGATIVE [facility] Comment on above: Performed By: #### Jonna ANDERSON UMICRO #### [facility] [address] [place] [address] Dr. Mark Cuellar pH (U) 8.0 [pH] Normal 5-9 [facility] Comment on above: Performed By: #### Jonna ANDERSON SALLYRO #### [facility] [address] [place] [address] Dr. Mark Cuellar SPEC GRAVITY 1.010 Normal 1.005-<=1. 025 [facility] Comment on above: Performed By: #### Jonna ANEDRSON, ICRO #### [facility] [address] [place] [address] Dr. Mark Cuellar UA PROTEIN Negative Normal NEGATIVE/ TRACE [facility] Comment on above: Performed By: #### Jonna [facility]ERSON [facility] #### [facility] [address] [place] [address] Dr. Mark Cuellar UR MICRO IND INDICATED Normal [facility] Comment on above: Performed By: #### Jonna ANDERSON [facility] #### [facility] [address] [place] [address] Dr. Mark Cuellar Urobilinogen Qn (U) 0.2 {Ariana'U}/dL Normal 0.2 - 1. 0 [facility] Comment on above: Performed By: #### Jonna ANDERSON, [facility] #### [facility] [address] [place] [address] Dr. Mark Cuellar LIPASEon 01-27-2022 Lipase [Catalytic activity/Vol] 66.0 U/L Critically low 73.0-393.0 [facility] Comment on above: Performed By: #### C BC #### [facility] [address] [place] [address] Dr. Mark Cuellar PROF 14(COMP METB)on 022 Albumin [Mass/Vol] 3.8 g/dL Normal 3.4-5.0 [facility] Comment on above: Performed By: #### C BC #### [facility] [address] [place] [address] Dr. Mark Cuellar Albumin/Globulin [Mass ratio] 1.3 {ratio} Normal [facility] Comment on above: Performed By: #### C BC #### [facility] [address] [address] [address] Mark Cuellar ALP [Catalytic activity/Vol] 53 U/L Normal 46-116 [facility] Comment on above: Performed By: #### C BC #### [facility] [address] [address] [address] Mark Cuellar ALT [Catalytic activity/Vol] 21 U/L Normal 14-59 [facility] Comment on above: Performed By: #### C BC #### [facility] [address] [address] [address] Mark Cuellar Anion gap [Moles/Vol] 12.0 mmol/L Normal Th [facility] Comment on above: Performed By: #### C BC #### [facility] [address] [place] [address] Dr. Mark Cuellar AST [Catalytic activity/Vol] 12 U/L Critically low 15-37 [facility] Comment on above: Performed By: #### C BC #### [facility] [address] [address] [address] Mark Cuellar Bilirubin [Mass/Vol] 1.5 mg/dL Critically high 0.2-1.0 [facility] Comment on above: Performed By: #### C BC #### [facility] [address] [place] [address] Dr. Mark Cuellar Calcium [Mass/Vol] 8.9 mg/dL Normal 8.5-10.1 [facility] Comment on above: Performed By: #### C BC #### [facility] [address] [address] [address] Mark Cuellar Chloride [Moles/Vol] 104 mmol/L Normal 98-107 [facility] Comment on above: Performed By: #### C BC #### [facility] [address] [address] [address] Mark Cuellar CO2 [Moles/Vol] 24.5 mmol/L Normal 21.0-32.0 [facility] Comment on above: Performed By: #### C BC #### [facility] [address] [place] [address] Dr. Mark Cuellar Creatinine [Mass/Vol] 0.73 mg/dL Normal 0.55-1.02 [facility] Comment on above: Performed By: #### C BC #### [facility] [address] [place] [address] Dr. Mark Cuellar EGFR-AF BELARUSIAN >60 Normal >=60 [facility] Comment on above: Performed By: #### C BC #### [facility] [address] [place] [address] Dr. Mark Cuellar EGFR-NON AF BELARUSIAN >60 Normal >=60 [facility] Comment on above: Performed By: #### C BC #### [facility] [address] [place] [address] Dr. Mark Cuellar Globulin (S) [Mass/Vol] 3.0 g/dL Normal [facility] Comment on above: Performed By: #### C BC #### [facility] [address] [place] [address] Dr. Mark Cuellar Glucose [Mass/Vol] 90 mg/dL Normal 74-106 [facility] Comment on above: Performed By: #### C BC #### [facility] [address] [place] [address] Dr. Mark Cuellar Potassium [Moles/Vol] 3.5 mmol/L Normal 3.5-5.1 [facility] Comment on above: Performed By: #### C BC #### [facility] [address] [place] [address] Dr. Mark Cuellar Protein [Mass/Vol] 6.8 g/dL Normal 6.4-8.2 [facility] Comment on above: Performed By: #### C BC #### [facility] [address] [place] [address] Dr. Mark Cuellar Sodium [Moles/Vol] 137 mmol/L Normal 136-145 [facility] Comment on above: Performed By: #### C BC #### [facility] [address] [place] [address] Dr. Mark Cuellar Urea nitrogen [Mass/Vol] 9.0 mg/dL Normal 7.0-18.0 [facility] Comment on above: Performed By: #### C BC #### [facility] [address] [place] [address] Dr. Mark Cuellar Urea nitrogen/Creatinine [Mass ratio] 12.3 mg/mg Normal [facility] Comment on above: Performed By: #### C BC #### [facility] [address] [place] [address] Dr. Mark Cuellar URINE MICROSCOPIC ONLYon AMORPHOUS CRYSTALS FEW Normal [facility] Comment on above: Performed By: #### E RUR, UMICRO #### [facility] [address] [place] [address] Dr. Mark Cuellar BACTERIA MODERATE Abnormal NONE SEEN [facility] Comment on above: Performed By: #### E RUR, UMICRO #### [facility] [address] [place] [address] Dr. Mark Cuellar Bacteria identified Cx Nom (U) INDICATED Normal [facility] Comment on above: Performed By: #### E RUR, UMICRO #### [facility] [address] [place] [address] Dr. Mark Cuellar CAST NONE SEEN Normal NONE SEEN [facility] Comment on above: Performed By: #### E RUR, UMICRO #### [facility] [address] [place] [address] Dr. Mark Cuellar Crystals LM Nom (Urine sed) SEEN Abnormal NONE SEEN [facility] Comment on above: Performed By: #### E RUR, UMICRO #### [facility] [address] [place] [address] Dr. Mark Cuellar Epithelial cells LM Ql (Urine sed) FEW Abnormal NONE SEEN /RARE [facility] Comment on above: Performed By: #### E RUR, UMICRO #### [facility] [address] [place] [address] Dr. Mark Cuellar MUCOUS NONE SEEN Normal NONE SEEN [facility] Comment on above: Performed By: #### E RUR, UMICRO #### [facility] [address] [address] [address] Mark Cuellar RBC NONE SEEN Abnormal 0-2 [facility] Comment on above: Performed By: #### E RISA ANDERSON #### [facility] [address] [address] [address] Mark Cuellar WBC 2-5 Abnormal NONE SEEN [facility] Comment on above: Performed By: #### RISA ZELAYA #### [facility] [address] [address] [address] Mark Cuellar US PREG TVon 01-24-2022 [...] by: NIRALI QUEVEDO Date: 2022-01-24 17:39 Normal [facility] COVID Quick Testingon 2020 Result Negative [employer] Other Quick Fluon 04-14-2021 FLUAV Ab CF (S) [Titer] Negative [employer] Other FLUBV Ab CF (S) [Titer] Negative [employer] Other Vital Signs Date Time Vital Sign Value Performing Clinician Facility 01-06-2025 10:58-0400 Body height 165.1 cm Libra Vazquez MD Work Phone: [facility] 01-06-2025 10:58-0400 Body mass index (BMI) [Ratio] 20.7 kg/m2 Libra Vazquez MD Work Phone: [facility] 01-06-2025 10:58-0400 Body weight 56.69 kg Libra Vazquez MD Work Phone: [facility] 01-06-2025 10:58-0400 Diastolic blood pressure 70 mm[Hg] Libra Vazquez MD Work Phone: [facility] 01-06-2025 10:58-0400 Heart rate 88 /min Libra Vazquez MD Work Phone: [facility] 01-06-2025 10:58-0400 Systolic blood pressure 101 mm[Hg] Libra Vazquez MD Work Phone: [facility] 12-04-2024 11:28-0400 Body height 165.1 cm Libra Vazquez MD Work Phone: [facility] 12-04-2024 11:28-0400 Body mass index (BMI) [Ratio] 20.7 kg/m2 Libra Vazquez MD Work Phone: [facility] 12-04-2024 11:28-0400 Body temperature 97.4 [degF] Libra Vazquez MD Work Phone: [facility] 12-04-2024 11:28-0400 Body weight 56.69 kg Libra Vazquez MD Work Phone: [facility] 12-04-2024 11:28-0400 Diastolic blood pressure 60 mm[Hg] Libra Vazquez MD Work Phone: [facility] 12-04-2024 11:28-0400 Heart rate 88 /min Libra Vazquez MD Work Phone: [facility] 12-04-2024 11:28-0400 SaO2% (BldA) [Mass fraction] 99 % Libra Vazquez MD Work Phone: [facility] 12-04-2024 11:28-0400 Systolic blood pressure 112 mm[Hg] Libra Vazquez MD Work Phone: [facility] 08-13-2024 [id number] Body height 165.1 cm [facility] 08-13-2024 10:28-0400 Body mass index (BMI) [Ratio] 20.9 kg/m2 [facility] 08-13-2024 10:28-0400 Body temperature 97.9 [degF] [facility] 08-13-2024 [id number] Body weight 57.26 kg [facility] 08-13-2024 [id number] Diastolic blood pressure 60 mm[Hg] [facility] 08-13-2024 10:28-0400 Heart rate 93 /min [facility] 08-13-2024 [id number] SaO2% (BldA) [Mass fraction] 99 % [facility] 08-13-2024 10:28-0400 Systolic blood pressure 108 mm[Hg] [facility] 05-21-2024 13:58-0500 Body mass index (BMI) [Ratio] 21.49 kg/m2 Sid Ted DO Work Phone: [facility] 05-21-2024 13:58-0500 Body weight 58.57 kg Sid Ted DO Work Phone: [facility] 05-21-2024 13:58-0500 Diastolic blood pressure 68 mm[Hg] Sid Ted DO Work Phone: [facility] 05-21-2024 13:58-0500 Systolic blood pressure 108 mm[Hg] [facility] Work Phone: [facility] 03-17-2024 15:03-0500 Body height 165.1 cm [facility] 03-17-2024 15:03-0500 Body mass index (BMI) [Ratio] 21.1 kg/m2 [facility] 03-17-2024 15:03-0500 Body temperature 97.2 [degF] [facility] 03-17-2024 15:03-0500 Body weight 57.6 kg [facility] 03-17-2024 15:03-0500 Diastolic blood pressure 64 mm[Hg] [facility] 03-17-2024 15:03-0500 Heart rate 101 /min [facility] 03-17-2024 15:03-0500 SaO2% (BldA) [Mass fraction] 98 % [facility] 03-17-2024 15:03-0500 Systolic blood pressure 120 mm[Hg] [facility] 02-25-2024 10:11-0400 Body height 165.1 cm [facility] Work Phone: [facility] 02-25-2024 10:11-0400 Body mass index (BMI) [Ratio] 21.3 kg/m2 [facility] Work Phone: [facility] 02-25-2024 10:11-0400 Body weight 58.06 kg [facility] Work Phone: [facility] 02-25-2024 10:11-0400 Diastolic blood pressure 76 mm[Hg] [facility] Work Phone: [facility] 02-25-2024 10:11-0400 Systolic blood pressure 122 mm[Hg] [facility] Work Phone: [facility] 01-22-2024 11:41-0400 Body height 165.1 cm [facility] 10-17-2023 10:29-0400 Body height 165.1 cm [facility] 10-17-2023 10:29-0400 Body mass index (BMI) [Ratio] 20.7 kg/m2 [facility] 10-17-2023 10:29-0400 Body weight 56.69 kg [facility] 10-17-2023 10:29-0400 Diastolic blood pressure 66 mm[Hg] [facility] 10-17-2023 10:29-0400 Heart rate 92 /min [facility] 10-17-2023 10:29-0400 SaO2% (BldA) [Mass fraction] 97 % [facility] 10-17-2023 10:29-0400 Systolic blood pressure 104 mm[Hg] [facility] 03-29-2023 13:45-0500 Body height 165.1 cm Libra Vazquez Other [employer] Other 03-29-2023 13:45-0500 Body mass index (BMI) [Ratio] 20.9 kg/m2 Libra Vazquez Other [employer] Other 03-29-2023 13:45-0500 Body weight 56.97 kg Libra Vazquez Other [employer] Other 03-29-2023 13:45-0500 Diastolic blood pressure 78 mm[Hg] Libra Vazquez Other [employer] Other 03-29-2023 13:45-0500 SaO2% (BldA) [Mass fraction] 97 % Libra Vazquez Other [employer] Other 03-29-2023 13:45-0500 Systolic blood pressure 110 mm[Hg] Libra Vazquez Other [employer] Other 02-19-2023 15:30-0400 Body height 165.1 cm Libra Vazquez Other [employer] Other 02-19-2023 15:30-0400 Body mass index (BMI) [Ratio] 20.93 kg/m2 Libra Vazquez Other [employer] Other 02-19-2023 15:30-0400 Body weight 57.06 kg Libra Vazquez Other [employer] Other 02-19-2023 15:30-0400 Diastolic blood pressure 70 mm[Hg] Libra Vazquez Other [employer] Other 02-19-2023 15:30-0400 Systolic blood pressure 104 mm[Hg] Libra Vazquez Other [employer] Other 04-08-2022 10:10-0500 Body height 165.1 cm Jocelyn Quach Other [employer] Other 04-08-2022 10:10-0500 Body mass index (BMI) [Ratio] 19.13 kg/m2 Jocelyn Quach Other [employer] Other 04-08-2022 10:10-0500 Body temperature 98 [degF] Jocelyn Quach Other [employer] Other 04-08-2022 10:10-0500 Body weight 52.16 kg Jocelyn Quach Other [employer] Other 04-08-2022 10:10-0500 Respiratory rate 18 /min Jocelyn Quach Other [employer] Other 04-08-2022 10:10-0500 SaO2% (BldA) [Mass fraction] 98 % Jocelyn Quach Other [employer] Other 04-03-2022 14:05-0500 Body height 165.1 cm Jocelyn Quach Other [employer] Other 04-14-2021 11:45-0500 Body height 165.1 cm Melvi Steen Other [employer] Other 04-14-2021 11:45-0500 Body temperature 99.6 [degF] Melvi Steen Other [employer] Other 04-14-2021 11:45-0500 Respiratory rate 18 /min Melvi Enio Other [employer] [facility] [employer] Other 04-14-2021 11:45-0500 SaO2% (BldA) [Mass fraction] 97 % Melvi Steen Other [facility] [employer] Other Encounters Encounter Date Encounter Type Care Provider Facility Start: 01-06-2025 End: 01-06-2025 ambulatory Libra Vazquez MD Work Phone: [facility] Work Phone: Start: 01-06-2025 End: 01-06-2025 Patient encounter procedure Libra Vazquez [facility] Work Phone: Start: 12-04-2024 End: 12-04-2024 Departed Referred Danielle Grover APRN [employer] [facility] Work Phone: Start: 12-04-2024 End: 12-04-2024 ambulatory Libra Vazquez MD Work Phone: [facility] Work Phone: Start: 12-04-2024 End: 12-04-2024 Patient encounter procedure Danielle Grover APRN [facility] Work Phone: Start: 08-13-2024 End: 08-13-2024 ambulatory [facility] Work Phone: Start: 08-13-2024 End: 08-13-2024 Patient encounter procedure [facility] Work Phone: Start: 05-21-2024 End: 05-21-2024 Bamboo flowsheet Sid Ted DO Work Phone: [facility] Start: 05-21-2024 End: 05-28-2024 Bamboo flowsheet Sid Ted DO Work Phone: [facility] Start: 05-21-2024 End: 05-28-2024 Clinisync Result Encounter Sid Ted DO Work Phone: [facility] Unsolicited Start: 05-21-2024 Non-patient / Non-visit [facility] Work Phone: Start: 05-21-2024 End: 05-21-2024 Patient encounter procedure Sid Ted DO Work Phone: [facility] Work Phone: Start: 05-21-2024 End: 05-21-2024 Periodic preventive med est patient 18-39 yrs Sid Ted DO Work Phone: [facility] Comment on above: Well woman exam with routine gynecological exam; Encounter to discuss test results Start: 05-21-2024 End: 05-21-2024 ambulatory SID TED Not Available Start: 03-17-2024 End: 03-17-2024 ambulatory [facility] Work Phone: Start: 03-17-2024 End: 03-17-2024 Patient encounter procedure [facility] Work Phone: Start: 02-25-2024 End: 02-25-2024 Bamboo flowsheet Sid Ted DO Work Phone: [facility] Start: 02-25-2024 End: 02-25-2024 Bamboo flowsheet Sid Ted DO Work Phone: [facility] Start: 02-25-2024 End: 02-25-2024 Clinisync Result Encounter Sid Ted DO Work Phone: [facility] Unsolicited Start: 02-25-2024 Non-patient / Non-visit [facility] Work Phone: Start: 02-25-2024 End: 02-25-2024 Office outpatient visit 15 minutes Sid Ted DO Work Phone: [facility] Comment on above: Hormone disorder; Decreased libido; Pain in female genitalia on intercourse; Other fatigue Start: 02-25-2024 End: 02-25-2024 ambulatory SID JEAN Not Available Start: 01-22-2024 End: 01-22-2024 ambulatory [facility] Work Phone: Start: 01-22-2024 End: 01-22-2024 Patient encounter procedure [facility] Work Phone: Start: 01-10-2024 End: 01-10-2024 Bamboo [...] Available Start: 12-10-2023 End: 12-10-2023 ambulatory JUNE FRY Not Available Start: 12-03-2023 End: 12-03-2023 ambulatory JUNE FRY Not Available Start: 11-30-2023 End: 11-30-2023 ambulatory JUNE FRY Not Available Start: 2023 Non-patient / Non-visit [facility] [employer] Work Phone: Start: 10-17-2023 End: 10-17-2023 ambulatory [facility] Work Phone: Start: 10-17-2023 End: 10-17-2023 Patient encounter procedure [facility] Work Phone: Start: 06-07-2023 End: 06-07-2023 ambulatory Libra Vazquez Other [facility] [employer] Other Start: 06-07-2023 Telephone encounter Libra Vazquez [facility] Start: 05-03-2023 End: 05-03-2023 ambulatory Libra Vazquez Other [employer] Other Start: 05-03-2023 Telephone encounter Libra Vazquez [facility] Start: 04-16-2023 End: 04-16-2023 ambulatory Libra Vazquez Other [employer] Other Start: 04-16-2023 Telephone encounter Libra Vazquez [facility] Start: 03-29-2023 End: 03-29-2023 ambulatory Libra Vazquez Other [employer] Other Start: 03-29-2023 Office outpatient vi sit 15 minutes Libra Vazquez [facility] Start: 03-01-2023 End: 03-01-2023 ambulatory Libra Vazquez Other [employer] Other Start: 03-01-2023 Telephone encounter Libra Vazquez [facility] Start: 02-19-2023 End: 02-19-2023 ambulatory Libra Vazquez Other [employer] Other Start: 02-19-2023 Office outpatient vi sit 15 minutes Libra Vazquez [facility] Start: 10-30-2022 ambulatory Shravan Quintero ty:[facility] Start: 09-03-2022 End: 09-04-2022 Evaluation and management of inpatient JHONATAN ANNA Facility:[facility] Start: 09-02-2022 End: 09-03-2022 ambulatory JHONATAN CASTILLO Facility:[facility] Start: 08-25-2022 End: 08-26-[address] SID JEAN . Facility:[facility] Start: 08-23-2022 End: 08-23-2022 ambulatory Libra Vazquez Other [employer] Other Start: 08-23-2022 Telephone encounter Libra Vazquez [facility] Start: 08-21-2022 End: 08-21-[address] SID JEAN . Facility:[facility] Start: 08-14-2022 (Televisit) Televisit Libra Vazquez [facility] Start: 08-14-2022 End: 08-14-2022 ambulatory Libra Vazquez Other [employer] Other Start: 08-07-2022 End: 08-07-[address] SID JEAN . Facility:[facility] Start: 07-20-2022 End: 07-20-[address] SID JEAN . Facility:[facility] Start: 07-10-2022 End: 07-11-[address] LIBRA VAZQUEZ Facility:[facility] Start: 06-26-2022 ambulatory Shravan RUIZ Facility :[facility] Start: 06-25-2022 End: 06-26-2022 ambulatory Sid JEAN Facility:[id number] Start: 06-24-2022 End: 06-25-[address] LIBRA VAZQUEZ Facility:[facility] Start: 05-25-2022 End: 05-25-[address] LIBRA VAZQUEZ Facility:[facility] Start: 04-08-2022 End: 04-08-2022 ambulatory Jocelyn Quach Other [employer] Other Start: 04-08-2022 Office outpatient vi sit 15 minutes Jocelynkacy Quach [facility] Start: 04-03-2022 End: 04-03-2022 ambulatory Jocelyn Quach Other [employer] Other Start: 04-03-2022 Office outpatient vi sit 15 minutes Jocelynkacy Quach [facility] Start: 03-04-2022 End: 03-05-[address] LIBRA VAZQUEZ Facility:[facility] Start: 02-27-2022 End: 02-28-[address] LIBRA VAZQUEZ Facility:[facility] Start: 02-13-2022 End: 02-14-[address] LIBRA VAZQUEZ Facility:[facility] Start: 02-06-2022 End: 02-07-2022 ambulatory NAHID PRETTY Facility:[facility] Start: 01-27-2022 End: 01-27-[address] TERA PEREZ . Facility:[facility] Start: 01-24-2022 End: 01-25-[address] LIBRA VAZQUEZ Facility:[facility] Start: 06-27-2021 End: 06-27-2021 ambulatory Nirali Siu Facility:[facility] Start: 04-14-2021 End: 04-14-2021 ambulatory Melvi Steen Other [employer] Other Start: 04-14-2021 Office outpatient vi sit 15 minutes Melvi Steen [facility] Procedures Date Procedure Procedure Detail Performing Clinician Start: 12-04-2024 Quick Strep (POC) Kimberly Vazquez MD Work Phone: Start: 12-04-2024 Urine culture Libra hanna MD Work Phone: Start: 05-21-2024 IGP,APTIMA HPV,AGE GDLN Sid Ted DO Work Phone: Start: 03-17-2024 Quick Strep (POC) Start: 02-25-2024 MLR HEMOGLOBIN A1C Core y Ted DO Work Phone: Start: 05-25-2022 Microscopic observat ion [Identifier] in Cervix by Cyto stain June Fry MD Work Phone: Start: 01-23-2022 Diabetes mellitus screening Libra Vazquez Other Plan of Treatment Date Care Activity Detail Author Start: 05-25-2025 Screening for malign ant neoplasm of cervix [facility] Start: 12-05-2024 Urine culture [facility] Start: 12-04-2024 Bacteria identified in Urine by Culture Urine Culture [facility] Start: 06-25-2024 End: 06-25-2024 Patient encounter procedure 06/25/2024 8:10 AM EST Office Visit [facility] [address] [place] [address] Sid Jean, DO [address] [place] [address] [facility] Start: 05-21-2024 End: 05-21-2024 Patient encounter procedure 05/21/2024 1:40 PM EST Office Visit [facility] [address] [facility] [place] [id number] Sid Jean, DO [address] [place] [address] Arrived [facility] Comment on above: Arrived Start: 02-25-2024 End: 02-24-2025 C-peptide C-peptide Lab Routine Hormone disorder Decreased libido Expected: 02/25/2024 (Approximate), Expires: 02/24/2025 [facility] Comment on above: Expected: 02/25/2024 (Approximate), Expires: 02/24/2025 Start: 02-25-2024 End: 02-24-2025 Cortisol free Cortisol, free Lab Routine Hormone disorder Decreased libido Expected: 02/25/2024 (Approximate), Expires: 02/24/2025 [facility] Comment on above: Expected: 02/25/2024 (Approximate), Expires: 02/24/2025 Start: 02-25-2024 End: 02-24-2025 Glucose [Mass/volume] in Serum or Plasma Glucose, random Lab Routine Hormone disorder Decreased libido Expected: 02/25/2024 (Approximate), Expires: 02/24/2025 [facility] Comment on above: Expected: 02/25/2024 (Approximate), Expires: 02/24/2025 Start: 02-25-2024 End: 02-24-2025 Insulin, total Insulin, total Lab Routine Hormone disorder Decreased libido Expected: 02/25/2024 (Approximate), Expires: 02/24/2025 [facility] Comment on above: Expected: 02/25/2024 (Approximate), [...] EDT Office Visit [facility] [address] [phone] Sid Jean DO [address] [place] [address] Arrived [facility] Comment on above: Arrived Start: 01-14-2024 End: 01-14-2024 Patient encounter procedure 01/14/2024 10:45 AM EDT Office Visit [facility] [address] [place] [id number] June Fry MD [address] [place] [address] [facility] Start: 01-10-2024 End: 01-10-2024 Patient encounter procedure 01/10/2024 9:30 AM EDT Office Visit [facility] [address] [place] [address] June Fry MD [address] [place] [address] Arrived [facility] Comment on above: Arrived Start: 12-30-2023 Influenza vaccination Influenza Vacc ine (#1) [facility] Start: 11-16-2023 Screening for malign ant neoplasm of cervix HPV/Cotest [facility] Cytology Cervical or vaginal smear or scraping study Pap Smear Pathology and Cytology Routine Well woman exam with routine gynecological exam Ordered: 05/21/2024 [facility] Work Phone: Comment on above: Ordered: 05/21/2024 DHEA-sulfate DHEA-sulfate Lab Routine Hormone disorder Decreased libido Ordered: 02/25/2024 [facility] Comment on above: Ordered: 02/25/2024 Estradiol Estradiol Lab Ro utine Hormone disorder Decreased libido Ordered: 02/25/2024 [facility] Work Phone: Comment on above: Ordered: 02/25/2024 Estrone Estrone Lab Rout ine Hormone disorder Decreased libido Ordered: 02/25/2024 [facility] Comment on above: Ordered: 02/25/2024 Ferritin [Mass/volum e] in Serum or Plasma Ferritin Lab Routine Hormone disorder Decreased libido Ordered: 02/25/2024 [facility] Comment on above: Ordered: 02/25/2024 Hemoglobin A1c/Hemoglobin.total in Blood Hemoglobin A1c Lab Routine Hormone disorder Decreased libido Ordered: 02/25/2024 [facility] Comment on above: Ordered: 02/25/2024 Human papilloma viru s DNA [Presence] in Unspecified specimen by Probe with amplification HPV DNA probe, amplified Microbiology Routine Well woman exam with routine gynecological exam Ordered: 05/21/2024 [facility] Comment on above: Ordered: 05/21/2024 Progesterone Progesterone Lab Routine Hormone disorder Decreased libido Ordered: 02/25/2024 [facility] Comment on above: Ordered: 02/25/2024 Sex hormone binding globulin Sex hormone binding globulin Lab Routine Hormone disorder Decreased libido Ordered: 02/25/2024 [facility] Comment on above: Ordered: 02/25/2024 T3, reverse T3, reverse Lab Routine Hormone disorder Decreased libido Ordered: 02/25/2024 [facility] Comment on above: Ordered: 02/25/2024 TESTOSTERONE, FREE TESTOSTERONE, FREE Lab Routine Hormone disorder Decreased libido Ordered: 02/25/2024 [facility] Comment on above: Ordered: 02/25/2024 Testosterone, free, total Testos terone, free, total Lab Routine Hormone disorder Decreased libido Ordered: 02/25/2024 [facility] Comment on above: Ordered: 02/25/2024 Thyroid peroxidase antibody Thyroid peroxidase antibody Lab Routine Hormone disorder Decreased libido Ordered: 02/25/2024 [facility] Comment on above: Ordered: 02/25/2024 Thyroxine (T4) free [Mass/volume] in Serum or Plasma T4, free Lab Routine Hormone disorder Decreased libido Ordered: 02/25/2024 [facility] Comment on above: Ordered: 02/25/2024 Triiodothyronine (T3 ) Free [Mass/volume] in Serum or Plasma T3, free Lab Routine Hormone disorder Decreased libido Ordered: 02/25/2024 [facility] Comment on above: Ordered: 02/25/2024 Urine culture [facility] Vitamin D 1,25 dihydroxy Vitamin D 1,25 dihydroxy Lab Routine Hormone disorder Decreased libido Ordered: 02/25/2024 [facility] Comment on above: Ordered: 02/25/2024 [facility] Immunizations Immunization Date Immunization Notes Care Provider Fa [facility] 04-26-2022 influenza virus vacc ine, unspecified formulation June Fry MD Work Phone: [facility] Payers Date Payer Category Payer Unknown [id number] 2021 Unknown 2021 Government (not [facility] care or Medicaid) LILI [id number] 1993 Unknown [id number] 2.16.840.1.526337.3.579.2 .593 1993 Unknown [id number] 2.16.840.1.684867.3.579.2 .593 1993 Unknown [id number] 2.16.840.1.699184.3.579.2 .593 1993 Unknown [id number] 2.16.840.1.138533.3.579.2 .593 1993 Unknown [id number] 2.16.840.1.934112.3.579.2 .593 1993 Unknown [id number] 2.16.840.1.873966.3.579.2 .593 1993 Unknown [id number] 2.16.840.1.904342.3.579.2 .593 1993 Unknown [id number] 2.16.840.1.650175.3.579.2 .593 1993 Unknown [id number] 2.16.840.1.002477.3.579.2 .593 1993 Unknown [id number] 2.16.840.1.986842.3.579.2 .593 1993 Unknown [id number] 2.16.840.1.920422.3.579.2 .593 1993 Unknown [id number] 2.16.840.1.714677.3.579.2 .593 1993 Unknown [id number] 2.16.840.1.615466.3.579.2 .593 1993 Unknown [id number] 2.16.840.1.285150.3.579.2 .593 1993 Unknown [id number] 2.16.840.1.781492.3.579.2 .593 1993 Unknown [id number] 2.16.840.1.610158.3.579.2 .727 1993 Unknown [id number] 2.16.840.1.469796.3.579.2 .727 1993 Unknown [id number] 2.16.840.1.666821.3.579.2 .718 1993 Unknown [id number] 2.16.840.1.948680.3.579.2 .1259 1993 Unknown [id number] 2.16.840.1.914066.3.579.2 .1259 1993 Unknown [id number] 2.16.840.1.082498.3.579.2 .9 1993 Unknown [id number] 2.16.840.1.087838.3.579.2 .9 1993 Unknown [id number] 2.16.840.1.206339.3.579.2 .1259 1993 Unknown [id number] 2.16.840.1.870698.3.579.2 .1259 1959 Self-pay 1959 Unknown [id number] 2.16.840.1.185901.19 Unknown [id number] 2.16.840.1.699747.3.579.2 .593 Unknown [employer] [id number] Unknown [id number] 2.16.840.1.472636.3.579.2 .531 Social History Date Type Detail Facility Unknown if ever smoked [employer] Other Start: 10-17-2022 End: 01-10-2024 Sex Assigned At [employer] Other Start: 09-19-2022 End: 03-29-2023 Tobacco smoking status NHIS Never smoked tobacco (finding) [facility] Start: 1995 Sex Assigned At Female F [facility] Start: 09-19-2022 Tobacco use and exposure Smokeless tobacco non-user [facility] Start: 01-10-2024 End: 05-21-2024 Alcoholic beverage intake Lifetime non-drinker (finding) [facility] Start: 10-17-2022 End: 01-10-2024 History of Social function [facility] Start: 1995 Sex assigned at Not on file N [facility] Start: 03-17-2024 End: 08-13-2024 Sex Female (finding) [facility] Clinical Notes 04-14-2021 to 12-04-2024 Note Date & Type Note Facility 12-04-2024 Evaluation note Diagnosis Onset Date Resolution Sore throat acute December 04, 025 11:20am UTI (urinary tract infection) acute December 04, 2024 11:20am [facility] Work Phone: 1(532) 473-970701-22-2025 History of Present illness Narrative* Celsa Alejandro, DONNELL - 05/21/2024 1:40 PM EST Reason for Appointment: Patient ID: Bri Kirk is a 28 y.o. female who presents for Well Women Visit and Results Patient presents today for Annual Exam. MEDICATIONS Current Outpatient Medications Medication Instructions norethindrone (MICRONOR) 0.35 mg, Oral, Daily, Take 1 tablet by mouth daily ALLERGIES Allergies Allergen Reactions Latex PROBLEMS Active Ambulatory Problems Diagnosis Date Noted Sterilization consult 09/22/2022 Other fatigue 02/25/2024 Decreased libido 02/25/2024 Pain in female genitalia on intercourse 02/25/2024 Hormone disorder 02/25/2024 Resolved Ambulatory Problems Diagnosis Date Noted No [...] Paternal Grandfather Tera Nash Cancer Maternal Grandfather Zachary SURGICAL HISTORY Past Surgical History: Procedure Laterality Date TUBAL LIGATION Bilateral REVIEW OF SYSTEMS Review of Systems: Review of Systems Constitutional: Negative. HENT: Negative. Eyes: Negative. Respiratory: Negative. Cardiovascular: Negative. Gastrointestinal: Negative. Genitourinary: Negative. Musculoskeletal: Negative. Skin: Negative. Neurological: Negative. All other systems reviewed and are negative. Hematological: Negative. Endocrine: Negative. Allergic/Immunologic: Negative. OBJECTIVE Objective: Physical Exam Constitutional: Appearance: Normal appearance. She is well-developed. Genitourinary: Vulva normal. Cardiovascular: Rate and Rhythm: Normal rate and [...] nursing note reviewed. Exam conducted with a direct service worker present. Vitals: Estimated body mass index is 21.49 kg/m as calculated from the following: Height as of 02/25/24: 5' 5 . Weight as of this encounter: 129 lb 1.9 oz. BP: 108/68 No LMP recorded. ASSESSMENT & PLAN ICD-10-CM 1. Well woman exam with routine gynecological exam Z01.419 2. Encounter to discuss test results Z71.2 Annual Exam: Patient presents today for an annual exam. Patient states she is doing well and has complaints of low sex drive- discussed buderer labs and will order test/progesterone cream. Pt to try for one month-if does not help will consider buderer packet . Pap was obtained without difficulty. No orders of the defined types were placed in this encounter. Follow Up: Patient is to return in one year for annual unless needed otherwise. Documented by Celsa Alejandro LPN on behalf of: Sid Jean DO documented in this encounterSainte Genevieve County [facility] [id number] History of Present illness Narrative* Sid Jean DO - 02/25/2024 9:50 AM EDT Reason for Appointment: Patient ID: Bri Kirk [...] Anxiety Asthma (CMS/HCC) Asthma (CMS/HCC) Bronchitis Depression ([facility]/HCC) Eye trauma 11/26/23 Head injury History of [...] nursing note reviewed. Exam conducted with a direct service worker present. Vitals: Estimated body mass index is [...] of: Sid Jean DO documented in this encounterSainte Genevieve County Memorial [id number] Evaluation note* Diagnosis Onset Date Resolution Status Admit Date Chronic depression acute 2023 11:08am Hypoactive sexual desire disorder acute January 22, 2024 11:08am Bronchitis acute March 17, 2024 2:56pm [facility] Work Phone: 1(592) 371-498609-12-2024 History of Present illness Narrative* June Fry MD - 01/10/2024 9:30 AM EDT Assessment/Plan pred acetate bid documented in this encounterSainte Genevieve County Memorial [id number] Evaluation note* Encounter Date Diagnosis Assessment Notes Treatment Notes Treatment Clinical Notes Apr, Other idiopathic scoliosis, 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 STATUS: new/continuous [facility] Other 10-23-2023 Evaluation note* Encounter Date Diagnosis Assessment Notes Treatment Notes Treatment Clinical Notes Jan, Acute non-recurrent maxillary sinusitis (ICD-10 - J01.00) Finish antibiotics as prescribed. Rest, hydration. Call if symptoms do not resolve. [facility] Other 04-17-2023 Evaluation note* Encounter Date Diagnosis Assessment Notes Treatment Notes Treatment Clinical Notes Jul, Acute non-recurrent sphenoidal sinusitis (ICD-10 - J01.30) Chose antibiotic as she is in her third trimester. Daughter has been ill. Discussed limited meds she is able to take while . [facility] Other 02-25-2023 NoteDISCHARGE SUMMARY NOTE DATE: 07/07/2022 [...] pain free and no longer on narcotics.[facility] [id number] NoteOPERATIVE NOTE OPERATION DATE: 06/25/2022 PREOPERATIVE DIAGNOSIS: [...] usual fashion. I started by passing a 22-Jordanian Olympus cystoscope per urethra and into the bladder. Careful arteaga endoscopy showed no intravesical pathology but, while looking not the left ureter, one could see a large stone. I then passed a Glidewire through the scope and cannulated the left ureter and got the wire beyond the stone, up into the kidney. I then used an 8 and 10-Jordanian rigid dilator to dilate the distal ureter. [...] into the bladder and then used the [employer] evacuator to get all of the stone pieces out from the base of the bladder. These were sent for stone analysis. I then drained the bladder of its contents and removed the scope. I then passed the 10-Jordanian dilator back over the wire, up the left ureter, and then removed the dilator and the wire. She was then transferred to a [facility] and wheeled PACU in stable condition.[facility] [id number] Evaluation note* Encounter Date Diagnosis Assessment Notes Treatment Notes Treatment Clinical Notes Mar, Cough (ICD-10 - R05.9) Mar, Influenza A (ICD-10 - J10.1) Influenza: adult home care material was printed Drink plenty fluids, get plenty of rest. Continue your home medications as prescribed. Take Tylenol as needed for aches pains or fevers. Follow-up with your HUMAN SERVICE WORKER if no improvement in 2 to 3 [...] no improvement in 2 to 3 days [facility] Other 12-05-2022 Evaluation note* Encounter Date Diagnosis [...] Follow-up with your family physician or your HUMAN SERVICE WORKER if no improvement in 2 to 3 days. [facility] Other 12-16-2021 Evaluation note* Encounter Date Diagnosis [...] Patient care instructions given in writting by [facility] At Home document. [facility] [employer] Other Evaluation noteNo InformationNortCancer Treatment Centers of [facility] [employer] Other Evaluation note* Diagnosis Onset Date Resolution Status Anemia acute Fatigue acute [facility] Work Phone: Evaluation note* Diagnosis Onset Date Resolution Status Chronic depression acute Hypoactive sexual desire disorder acute [facility] Work Phone: Evaluation note* Diagnosis Hormone disorder Unspecified endocrine disorder Decreased libido Pain in female genitalia on intercourse Dyspareunia Other fatigue [facility] encounter [facility] Diagnosis Herpes zoster dermatitis of eyelid- Primary documented in this encounter [facility]* Diagnosis Well woman exam with routine gynecological exam Routine gynecological examination Encounter to discuss test results Other specified counseling documented in this encounter [facility]* Diagnosis Onset Date Resolution Status Admit Date Bronchitis acute August 13 10:25am Eustachian tube dysfunction acute August 13, 2024 10:25am [facility] Work Phone: Evaluation note* Diagnosis Onset Date Resolution Status Admit Date UTI (urinary tract infection) acute December 04, 2024 11:20am [facility] Work Phone: [facility] general Narrative - Reported* Type Description Date Medical History asthma Surgical History d&c x2 Surgical History tonsillectomy Hospitalization History see above [facility] Other [facility] general Narrative - Reported* Type Description Date Medical History asthma Medical History anxiety Medical History chronic depression Surgical History D&C x2 Surgical History d&c x2 Surgical History tonsillectomy Surgical History wisdom teeth Hospitalization History see above Hospitalization History hyperemisis gravidarum [facility] Other [facility] general Narrative - Reported* Type Description Date Medical History asthma Medical History anxiety Medical History chronic depression Surgical History D&C x2 Surgical History d&c x2 Surgical History tonsillectomy Surgical History wisdom teeth Surgical History Tubal 10/26/22 Hospitalization History see above Hospitalization History hyperemisis gravidarum [facility] Other Reason for referral (narrative)No reason for referral information availableMercy Health Def[facility] Work Phone: Summary Purpose Family History No Family History [...] 2023 11:08am Bronchitis March 17, 2024 2:56pm Chief Complaint Admit Date Cough/Possible Bronchitis August 13 10:25am Reason for Visit Admit Date Bronchitis August 13, 2024 10: 25am Eustachian tube dysfunction August 13, 2024 10:25am Chief Complaint Admit Date sore throat, WILEY, cough/burning, frequenc y December 04, 2024 11:20am Reason for Visit Admit Date UTI (urinary tract infection) November 11:20am Reason for Visit Admit Date Sore throat December 04, 2024 11: 20am UTI (urinary tract infection) November 11:20am Chief Complaint Admit Date sore throat, WILEY, cough/burning, frequenc y December 04, 2024 11:20am R30.0 December 04, 2024 11: 52am headache/fatigue January 06, 2025 10:55am Additional Source Comments REASON FOR VISIT (unrecogniz ed section and content) Reason Comments Hormone questions Reason Comments Itchy Eye Reason Comments Well Women Visit Results INFORMATION SOURCE (unrecogn ized section and content) DATE CREATED AUTHOR 09/08/2022 [facility] DATE CREATED AUTHOR AUTHOR'S ORGANIZ ATION 11/27/2022 [facility] [place] [facility] DATE CREATED AUTHOR AUTHOR'S ORGANIZ ATION 02/09/2024 [facility] DATE CREATED AUTHOR AUTHOR'S ORGANIZ ATION 05/23/2024 [facility] EPIC DATE CREATED AUTHOR AUTHOR'S ORGANIZ ATION 12/09/2024 [facility] Care Teams (unrecognized sec tion and content) Team Status: Active Member Role Status Dates Libra Vazquez MD Primary Care Provider Active Team Status: Inactive Member Role Status Dates Libra Vazquez MD Primary Care Provider Active Start: December 04, 2024 End: December 04, 2024 Danielle Grover APRN TECHNICAL INSTRUCTOR COURSE DEVELOPER-C Attending Provider Act sabiha Start: December 04, 2024 End: December 04, 2024 Team Status: Active Member Role Status Dates Libra Vazquez MD Primary Care Provider Active Start: May 21, 2024 Sid Jean DO Attending Provider Active Start : May 21, 2024 Team Status: Inactive Member Role Status Dates Libra Vazquez MD Primary Care Provider Active Start: August 13, 2024 End: August 13, 2024 GAL Freitas Attending Provider Act sabiha Start: August 13, 2024 End: August 13, 2024 Team Status: Inactive Member Role Status [...] End: March 17, 2024 Danielle Grover APRN TECHNICAL INSTRUCTOR COURSE DEVELOPER-C Attending Provider Active Start: February End: March 17, 2024 Team Status: Active Member Role Status Dates Libra Vazquez MD Primary Care Provider Active Start: 2023 Nithin Cherry Attending Provider Active Start: 2023 Team Status: Inactive Member Role Status Dates iLbra Vazquez MD Primary Care Provide r, Attending Provider Active Start: October 17, 2023 End: October 17, 2023 Chemical Laboratory Tester Relationship Specialty Start Date End Date Libra Vazquez MD [address] [place] [facility] [place] [address] PCP - General Family Medicine 09/26/22 Chemical Laboratory Tester Relationship Specialty Start Date End Date Libra Vazquez MD [address] [place] [facility] [place] [address] PCP - General Family Medicine 09/26/22 Chemical Laboratory Tester Relationship Specialty Start Date End Date Libra Vazquez MD [address] [place] [facility] [place] [address] PCP - General Family Medicine 09/26/22 Chemical Laboratory Tester Relationship Specialty Start Date End Date Libra Vazquez MD [address] [place] [facility] [place] [address] PCP - General Family Medicine 09/26/22 Chemical Laboratory Tester Relationship Specialty Start Date End Date Libra Vazquez MD [address] [place] [facility] [place] [address] PCP - General Family Medicine 09/26/22 Chemical Laboratory Tester Relationship Specialty Start Date End Date Libra Vazquez MD [employer] [place] [address] PCP - General Family Medicine 09/26/22 Team Status: Inactive Member Role Status Dates Danielle Grover APRN TECHNICAL INSTRUCTOR COURSE DEVELOPER-C Attending Provider Act sabiha Start: December 04, 2024 End: December 04, 2024 Team Status: Inactive Member Role Status Dates Libra Vazquez MD Primary Care Provider Active Start: January 06, 2025 End: January 06, 2025 Libra Vazquez MD Attending Provider Active St art: January 06, 2025 End: January 06, 2025 Goals (unrecognized section and content) Goals may [...] BE BASED ON THE PRIMARY CLINICAL RECORDS. [employer] provides no warranty or guarantee of the accuracy or completeness of information in this document.
== END 2025-01-14 09:31 | disposition home or self-care (01) ==
LOC: SLEEP 01-15 09:06
PROVIDERS: PCP Family Medicine; Visit Provider Family Medicine
DX: G47.33 Obstructive sleep apnea (adult) (pediatric) (principal); F51.01 Primary insomnia
CPT/HCPCS: 95806

== ENCOUNTER 2025-02-25 20:56 | Outpatient (OUT) | payer OTHER, SELFPAY ==
--- OUTSIDE RECORDS SUMMARY | 2025-02-25 21:00 | XMS_ITS | CCD ---
Author Organization [facility] Team Providers Care Education Administrator Name Role Phone Melvi Steen Unavailable Jocelyn [...] Unavailable TED ., DR AMES Attending Unavailable MURRAY ., DR HARRIS Consulting Unavailable TED ., DR AMES Consulting Unavailable FERMIN BUSCH Consulting Unavailable KLYM, STEPHEN Consulting Unavailable MAXIMILIANO JOY Consulting Unavailable MARIA DE JESUS, NAHID Consulting Unavailable MARIA DE JESUS, NAHID Attending Unavailable MARIA DE JESUS, NAHID Admitting Unavailable [facility] [place] Primary Care Unavailable VAZQUEZ, DR LIBRA Coyle Primary Care Unavailable CRIS ., PAWEL Attending Unavailable BERTA, DR ALLI Carbajal Consulting Unavailable CRIS ., PAWEL Admitting Unavailable CHRIS ., DR SU Attending Unavailable REQUEST, DR ROMERO LISTED Primary Care Unavaila lisette PEREZ ., DR SU Admitting Unavailable ZACHARY .MATIAS Consulting Unavailable CHRIS ., DR SU Consulting Unavailable Shravan MURRAY Attending Unavailable Sid JEAN Referring Unavailable Shravan MURRAY Attending Unavailable Nirali Siu Primary Care Unavailable Laith Patel Attending Unavailable Laith Patel Admitting Unavailable Libra Vazquez MD Primary Care Provider SID JEAN Attending Unavailable JUNE BURNS Attending Unavailable JUNE BURNS Attending Unavailable JUNE BURNS Attending Unavailable JUNE BURNS Attending Unavailable SID JEAN Attending Unavailable Libra Vazquez MD Primary Care Provider Danielle Grover APRN Attending Provider [phone] Danielle Gorver Attending Unavailable Danielle Grover Admitting Unavailable Libra Vazquez MD Attending Provider Allergies Allergy ClassificationReported Allergen(s)Allergy TypeDate of OnsetReaction(s) Facility (1 source)No Known Medication Allergies; Translations: [No Known Medication Allergies]Propensity to adverse reactions to drug (disorder)[facility] Repository (10 sources)LatexPropensity to adverse dtkescndr27-50-1944[facility] Medications Current Medications MedicationDrug Class(es)DatesSig (Normalized)Sig (Original)Albuterol Sulfate 90 mcg/actuation HFA aerosol inhaler (2 sources)Start: 16-05-7261pdiu 1 puff(s) by inhalation every four to six hours as needed for wheezingAlbuterol Sulfate 90 mcg/actuation HFA aerosol inhaler Active 2 PUFF INHALATION EVERY 4-6 HOURS as needed for shortness of breath or wheezing 6.7 March 17, 2024 1:00amStart: 46-14-4711qzcn 1 puff(s) by inhalation every four to six hours as needed for wheezingAlbuterol Sulfate 90 mcg/actuation HFA aerosol inhaler Active 2 PUFF INHALATION EVERY 4-6 HOURS as n eeded for shortness of breath or wheezing 6.7 March 17, 2024 12:00am amoxicillin 500 mg oral capsule (5 sources)Penicillin-class AntibacterialStart: 18-27-2569hpyn 1 capsule by mouth every eight hoursAmoxicillin 500 MG 1 capsule Orally every 8 hrs for 7 days Jul, ActiveCephalexin (4 sources)Cephalosporin AntibacterialKeflex ActiveDoxylamine (5 sources)Unisom Active{21 (ethinyl estradiol 0.02 MG / levonorgestrel 0.1 MG Oral Tablet) / 7 (inert ingredients 1 MG Oral Tablet) } Pack [Lutera 28 Day] (1 source)Progestin, Estrogen, Progestin-containing Intrauterine Devicetake 1 tablet by mouth every twenty-four hoursLutera 0.1-20 MG-MCG 1 tablet Orally Once a day for 28 day(s) ActiveFamotidine (5 sources)Histamine-2 Receptor AntagonistPepcid Activenorethindrone 0.35 mg oral tablet (7 sources)Start: 02-25-2024 End: 66-62-3247djxk 1 tablet by mouth once daily, then take 1 tablet by mouth once dailynorethindrone (Micronor) 0.35 MG tablet Indications: Hormone disorder , Decreased libido , Pain in female genitalia on intercourse , Other fatigue Take 1 tablet (0.35 mg) by mouth Daily Take 1 tabletby mouth daily 84 tablet 05/16/2024 08/08/2024 Activepolymyxin b 61537 unt/ml / trimethoprim 1 mg/ml ophthalmic solution (4 sources)Dihydrofolate Reductase Inhibitor Antibacterial, Polymyxin-class AntibacterialStart: 20-83-8006srwm 1 drop(s) into the eye(s) four times daily Polymyxin B-Trimethoprim 47232-8.1 UNIT/ML 1 drop both eyes Four times a day for 5 day(s) Mar, ActivePrenatal (11 sources) ActivePromethazine (5 sources)PhenothiazinePhenergan ActiveVitamin D (4 sources)Vitamin D Active Completed/Discontinued Medications MedicationDrug Class(es)DatesSig (Normalized)Sig (Original)acetaminophen 325 mg / HYDROcodone bitartrate 5 mg oral tablet (5 sources)Opioid AgonistStart: 2023 End: 99-84-4689ywet 1-2 tablets by mouth every six hoursHYDROcodone- acetaminophen (Martin) 5-325 MG tablet TAKE 1 TO 2 TABLETS BY MOUTH EVERY 6 HOURS UP TO 5 (FIVE) DAYS 2023 02/25/2024 Discontinuedacetaminophen 325 mg / oxyCODONE hydrochloride 5 mg oral tablet (5 sources)Opioid AgonistStart: 12-02-2023 End: 07-42-6929yugr 1 tablet by mouth every six hoursoxyCODONE-acetaminophen (Percocet) 5-325 MG tablet Take 1 tablet by mouth every 6 (six) hours 12/02/2023 02/25/2024 Nbrcxuosmdkgkme595766 200 actuat albuterol 0.09 mg/actuat metered dose inhaler (4 sources)beta2-Adrenergic AgonistStart: 03-17-2024 End: 47-92-3136qfvx 1 puff(s) by inhalation every four to six hours as needed for wheezingAlbuterol Sulfate 90 mcg/actuation HFA aerosol inhaler Discontinued 2 PUFF INHALATION EVERY 4-6 HOURS as needed for shortness of breath or wheezing 6.7 March 17, 2024 1:00am December 04, 2024 11:42amAlbuterol Sulfate Activeazithromycin 250 mg oral tablet (11 sources)Macrolide AntimicrobialStart: 03-17-2024 End: 69-87-2979Wrzbobfpaozr 250 mg tablet Discontinued 0 PO daily 6 5 August 13, 2024 12:00am August 21, 2024 10:18am Take 2 on day 1 and then take 1 for the next 4 days (days 2-5)Start: 38-07-0085Sgprdkqupoul 250 MG as directed Orally 2 tabs po today, then 1 tab daily x 4 more days for 5 Feb, Active Start: 23-37-1279Dnvgxdvpkqts 250 MG as directed Orally 2 tabs po today, then 1 tab daily x 4 more days for 5 Jul, Ohthgb575 actuat budesonide 0.08 mg/actuat / formoterol fumarate 0.0045 mg/actuat metered dose inhaler (1 source)Corticosteroid, beta2-Adrenergic AgonistStart: 22-39-4765gdou 2 puff(s) by inhalation twice dailySymbicort 80-4.5 MCG/ACT 2 puffs Inhalation Twice a day Jun, Not-Takingcefdinir 300 mg oral capsule (3 sources)Cephalosporin AntibacterialStart: 12-04-2024 End: 95-69-6365xfzi 1 capsule by mouth twice dailyCefdinir 300 mg capsule Discontinued 300 MG PO Twice daily 14 December 04, 2024 12:00am January 06, 2025 11:02amciprofloxacin 500 mg oral tablet (5 sources)Quinolone AntimicrobialStart: 2023 End: 48-32-3159cyzn 1 tablet by mouth in the morningciprofloxacin (Cipro) 500 MG tablet Take 500 mg by mouth in the morning and 500 mg before bedtime. 2023 02/25/2024 Discontinuedclindamycin 10 mg/ml topical solution (4 sources)Lincosamide AntibacterialStart: 08-13-2024 End: 54-82-2528Dhcacyblkct Phosphate 1 % solution Discontinued 1 APPLIC TOPICAL Daily August 13, 2024 12:00am December 04, 2024 11:42amdocusate sodium 100 mg oral capsule (5 sources) End: 68-99-6331alff 1 capsule by mouth in the morningdocusate sodium (Colace) 100 MG capsule Take 100 mg by mouth in the morning and 100 mg before bedtime. 02/25/2024 Discontinueddoxycycline monohydrate 100 mg oral tablet (3 sources)Tetracycline-class DrugStart: 08-21-2024 End: 89-81-3961hmwr 1 tablet by mouth twice dailyDoxycycline Monohydrate 100 mg tablet Discontinued 100 MG PO Twice daily 14 August 21, 2024 12:00am December 04, 2024 11:42amflibanserin 100 mg oral tablet (6 sources)Start: 01-22-2024 End: 18-92-3734lrwo 1 tablet by mouth once daily at bedtimeFlibanserin (Addyi) 100 mg tablet Discontinued 100 MG PO Daily at bedtime January 22, 2024 12 :00am March 17, 2024 4:06pmfluticasone propionate 0.05 mg/actuat metered dose nasal spray (4 sources)CorticosteroidStart: 08-13-2024 End: 25-57-4152qikb 1 spray(s) nasal route twice dailyFluticasone Propionate (Flonase Allergy Relief) 50 mcg/actuation spray,suspension Discontinued 1 SPRAY INTRANASAL Twice daily August 13, 2024 12:00am December 04, 2024 11:42am administer into bdkssnnjzvo015 actuat levalbuterol 0.045 mg/actuat metered dose inhaler (1 source)beta2-Adrenergic AgonistStart: 85-91-3534afub 2 puff(s) by inhalation every six hoursXopenex HFA 45 MCG/ACT 2 puffs Inhalation every 6 hrs for 30 days August, Not-TakingmethylPREDNISolone 4 mg oral tablet (10 sources)CorticosteroidStart: 03-17-2024 End: 27-53-5325syao 1 tablet by mouth onceMethylprednisolone (Medrol (Fco)) 4 mg tablets,dose pack Discontinued 0 PO per package directions August 13, 2024 12:00am August 21, 2024 10:19am PO PER PKG DIRStart: 04-14-2021 methylPREDNISolone 4 MG as directed Orally Once a day for 6 days Mar, Activeondansetron 4 mg disintegrating oral tablet (5 sources)Serotonin-3 Receptor AntagonistStart: 2023 End: 83-92-6204uzuirldevag ODT (Zofran-ODT) 4 MG disintegrating tablet DISSOLVE 1 (ONE) TABLET ON THE TONGUE EVERY8 HOURS NEEDED 2023 02/25/2024 DiscontinuedprednisoLONE acetate 10 mg/ml ophthalmic suspension (7 sources)CorticosteroidStart: 12-02-2023 End: 54-16-7145Hnpkxibyurxw Acetate 1 % drops,suspension Discontinued DROPS OPHTHALMIC December 02, 2023 12:00am March 17, 2024 4:06pmStart: 12-02-2023 Prednisolone Acetate Active DROPS OPHTHALMIC December 02, 2023 12:00ampredniSONE 50 mg oral tablet (5 sources)Start: 12-02-2023 End: 25-34-2310ukbzrkCLTW (Deltasone) 50 MG tablet take 1 tablet by mouth once daily for 5 days ADMINISTER 13 HOURS ... (REFER TO PRESCRIPTION NOTES). 12/02/2023 02/25/2024 CaxdlsbrabrsBordzc80-Tbjq Fum-Folic Ac-Om3 (One A Day Women's Dha) 28 mg iron- 800 mcg combo pack (1 source)Start: 06-27-2024 End: 88-73-4600Weczxg41-Iron Fum-Folic Ac-Om3 (One A Day Women's Dha) 28 mg iron- 800 mcg combo pack Discontinued PKG PO June 27, 2024 1:00am August 13, 2024 10:32amPrenatal 75-Iron Kgd-Dwori-Ab0 (One A Day Women's Dha) 28 mg iron- 800 mcg combo pack (3 sources)Start: 06-27-2024 End: 02-74-3767Nuoapfzr 75-Iron Epk-Yjksd-Hm4 (One A Day Women's Dha) 28 mg iron- 800 mcg combo pack Discontinued PKG PO June 27, 2024 1:00am August 13, 2024 10:32amPrenatal MV-Min-Fe Fum-FA-DHA ( 1 PO) (5 sources) End: 29-78-7396Edvogiey MV-Min-Fe Fum-FA-DHA ( 1 PO) Take 1 tablet by mouth in the morning. 02/25/2024 DiscontinuedPrenatal MV-Min-Fe Fum-FA-DHA ( 1 PO) Take 1 tablet by mouth in the morning. Activesertraline 50 mg oral tablet (12 sources)Serotonin Reuptake InhibitorStart: 06-27-2024 End: 37-22-8428klki 1 tablet by mouth once dailySertraline 50 mg tablet Discontinued 1 TAB PO Daily June 27, 2024 1:00am August 13, 2024 10:32am FreeTextSi tablet Orally Once a day; Note: Source Status: Start; Refills: 3; Provider: George Ortiz ( )Start: 07-19-2023 End: 98-79-7787afxg 1 tablet by mouth once dailysertraline (Zoloft) 50 MG tablet Take 50 mg by mouth Daily 07/19/2023 02/25/2024 DiscontinuedStart: 03-29-2023 take 1 tablet by mouth every twenty-four hoursSertraline HCl 50 MG 1 tablet Orally Once a day for 30 days Feb, ActiveStart: 52-87-0920qzhb 1 tablet by mouth every twenty-four hoursSertraline HCl 25 MG 1 tablet Orally Once a day for 30 day(s) Feb, Activespironolactone 25 mg oral tablet (4 sources)Aldosterone AntagonistStart: 08-13-2024 End: 34-83-9326edil 1 tablet by mouth once dailySpironolactone 25 mg tablet Discontinued 25 MG PO Daily August 13, 2024 12:00am December 04, 2024 11:42am tretinoin 0.25 mg/ml topical cream (4 sources)RetinoidStart: 08-13-2024 End: 10-44-6182Rvkdetqtw 0.025 % cream Discontinued 1 APPLIC TOPICAL Daily at bedtime August 13, 2024 12:00am December 04, 2024 11:42amvalACYclovir 1000 mg oral tablet (5 sources)Herpesvirus Nucleoside Analog DNA Polymerase Inhibitor, Herpes Simplex Virus Nucleoside Analog DNA Polymerase Inhibitor, Herpes Zoster Virus Nucleoside Analog DNA Polymerase InhibitorStart: 12-02-2023 End: 68-69-7372lwur 1 tablet by mouth every eight hoursvalACYclovir (Valtrex) 1 g tablet take 1 tablet by mouth every 8 hours for 7 days 12/02/2023 02/25/2024 Phyylqgswpkl60 hr venlafaxine 37.5 mg extended release oral capsule (20 sources)Serotonin and Norepinephrine Reuptake InhibitorStart: 11-12-2023 End: 64-66-0809zoxj 1 capsule by mouth once daily at mealtimeVenlafaxine 37.5 mg capsule,extended release 24hr Discontinued 0 .ROUTE .COMPLEX November 12, 2023 9:56am January 07, 2024 9:42pm take 1 capsule by mouth once daily with food Start: 11-12-2023 End: 58-46-9975jjez 1 capsule by mouth once daily at mealtimeVenlafaxine Discontinued 0 .ROUTE .COMPLEX November 12, 2023 9:56am January 07, 2024 9:42pm take 1 capsule by mouth once daily with foodStart: 10-29-2023 End: 45-20-2689ljzj 1 capsule by mouth once daily at mealtimevenlafaxine XR (Effexor XR) 37.5 MG 24 hr capsule take 1 capsule by mouth once daily with food 10/29/2023 02/25/2024 DiscontinuedStart: 07-04-2023 End: 10-40-5046rgnz 1 capsule by mouth once daily at mealtimeVenlafaxine 37.5 mg capsule,extended release 24hr Discontinued 0 .ROUTE .COMPLEX January 09, 2024 9:46am March 17, 2024 4:06pm TAKE 1 CAPSULE BY MOUTH DAILY WITH FOOD Start: 07-04-2023 End: 56-52-2413ooam 1 capsule by mouth once daily at mealtimeVenlafaxine 37.5 mg capsule,extended release 24hr Discontinued 0 .ROUTE .COMPLEX July 04, 2023 3:06pm October 29, 2023 9:33am take 1 capsule by mouth once daily with foodStart: 07-04-2023 End: 59-41-6685bvyk 1 capsule by mouth once daily at mealtimeVenlafaxine Discontinued 0 .ROUTE .COMPLEX July 04, 2023 3:06pm October 29, 2023 9:33am take 1 capsule by mouth once daily with foodStart: 59-61-5699avyj 1 capsule by mouth once daily at mealtimeVenlafaxine Active 0 .ROUTE .COMPLEX July 04, 2023 3:06pm take 1 capsule by mouth once daily with foodStart: 07-04-2023 End: 66-96-5534pwha 1 capsule by mouth once dailyVenlafaxine 37.5 mg capsule,extended release 24hr Discontinued 37.5 MG PO Daily July 04, 2023 1:00 am July 04, 2023 3:06pmStart: 78-14-4870cwhb 1 capsule by mouth every twenty- four hoursVenlafaxine HCl ER 37.5 MG 1 capsule with food Orally Once a day for 30 day(s) May, Active Problems Active Problems Problem ClassificationProblemDateDocumented DateEpisodic/ChronicAbdominal pain (4 sources)Unspecified abdominal pain; Translations: [UNSPECIFIED ABDOMINAL PAIN]Onset: 50-07-8888BpptrgptJfirxyw disorders (2 sources)Anxiety disorder; Translations: [Anxiety disorder, unspecified] ChronicAsthma (15 sources)Asthma; Translations: [Asthma, unspecified]Onset: 82-85-6385Abkfdrl Calculus of urinary tract (2 sources)Unspecified renal colic; Translations: [Personal history of urinary calculi]Onset: 47-72-7886QlefjwiaGwnizwa obstructive pulmonary disease and bronchiectasis (10 sources)Bronchitis, not specified as acute or chronic; Translations: [Bronchitis]Onset: 04-14-2021 Resolved: 72-25-4472UxeikkbsLgysaiclwp and other anemia (7 sources)Anemia; Translations: [Anemia, unspecified]42-73-8740Xhfexbec Deficiency and other anemia (1 source)Anemia, unspecified; Translations: [Anemia, unspecified]10-17-2023 EpisodicEarly or threatened labor (1 source)False labor before 37 completed weeks of gestation, third trimester; Translations: [FALSE LABR BEFOR 37 WK GEST 3RD TRI]Onset: 68-10-6823Roxbjhac Fever of unknown origin (2 sources)Fever; Translations: [Fever, unspecified]EpisodicGenitourinary symptoms and ill-defined conditions (3 sources)Dysuria; Translations: [Dysuria]Onset: 94-30-9398DegctmayLvnmffhs; including migraine (2 sources)Refractory migraine with aura; Translations: [Migraine with aura, with intractable migraine, so stated, without mention of status migrainosus] Onset: 02-40-6578BwwhgzvIzewvhxoeagfq and screening for infectious disease (16 sources)Contact with and (suspected) exposure to other viral communicable diseases; Translations: [Contact with and (suspected) exposure to infections with a predominantly sexual mode of transmission]Onset: 04-14-2021 Resolved: 52-54-5294DcjkogpvHfkoyaalbppl; infection of eye (except that caused by tuberculosis or sexually transmitteddisease) (2 sources)Unspecified conjunctivitis; Translations: [Varicella-zoster virus eyelid dermatitis]EpisodicInfluenza (1 source)Influenza due to other identified influenza virus with other respiratory manifestationsEpisodicMalaise and fatigue (19 sources)Fatigue; Translations: [Other fatigue]Onset: 839341-68-8741 EpisodicMiscellaneous mental health disorders (8 sources)Lack or loss of sexual desire; Translations: [Hypoactive sexual desire disorder]96-72-9252HzfaeraNidrahenbbytp mental health disorders (4 sources) depression; Translations: [ depression]Onset: 98-90-2978JrqrxhdkPgxg disorders (8 sources)Chronic depression; Translations: [Chronic depression]01-22-2024 ChronicNausea and vomiting (5 sources)Nausea with vomiting, unspecified; Translations: [Vomiting]Onset: 76-91-7832XgvojjucDkhrz bone disease and musculoskeletal deformities (2 sources)Idiopathic scoliosis; Translations: [Other idiopathic scoliosis, cervicothoracic region]ChronicOther bone disease and musculoskeletal deformities (1 source)Other idiopathic scoliosis, cervicothoracic regionChronicOther complications of (4 sources)Other specified related conditions, third trimester; Translations: [OTH SPEC PREG RELATEDCOND 3RD TRI]Onset: 99-74-4940QplytltgQzcyv complications of (4 sources)Diseases of the respiratory system complicating , third trimester; Translations: [DISEASESRESP SYS COMP PREG 3RD TRI]Onset: 08-07-2022 EpisodicOther complications of (4 sources)Uterine size-date discrepancy, third trimester; Translations: [UTERINE SZ-DATE DISCREPANCY 3RD TRI]Onset: 56-08-7263TumzikeaTylsh complications of (2 sources)Supervision of high risk with poor obstetric history; Translations: [Supervision of with other poor reproductive or obstetric history, unspecified trimester]EpisodicOther complications of (2 sources)Mild hyperemesis gravidarum; Translations: [Mild hyperemesis gravidarum]EpisodicOther connective tissue disease (2 sources)Pain in right foot; Translations: [Pain in right foot]EpisodicOther diseases of kidney and ureters (1 source)Hydronephrosis with renal and ureteral calculous obstruction; Translations: [HYDRONPHROS RENL AND URETRL CALCUL OBST]Onset: 81-20-9634Yrxgcixv Other female genital disorders (9 sources)Pain in female genitalia on intercourse; Translations: [Unspecified dyspareunia]Onset: 751560-11-0735OzvsyfyKxecm injuries and conditions due to external causes (2 sources)Injury of head; Translations: [Unspecified injury of head, initial encounter]EpisodicOther nutritional; endocrine; and metabolic disorders (2 sources)Excessive thirst; Translations: [Polydipsia]EpisodicOther and delivery including normal (14 sources)Encounter for supervision of other normal , first trimester; Translations: [Encounter for test, result positive]Onset: 91-58-4028OinyarpuMlxhd screening for suspected conditions (not mental disorders or infectious disease) (9 sources)Encounter for screening for Streptococcus B; Translations: [Encounter for screening for malignant neoplasm of cervix]Onset: 03-01-2022 EpisodicOther upper respiratory infections (20 sources)Sore throat symptom; Translations: [Acute pharyngitis, unspecified] Onset: 20-84-7301VmoshvlhQskcgo media and related conditions (7 sources)Otitis media; Translations: [Otitis media, unspecified, unspecified ear]Onset: 633892-94-8179JbilemkmAdipcegl codes; unclassified (1 source)37 weeks gestation of ; Translations: [37 WEEKS GESTATION OF ]Onset: 48-42-4289LlmviricMtkpuqbr codes; unclassified (1 source)36 weeks gestation of ; Translations: [36 WEEKS GESTATION OF ]Onset: 93-20-3429JwjmfkmyBosnegmx codes; unclassified (1 source)34 weeks gestation of ; Translations: [34 WEEKS GESTATION OF ]Onset: 31-39-3301NxnotycjVivtqpqw codes; unclassified (1 source)31 weeks gestation of ; Translations: [31 WEEKS GESTATION OF ]Onset: 39-76-9683GfiulqxfYrnvuzhl codes; unclassified (1 source)30 weeks gestation of ; Translations: [30 WEEKS GESTATION OF ]Onset: 62-88-9142DqnyilzdXzlievbt codes; unclassified (1 source)27 weeks gestation of ; Translations: [27 WEEKS GESTATION OF ]Onset: 76-61-8102KgdlccxwBblhbpjs codes; unclassified (2 sources)Gestation period, 9 weeks; Translations: [9 weeks gestation of ]EpisodicUnclassified (1 source)OT SPCF DIS/COND COMPL ; Translations: [OTH SPCF DIS/COND COMPL ]Onset: 23-94-8858Rynrstq tract infections (6 sources)Urinary tract infectious disease; Translations: [Urinary tract infection, site not specified]72-72-6516UsfjlpziGicoi infection (10 sources)Herpes zoster; Translations: [Zoster without complications] 31-17-8432Cuwpdanc Past or Other Problems Problem ClassificationProblemDateDocumented DateEpisodic/ChronicContraceptive and procreative management (12 sources)Patient encounter status; Translations: [Encounter for other general counseling and advice on contraception]Onset: 348917-55-2725Jvalmzmb Noninfectious gastroenteritis (2 sources)Noninfectious gastroenteritis; Translations: [Other and unspecified noninfectious gastroenteritis and colitis]Onset: 03-83-6623KqlpqsddXjplc complications of (4 sources)Mild hyperemesis gravidarum; Translations: [MILD HYPEREMESIS GRAVIDARUM]Onset: 01-53-2843KbejjzbpBokaw endocrine disorders (9 sources)Disorder of endocrine system; Translations: [Endocrine disorder, unspecified]Onset: 212239-31-5300QtqqoclyCnnsp female genital disorders (4 sources)Other specified noninflammatory disorders of vagina; Translations: [OTH SPEC NONINFLAMMATORY D/O VAGINA]Onset: 45-49-2164IwiewukfYcqni lower respiratory disease (1 source)Shortness of breathOnset: 04-14-2021 Resolved: 08-11-9385DkpkcdqxVakcpilp codes; unclassified (1 source)11 weeks gestation of ; Translations: [11 WEEKS GESTATION OF ]Onset: 14-80-0750ZkhkaedePnqkvzrc codes; unclassified (1 source)9 weeks gestation of ; Translations: [9 WEEKS GESTATION OF ]Onset: 25-40-9641WpkppqauBojbgdch codes; unclassified (1 source)8 weeks gestation of ; Translations: [8 WEEKS GESTATION OF ]Onset: 90-72-2527MqotybxmErpsacnl codes; unclassified (1 source)Weeks of gestation of not specified; Translations: [WEEKS GESTATION NOT SPEC]Onset: 15-50-4325IlcdifddCxffykqf codes; unclassified (9 sources)Reduced libido; Translations: [Decreased libido]Onset: 02-25-2024 73-83-8522OhpsxxckKjrtadeavdpa (1 source)Cough R05.9 Results Test NameValueInterpretationReference RangeFacilityNo Panel InformationOrdered By: Danielle Grover on 06-85-6435Wdqto Strep (POC)Uk HealthcareUrine Cultureon 92-10-9637Dpbekplc identified Cx Nom (U)ORGANISM: Escherichia coli (O:ESCCOL) [place] Count >100,000 Aerobic NIKITA Charge (NMIC56) SUSCEPTIBILITY ORGANISM: O:ESCCOL ANTIBIOTIC INTERPRETATION NIKITA Amikacin [...] <4 Tigecycline S <2 Tobramycin S <2 Trimethoprim/Sulfamethoxazole S <0.5 S = SUSCEPTIBLE I = [...] RESISTANT TO ALL B-LACTAM DRUGS. PERFORMED BY: [facility] [address] [place] [address] PATHOLOGIST [employer]AT [employer] MECHANIC ELIJAH FLANAGAN M.D.NormalThe Lifecare Hospitals Of North Carolina Physician GroupComment on above: Performed By: #### CUU #### [facility] [address] [place] [address] USAUrine cultureOrdered By: Danielle Grover on 12-04-2024 Bacteria identified Cx Nom (U)Escherichia coliAbnoAdams County Regional Medical CenterIGP,APTIMA HPV,AGE GDLNon 73-97-6720SKD GDLN ACOG TESTINGNote.NOMS HealthcareComment on above:TESTS RESULT FLAG UNITS REF RANGE LAB Clinician Provided Cytology Information Source.............Cervix;Endocervix No. of containers..01 ThinPrep Vial Age Babitao ACOG [place]... FLAG LEGEND: L-Low Normal,H-High Normal,LL-Alert Low,HH-Alert High <-Panic Low,>-Panic High,A-Abnormal,AA-Critical Abnormal Performed at: 01 =[address] [id number] Jojo Humphreys MD, HPV APTIMANegativeNegativeNOMS HealthcareComment on above:This nucleic acid amplification test detects fourteen high- risk HPV types (16,18,31,33,35,39,45,51,52,56,58,59,66,68) without differentiation. Performed at: =[address] [id number] Debt Recovery Officer: Jojo Humphreys MD, Phone: [phone] Performed at: [address] [id number] Debt Recovery Officer: Jojo Humphreys MD, Phone: [phone] IGP, APTIMA HPV, RFX 16/18,45Note.NOMS HealthcareComment on above:TESTS RESULT FLAG UNITS REF RANGE LAB DIAGNOSIS: 02 NEGATIVE FOR INTRAEPITHELIAL LESION OR MALIGNANCY. REACTIVE CELLULAR CHANGES AND/OR REPAIR ARE PRESENT. Specimen adequacy: 02 Satisfactory for evaluation. No endocervical component is identified. Performed by: 02 Jacob Rodriguez, Animal Nursery Worker (ASCP) Electronically si... Mark Flores MD, Pathologist [...] <-Panic Low,>-Panic High,A-Abnormal,AA-Critical Abnormal Performed at: [address] [address] Jojo Humphreys MD, BRUSH-SPATULA CERVIX ENDOCERVIX CLINISYNCNOSaint [facility] papilloma virus 16+18+31+33+35+39+45+51+52+56+58+59+66+68 DNA [Presence] in Zbigniew 65-05-4962KOG 16+18+31+33+35+39+45+51+52+56+58+59+66+68 DNA Probe+sig amp Ql (Cvx)Human papilloma virus 16+18+31+33+35+39+45+51+52+56+58+59+66+68 DNA [Presence] in Cer [facility] HospitalComment on above:This nucleic acid amplification test detects fourteen high-risk HPV types (16,18,31,33,35,39,45,51,52,56,58,59,66,68)without differentiation.Performed at: =[address] [id number] Director: Jojo Humphreys MD, Phone: [phone] at: [address] [id number] Director: Jojo Humphreys MD, Phone: [phone] Panel Informationon 74-25-2408HDU High Risk Other CommentNote. Uk HealthcareComment on above:TESTS RESULT FLAG UNITS REF RANGE LAB DIAGNOSIS: 02 NEGATIVE FOR INTRAEPITHELIAL LESION OR MALIGNANCY. REACTIVE CELLULAR CHANGES AND/OR REPAIR ARE PRESENT.Specimen adequacy: 02 Satisfactory for evaluation. No endocervical component is identified.Performed by: Jacob Rodriguez, Animal Nursery Worker (ASCP)Electronically si... Mark Flores MD, Pathologist. 02Note: Note 02 The Pap smear is a screening test designed to aid in the d etection of premalignant and malignant conditions of the uterine cervix. It is not a diagnostic procedure and should not be used as the sole means of detecting cervical cancer. Both false-positive and false-negative reports do occur.Test Methodology: Note 02 This liquid based ThinPrep(R) pap test was screened with the use of an image guided system.HPV Genotype Reflex Note 02 Criteria not met, HPVGenotype not performed. FLAG LEGEND: L-Low Normal,H-High Normal,LL-Alert Low,HH-Alert High <-Panic Low,>- Panic High,A-Abnormal,AA-Critical Abnormal Performed at:[address] [address] Jojo Humphreys MD, Xccswgiis Lab Test Patient AgeNote.Uk HealthcareComment on above:TESTS RESULT FLAG UNITS REF RANGE LAB Clinician Provided Cytology Information Source.............Cervix;Endocervix No. of containers..01 ThinPrep VialAge Algo ACOG [place]... FLAG LEGEND: L-Low Normal,H-High Normal,LL-Alert Low,HH-Alert High <-Panic Low,>-Panic High,A- Abnormal,AA-Critical Abnormal Performed a t:01 =[address] [facility] [address] Jojo Humphreys MD, no Panel InformationOrdered By: Danielle Grover on 90-79-4030Hldcw Strep (POC)[facility]1,25- dihydroxyvitamin D3 [Mass/Vol]on ,25 Dihydroxy Vitamin D64.9 pg/mL 24.8-81.5FKettering Health – Soin Medical CenterComment on above:Performed at: BN - [facility] [id number] Director: Chico Silveira MD, Phone: [phone] testosterone measurement by LC-MS/MSon 39-94-0824Mcipeoddliik Free [Mass/Vol]Free testosterone measurement by LC-MS/MS 0.0-4.2FKettering Health – Soin Medical CenterComment on above:Performed at: CB - [facility]coMountainside HospitalApdecj[address] [place], [place] [id number] Director: Anival Paul PhD, Phone: [phone] at: [facility] [address]ignA[address]ticsElizabeth [address] [place], [place] [id number] Director: Chico Silveira MD, Phone: [phone] mean value [Mass/volume] in Blood Estimated from glycated hemoglobinon 83-43-1451Suymlvf glucose Estimated from glycated hemoglobin (Bld) [Mass/Vol]Glucose mean value [Mass/volume] in Blood Estimated from glycated hemoglobinUk HealthcareLaboratory - Chemistry and Chemistry - challengeon 05-75-2613Yfldwici [Mass/Vol]87.0 ng/mL8.0-252.0Uk HealthcareFree T4 [Mass/Vol]0.94 ng/dL0.76-1.46Uk HealthcareGlucose [Mass/Vol]82 mg/xS67-841SsxmwqkljUk HealthcareT4 [Mass/Vol]7.10 ug/dL4.80-13.90Uk HealthcareTSH Qn0.502 m[IU]/L0.358-3.740Uk HealthcareLaboratory - Hematology and Cell countson 24-56-6982OcX4g (Bld) [Mass fraction]4.2 %Low4.5-6.2FKettering Health – Soin Medical CenterComment on above:ADA RECOMMENDED LIMIT 4.0 - 6.0ADA THERAPEUTIC TARGET < 7.0ACTION SUGGESTED> 7.0MLR HEMOGLOBIN A1Con 02-25-2024 Glucose [Mass/Vol]74 mg/dLNOHI NompmtlsdsDpW3t (Bld) [Mass fraction]4.2 %Low4.5 - 6.2 %[facility] HealthcareComment on above:ADA RECOMMENDED LIMIT 4.0 - 6.0 ADA THERAPEUTIC TARGET < 7.0 ACTION SUGGESTED > 7.0 Interpretation and review of laboratory resultsAbnormalNOMS HealthcareCLINISYNC NOM HealthcareNo Panel Informationon 81-03-9606G-Peptide1.3 ng/mL1.1-4.4 Uk HealthcareComment on above:C-Peptide reference interval is for fasting patients.Performed at: CB [facility] [address]Mel[id number] [place], [place] [id number] Director: Anival Paul PhD, Phone: [phone] Dehydroepiandrosterone Ksmtnls500.0 ug/dL84.8-378.0Uk HealthcareFree Cortisol, Dialysis, LCMS0.363 ug/dL.[facility] Comment on above:These tests were developed and their performancecharacteristics determined by [facility]. They have not beencleared or approved by the Food and Drug Administration.Reference Range:8 AM 0.10 - 1.204 PM 0.042 - 0.872Performed at: ES - [employer] [address] [place], [place] [id number] Dir gilma: Fede Gunter MD, Phone: [phone] Triiodothyronine2.50 pg/mL 2.18-3.98Uk HealthcareReverse Triiodothyronine (T3)20.1 ng/dL9.2-24.1FKettering Health – Soin Medical CenterComment on above:This test was developed and its performance characteristicsdetermined by [employer]. It has not been cleared orapproved by the Food and Drug Administration.Performed at: [facility] [employer] [id number] Director: Chico Silveira MD, Phone: [phone] Hormone Binding Azazavnc31.9 nmol/L24.6-122.0 Uk HealthcareComment on above:Performed at: [facility] [employer] [address] [place], [place] [id number] Director: Anival Paul PhD, Phone: [phone] Level18 ng/eS71-89RergulgupUniversity Hospitals Conneaut Medical Centererotonin (P) [Mass/Vol]on 76-09-9753Cupykujdj57 ng/vG96-118DpkxvhoqwUk HealthcareComment on above:This test was developed and its performance characteristicsdetermined by [employer]. It has not been cleared orapproved by the Food and Drug Administration.Performed at: [facility] [employer] [id number] Director: Chico Silveira MD, Phone: [phone] estrone measurementon 51-32-9570F7 [Mass/Vol]Serum estrone xetfmdehgqe84-368PhvtntnkvUk HealthcareComment on above:Range Adult (Premenopausal) 27 - 231 Menstrual Cycle (1-10 days) 19 - 149 Menstrual Cycle (11-20 days) 32 - 176 Menstrual Cycle (21-30 days) 37 - 200Performed at: [facility] [address] [id number] Director: Chico Silveira MD, Phone: [phone] or plasma estradiol (E2) measurement (mass/volume)on 48-73-9658U5 [Mass/Vol]Serum or plasma estradiol (E2) measurement (mass/volume).Uk HealthcareComment on above: Adult Female Range Follicular phase 12.5 - 166.0 Ovulation phase 85.8 - 498.0 Luteal phase 43.8 - 211.0 Postmenopausal <6.0 - 54.7 1st trimester 215.0 - >4300.0Roche ECLIA methodologySerum or plasma insulin measurement (units/volume)on 07-35-7370Uwprkfl QnSerum or plasma insulin measurement (units/volume)2.6-24.9Uk HealthcareComment on above: Performed at: [facility] [address] [id number] Director: Anival Paul PhD, Phone: [phone] or plasma progesterone measurement (mass/volume)on 56-18-0402Zlxaxtifojgj [Mass/Vol]Serum or plasma progesterone measurement (mass/volume).Uk HealthcareComment on above:Follicular phase 0.1 - 0.9 Luteal phase 1.8 - 23.9 Ovulation phase 0.1 - 12.0 First trimester 11.0 - 44.3 Second trimester 25.4 - 83.3 Third trimester 58.7 - 214.0 Postmenopausal 0.0 - 0.1TPO Ab Qnon 71-37-6453Ikofequ Peroxidase Apeyddvfck65 [IU]/mL0-34[facility] Thyroglobulin Ab Qnon 08-88-3627Vguf-Thyroglobulin Antibody<1.0 [IU]/mL0.0-0.9 Uk HealthcareComment on above:Thyroglobulin Antibody measured by Julia CoulterMethodologyIt should be noted that the presence of thyroglobulinantibodies may not be pathogenic nor diagnostic, especiallyat very low levels. The assay speech language specialist has found thatfour percent of individuals without evidence of thyroiddisease or autoimmunity will have positive TgAb levels upto 4 IU/mL.Performed at: [address] [id number] Director: Anival Paul PhD, Phone: [phone] Auto (Bld) [#/Vol]on 37-64-2739Npxzpsqbj (Bld) [#/Vol]0.0 10 3/uL0.0-0.1FKettering Health – Soin Medical CenterBasophils/100 WBC Auto (Bld)on 86-99-4193Idzyoodvm/100 WBC (Bld)0.3 %0.2-2.0Uk HealthcareEosinophils/100 WBC Auto (Bld)on 20-97-2376Eiyprnvkrxm/100 WBC (Bld)1.0 %0.9-7.0Uk HealthcareErythrocyte distribution width Auto (RBC) [Ratio]on 2023 Erythrocyte distribution width (RBC) [Ratio]12.1 %11.0-15.0Uk HealthcareHematocrit Auto (Bld) [Volume fraction]on 70-09-5878Yzcigwqkyu (Bld) [Volume fraction]39.5 %36.0-48.0[facility] Hemoglobin [Mass/volume] in Bloodon 84-33-1935Fvcmzfwlts (Bld) [Mass/Vol]13.7 g/dL12.0-16.0Uk HealthcareLaboratory - Chemistry and Chemistry - challengeon 88-74-7986Lqrhpfolf Ql (U)NegativeNEGATIVEUk HealthcareGlucose (U) [Mass/Vol]NegativeNEGATIVEUk HealthcareKetones Ql (U)NegativeNEGATIVEUk HealthcarepH (U)6.0 [pH]5.0-9.0Fire[facility] Medical CenterSpecific gravity (U) [Rel density]1.0251.005-1.025Uk HealthcareUrobilinogen Qn (U)1.0 {Ariana'U}/dL0.2-1.0Uk HealthcareLaboratory - Hematology and Cell countson 45-90-0374Stdtjqbd granulocytes/100 WBC (Bld)0.8 %High0.0-0.5 Uk HealthcareLaboratory - Specimen informationon 2023 Appearance (U)CLEARCLEARFKettering Health – Soin Medical CenterColor (U)YELLOWYELLOW Uk HealthcareLaboratory - Urinalysison 75-52-8186Zoifdmcam esterase Test strip Ql (U)NegativeNEGATIVEUk HealthcareMucus Ql (Urine sed)TRACEAbnormalNONE SEENUk HealthcareNitrite Ql (U)NegativeNEGATIVEUk HealthcareProtein Ql (U)TRACE mg/dL NEG/TRACEUk HealthcareLeukocytes [#/volume] corrected for nucleated erythrocytes in Blood by Automated counon 78-44-6518FGE corrected for nucl RBC Auto (Bld) [#/Vol]7.9 10 3/uL4.0-11.0[facility] Lymphocytes Auto (Bld) [#/Vol]on 42-14-4911Zeyqkifnwmn (Bld) [#/Vol]2.4 10 3/uL 1.2-3.8Uk HealthcareLymphocytes/100 WBC Auto (Bld)on 47-67-4651Ttgfzfimvhh/100 WBC (Bld)30.4 %20.5-60.0[facility] HospitalH Auto (RBC) [Entitic mass]on 17-63-2240XSC (RBC) [Entitic mass]30.3 pg 26.7-34.0[facility] HospitalHC Auto (RBC) [Mass/Vol]on 67-95-2155CPXP (RBC) [Mass/Vol]34.7 g/dL29.9-35.2FKettering Health – Soin Medical CenterMCV Auto (RBC) [Entitic vol]on 32-21-3322XWD (RBC) [Entitic vol]87.4 fL 81.0-99.0Uk HealthcareMonocytes Auto (Bld) [#/Vol]on 36-47-1895Ciqtyfygz (Bld) [#/Vol]0.6 10 3/uL0.3-0.8Uk HealthcareMonocytes/100 WBC Auto (Bld)on 79-58-2468Ogxsavbmr/100 WBC (Bld)7.1 % 1.7-12.0Uk HealthcareNeutrophils Auto (Bld) [#/Vol]on 62-22-2431Wrqhwtvcjue (Bld) [#/Vol]4.8 10 3/uL1.4-6.5FKettering Health – Soin Medical CenterNeutrophils/100 WBC Auto (Bld)on 85-54-8842Qfydtgmhpix/100 WBC (Bld)60.4 % 43.0-75.0Uk HealthcareNo Panel Informationon 2023 Eosinophils # (Auto)0.1 10 3/uL0.0-0.7FKettering Health – Soin Medical CenterImmature Granulocyte # (Auto)0.06 10 3/uLHigh0.00-0.03[facility] Urine BacteriaMODERATE #/HPFAbnormalNONE [facility] Urine Culture ReflexedEast Ohio Regional HospitalUrine Microscopic ReviewEast Ohio Regional HospitalUrine Occult BloodLARGEAbnormal NEGATIVEUk HealthcareUrine Other CastsNONE SEEN #/LPFNONE [facility] Medical CenterUrine Other CrystalsNone Seen #/HPFNone [facility] HospitalUrine RBC>100 #/HPFAbnormal0-2FKettering [facility] – Soin Medical CenterUrine Squamous Epithelial CellsFEW #/LPFAbnormalNONE/RARE Uk HealthcareUrine WBC2-5 #/HPFAbnormalNONE [facility] Medical CenterPlatelet mean volume Auto (Bld) [Entitic vol]on 49-60-0472Xnnybefx mean volume (Bld) [Entitic vol]10.3 fL9.5-13.5FKettering Health – Soin Medical CenterPlatelets Auto (Bld) [#/Vol]on 97-41-7832Cugwtrqlm (Bld) [#/Vol]223 10 3/mQ003-082CuxkxiqcwUk HealthcareRBC Auto (Bld) [#/Vol] on 37-32-6829FLH (Bld) [#/Vol]4.52 10 6/uL4.20-5.40Uk HealthcareYeast detection in urine sediment by light microscopyon 51-39-4138Nzmrg LM Ql (Urine sed)SEENAbnormalNONE SEENUk HealthcarePatient Letter FTMCon 34-01-2467Ketulko Letter [facility] [place] 27, 20[place] BRI VEGA [address] [place] [phone] : 1995 Dear Bri Vega, [facility] is sending you a copy [...] care. Sincerely, [facility] , option #3NormalCarmeloer Thomas B. Finan CenterRAD - MISCon 12-04-9789JBC - [id number]#1.00CD:127Normal Oseguera Thomas [facility]. Finan CenterCBC AUTO DIFFon 31-09-2137MOIH #0.1 103/ulNormal 0.0-0.1Clinton [facility] HospitalComment on above:Performed By: #### DBIL #### [facility] [address] [address] [address] Mark Laysophils/100 WBC (Bld)0.4 %Normal0.2-2.0[facility] Comment on above:Performed By: #### DBIL #### [facility] [address] [address] [address] Mark Mackenzie #0.1 103/ulNormal0.0-0.7The [facility] HospitalComment on above: Performed By: #### DBIL #### [facility] [address] [place] [address] Dr. Mark Meekosinophils/100 WBC (Bld)0.6 %Critically low0.9-7.0The [facility] HospitalComment on above:Performed By: #### DBIL #### [facility] [address] [place] [address] Dr. Mark Meekrythrocyte distribution width (RBC) [Ratio]13.4 %Fvqpel02.0-15.0 The [facility] HospitalComment on above:Performed By: #### DBIL #### [facility] [address] [place] [address] Dr. Mark CuellarHematocrit (Bld) [Volume fraction]31.6 %Critically low36.0-48.0 The [facility] HospitalComment on above:Performed By: #### DBIL #### [facility] [address] [place] [address] Dr. Mark CuellarHemoglobin (Bld) [Mass/Vol]10.9 g/dLCritically low12.0-16.0The [facility] HospitalComment on above:Performed By: #### DBIL #### [facility] [address] [place] [address] Dr. Mark Richardson #0.41 10e3/ulCritically high0.00-0.03The [facility] Comment on above:Performed By: #### DBIL #### [facility] [address] [place] [address] Dr. Mark Richardson %2.9 %Critically high0.0-0.5The UC Medical Centerment on above:Performed By: #### DBIL #### [facility] [address] [place] [address] Dr. Mark Chanel #2.5 103/ulNormal1.2-3.8The [facility] HospitalComment on above:Performed By: #### DBIL #### [facility] [address] [address] [address] Mark CuellarLymphocytes/100 WBC (Bld)18.0 %Critically low20.5-60.0The [facility] HospitalComment on above:Performed By: #### DBIL #### [facility] [address] [place] [address] Dr. Mark OrellanaUAL DIFF REQNONormalThe [facility] HospitalComment on above: Performed By: #### DBIL #### [facility] [address] [place] [address] Dr. Mark Lopez (RBC) [Entitic mass]30.7 vjYnigyj45.7-34.0The [facility] HospitalComment on above:Performed By: #### DBIL #### [facility] [address] [place] [address] Dr. Mark Lopez (RBC) [Mass/Vol]34.5 g/xDQglnpp54.9-35.2The [facility] HospitalComment on above:Performed By: #### DBIL #### [facility] [address] [place] [address] Dr. Mark Lopez (RBC) [Entitic vol]89.0 nKFamdjq70.0-99.0The [facility] HospitalComment on above:Performed By: #### DBIL #### [facility] [address] [place] [address] Dr. Mark Simmons #1.2 103/ulCritically high0.3-0.8ThPremier Health [facility] Comment on above:Performed By: #### DBIL #### [facility] [address] [place] [address] Dr. Mark Gerardoocytes/100 WBC (Bld)8.3 %Normal1.7-12.0[facility] Comment on above:Performed By: #### DBIL #### [facility] [address] [place] [address] Dr. Mark Clark #9.8 103/ulCritically high1.4-6.5The [facility] Comment on above:Performed By: #### DBIL #### [facility] [address] [place] [address] Dr. Mark Ramírezutrophils/100 WBC (Bld)69.8 %Egifer64.0-75.0The [facility] HospitalComment on above:Performed By: #### DBIL #### [facility] [address] [place] [address] Dr. Mark CuellraPlatelet mean volume (Bld) [Entitic vol]10.2 fLNormal9.5-13.5The [facility] HospitalComment on above:Performed By: #### DBIL #### [facility] [address] [place] [address] Dr. Mark CuellarPLT153 103/cdPggaod447-238Wme [facility] HospitalComment on above: Performed By: #### DBIL #### [facility] [address] [place] [address] Dr. Mark CuellarRBC3.55 106/ulCritically low4.20-5.40The [facility] HospitalComment on above:Performed By: #### DBIL #### [facility] [address] [place] [address] Dr. Mark CuellarWBC14.1 103/ulCritically high4.0-11.0The [facility] HospitalComment on above:Performed By: #### DBIL #### [facility] [address] [place] [address] Dr. Mark Carroll AUTO DIFFon 67-29-0987JAHH #0.1 103/ulNormal0.0-0.1The [facility] HospitalComment on above:Performed By: #### DBIL #### [facility] [address] [place] [address] Dr. Mark CuellarBasophils/100 WBC (Bld)0.5 %Normal0.2-2.0The [facility] Comment on above:Performed By: #### DBIL #### [facility] [address] [place] [address] Dr. Mark Mackenzie #0.2 103/ulNormal0.0-0.7The [facility] HospitalComment on above: Performed By: #### DBIL #### [facility] [address] [place] [address] Dr. Mark Meekosinophils/100 WBC (Bld)1.1 %Normal0.9-7.0[facility] Comment on above:Performed By: #### DBIL #### [facility] [address] [place] [address] Dr. Mark Meekrythrocyte distribution width (RBC) [Ratio]13.0 %Vmnjft26.0-15.0 [facility] HospitalComment on above:Performed By: #### DBIL #### [facility] [address] [place] [address] Dr. Mark CuellarHematocrit (Bld) [Volume fraction]35.3 %Critically low36.0-48.0 [facility] HospitalComment on above:Performed By: #### DBIL #### [facility] [address] [place] [address] Dr. Mark CuellarHemoglobin (Bld) [Mass/Vol]12.7 g/fUEruefe52.0-16.0[facility] HospitalComment on above:Performed By: #### DBIL #### [facility] [address] [place] [address] Dr. Mark Richardson #0.36 10e3/ulCritically high0.00-0.03The [facility] Comment on above:Performed By: #### DBIL #### [facility] [address] [place] [address] Dr. Mark Richardson %2.6 %Critically high0.0-0.5The [facility] HospitalComment on above:Performed By: #### DBIL #### [facility] [address] [place] [address] Dr. Mark Mccall #2.9 103/ulNormal1.2-3.8The [facility] HospitalComment on above:Performed By: #### DBIL #### [facility] [address] [place] [address] Dr. Mark Buenrostromphocytes/100 WBC (Bld)21.3 %Bfrffz54.5-60.0The [facility] HospitalComment on above:Performed By: #### DBIL #### [facility] [address] [place] [address] Dr. Mark OrellanaUAL DIFF REQNONormalThe [facility] HospitalComment on above: Performed By: #### DBIL #### [facility] [address] [place] [address] Dr. Mark Lopez (RBC) [Entitic mass]30.8 wtYavtar63.7-34.0The [facility] HospitalComment on above:Performed By: #### DBIL #### [facility] [address] [place] [address] Dr. Mark Lopez (RBC) [Mass/Vol]36.0 g/dLCritically high29.9-35.2The [facility] HospitalComment on above:Performed By: #### DBIL #### [facility] [address] [place] [address] Dr. Mark Lopez (RBC) [Entitic vol]85.7 sHLrtyio02.0-99.0The [facility] HospitalComment on above:Performed By: #### DBIL #### [facility] [address] [place] [address] Dr. Mark Simmons #1.2 103/ulCritically high0.3-0.8ThPremier Health [facility] Comment on above:Performed By: #### DBIL #### [facility] [address] [place] [address] Dr. Mark Gerardoocytes/100 WBC (Bld)8.6 %Normal1.7-12.0[facility] Comment on above:Performed By: #### DBIL #### [facility] [address] [place] [address] Dr. Mark Clark #9.1 103/ulCritically high1.4-6.5The [facility] Comment on above:Performed By: #### DBIL #### [facility] [address] [address] [address] Mark Ramírezutrophils/100 WBC (Bld)65.9 %Nwvsue34.0-75.0The [facility] HospitalComment on above:Performed By: #### DBIL #### [facility] [address] [address] [address] Mark Guanlet mean volume (Bld) [Entitic vol]10.1 fLNormal9.5-13.5The [facility] HospitalComment on above:Performed By: #### DBIL #### [facility] [address] [address] [address] Mark CuellarPLT211 103/ieYdzmio854-842Hla [facility] HospitalComoaklawn hospital on above: Performed By: #### DBIL #### [facility] [address] [place] [address] Dr. Mark CuellarRBC4.12 106/ulCritically low4.20-5.40The [facility] HospitalComment on above:Performed By: #### DBIL #### [facility] [address] [place] [address] Dr. Mark CuellarWBC13.7 103/ulCritically high4.0-11.0The [facility] on above:Performed By: #### DBIL #### [facility] [address] [place] [address] Dr. Mark CuellarTYPE AND SCREENon 95-28-6740BIIL AND SCREENNegativeNormalThe [facility] HospitalComment on above:Performed By: #### ERUR, UMICRO #### [facility] [address] [place] [address] Dr. Mark Bee SCREEN RAPID (URINE)on 56-51-2356AIIGzxsabybOvblbpEQYXIIUN The [facility] HospitalComoaklawn hospital on above:Performed By: #### UACSKYAW, UMICRO #### [facility] [address] [place] [address] Dr. Mark CuellarBARNegativeNormalNEGATIVEClinton Memorial HospitalComment on above: Performed By: #### UACSIND, UMICRO #### [facility] [address] [address] [address] Mark LawsonPNegativeNormalNEGUniversity Hospitals Cleveland Medical CenterComment on above: Performed By: #### UACSIND, UMICRO #### [facility] [address] [place] [address] Dr. Mark AbbasiZONegativeNormalNEGATIVEClinton Memorial HospitalComment on above: Performed By: #### UACSIND, UMICRO #### [facility] [address] [place] [address] Dr. Mark OmertiveNormalNEGATIVEClinton Memorial HospitalComment on above: Performed By: #### UACSIND, UMICRO #### [facility] [address] [place] [address] Dr. Mark LockeRegional Medical CenterComment on above: Result Comment: AMP (Amphetamine): 500ng/mL, BAR (Barbituates): 200 ng/mL, BZO (Benzodiazepines): 150 ng/mL, BUP (Buprenorphine): 10 ng/mL, MYRA (Cocaine): 150 ng/mL, mAMP (Methamphetamine): 500 ng/mL, MTD (Methadone): 200 ng/mL, OPI (Opiates): 100 ng/mL, OXY (Oxycodone): 100 ng/mL, PCP (Phencyclidine): 25 ng/mL, PPX (Propoxyphene): 300 ng/mL, THC (Cannabinoids): 50 ng/mL, TCA (Trycyclic Antidepressants): 300 ng/mLPerformed By: #### UACSIND, UMICRO #### [facility] [address] [place] [address] Dr. Mark CuellarDRUG CUT HEADERDRUG CLASS TEST SYSTEM CUT-OFF CONCENTRATIONS ARE FOLLOWS:NormalFairfield Medical Center on above:Performed By: #### UACSIND, UMICRO #### [facility] [address] [place] [address] Dr. Mark UrbinaNegativeNormalNEGATIVEThe Miguelito HospitalComment on above: Performed By: #### UACSKYAW UMICRO #### [facility] [address] [address] [address] Mark CuellarMTDNegativeNormalNEGATIVEClinton Memorial HospitalComment on above: Performed By: #### UACSKYAW, UMICRO #### [facility] [address] [address] [address] Mark CuellarOPINegativeNormalNEGATIVEClinton Memorial HospitalComment on above: Performed By: #### FRANCESCACSKYAW UMICRO #### [facility] [address] [address] [address] Mark CuellarOXYNegativeNormalNEGATIVEClinton Memorial HospitalComment on above: Performed By: #### ARIANE UMICRO #### [facility] [address] [place] [address] Dr. Mark CuellarPCPNegativeNormalNEGATIVEClinton Memorial HospitalComment on above: Performed By: #### ARIANE UMICRO #### [facility] [address] [place] [address] Dr. Mark CuellarPPXNegativeNormalNEGUniversity Hospitals Cleveland Medical CenterComoaklawn hospital on above: Performed By: #### ARIANE UMICRO #### [facility] [address] [place] [address] Dr. Mark CuellarTCANegativeNormalNEGATIVEClinton Memorial HospitalComment on above: Performed By: #### ARIANE UMICRO #### [facility] [address] [place] [address] Dr. Mark CuellarTHCNegativeNormalNEGATIVEClinton Memorial HospitalComment on above: Performed By: #### ARINAE UMICRO #### [facility] [address] [place] [address] Dr. Mark De Guzman (CLEAN/CATCH) IMMUNOLOGIST/MICRO IF IND.on [id number] Ql (U) NegativeNormalNEGATIVESumma Health Akron Campus HospitalComment on above:Performed By: #### ERUR, UMICRO #### [facility] [address] [address] [address] Mark CuellarClarity (U)CLEARNormalCLEARSumma Health Akron Campus HospitalComment on above: Performed By: #### AMADOR UMICRO #### [facility] [address] [address] [address] Mark Carrillo (U)LT. YELLOWNormalYELLOWSumma Health Akron Campus HospitalComment on above:Performed By: #### AMADOR UMICRO #### [facility] [address] [address] [address] Mark CuellarGlucose Ql (U)NegativeNormalNEGATIVEClinton Memorial HospitalComment on above:Performed By: #### AMADOR UMICRO #### [facility] [address] [place] [address] Dr. Mark CuellarHemoglobin Ql (U)TRACE-INTACTAbnormalNEGATIVESumma Health Akron Campus HospitalComment on above:Performed By: #### AMADOR UMICRO #### [facility] [address] [place] [address] Dr. Mark Harveyones Ql (U)NegativeNormalNEGATIVESumma Health Akron Campus HospitalComment on above:Performed By: #### AMADOR UMICRO #### [facility] [address] [place] [address] Dr. Mark CuellarLEUKOCYTESNegativeNormalNEGATIVEClinton Memorial HospitalComment on above:Performed By: #### AMADOR UMICRO #### [facility] [address] [address] [address] Mark CuellarNitrite Ql (U)NegativeNormalNEGATIVESumma Health Akron Campus HospitalComment on above:Performed By: #### AMADOR UMICRO #### [facility] [address] [address] [address] Mark CuellarpH (U)7.0 [pH]Normal5-9Clinton Memorial HospitalComment on above: Performed By: #### AMADOR UMICRO #### [facility] [address] [address] [address] Mark Allen GRAVITY1.095Vavkkh9.005-<=1.025The [facility] HospitalComment on above:Performed By: #### RISA ENGLISH #### [facility] [address] [place] [address] Dr. Mark De Guzman PROTEINNegativeNormalNEGATIVE/ TRACEThe [facility] Comment on above:Performed By: #### VIGNESH ENGLISHRO #### [facility] [address] [place] [address] Dr. Mark Urbano MICRO INDINDICATEDNoGreene Memorial HospitalComment on above: Performed By: #### RISA ENGLISH #### [facility] [address] [place] [address] Dr. Mark Huddleston Qn (U)0.2 {Ariana'U}/dLNormal0.2 - 1.0The [facility] HospitalComment on above:Performed By: #### RISA ENGLISH #### [facility] [address] [place] [address] Dr. Mark Frederick MICROSCOPIC ONLYon [id number]S SEEN The [facility] HospitalComment on above:Performed By: #### VIGNESH ENGLISHRO #### [facility] [address] [place] [address] Dr. Mark Sharif identified Cx Nom (U)NOT INDICATEDNoGreene Memorial HospitalComment on above:Performed By: #### VIGNESH ENGLISHRO #### [facility] [address] [place] [address] Dr. Mark Zaragoza SEENNormalNONE SEENThe [facility] HospitalComment on above:Performed By: #### VIGNESH ENGLISHRO #### [facility] [address] [place] [address] Dr. Mark Gould LM Nom (Urine sed)NONE SEENNormalNONE SEENClinton Memorial HospitalComment on above:Performed By: #### VIGNESH ENGLISHRO #### [facility] [address] [address] [address] Flores ChangEpithelial cells LM Ql (Urine sed)FEWAbnormalNONE SEEN /RAREThe [facility] HospitalComment on above:Performed By: #### AMADOR, UMICRO #### [facility] [address] [place], [place] [address] Dr. Mark CuellarMUCOUSHEATHER SEENNormalNONE SEENThe [facility] HospitalComment on above:Performed By: #### LYNNER, UMICRO #### [facility] [address] [place], [place] [address] Dr. Mark CuellarYcpiiOOW9-04Itthwcrh3-1Dsk [facility] HospitalComment on above:Performed By: #### AMADOR, UMICRO #### [facility] [address] [place], [place] [address] Dr. Flores ChangWBC0-2AbnormalNONE SEENThe [facility] HospitalComment on above: Performed By: #### AMADOR, UMICRO #### [facility] [id number] Mark Liu KIDNEYSon [id number] KIDNEYSEXAM: US KIDNEYS HISTORY: Pain COMPARISON: Kidney ultrasound [...] Electronically authenticated by: SAMANTHA LAZAR Date: 2022-08-25 22:02NormalThe [facility] HospitalBUNon 50-88-2425Lhty nitrogen [Mass/Vol]5.0 mg/dLCritically low 7.0-18.0The [facility] HospitalComment on above:Performed By: #### RSIA THAKKAR #### [facility] [address] [place] [address] Dr. Mark Carroll AUTO DIFFon [id number] #0.1 103/ulNormal0.0-0.1The [facility] HospitalComment on above:Performed By: #### VIGNESH ENGLISHRO #### [facility] [address] [place] [address] Dr. Mark CuellarBasophils/100 WBC (Bld)0.6 %Normal0.2-2.0The [facility] Comment on above:Performed By: #### RISA ENGLISH #### [facility] [address] [place] [address] Dr. Mark Mackenzie #0.2 103/ulNormal0.0-0.7The [facility] HospitalComment on above: Performed By: #### RISA ENGLISH #### [facility] [address] [place] [address] Dr. Mark Meekosinophils/100 WBC (Bld)1.2 %Normal0.9-7.0[facility] Comment on above:Performed By: #### VIGNESH ENGLISHRO #### [facility] [address] [place] [address] Dr. Mark Meekrythrocyte distribution width (RBC) [Ratio]13.2 %Ruvqei67.0-15.0 The [facility] HospitalComment on above:Performed By: #### VIGNESH ENGLISHRO #### [facility] [address] [place] [address] Dr. Mark CuellarHematocrit (Bld) [Volume fraction]35.4 %Critically low36.0-48.0 The [facility] HospitalComment on above:Performed By: #### RISA ENGLISH #### [facility] [address] [address] [address] Mark CuellarHemoglobin (Bld) [Mass/Vol]12.5 g/mSOffrus96.0-16.0The [facility] HospitalComment on above:Performed By: #### AMADOR UMICRO #### [facility] [address] [place] [address] Dr. Mark Richardson #0.55 10e3/ulCritically high0.00-0.03The [facility] Comment on above:Performed By: #### AMADOR UMICRO #### [facility] [address] [place] [address] Dr. Mark Richardson %4.1 %Critically high0.0-0.5The [facility] HospitalComment on above:Performed By: #### AMADOR UMICRO #### [facility] [address] [place] [address] Dr. Mark Mccall #2.4 103/ulNormal1.2-3.8The [facility] HospitalComment on above:Performed By: #### AMADOR UMICRO #### [facility] [address] [place] [address] Dr. Mark Chanelhocytes/100 WBC (Bld)17.8 %Critically low20.5-60.0The [facility] HospitalComment on above:Performed By: #### AMADOR UMICRO #### [facility] [address] [place] [address] Dr. Mark OrellanaUAL DIFF REQNONormalThe [facility] HospitalComment on above: Performed By: #### AMADOR UMICRO #### [facility] [address] [place] [address] Dr. Mark Lopez (RBC) [Entitic mass]30.8 bwYfsaxa37.7-34.0The [facility] HospitalComment on above:Performed By: #### AMADOR UMICRO #### [facility] [address] [place] [address] Dr. Mark LopezHC (RBC) [Mass/Vol]35.3 g/dLCritically high29.9-35.2The [facility] HospitalComment on above:Performed By: #### THOMAS ENGLISHICRO #### [facility] [address] [place] [address] Dr. Mark LopezV (RBC) [Entitic vol]87.2 iBQbaouo69.0-99.0The [facility] HospitalComment on above:Performed By: #### AMADOR UMICRO #### [facility] [address] [place] [address] Dr. Mark Simmons #1.2 103/ulCritically high0.3-0.8The [facility] Comment on above:Performed By: #### AMADOR UMICRO #### [facility] [address] [place] [address] Dr. Mark Gerardoocytes/100 WBC (Bld)9.3 %Normal1.7-12.0The [facility] Comment on above:Performed By: #### AMADOR UMICRO #### [facility] [address] [place] [address] Dr. Mark Clark #8.9 103/ulCritically high1.4-6.5The [facility] Comment on above:Performed By: #### AMADOR UMICRO #### [facility] [address] [place] [address] Dr. Mark Ramírezutrophils/100 WBC (Bld)67.0 %Ukpxsc71.0-75.0The [facility] HospitalComment on above:Performed By: #### AMADOR UMICRO #### [facility] [address] [place] [address] Dr. Mark Guanlet mean volume (Bld) [Entitic vol]9.7 fLNormal9.5-13.5The [facility] HospitalComment on above:Performed By: #### AMADOR UMICRO #### [facility] [address] [place] [address] Dr. Mark CuellarPLT219 103/psZructg497-309Kdv UC Medical Centerment on above: Performed By: #### AMADOR UMICRO #### [facility] [address] [place] [address] Dr. Mark CuellarRBC4.06 106/ulCritically low4.20-5.40The [facility] on above:Performed By: #### VIGNESH ENGLISHRO #### [facility] [address] [place] [address] Dr. Mark CuellarWBC13.3 103/ulCritically high4.0-11.0The [facility] on above:Performed By: #### VIGNESH ENGLISHRO #### [facility] [address] [place] [address] Dr. Mark GreshamATININEon 30-56-9534Uexzvdwpvf [Mass/Vol]0.68 mg/dLNormal 0.55-1.02The [facility] on above:Performed By: #### VIGNESH THAKKARRO #### [facility] [address] [place] [address] Dr. Mark MeekGFR-AF AUSTRIAN>60Normal>=60[facility] on above:Performed By: #### VIGNESH THAKKARRO #### [facility] [address] [place] [address] Dr. Mark MeekGFR-NON AF AUSTRIAN>60Normal>=60The [facility] on above:Performed By: #### VIGNESH THAKKARRO #### [facility] [address] [place] [address] Dr. Mark De Guzman (CLEAN/CATCH) IMMUNOLOGIST/MICRO IF IND.on 19-47-6931Pfbtsroyb Ql (U) NegativeNormalNEGATIVEThe [facility] HospitalComoaklawn hospital on above:Performed By: #### VIGNESH THAKKARRO #### [facility] [address] [place] [address] Dr. Mark CuellarClarity (U)CLEARNormalCLEARThe [facility] Centerment on above: Performed By: #### VIGNESH THAKKARRO #### [facility] [address] [address] [address] Mark Ordonezlor (U)LT. YELLOWNormalYELLOWClinton Memorial HospitalComment on above:Performed By: #### ARIANE UMICRO #### [facility] [address] [address] [address] Mark CuellarGlucose Ql (U)NegativeNormalNEGATIVEClinton Memorial HospitalComment on above:Performed By: #### ARIANE UMICRO #### [facility] [address] [address] [address] Mark CuellarHemoglobin Ql (U)SMALLAbnormalNEGUniversity Hospitals Cleveland Medical Center Comment on above:Performed By: #### ARIANE UMICRO #### [facility] [address] [address] [address] Mark CuellarKetones Ql (U)NegativeNormalNEGATIVEThe [facility] HospitalComment on above:Performed By: #### ARIANE UMICRO #### [facility] [address] [address] [address] Mark CuellarLEUKOCYTESTRACEAbnormalNEGATIVEClinton Memorial HospitalComment on above:Performed By: #### ARIANE UMICRO #### [facility] [address] [address] [address] Mark CuellarNitrite Ql (U)NegativeNormalNEGATIVEClinton Memorial HospitalComment on above:Performed By: #### ARIANE UMICRO #### [facility] [address] [address] [address] Mark CuellarpH (U)7.0 [pH]Normal5-9[facility] HospitalComment on above: Performed By: #### ARIANE UMICRO #### [facility] [address] [address] [address] Mark CuellarSPEC GRAVITY<=1.842Qcgfxqml2.005-<=1.025[facility] Comment on above:Performed By: #### ARIANE UMICRO #### [facility] [address] [address] [address] Mark De Guzman PROTEINNegativeNormalNEGATIVE/ TRACEClinton Memorial Hospital Comment on above:Performed By: #### ARIANE UMICRO #### [facility] [address] [address] [address] Mark Urbano MICRO INDINDICATEDNoGreene Memorial HospitalComment on above: Performed By: #### ARIANE UMICRO #### [facility] [address] [address] [address] Mark Huddleston Qn (U)0.2 {Ariana'U}/dLNormal0.2 - 1.0The [facility] HospitalComment on above:Performed By: #### ARIANE UMICRO #### [facility] [address] [address] [address] Mark Frederick MICROSCOPIC ONLYon [id number] SEENNormalNONE SEENClinton Memorial HospitalComment on above:Performed By: #### ARIANE UMICRO #### [facility] [address] [address] [address] Mark Sharif identified Cx Nom (U)NOT INDICATEDNoGreene Memorial HospitalComment on above:Performed By: #### ARIANE UMICRO #### [facility] [address] [address] [address] Mark Zaragoza SEENNormalNONE SEENClinton Memorial HospitalComment on above:Performed By: #### ARIANE UMICRO #### [facility] [address] [address] [address] Mark Gould LM Nom (Urine sed)NONE SEENNormalNONE SEENClinton Memorial HospitalComoaklawn hospital on above:Performed By: #### ARIANE UMICRO #### [facility] [address] [address] [address] Flores ChangEpithelial cells LM Ql (Urine sed)RARENormalNONE SEEN /RAREThe [facility] HospitalComment on above:Performed By: #### UACSIND, UMICRO #### [facility] [address] [place] [address] Dr. Mark Carrillo SEENNormalNONE SEENThe [facility] HospitalComment on above:Performed By: #### UACSIND, UMICRO #### [facility] [address] [place] [address] Dr. Mark CuellarGojwtNIG0-2Ewrphp4-2Iif [facility] HospitalComment on above:Performed By: #### UACSIND, UMICRO #### [facility] [address] [place] [address] Dr. Mark CuellarWBC0-2AbnormalNONJonna SEENThe [facility] HospitalComment on above: Performed By: #### UACSKYAW, UMICRO #### [facility] [address] [place] [address] Dr. Mark CuellarGROUP B STREP CULTUREon 08-21-2022S. agalactiae Ag Ql (Unsp spec) Culture Observations: NEGATIVE FOR GROUP B STREPTOCOCCUS.NormalThe [facility] HospitalComment on above: Performed By: #### GBSCX #### [facility] [address] [place] [address] Dr. Mark Liu PREG BIOPHY W NON STRESSon 35-06-5675DM PREG BIOPHY W NON STRESSEXAMINATION: US PREG BIOPHY W NON STRESS HISTORY: Patient currently COMPARISON: Ultrasound growth 07/10/2022 FINDINGS: BREATHING MOVEMENTS: 2.0 GROSS BODY MOVEMENTS: 2.0 TONE: 2.0 QUALITATIVE AMNIOTIC FLUID VOLUME: 2.0 PRESENTATION: CEPHALIC HEART RATE: 150.8 bpm bpm. AMNIOTIC FLUID VOLUME: 13.7 cm GESTATIONAL AGE: 34 weeks 0 days CONCLUSION: 1. Total biophysical profile score 8.0. 2. heart rate is 151 bpm 3. Belt Notcher noted that it was very difficult to get fetus to move to document gross body movements. Electronically authenticated by: ISAIAH VELAZCO Date: 2022-08-07 15:10NoMercy Health – The Jewish Hospital HospitalCULTURE URINEon [id number] URINECulture Observations: NO GROWTH.NormalThe [facility] Church HospitalComment on above:Performed By: #### URCX #### [facility] [address] [address] [address] Mark De Guzman (CLEAN/CATCH) IMMUNOLOGIST/MICRO IF IND.on 89-05-8063Prsjbjtjh Ql (U) NegativeNormalNEGATIVESumma Health Akron Campus HospitalComment on above:Performed By: #### UACSIND, UMICRO #### [facility] [address] [address] [address] Mark CuellarClarity (U)CLEARNormalCLEARSumma Health Akron Campus HospitalComment on above: Performed By: #### UACSIND, UMICRO #### [facility] [address] [address] [address] Mark Carrillo (U)LT. YELLOWNormalYELLOWClinton Memorial HospitalComment on above:Performed By: #### UACSIND, UMICRO #### [facility] [address] [address] [address] Mark CuellarGlucose Ql (U)NegativeNormalNEGATIVEClinton Memorial HospitalComment on above:Performed By: #### UACSIND, UMICRO #### [facility] [address] [address] [address] Mark CuellarHemoglobin Ql (U)NegativeNormalNEGATIVEHolzer Medical Center – [facility] on above:Performed By: #### UACSIND, UMICRO #### [facility] [address] [address] [address] Mark CuellarKetones Ql (U)NegativeNormalNEGATIVEClinton Memorial HospitalComment on above:Performed By: #### UACSIND, UMICRO #### [facility] [address] [address] [address] Mark CuellarLEUKOCYTESSMALLAbnormalNEGATIVEClinton Memorial HospitalComment on above:Performed By: #### UACSIND, UMICRO #### [facility] [address] [address] [address] Mark CuellarNitrite Ql (U)NegativeNormalNEGATIVEClinton Memorial HospitalComment on above:Performed By: #### ARIANE UMICRO #### [facility] [address] [address] [address] Mark Thomas (U)7.0 [pH]Normal5-9The [facility] HospitalComment on above: Performed By: #### ARIANE UMICRO #### [facility] [address] [address] [address] Mark CuellarSPEC GRAVITY1.187Cwjapq8.005-<=1.025The [facility] HospitalComment on above:Performed By: #### ARIANE UMICRO #### [facility] [address] [address] [address] Mark De Guzman PROTEINNegativeNormalNEGATIVE/ TRACEThe [facility] Comment on above:Performed By: #### ARIANE UMICRO #### [facility] [address] [address] [address] Mark Urbano MICRO INDINDICATEDKing's Daughters Medical Center OhioComment on above: Performed By: #### ARIANE UMICRO #### [facility] [address] [address] [address] Mark Huddleston Qn (U)1.0 {Ariana'U}/dLNormal0.2 - 1.0The [facility] HospitalComoaklawn hospital on above:Performed By: #### ARIANE UMICRO #### [facility] [address] [address] [address] Mark Frederick MICROSCOPIC ONLYon [id number]M SEEN [facility] HospitalComment on above:Performed By: #### ARIANE UMICRO #### [facility] [address] [place] [address] Dr. Mark Sharif identified Cx Nom (U)INDICATEDNoGreene Memorial HospitalComment on above:Performed By: #### ARIANE UMICRO #### [facility] [address] [address] [address] Yilan ChangCASTNONE SEENNormalNONE SEENClinton Memorial HospitalComment on above:Performed By: #### ARIANE UMICRO #### [facility] [address] [place] [address] Dr. Mark CuellarCrystals LM Nom (Urine sed)NONE SEENNormalNONE SEENThe [facility] HospitalComment on above:Performed By: #### ARIANE UMICRO #### [facility] [address] [place] [address] Dr. Mark Meekpithelial cells LM Ql (Urine sed)FEWAbnormalNONE SEEN /RAREThe [facility] HospitalComment on above:Performed By: #### ARIANE UMICRO #### [facility] [address] [place] [address] Dr. Mark HarrisCOUSNONE SEENNormalNONE SEENThe [facility] HospitalComoaklawn hospital on above:Performed By: #### ARIANE UMICRO #### [facility] [address] [place] [address] Dr. Mark CuellarPvhdkIQW9-2Zmojtw5-0Kjq [facility] HospitalComment on above:Performed By: #### ARIANE UMICRO #### [facility] [address] [place] [address] Dr. Mark CuellarWBC5-10AbnormalNONE SEENClinton Memorial HospitalComoaklawn hospital on above: Performed By: #### ARIANE UMICRO #### [facility] [address] [place] [address] Dr. Mark Liu PREG GROWTHon [id number] PREG GROWTHEXAMINATION: US PREG GROWTH HISTORY: Uterine size for [...] Electronically authenticated by: ISAIAH VELAZCO Date: 2022-07-10 21:19[facility] [place]RAD - MISCon [id number] - MIS [id number]#1.00CD:127NoOhio State East HospitalCALCULI, URINARYon ,8 DihydroxyadenineKing's Daughters Medical Center OhioComment on above:Performed By: #### AMADOR UMICRO #### [facility] [address] [place] [address] Dr. Mark CuellarAmmonium Acid UrateNormalClinton Memorial HospitalComment on above: Performed By: #### ERUR UMICRO #### [facility] [address] [place] [address] Dr. Mark Dempseyirubin Ql (U)NormalClinton Memorial HospitalComment on above: Performed By: #### LYNNER, UMICRO #### [facility] [address] [place] [address] Dr. Mark Mcmahon Oxalate Iwieqewcy87 %NormalSumma Health Akron Campus HospitalComment on above:Performed By: #### ERUR, UMICRO #### [facility] [address] [place] [address] Dr. Mark McmahonHPO4 (Brushite)NormalClinton Memorial HospitalComment on above: Performed By: #### ERUR, UMICRO #### [facility] [address] [place] [address] Dr. Mark Weinerium BilirubinateNormalClinton Memorial HospitalComment on above: Performed By: #### ERUR, UMICRO #### [facility] [address] [address] [address] Mark Weinerium CarbonateKing's Daughters Medical Center OhioComoaklawn hospital on above: Performed By: #### ERUR, UMICRO #### [facility] [address] [address] [address] Mark Weinerium Oxalate Qrfzalfeygm76 %NormalClinton Memorial HospitalComoaklawn hospital on above:Performed By: #### ERUR, UMICRO #### [facility] [address] [address] [address] Mark Weinerium PalmitateKing's Daughters Medical Center OhioComoaklawn hospital on above: Performed By: #### ERUR, UMICRO #### [facility] [address] [address] [address] Mark Weinerium PhosphateKing's Daughters Medical Center OhioComoakla[facility] hospital on above: Performed By: #### ERUR, UMICRO #### [facility] [address] [address] [address] Mark Chaidez StearateNormalClinton Memorial HospitalComoaklawn hospital on above: Performed By: #### ERUR, UMICRO #### [facility] [address] [address] [address] Mark Luibonate ApatiteKing's Daughters Medical Center OhioComoaklawn hospital on above: Performed By: #### ERUR, UMICRO #### [facility] [address] [place] [address] Dr. Mark CuellarCellular MaterialKing's Daughters Medical Center OhioComoaklawn hospital on above: Performed By: #### ERUR, UMICRO #### [facility] [address] [place] [address] Dr. Mark CuellarCholesterolKing's Daughters Medical Center OhioComoaklawn hospital on above:Performed By: #### ERUR, UMICRO #### [facility] [address] [address] [address] Mark Carrillo (U)[facility] HospitalCom[facility] on above: Performed By: #### ERUR, UMICRO #### [facility] [address] [address] [address] Mark SorianoWadsworth-Rittman Hospital on above:Result Comment: Calcium phosphate (hydroxyl form) includes hydroxyapatite, amorphous calcium phosphate, and whitlockite. Hydroxyapatite is the most common of the calcium phosphate salts found in human kidney stones.Performed By: #### AMADOR UMICRO #### [facility] [address] [place] [address] Dr. Mark Flanagan Comment: Calculus received wet. Wet calculi must be dried before analysis, which delays reporting of results. Leaving calculi wet (such as water, saline, blood, urine) may lead to changes in composition.Comment:CommentNewark Hospital on above:Result Comment: Physician questions regarding Calculi Analysis contact [facility] at: [phone].Performed By: #### AMADOR UMICRO #### [facility] [address] [place] [address] Dr. Mark OreillyWadsworth-Rittman Hospital on above: Result Comment: Percentage (Represents the % composition)Performed By: #### AMADOR UMICRO #### [facility] [address] [place] [address] Dr. Mark CuellarEast [facility] on above:Performed By: #### AMADOR UMICRO #### [facility] [address] [place] [address] Dr. Mark Mistrymer:CommentNewark Hospital on above: Result Comment: This test was developed and its performance characteristics determined by [facility]. It has not been cleared or approved by the Food and Drug Administration.Performed By: #### AMADOR UMICRO #### [facility] [address] [place] [address] Dr. Mark Shankar [facility] on above:Performed By: #### LYNNER UMICRO #### [facility] [address] [place] [address] Dr. Mark Bee [facility] on above: Performed By: #### ERUR, UMICRO #### [facility] [address] [address] [address] Mark CuellarBfuodNxzymwbqgegmeb21 %[facility] OhioComment on above: Performed By: #### AMADOR UMICRO #### [facility] [address] [address] [address] Mark CuellarMg NH4 PO4 (Struvite)[facility] OhioComment on above: Performed By: #### AMADOR UMICRO #### [facility] [address] [place] [address] Dr. Mark CuellarMgHPO4 (Newberyite)[facility] OhioComment on above: Performed By: #### AMADOR UMICRO #### [facility] [address] [place] [address] Dr. Mark CuellarOther component(s)[facility] OhioComment on above: Performed By: #### AMADOR UMICRO #### [facility] [address] [place] [address] Dr. Mark FernandesF.[facility] on above:Performed By: #### AMADOR UMSALLYRO #### [facility] [address] [place] [address] Dr. Mark ZayasCommentNewark Hospital on above:Result Comment: Photograph will follow under a separate coverPerformed By: #### AMADOR UMJOSE #### [facility] [address] [place] [address] Dr. Mark CuellarPletiffanie note:CommentNewark Hospital on above: Result Comment: Calculi report will follow via computer, mail or electronic assembly delivery.Performed By: #### AMADOR UMICRO #### [facility] [address] [place] [address] Dr. Mark JacobTnfrkWmob3w0KcnjdjEyxNewark Hospital on above:Result Comment: Multiple pieces received. Dimensions of the largest piece reported.Performed By: #### AMADOR UMICRO #### [facility] [address] [address] [address] Mark Hitchcockum Acid UrateNParkview Health Bryan HospitalComment on above: Performed By: #### ERUR, UMICRO #### [facility] [address] [address] [address] Mark CasanovaurceComToledo HospitalComoaklawn hospital on above:Result Comment: Left UreterPerformed By: #### ERUR, UMICRO #### [facility] [address] [address] [address] Mark ZazuetaSt. Anthony's HospitalComment on above:Performed By: #### ERUR, UMICRO #### [facility] [address] [address] [address] Mark Rosen AcidKing's Daughters Medical Center OhioComoaklawn hospital on above:Performed By: #### ERUR, UMICRO #### [facility] [address] [place] [address] Dr. Mark Rosen Acid DihydrateNParkview Health Bryan HospitalComoaklawn hospital on above: Performed By: #### ERUR, UMICRO #### [facility] [address] [address] [address] Mark Archib[address] [place], [place] [address]Comoakla[facility] hospital on above:Performed By: #### ERUR, UMICRO #### [facility] [address] [address] [address] Mark AjKettering HealthComoaklawn hospital on above:Performed By: #### ERUR, UMICRO #### [facility] [address] [address] [address] Mark CuellarConsultation Noteon [id number] Note [id number]#1.00CD:GiovanniAdventist HealthCare White Oak Medical CenterInsurance Correspondence Officeon [id number] Correspondence [id number]#1.00CD:[address] [place], [place] [address]Operative Reporton [id number] Report [id number]#1.00CD:[address] [place], [place] [address]BUNon 72-85-5436Aoji nitrogen [Mass/Vol]6.0 mg/dLCritically low7.0-18.0The [facility] HospitalComment on above:Performed By: #### VIGNESH THAKKARRO #### [facility] [address] [address] [address] Mark Carroll AUTO DIFFon [id number] #0.0 103/ulNormal0.0-0.1The [facility] HospitalComment on above:Performed By: #### VIGNESH THAKKARRO #### [facility] [address] [address] [address] Mark CuellarBasophils/100 WBC (Bld)0.3 %Normal0.2-2.0The [facility] Comment on above:Performed By: #### VIGNESH THAKKARRO #### [facility] [address] [address] [address] Mark Mackenzie #0.1 103/ulNormal0.0-0.7The [facility] HospitalComment on above: Performed By: #### THOMAS THAKKARICRO #### [facility] [address] [address] [address] Mark Meekosinophils/100 WBC (Bld)0.6 %Critically low0.9-7.0The [facility] HospitalComment on above:Performed By: #### THOMAS THAKKARICRO #### [facility] [address] [address] [address] Mark Meekrythrocyte distribution width (RBC) [Ratio]13.2 %Pvzxpi36.0-15.0 The [facility] HospitalComment on above:Performed By: #### ARIANE UMICRO #### [facility] [address] [address] [address] Mark CeullarHematocrit (Bld) [Volume fraction]31.7 %Critically low36.0-48.0 The [facility] HospitalComment on above:Performed By: #### THOMAS THAKKARICRO #### [facility] [address] [address] [address] Mark CuellarHemoglobin (Bld) [Mass/Vol]11.1 g/dLCritically low12.0-16.0The [facility] HospitalComment on above:Performed By: #### ARIANE UMICRO #### [facility] [address] [place] [address] Dr. Mark Richardson #0.26 10e3/ulCritically high0.00-0.03The [facility] Comment on above:Performed By: #### ARIANE UMICRO #### [facility] [address] [place] [address] Dr. Mark Richardson %2.3 %Critically high0.0-0.5The [facility] HospitalComment on above:Performed By: #### ARIANE UMICRO #### [facility] [address] [place] [address] Dr. Mark Mccall #1.7 103/ulNormal1.2-3.8The [facility] HospitalComment on above:Performed By: #### ARIANE UMICRO #### [facility] [address] [place] [address] Dr. Mark Chanelhocytes/100 WBC (Bld)14.4 %Critically low20.5-60.0The [facility] HospitalComment on above:Performed By: #### ARIANE UMICRO #### [facility] [address] [place] [address] Dr. Mark OrellanaUAL DIFF REQNONormalThe [facility] HospitalComment on above: Performed By: #### ARIANE UMICRO #### [facility] [address] [place] [address] Dr. Mark Hawthorne (RBC) [Entitic mass]30.4 qzOoyghw88.7-34.0The [facility] HospitalComment on above:Performed By: #### THOMAS THAKKARICRO #### [facility] [address] [place] [address] Dr. Mark Lopez (RBC) [Mass/Vol]35.0 g/hSAtxmas62.9-35.2The [facility] HospitalComment on above:Performed By: #### VIGNESH THAKKARRO #### [facility] [address] [place] [address] Dr. Mark Lopez (RBC) [Entitic vol]86.8 pMOqrlca94.0-99.0The [facility] HospitalComment on above:Performed By: #### VIGNESH THAKKARRO #### [facility] [address] [place] [address] Dr. Mark Simmons #0.8 103/ulNormal0.3-0.8The [facility] HospitalComment on above:Performed By: #### VIGNESH THAKKARRO #### [facility] [address] [place] [address] Dr. Mark Gerardoocytes/100 WBC (Bld)6.7 %Normal1.7-12.0The [facility] Comment on above:Performed By: #### VIGNESH THAKKARRO #### [facility] [address] [place] [address] Dr. Mark Clark #8.7 103/ulCritically high1.4-6.5The [facility] Comment on above:Performed By: #### THOMAS THAKKARICRO #### [facility] [address] [place] [address] Dr. Mark Ramírezutrophils/100 WBC (Bld)75.7 %Critically high43.0-75.0The [facility] HospitalComment on above:Performed By: #### ARIANE UMICRO #### [facility] [address] [place] [address] Dr. Mark Stevens mean volume (Bld) [Entitic vol]9.5 fLNormal9.5-13.5The [facility] HospitalComment on above:Performed By: #### THOMAS THAKKARICRO #### [facility] [address] [address] [address] Mark CuellarPLT185 103/psQplcty885-448Bwd [facility] HospitalComment on above: Performed By: #### THOMAS THAKKARICRO #### [facility] [address] [place] [address] Dr. Mark CuellarRBC3.65 106/ulCritically low4.20-5.40The [facility] HospitalComment on above:Performed By: #### THOMAS THAKKARICRO #### [facility] [address] [place] [address] Dr. Mark CuellarWBC11.5 103/ulCritically high4.0-11.0The [facility] on above:Performed By: #### VIGNESH THAKKARRO #### [facility] [address] [place] [address] Dr. Mark GreshamATININEon [id number] [Mass/Vol]0.59 mg/dLNormal 0.55-1.02The [facility] on above:Performed By: #### VIGNESH THAKKARRO #### [facility] [address] [place] [address] Dr. Flores ChangEGFR-AF AUSTRIAN>60Normal>=60The [facility] on above:Performed By: #### VIGNESH THAKKARRO #### [facility] [address] [place] [address] Dr. Mark MeekGFR-NON AF AUSTRIAN>60Normal>=60The [facility] on above:Performed By: #### THOMAS THAKKARICRO #### [facility] [address] [place] [address] Dr. Mark De Guzman (CLEAN/CATCH) IMMUNOLOGIST/MICRO IF IND.on [id number] Ql (U) NegativeNormalNEGATIVEThe [facility] HospitalComment on above:Performed By: #### ERUR, UMICRO #### [facility] [address] [address] [address] Mark CuellarClarity (U)CLEARNormalCLEARClinton Memorial HospitalComment on above: Performed By: #### AMADOR UMICRO #### [facility] [address] [address] [address] Mark Ordonezlor (U)LT. YELLOWNormalYELLOWClinton Memorial HospitalComment on above:Performed By: #### AMADOR UMICRO #### [facility] [address] [address] [address] Mark CuellarGlucose Ql (U)100 mg/dlAbnormalNEGUniversity Hospitals Cleveland Medical Center Comment on above:Performed By: #### AMADOR UMICRO #### [facility] [address] [address] [address] Mark CuellarHemoglobin Ql (U)LARGEAbnormalNEGUniversity Hospitals Cleveland Medical Center Comment on above:Performed By: #### AMADOR UMICRO #### [facility] [address] [address] [address] Mark CuellarKetones Ql (U)NegativeNormalNEGATIVEClinton Memorial HospitalComment on above:Performed By: #### AMADOR UMICRO #### [facility] [address] [address] [address] Mark CuellarLEUKOCYTESNegativeNormalNEGATIVEClinton Memorial HospitalComment on above:Performed By: #### AMADOR UMICRO #### [facility] [address] [address] [address] Mark CuellarNitrite Ql (U)NegativeNormalNEGATIVEClinton Memorial HospitalComment on above:Performed By: #### AMADOR UMICRO #### [facility] [address] [address] [address] Mark CuellarpH (U)7.0 [pH]Normal5-9The [facility] HospitalComment on above: Performed By: #### AMADOR UMICRO #### [facility] [address] [address] [address] Mark Allen GRAVITY1.635Ykedhd3.005-<=1.025The [facility] HospitalComment on above:Performed By: #### RISA ENGLISH #### [facility] [address] [place] [address] Dr. Mark De Guzman PROTEINNegativeNormalNEGATIVE/ TRACEThe [facility] Comment on above:Performed By: #### VIGNESH ENGLISHRO #### [facility] [address] [place] [address] Dr. Mark Urbano MICRO INDINDICATEDNoGreene Memorial HospitalComment on above: Performed By: #### VIGNESH ENGLISHRO #### [facility] [address] [place] [address] Dr. Mark Huddleston Qn (U)0.2 {Ariana'U}/dLNormal0.2 - 1.0The [facility] HospitalComment on above:Performed By: #### RISA ENGLISH #### [facility] [address] [place] [address] Dr. Mark Frederick MICROSCOPIC ONLYon [id number] SEENNormalNONE SEENThe [facility] HospitalComment on above:Performed By: #### VIGNESH ENGLISHRO #### [facility] [address] [place] [address] Dr. Mark Sharif identified Cx Nom (U)NOT INDICATEDNoGreene Memorial HospitalComment on above:Performed By: #### VIGNESH ENGLISHRO #### [facility] [address] [place] [address] Dr. Mark Zaragoza SEENNormalNONE SEENClinton Memorial HospitalComment on above:Performed By: #### VIGNESH ENGLISHRO #### [facility] [address] [place] [address] Dr. Mark Gould LM Nom (Urine sed)NONE SEENNormalNONE SEENClinton Memorial HospitalComment on above:Performed By: #### VIGNESH ENGLISHRO #### [facility] [address] [address] [address] Flores ChangEpithelial cells LM Ql (Urine sed)MODERATEAbnormalNONE SEEN /RARE The [facility] HospitalComment on above:Performed By: #### AMADOR, UMICRO #### [facility] [address] [place], [place] [address] Dr. Mark HarrisCOUSTRACEAbnormalNONE SEENThe [facility] HospitalComment on above:Performed By: #### AMADOR, UMSALLYRO #### [facility] [address] [address] [address] Mark CuellarJowmdZEY78-19Rlmqneqe2-5Bin [facility] HospitalComment on above: Performed By: #### AMADOR, VIGNESHRO #### [facility] [address] [address] [address] Mark CuellarWBCNONE SEENNormalNONE SEENThe [facility] HospitalComment on above: Performed By: #### AMADOR, VIGNESHRO #### [facility] [address] [address] [address] Mark Liu KIDNEYSon [id number] KIDNEYSRETROPERITONEAL ULTRASOUND : 06/24/2022 1:58 PM EST History:pain [...] Electronically authenticated by: STEPHEN SIDHU Date: 2022-06-24 16:10NoGreene Memorial HospitalXR KUB 1 VIEWon [id number] KUB 1 VIEWEXAM: XR KUB 1 VIEW HISTORY: The patient is a 26-year-old female. pain COMPARISON: ultrasound from 01/24/2022. IMPRESSION: There is a fetus in vertex position. There is a 7 mm calcification within the inferior pelvis to the left of midline. Electronically authenticated by: FERMIN HELLERARIELLE Date: 2022-06-24 17:49NoB[facility] ACOG PANEL 2: 21 to 05-31-2022..NormalClinton Memorial HospitalComment on above:Performed By: #### DBIL #### [facility] [address] [place] [address] Dr. Mark CuellarAge Gdln ACOG Ryhasbd37-39FskxksEewGreene Memorial HospitalComment on above:Performed By: #### DBIL #### [facility] [address] [place] [address] Dr. Mark CuellarDIAGNOSIS:CommentKing's Daughters Medical Center OhioComoaklawn hospital on above: Result Comment: NEGATIVE FOR INTRAEPITHELIAL LESION OR MALIGNANCY.Performed By: #### DBIL #### [facility] [address] [place] [address] Dr. Mark CuellarMethodology:CommentNewark Hospital on above: Result Comment: This liquid based ThinPrep(R) pap test was screened with the use of an image guided system.Performed By: #### DBIL #### [facility] [address] [place] [address] Dr. Mark CuellarNote:CommentNewark Hospital on above:Result Comment: The Pap smear is a screening test designed to aid in the detection of premalignant and malignant conditions of the uterine cervix. It is not a diagnostic procedure and should not be used as the sole means of detecting cervical cancer. Both false-positive and false-negative reports do occur. .Performed By: #### DBIL #### [facility] [address] [place] [address] Dr. Mark CuellarPerformed by:CommentNewark Hospital on above: Result Comment: Beti Jones, Animal Nursery Worker (ASCP)Performed By: #### DBIL #### [facility] [address] [place] [address] Dr. Mark CuellarRefronni Criteria:CommentNewark Hospital on above:Result Comment: The HPV DNA reflex criteria were not met with this specimen result therefore, no HPV testing was performed. .Performed By: #### DBIL #### [facility] [address] [place] [address] Dr. Mark CuellarSpecimen adequacy:CommentKing's Daughters Medical Center OhioComoaklawn hospital on above:Result Comment: Satisfactory for evaluation. No endocervical component is identified.Performed By: #### DBIL #### [facility] [address] [place] [address] Dr. Mark CeullarCHLAMYDIA/GONOCOCCUS LEANDRO (SWAB/URINE/PAPon [id number] trachomatis, NAANegativeNormalNegativeClinton Memorial HospitalComment on above: Performed By: #### AMADOR UMICRO #### [facility] [address] [place] [address] Dr. Mark CuellarNeisseria gonorrhoeae, NAANegativeNormalNegativeClinton Memorial HospitalComment on above:Performed By: #### ERUSolomon UMICRO #### [facility] [address] [place] [address] Dr. Mark CuellarVAGINITIS/VAGINOSIS DNA PROBEon [id number] speciesNegative NormalNegativeClinton Memorial HospitalComment on above:Performed By: #### AMADOR UMICRO #### [facility] [address] [place] [address] Dr. Mark Melaraerella vaginalisNegativeNormalNegativeThe [facility] Comment on above:Performed By: #### ERUR, UMICRO #### [facility] [address] [place] [address] Dr. Mark CuellarTrichomonas vaginalisNegativeNormalNegativeThe [facility] Comment on above:Performed By: #### RISA ENGLISH #### [facility] [address] [place] [address] Dr. Mark CuellarCOVID/FLU RT-PCRon [id number]-CoV-2 (COVID-19) RNA LEANDRO+probe Ql (Unsp spec)NegativeNanoMedex Pharmaceuticals [employer] Other COVID/FLU RT-PCRPositiveNanoMedex Pharmaceuticals We [employer] It Other COVID/FLU RT-PCRNegativeKeepy Other COVID/FLU RT-PCRon [id number]-CoV-2 (COVID-19) RNA LEANDRO+probe Ql (Unsp spec)NegativeKorbit Other COVID/FLU RT-PCRNegativePressi [employer] Heart It Other CBC AUTO DIFFon [id number] #0.0 103/ulNormal 0.0-0.1Clinton Memorial HospitalComment on above:Performed By: #### CBC #### [facility] [address] [place] [address] Dr. Mark Laysophils/100 WBC (Bld)0.2 %Normal0.2-2.0[facility] Comment on above:Performed By: #### CBC #### [facility] [address] [place] [address] Dr. Mark Mackenzie #0.1 103/ulNormal0.0-0.7The [facility] HospitalComment on above: Performed By: #### CBC #### [facility] [address] [place] [address] Dr. Mark Meekosinophils/100 WBC (Bld)0.6 %Critically low0.9-7.0The [facility] HospitalComment on above:Performed By: #### CBC #### [facility] [address] [place] [address] Dr. Mark Meekrythrocyte distribution width (RBC) [Ratio]12.1 %Cmwijm18.0-15.0 [facility]uffton Hospitalment on above:Performed By: #### CBC #### [facility] [address] [place] [address] Dr. Mark CuellarHematocrit (Bld) [Volume fraction]34.7 %Critically low36.0-48.0 The [facility] HospitalComment on above:Performed By: #### CBC #### [facility] [address] [place] [address] Dr. Mark CuellarHemoglobin (Bld) [Mass/Vol]12.5 g/zWYfdban12.0-16.0The [facility] Medical Centerment on above:Performed By: #### CBC #### [facility] [address] [place] [address] Dr. Mark Richardson #0.08 10e3/ulCritically high0.00-0.03The [facility] Comment on above:Performed By: #### CBC #### [facility] [address] [place] [address] Dr. Mark Richardson %0.7 %Critically high0.0-0.5The [facility] on above:Performed By: #### CBC #### [facility] [address] [place] [address] Dr. Mark ChanelH #2.6 103/ulNormal1.2-3.8The [facility] HospitalComment on above:Performed By: #### CBC #### [facility] [address] [place] [address] Dr. Mark Buenrostromphocytes/100 WBC (Bld)21.3 %Kydfxs83.5-60.0The [facility] Centerment on above:Performed By: #### CBC #### [facility] [address] [place] [address] Dr. Mark OrellanaUAL DIFF REQNONormalThe [facility] HospitalComment on above: Performed By: #### CBC #### [facility] [address] [place] [address] Dr. Mark Lopez (RBC) [Entitic mass]30.0 xaPzfppt22.7-34.0The [facility] HospitalComment on above:Performed By: #### CBC #### [facility] [address] [place] [address] Dr. Mark Lopez (RBC) [Mass/Vol]36.0 g/dLCritically high29.9-35.2The [facility] HospitalComment on above:Performed By: #### CBC #### [facility] [address] [place] [address] Dr. Mark Lopez (RBC) [Entitic vol]83.4 iEBeuval35.0-99.0The [facility] HospitalComment on above:Performed By: #### CBC #### [facility] [address] [place] [address] Dr. Mark Simmons #0.8 103/ulNormal0.3-0.8The [facility] HospitalComment on above:Performed By: #### CBC #### [facility] [address] [place] [address] Dr. Mark Gerardoocytes/100 WBC (Bld)6.9 %Normal1.7-12.0The [facility] Comment on above:Performed By: #### CBC #### [facility] [address] [place] [address] Dr. Mark Clark #8.5 103/ulCritically high1.4-6.5The [facility] Comment on above:Performed By: #### CBC #### [facility] [address] [place] [address] Dr. Mark Ramírezutrophils/100 WBC (Bld)70.3 %Wxawmi46.0-75.0The [facility] HospitalComment on above:Performed By: #### CBC #### [facility] [address] [place] [address] Dr. Mark Guanlet mean volume (Bld) [Entitic vol]9.5 fLNormal9.5-13.5The [facility] HospitalComment on above:Performed By: #### CBC #### [facility] [address] [place] [address] Dr. Mark CuellarPLT234 103/rkUwfrdi618-927Zlb [facility]Com[facility] on above: Performed By: #### CBC #### [facility] [address] [place] [address] Dr. Mark CuellarRBC4.16 106/ulCritically low4.20-5.40The [facility] HospitalComment on above:Performed By: #### CBC #### [facility] [address] [place] [address] Dr. Mark CuellarWBC12.0 103/ulCritically high4.0-11.0The [facility] on above:Performed By: #### CBC #### [facility] [address] [place] [address] Dr. Mark Goldsmith URINE PROFILEon 21-56-2068Sdegkmkpd Ql (U)NegativeNormal NEGATIVEThe [facility] HospitalComo[facility] on above:Performed By: #### ARIANE UMICRO #### [facility] [address] [place] [address] Dr. Mark CuellarClarity (U)CLEARNormalCLEARClinton Memorial HospitalComoaklawn hospital on above: Performed By: #### ARIANE UMICRO #### [facility] [address] [place] [address] Dr. Mark Carrillo (U)LT. YELLOWNormalYELLOWThe [facility] HospitalComo[facility] on above:Performed By: #### ARIANE UMICRO #### [facility] [address] [place] [address] Dr. Mark Roca micrscopic examination will be performed if indicated. NormalThe [facility] HospitalComo[facility] on above:Performed By: #### ARIANE UMICRO #### [facility] [address] [place] [address] Dr. Mark Carolinaose Ql (U)NegativeNormalNEGATIVEThe [facility] HospitalComment on above:Performed By: #### ARIANE UMICRO #### [facility] [address] [address] [address] Mark CuellarHemoglobin Ql (U)NegativeNormalNEGATIVEThe [facility] Comment on above:Performed By: #### ARIANE UMICRO #### [facility] [address] [address] [address] Mark CuellarKetones Ql (U)TRACEAbnormalNEGATIVEThe [facility] HospitalComment on above:Performed By: #### ARIANE UMICRO #### [facility] [address] [address] [address] Mark CuellarLEUKOCYTESNegativeNormalNEGATIVEThe [facility] HospitalComment on above:Performed By: #### ARIANE UMICRO #### [facility] [address] [address] [address] Mark CuellarNitrite Ql (U)NegativeNormalNEGATIVEClinton Memorial HospitalComment on above:Performed By: #### THOMAS THAKKARICRO #### [facility] [address] [address] [address] Mark CuellarpH (U)7.0 [pH]Normal5-9The [facility] HospitalComment on above: Performed By: #### ARIANE UMICRO #### [facility] [address] [address] [address] Mark CuellarSPEC GRAVITY1.573Mxtlbx2.005-<=1.025The [facility] HospitalComment on above:Performed By: #### THOMAS THAKKARICRO #### [facility] [address] [address] [address] Mark CuellarUA PROTEINNegativeNormalNEGATIVE/ TRACEClinton Memorial Hospital Comment on above:Performed By: #### ARIANE UMICRO #### [facility] [address] [address] [address] Mark CuellarUR MICRO INDNOT INDICATEDNormalThe [facility] HospitalComment on above:Performed By: #### VIGNESH THAKKARRO #### [facility] [address] [address] [address] Mark Huddleston Qn (U)0.2 {Ariana'U}/dLNormal0.2 - 1.0The [facility] HospitalComment on above:Performed By: #### UACSKYAW UMICRO #### [facility] [address] [address] [address] Mark CuellarPROF 14(COMP METB)on 24-35-0243Plijzdl [Mass/Vol]3.5 g/dLNormal 3.4-5.0The [facility] HospitalComment on above:Performed By: #### ERUR UMICRO #### [facility] [address] [address] [address] Mark CuellarAlbumin/Globulin [Mass ratio]1.1 {ratio}NormalThe [facility] HospitalComment on above:Performed By: #### ERUSolomon UMICRO #### [facility] [address] [place] [address] Dr. Mark Be [Catalytic activity/Vol]49 U/EJgjhvm95-999Lez [facility] HospitalComment on above:Performed By: #### ERUSolomon UMICRO #### [facility] [address] [place] [address] Dr. Mark Bryant [Catalytic activity/Vol]18 U/LKqgirj74-80Stu [facility] HospitalComment on above:Performed By: #### AMADOR UMICRO #### [facility] [address] [place] [address] Dr. Mark Magaña gap [Moles/Vol]10.7 mmol/LNormalThe [facility] Comment on above:Performed By: #### ERUSolomon UMICRO #### [facility] [address] [place] [address] Dr. Mark Conte [Catalytic activity/Vol]12 U/LCritically hzu61-37Uce [facility] HospitalComment on above:Performed By: #### ERUR, UMICRO #### [facility] [address] [place] [address] Dr. Mark Dempseyirubin [Mass/Vol]0.9 mg/dLNormal0.2-1.0The [facility] Comment on above:Performed By: #### RISA ENGLISH #### [facility] [address] [place] [address] Dr. Mark CuellarCalcium [Mass/Vol]9.8 mg/dLNormal8.5-10.1The [facility] Comment on above:Performed By: #### VIGNESH ENGLISHRO #### [facility] [address] [place] [address] Dr. Mark CuellarChloride [Moles/Vol]102 mmol/FWjpaul21-948Ubk [facility] Comment on above:Performed By: #### VIGNESH ENGLISHRO #### [facility] [address] [place] [address] Dr. Mark CuellarCO2 [Moles/Vol]24.8 mmol/WZinurc91.0-32.0The [facility] Comment on above:Performed By: #### VIGNESH ENGLISHRO #### [facility] [address] [place] [address] Dr. Mark CuellarCreatinine [Mass/Vol]0.62 mg/dLNormal0.55-1.02The [facility] HospitalComment on above:Performed By: #### VIGNESH ENGLISHRO #### [facility] [address] [place] [address] Dr. Mark MeekGFR-AF AUSTRIAN>60Normal>=60The [facility] HospitalComment on above:Performed By: #### VIGNESH ENGLISHRO #### [facility] [address] [place] [address] Dr. Mark MeekGFR-NON AF AUSTRIAN>60Normal>=60The [facility] HospitalComment on above:Performed By: #### VIGNESH ENGLISHRO #### [facility] [address] [place] [address] Dr. Mark CuellarGlobulin (S) [Mass/Vol]3.2 g/dLNormalThe [facility] HospitalComment on above:Performed By: #### VIGNESH ENGLISHRO #### [facility] [address] [place] [address] Dr. Mark CuellarGlucose [Mass/Vol]88 mg/pMLotkyf59-690Bub [facility] Comment on above:Performed By: #### AMADOR UMICRO #### [facility] [address] [place] [address] Dr. Mark CuellarPotassium [Moles/Vol]3.5 mmol/LNormal3.5-5.1The [facility] Comment on above:Performed By: #### AMADOR UMICRO #### [facility] [address] [place] [address] Dr. Mark CuellarProtein [Mass/Vol]6.7 g/dLNormal6.4-8.2The [facility] Comment on above:Performed By: #### AMADOR UMICRO #### [facility] [address] [place] [address] Dr. Mark CuellarSodium [Moles/Vol]134 mmol/LCritically trl639-227Rip [facility] HospitalComment on above:Performed By: #### AMADOR UMICRO #### [facility] [address] [place] [address] Dr. aMrk CuellarUrea nitrogen [Mass/Vol]13.0 mg/dLNormal7.0-18.0The [facility] HospitalComment on above:Performed By: #### AMADOR UMICRO #### [facility] [address] [place] [address] Dr. Mark Rendon nitrogen/Creatinine [Mass ratio]21.0 mg/mgNormalThe [facility] HospitalComment on above:Performed By: #### AMADOR UMICRO #### [facility] [address] [place] [address] Dr. Mark Benavides SURFACE ANTIGEN SCREENon 88-43-9712KLuCy ScreenNegative NormalNegativeThe [facility] HospitalComment on above:Performed By: #### ARIANE UMICRO #### [facility] [address] [place] [address] Dr. Mark Dejesus C VIRUS AB W/ REFLEX QUANTon [id number] AB<0.1Normal 0.0-0.9The [facility] on above:Performed By: #### RISA THAKKAR #### [facility] [address] [place] [address] Dr. Mark CuellarInterpretation:CommentNormalThe [facility] on above:Result Comment: Negative Not infected with HCV, unless recent infection is suspected or other evidence exists to indicate HCV infection.Performed By: #### RISA THAKKAR #### [facility] [address] [place] [address] Dr. Mark Guzman 1 AND 2 WITH REFLEXon [id number] Screen 4th Generation wRfxNon-ReactiveNormalNon ReactiveThe [facility] on above:Result Comment: HIV Negative HIV-1/HIV-2 antibodies and HIV-1 p24 antigen were NOT detected. There is no laboratory evidence of HIV infection.Performed By: #### HIV12 #### [facility] [address] [place] [address] Dr. Mark CuellarRPR QUANTon 59-66-6028Ucmis Plasma Reagin, QuantNon-Reactive NormalNonRea<1:1The [facility] on above:Result Comment: Please Note: This test does not meet current guidelines for screening and diagnosis of syphilis. This test is intended for following treatment response in patients being treated for syphilis infection. To screen for syphilis infection, a reflex cascade that includes both RPR and a treponema-specific assay should be utilized, such as Treponema pallidum (Syphilis) Screening [place] (790509) or Rapid Plasma Reagin (RPR) Test With Reflex to Quantitative RPR and Confirmatory Treponema pallidum Antibodies (961107).Performed By: #### DBIL #### [facility] [address] [place] [address] Dr. Mark RodriguezBELLA AB IGGon 89-99-9722Sijgkdo Antibodies, IgG3.31 index NormalImmune >0.99The [facility] on above:Result Comment: Non- immune <0.90 Equivocal 0.90 - 0.99 Immune >0.99Performed By: #### VIGNESH THAKKARRO #### [facility] [address] [place] [address] Dr. Mark Carroll AUTO DIFFon [id number] #0.0 103/ulNormal0.0-0.1The [facility] HospitalComment on above:Performed By: #### VIGNESH THAKKARRO #### [facility] [address] [place] [address] Dr. Mark CuellarBasophils/100 WBC (Bld)0.2 %Normal0.2-2.0The [facility] Comment on above:Performed By: #### RISA THAKKAR #### [facility] [address] [place] [address] Dr. Flores ChangEReynaldo #0.1 103/ulNormal0.0-0.7The [facility] HospitalComment on above: Performed By: #### RISA THAKKAR #### [facility] [address] [place] [address] Dr. Mark Meekosinophils/100 WBC (Bld)0.7 %Critically low0.9-7.0The [facility] HospitalComment on above:Performed By: #### VIGNESH THAKKARRO #### [facility] [address] [place] [address] Dr. Mark Meekrythrocyte distribution width (RBC) [Ratio]11.9 %Rqvpvx25.0-15.0 The [facility] HospitalComment on above:Performed By: #### VIGNESH THAKKARRO #### [facility] [address] [place] [address] Dr. Mark CuellarHematocrit (Bld) [Volume fraction]36.0 %Nfjimn77.0-48.0The [facility] HospitalComment on above:Performed By: #### VIGNESH THAKKARRO #### [facility] [address] [place] [address] Dr. Mark CuellarHemoglobin (Bld) [Mass/Vol]13.0 g/lPEicpqb34.0-16.0The [facility] HospitalComment on above:Performed By: #### VIGNESH THAKKARRO #### [facility] [address] [place] [address] Dr. Mark Richardson #0.04 10e3/ulCritically high0.00-0.03The [facility] Comment on above:Performed By: #### VIGNESH THAKKARRO #### [facility] [address] [place] [address] Dr. Mark Richardson %0.5 %Normal0.0-0.5The [facility] HospitalComment on above: Performed By: #### VIGNESH THAKKARRO #### [facility] [address] [place] [address] Dr. Mark Mccall #1.6 103/ulNormal1.2-3.8The [facility] HospitalComment on above:Performed By: #### VIGNESH THAKKARRO #### [facility] [address] [place] [address] Dr. Mark Chanelhocytes/100 WBC (Bld)17.6 %Critically low20.5-60.0The [facility] HospitalComment on above:Performed By: #### VIGNESH THAKKARRO #### [facility] [address] [place] [address] Dr. Mark OrellanaUAL DIFF REQNONormalThe [facility] HospitalComment on above: Performed By: #### VIGNESH THAKKARRO #### [facility] [address] [place] [address] Dr. Mark Hawthorne (RBC) [Entitic mass]30.7 qkXwwxzo79.7-34.0The [facility] HospitalComment on above:Performed By: #### VIGNESH THAKKARRO #### [facility] [address] [place] [address] Dr. Mark Lopez (RBC) [Mass/Vol]36.1 g/dLCritically high29.9-35.2The [facility] HospitalComment on above:Performed By: #### THOMAS THAKKARICRO #### [facility] [address] [place] [address] Dr. Mark Herndon (RBC) [Entitic vol]84.9 uRZsjeqr37.0-99.0The [facility] HospitalComment on above:Performed By: #### THOMAS THAKKARICRO #### [facility] [address] [place] [address] Dr. Mark Simmons #0.6 103/ulNormal0.3-0.8The [facility] HospitalComment on above:Performed By: #### ARIANE ICRO #### [facility] [address] [place] [address] Dr. Mark Gerardoocytes/100 WBC (Bld)6.3 %Normal1.7-12.0[facility] Comment on above:Performed By: #### VIGNESH THAKKARRO #### [facility] [address] [place] [address] Dr. Mark Clark #6.6 103/ulCritically high1.4-6.5The [facility] Comment on above:Performed By: #### ARIANE ICRO #### [facility] [address] [place] [address] Dr. Mark Ramírezutrophils/100 WBC (Bld)74.7 %Vkryqu49.0-75.0The [facility] HospitalComment on above:Performed By: #### THOMAS THAKKARICRO #### [facility] [address] [place] [address] Dr. Mark Stevens mean volume (Bld) [Entitic vol]9.1 fLCritically low 9.5-13.5The [facility] HospitalComment on above:Performed By: #### VIGNESH THAKKARRO #### [facility] [address] [place] [address] Dr. Mark CuellarPLT214 103/klTsbgin200-869Peh [facility] HospitalComment on above: Performed By: #### THOMAS THAKKARICRO #### [facility] [address] [place] [address] Dr. Mark CuellarRBC4.24 106/ulNormal4.20-5.40The [facility] HospitalComment on above:Performed By: #### RISA THAKKAR #### [facility] [address] [place] [address] Dr. Mark CuellarWBC8.8 103/ulNormal4.0-11.0The [facility] HospitalComment on above: Performed By: #### RISA THAKKAR #### [facility] [address] [place] [address] Dr. Mark CuellarCULTURE URINEon [id number] URINECulture Observations: LIGHT GROWTH OF MIXED GENITAL VALENTÍN. NO POTENTIAL PATHOGENS SEEN.NormalThe [facility] HospitalComment on above:Performed By: #### URCX #### [facility] [address] [place] [address] Dr. Mark CuellarGLYCOHEMOGLOBIN A1Con [id number] RECOMMENDATIONSEE BELOWNormal The [facility] HospitalComment on above:Result Comment: ADA RECOMMENDED LIMIT 4.0 - 6.0 ADA THERAPEUTIC TARGET < 7.0 ACTION SUGGESTED > 7.0Performed By: #### RISA ENGLISH #### [facility] [address] [place] [address] Dr. Mark CuellarGlucose [Mass/Vol]74 mg/dLNormalThe [facility] HospitalComoaklawn hospital on above:Performed By: #### RISA ENGLISH #### [facility] [address] [place] [address] Dr. Mark CuellarHbA1c (Bld) [Mass fraction]4.2 %Critically low4.5-6.2The [facility] on above:Performed By: #### RISA ENGLISH #### [facility] [address] [place] [address] Dr. Mark Anderson BOX TEST PT SEND OUTon [id number] TO REF LAB02/27/2022 NormalThe [facility] Centerment on above:Performed By: #### RISA ENGLISH #### [facility] [address] [address] [address] Mark Gomez AND SCREENon [id number] AND SCREENNegativeNormalThe [facility] HospitalComment on above:Performed By: #### ERUSolomon UMICRO #### [facility] [address] [place] [address] Dr. Mark CuellarAMYLASEon [id number] [Catalytic activity/Vol]45 U/LNormal 25-115The [facility] HospitalComment on above:Performed By: #### ARIANE ICRO #### [facility] [address] [place] [address] Dr. Mark CuellarBILIRUBIN CONJUGATED (DIRECT)on [id number], CONJUGATED0.2 mg/dLNormal0.0-0.2The [facility] HospitalComment on above:Performed By: #### DBIL #### [facility] [address] [place] [address] Dr. Mark CuellarCALCIUMon 49-77-9840Ijjmdfn [Mass/Vol]9.3 mg/dLNormal8.5-10.1The [facility] HospitalComment on above:Performed By: #### ARIANE ICRO #### [facility] [address] [place] [address] Dr. Mark RodC AUTO DIFFon [id number] #0.0 103/ulNormal0.0-0.1The [facility] HospitalComment on above:Performed By: #### AMADOR ICRO #### [facility] [address] [place] [address] Dr. Mark CuellarBasophils/100 WBC (Bld)0.2 %Normal0.2-2.0The [facility] Comment on above:Performed By: #### ERUSolomon, UMICRO #### [facility] [address] [place] [address] Dr. Flores ChangEO #0.1 103/ulNormal0.0-0.7The [facility] HospitalComment on above: Performed By: #### VIGNESH ENGLISHRO #### [facility] [address] [place] [address] Dr. Mark Meekosinophils/100 WBC (Bld)1.0 %Normal0.9-7.0The [facility] Comment on above:Performed By: #### VIGNESH ENGLISHRO #### [facility] [address] [place] [address] Dr. Mark Meekrythrocyte distribution width (RBC) [Ratio]11.9 %Xectha94.0-15.0 The [facility] HospitalComment on above:Performed By: #### VIGNESH ENGLISHRO #### [facility] [address] [place] [address] Dr. Mark CuellarHematocrit (Bld) [Volume fraction]37.6 %Yipatd36.0-48.0The [facility] HospitalComment on above:Performed By: #### VIGNESH ENGLISHRO #### [facility] [address] [place] [address] Dr. Mark CuellarHemoglobin (Bld) [Mass/Vol]13.5 g/lIWvmfia86.0-16.0The [facility] HospitalComment on above:Performed By: #### VIGNESH ENGLISHRO #### [facility] [address] [place] [address] Dr. Mark Richardson #0.04 10e3/ulCritically high0.00-0.03The [facility] Comment on above:Performed By: #### VIGNESH ENGLISHRO #### [facility] [address] [place] [address] Dr. Mark Richardson %0.4 %Normal0.0-0.5The [facility] HospitalComment on above: Performed By: #### VIGNESH ENGLISHRO #### [facility] [address] [place] [address] Dr. Mark Mccall #2.2 103/ulNormal1.2-3.8The [facility] HospitalComment on above:Performed By: #### ERUR, UMICRO #### [facility] [address] [place] [address] Dr. Mark Buenrostromphocytes/100 WBC (Bld)19.7 %Critically low20.5-60.0The [facility] HospitalComment on above:Performed By: #### AMADOR UMICRO #### [facility] [address] [place] [address] Dr. Mark Marcano DIFF REQNONormalThe [facility] HospitalComment on above: Performed By: #### AMADOR UMICRO #### [facility] [address] [place] [address] Dr. Mark Lopez (RBC) [Entitic mass]30.8 kvOcjpdb27.7-34.0The [facility] HospitalComment on above:Performed By: #### AMADOR UMICRO #### [facility] [address] [place] [address] Dr. Mark Lopez (RBC) [Mass/Vol]35.9 g/dLCritically high29.9-35.2The [facility] HospitalComment on above:Performed By: #### AMADOR UMICRO #### [facility] [address] [place] [address] Dr. Mark Herndon (RBC) [Entitic vol]85.6 cBPzblct26.0-99.0The [facility] HospitalComment on above:Performed By: #### AMADOR UMICRO #### [facility] [address] [place] [address] Dr. Mark Simmons #0.8 103/ulNormal0.3-0.8The [facility] HospitalComment on above:Performed By: #### AMADOR UMICRO #### [facility] [address] [place] [address] Dr. Mark Gerardoocytes/100 WBC (Bld)7.6 %Normal1.7-12.0The [facility] Comment on above:Performed By: #### AMADOR UMICRO #### [facility] [address] [place] [address] Dr. Mark Clark #7.9 103/ulCritically high1.4-6.5The [facility] Comment on above:Performed By: #### THOMAS ENGLISHICRO #### [facility] [address] [place] [address] Dr. Mark Ramírezutrophils/100 WBC (Bld)71.1 %Uqlphw07.0-75.0The [facility] [facility]riners HospitalComment on above:Performed By: #### AMADOR UMICRO #### [facility] [address] [place] [address] Dr. Mark Guanlet mean volume (Bld) [Entitic vol]9.2 fLCritically low 9.5-13.5The [facility]ers HospitalComment on above:Performed By: #### AMADOR UMICRO #### [facility] [address] [place] [address] Dr. Mark CuellarPLT218 103/aeXsfnor925-447Spg [facility] HospitalComment on above: Performed By: #### AMADOR UMICRO #### [facility] [address] [place] [address] Dr. Mark CuellarRBC4.39 106/ulNormal4.20-5.40The [facility] HospitalComment on above:Performed By: #### AMADOR UMICRO #### [facility] [address] [place] [address] Dr. Mark CuellarWBC11.0 103/ulNormal4.0-11.0The [facility] HospitalComment on above:Performed By: #### AMADOR UMICRO #### [facility] [address] [place] [address] Dr. Mark CuellarFRJANET T4on 76-88-8477Uuib T4 [Mass/Vol]1.36 ng/dLNormal0.76-1.46 The [facility] HospitalComment on above:Performed By: #### AMADOR UMICRO #### [facility] [address] [place] [address] Dr. Mark CuellarLIPASEon 95-56-4680Hgqggr [Catalytic activity/Vol]91.0 U/LNormal 73.0-393.0The [facility] HospitalComment on above:Performed By: #### VIGNESH THAKKARRO #### [facility] [address] [place] [address] Dr. Mark CuellarMAGNESIUMon 76-98-1095Wtmeihsql [Mass/Vol]1.9 mg/dLNormal1.8-2.4 The [facility] HospitalComment on above:Performed By: #### ARIANE UMICRO #### [facility] [address] [place] [address] Dr. Mark CuellarPROF 14(COMP METB)on [id number] [Mass/Vol]3.7 g/dLNormal 3.4-5.0The [facility] HospitalComment on above:Performed By: #### VIGNESH THAKKARRO #### [facility] [address] [place] [address] Dr. Mark CuellarAlbumin/Globulin [Mass ratio]1.2 {ratio}NormalThe [facility] HospitalComment on above:Performed By: #### THOMAS THAKKARICRO #### [facility] [address] [place] [address] Dr. Mark Be [Catalytic activity/Vol]45 U/LCritically pta90-079Nus [facility] HospitalComment on above:Performed By: #### THOMAS THAKKARICRO #### [facility] [address] [place] [address] Dr. Mark Brynat [Catalytic activity/Vol]18 U/NLragvr88-20Zcu [facility] HospitalComment on above:Performed By: #### ARIANE UMICRO #### [facility] [address] [place] [address] Dr. Mark Magaña gap [Moles/Vol]10.7 mmol/LNormalThe [facility] on above:Performed By: #### THOMAS THAKKARICRO #### [facility] [address] [place] [address] Dr. Yilan ChangAST [Catalytic activity/Vol]11 U/LCritically vrf04-99Vpc [facility] HospitalComment on above:Performed By: #### THOMAS THAKKARICRO #### [facility] [address] [address] [address] Mark CuellarBilirubin [Mass/Vol]1.2 mg/dLCritically high0.2-1.0The [facility] HospitalComment on above:Performed By: #### ARIANE UMICRO #### [facility] [address] [address] [address] Mark CuellarChloride [Moles/Vol]102 mmol/ODvviuf92-165Jqa [facility] Comment on above:Performed By: #### ARIANE UMICRO #### [facility] [address] [place] [address] Dr. Mark uCellarCO2 [Moles/Vol]26.0 mmol/IIxuqyt22.0-32.0The [facility] Comment on above:Performed By: #### ARIAEN UMICRO #### [facility] [address] [place] [address] Dr. Mark CuellarCreatinine [Mass/Vol]0.67 mg/dLNormal0.55-1.02The [facility] HospitalComment on above:Performed By: #### THOMAS THAKKARICRO #### [facility] [address] [place] [address] Dr. Mark MeekGFR-AF AUSTRIAN>60Normal>=60The [facility] HospitalComment on above:Performed By: #### ARIANE UMICRO #### [facility] [address] [place] [address] Dr. Mark MeekGFR-NON AF AUSTRIAN>60Normal>=60The [facility] HospitalComment on above:Performed By: #### ARIANE UMICRO #### [facility] [address] [place] [address] Dr. Mark CuellarGlobulin (S) [Mass/Vol]3.2 g/dLNormalThe [facility] HospitalComment on above:Performed By: #### UACSIND, UMICRO #### [facility] [address] [address] [address] Mark CuellarGlucose [Mass/Vol]88 mg/zPPfzzaz22-114Xev [facility] Comment on above:Performed By: #### ARIANE UMICRO #### [facility] [address] [address] [address] Mark CuellarPotassium [Moles/Vol]3.7 mmol/LNormal3.5-5.1The [facility] Comment on above:Performed By: #### ARIANE UMICRO #### [facility] [address] [address] [address] Mark CuellarProtein [Mass/Vol]6.9 g/dLNormal6.4-8.2The [facility] Comment on above:Performed By: #### ARIANE UMICRO #### [facility] [address] [place] [address] Dr. Mark CuellarSodium [Moles/Vol]135 mmol/LCritically byu024-398Ror [facility] HospitalComment on above:Performed By: #### ARIANE UMICRO #### [facility] [address] [place] [address] Dr. Mark CuellarUrea nitrogen [Mass/Vol]13.0 mg/dLNormal7.0-18.0The [facility] HospitalComment on above:Performed By: #### ARIANE UMICRO #### [facility] [address] [place] [address] Dr. Mark CuellarUrea nitrogen/Creatinine [Mass ratio]19.4 mg/mgNormalThe [facility] HospitalComment on above:Performed By: #### ARIANE UMICRO #### [facility] [address] [place] [address] Dr. Mark Mccain 61-55-3412LOH2.326 uIU/mLCritically low0.358-3.740The [facility] HospitalComment on above:Performed By: #### ARIANE UMICRO #### [facility] [address] [place] [address] Dr. Mark Carroll AUTO DIFFon 52-31-2521TVKH #0.0 103/ulNormal0.0-0.1The [facility] HospitalComment on above:Performed By: #### RISA THAKKAR #### [facility] [address] [place] [address] Dr. Mark CuellarBasophils/100 WBC (Bld)0.2 %Normal0.2-2.0The [facility] Comment on above:Performed By: #### RISA THAKKAR #### [facility] [address] [place] [address] Dr. Mark Mackenzie #0.1 103/ulNormal0.0-0.7The [facility] HospitalComment on above: Performed By: #### RISA THAKKAR #### [facility] [address] [place] [address] Dr. Mark Meekosinophils/100 WBC (Bld)0.8 %Critically low0.9-7.0The [facility] HospitalComment on above:Performed By: #### RISA THAKKAR #### [facility] [address] [place] [address] Dr. Mark Meekrythrocyte distribution width (RBC) [Ratio]12.0 %Ozjcok24.0-15.0 The [facility] HospitalComment on above:Performed By: #### RISA THAKKAR #### [facility] [address] [place] [address] Dr. Mark CuellarHematocrit (Bld) [Volume fraction]37.0 %Ctwufv73.0-48.0The [facility] HospitalComment on above:Performed By: #### RISA THAKKAR #### [facility] [address] [place] [address] Dr. Mark CuellarHemoglobin (Bld) [Mass/Vol]13.0 g/aTYfhcid12.0-16.0The [facility] HospitalComment on above:Performed By: #### VIGNESH THAKKARRO #### [facility] [address] [place] [address] Dr. Mark Richardson #0.07 10e3/ulCritically high0.00-0.03The [facility] Comment on above:Performed By: #### ARIANE UMICRO #### [facility] [address] [place] [address] Dr. Mark Richardson %0.6 %Critically high0.0-0.5The [facility] HospitalComment on above:Performed By: #### ARIANE UMICRO #### [facility] [address] [place] [address] Dr. Mark Mccall #2.5 103/ulNormal1.2-3.8The [facility] HospitalComment on above:Performed By: #### ARIANE UMICRO #### [facility] [address] [place] [address] Dr. Mark Chanelhocytes/100 WBC (Bld)22.5 %Xrtdir34.5-60.0The [facility] HospitalComment on above:Performed By: #### THOMAS THAKKARICRO #### [facility] [address] [place] [address] Dr. Mark Marcano DIFF REQNONormalThe [facility] HospitalComment on above: Performed By: #### ARIANE UMICRO #### [facility] [address] [place] [address] Dr. Mark Hawthorne (RBC) [Entitic mass]30.5 nrIorwjn99.7-34.0The [facility] HospitalComment on above:Performed By: #### ARIANE UMICRO #### [facility] [address] [place] [address] Dr. Mark oLpez (RBC) [Mass/Vol]35.1 g/eJTwipek22.9-35.2The [facility] HospitalComment on above:Performed By: #### ARIANE UMICRO #### [facility] [address] [place] [address] Dr. Mark Herndon (RBC) [Entitic vol]86.9 tGNqgzvz07.0-99.0The [facility] HospitalComment on above:Performed By: #### ARIANE ICRO #### [facility] [address] [place] [address] Dr. Mark Simmons #0.7 103/ulNormal0.3-0.8The [facility] HospitalComment on above:Performed By: #### ARIANE ICRO #### [facility] [address] [place] [address] Dr. Mark Gerardoocytes/100 WBC (Bld)6.2 %Normal1.7-12.0The [facility] Comment on above:Performed By: #### ARIANE ICRO #### [facility] [address] [place] [address] Dr. Mark Clark #7.7 103/ulCritically high1.4-6.5The [facility] Comment on above:Performed By: #### ARIANE ICRO #### [facility] [address] [place] [address] Dr. Mark Ramírezutrophils/100 WBC (Bld)69.7 %Syfgrm69.0-75.0The [facility] HospitalComment on above:Performed By: #### ARIANE ICRO #### [facility] [address] [place] [address] Dr. Mark Guanlet mean volume (Bld) [Entitic vol]9.3 fLCritically low 9.5-13.5The [facility] HospitalComment on above:Performed By: #### ARIANE ICRO #### [facility] [address] [place] [address] Dr. Mark CuellarPLT225 103/nwJkseul100-810Vws [facility] HospitalComment on above: Performed By: #### ARIANE ICRO #### [facility] [address] [place] [address] Dr. Mark CuellarRBC4.26 106/ulNormal4.20-5.40The [facility] Centerment on above:Performed By: #### VIGNESH THAKKARRO #### [facility] [address] [place] [address] Dr. Mark CuellarWBC11.1 103/ulCritically high4.0-11.0The [facility] on above:Performed By: #### VIGNESH THAKKARRO #### [facility] [address] [place] [address] Dr. Mark Moon 14(COMP METB)on 83-31-7423Eztzxmc [Mass/Vol]3.5 g/dLNormal 3.4-5.0The [facility] on above:Performed By: #### VIGNESH ENGLISHRO #### [facility] [address] [place] [address] Dr. Mark CuellarAlbumin/Globulin [Mass ratio]1.1 {ratio}NormalThe [facility] HospitalComoakla[facility] on above:Performed By: #### AMADOR UMICRO #### [facility] [address] [place] [address] Dr. Mark Be [Catalytic activity/Vol]50 U/YSqyvuh14-287Biq [facility] on above:Performed By: #### AMADOR UMICRO #### [facility] [address] [place] [address] Dr. Mark Bryant [Catalytic activity/Vol]20 U/RPejeqs69-45Wtt [facility] on above:Performed By: #### AMADOR UMICRO #### [facility] [address] [place] [address] Dr. Mark Magaña gap [Moles/Vol]8.2 mmol/LNormalThe [facility] on above:Performed By: #### AMADOR UMICRO #### [facility] [address] [place] [address] Dr. Mark Conte [Catalytic activity/Vol]12 U/LCritically zsa10-01Vhn [facility] on above:Performed By: #### ERUR, UMICRO #### [facility] [address] [place] [address] Dr. Mark CuellarBilirubin [Mass/Vol]1.1 mg/dLCritically high0.2-1.0The [facility] HospitalComment on above:Performed By: #### AMADOR UMICRO #### [facility] [address] [place] [address] Dr. Mark CuellarCalcium [Mass/Vol]9.1 mg/dLNormal8.5-10.1The [facility] Comment on above:Performed By: #### AMADOR UMICRO #### [facility] [address] [place] [address] Dr. Mark CuellarChloride [Moles/Vol]104 mmol/DMuanau39-397ZviCl[facility] Comment on above:Performed By: #### AMADOR UMICRO #### [facility] [address] [place] [address] Dr. Mark CuellarCO2 [Moles/Vol]26.1 mmol/QWnhvht10.0-32.0The [facility] Comment on above:Performed By: #### AMADOR UMICRO #### [facility] [address] [place] [address] Dr. Mark CuellarCreatinine [Mass/Vol]0.74 mg/dLNormal0.55-1.02The [facility] HospitalComment on above:Performed By: #### AMADOR UMICRO #### [facility] [address] [place] [address] Dr. Mark MeekGFR-AF AUSTRIAN>60Normal>=60The [facility] HospitalComment on above:Performed By: #### AMADOR UMICRO #### [facility] [address] [place] [address] Dr. Mark MeekGFR-NON AF AUSTRIAN>60Normal>=60The [facility] HospitalComment on above:Performed By: #### AMADOR UMICRO #### [facility] [address] [place] [address] Dr. Mark CuellarGlobulin (S) [Mass/Vol]3.1 g/dLNormCleveland Clinic Medina HospitalComment on above:Performed By: #### VIGNESH ENGLISHRO #### [facility] [address] [place] [address] Dr. Mark CuellarGlucose [Mass/Vol]93 mg/iKPnyqgw99-182Wbd [facility] Comment on above:Performed By: #### VIGNESH ENGLISHRO #### [facility] [address] [place] [address] Dr. Mark CuellarPotassium [Moles/Vol]3.3 mmol/LCritically low3.5-5.1The [facility] HospitalComment on above:Performed By: #### VIGNESH ENGLISHRO #### [facility] [address] [place] [address] Dr. Mark CuellarProtein [Mass/Vol]6.6 g/dLNormal6.4-8.2The [facility] Comment on above:Performed By: #### VIGNESH ENGLISHRO #### [facility] [address] [place] [address] Dr. Mark CuellarSodium [Moles/Vol]135 mmol/LCritically qsz709-086Xik [facility] HospitalComment on above:Performed By: #### VIGNESH ENGLISHRO #### [facility] [address] [place] [address] Dr. Mark CuellarUrea nitrogen [Mass/Vol]10.0 mg/dLNormal7.0-18.0The [facility] HospitalComment on above:Performed By: #### VIGNESH ENGLISHRO #### [facility] [address] [place] [address] Dr. Mark CuellarUrea nitrogen/Creatinine [Mass ratio]13.5 mg/mgNoGreene Memorial HospitalComment on above:Performed By: #### VIGNESH ENGLISHRO #### [facility] [address] [place] [address] Dr. Mark CuellarAMYLASEon 35-02-8229Vunigeq [Catalytic activity/Vol]40 U/LNormal 25-115The [facility] Centerment on above:Performed By: #### CBC #### [facility] [address] [place] [address] Dr. Mark Carroll AUTO DIFFon 47-67-8497YUDY #0.0 103/ulNormal0.0-0.1The [facility] on above:Performed By: #### VIGNESH ENGLISHRO #### [facility] [address] [place] [address] Dr. Mark CuellarBasophils/100 WBC (Bld)0.3 %Normal0.2-2.0The [facility] Comment on above:Performed By: #### VIGNESH ENGLISHRO #### [facility] [address] [place] [address] Dr. Mark Mackenzie #0.0 103/ulNormal0.0-0.7The [facility] on above: Performed By: #### VIGNESH ENGLISHRO #### [facility] [address] [place] [address] Dr. Mark Meekosinophils/100 WBC (Bld)0.3 %Critically low0.9-7.0The [facility] on above:Performed By: #### VIGNESH ENGLISHRO #### [facility] [address] [place] [address] Dr. Mark Meekrythrocyte distribution width (RBC) [Ratio]11.8 %Wnfeve03.0-15.0 The [facility] on above:Performed By: #### VIGNESH ENGLISHRO #### [facility] [address] [place] [address] Dr. Mark CuellarHematocrit (Bld) [Volume fraction]36.9 %Atsrhn77.0-48.0The [facility] on above:Performed By: #### THOMAS ENGLISHICRO #### [facility] [address] [place] [address] Dr. Mark CuellarHemoglobin (Bld) [Mass/Vol]13.2 g/bEZiulxn05.0-16.0The [facility] HospitalComment on above:Performed By: #### AMADOR UMICRO #### [facility] [address] [address] [address] Mark Richardson #0.06 10e3/ulCritically high0.00-0.03The [facility] on above:Performed By: #### AMADOR UMICRO #### [facility] [address] [address] [address] Mark Richardson %0.5 %Normal0.0-0.5The [facility] HospitalComment on above: Performed By: #### AMADOR UMICRO #### [facility] [address] [place] [address] Dr. Mark Mccall #2.4 103/ulNormal1.2-3.8The [facility] HospitalComment on above:Performed By: #### AMADOR UMICRO #### [facility] [address] [place] [address] Dr. Mark Chanelhocytes/100 WBC (Bld)18.8 %Critically low20.5-60.0The [facility] HospitalComment on above:Performed By: #### THOMAS ENGLISHICRO #### [facility] [address] [place] [address] Dr. Mark OrellanaUAL DIFF REQNONormalThe [facility] HospitalComment on above: Performed By: #### THOMAS ENGLISHICRO #### [facility] [address] [place] [address] Dr. Mark Hawthorne (RBC) [Entitic mass]30.6 trZdwcks27.7-34.0The [facility] HospitalComment on above:Performed By: #### AMADOR UMICRO #### [facility] [address] [place] [address] Dr. Mark Keen (RBC) [Mass/Vol]35.8 g/dLCritically high29.9-35.2The [facility] HospitalComment on above:Performed By: #### AMADOR UMICRO #### [facility] [address] [place], [place] [address] Dr. Mark Herndon (RBC) [Entitic vol]85.6 jYXjhdfw57.0-99.0The [facility] HospitalComment on above:Performed By: #### AMADOR UMICRO #### [facility] [address] [place] [address] Dr. Mark Simmons #0.9 103/ulCritically high0.3-0.8The [facility] Comment on above:Performed By: #### AMADOR UMICRO #### [facility] [address] [place] [address] Dr. Mark Gerardoocytes/100 WBC (Bld)7.3 %Normal1.7-12.0[facility] Comment on above:Performed By: #### AMADOR UMICRO #### [facility] [address] [place] [address] Dr. Mark Clark #9.3 103/ulCritically high1.4-6.5The [facility] Comment on above:Performed By: #### AMADOR ICRO #### [facility] [address] [place] [address] Dr. Mark Ramírezutrophils/100 WBC (Bld)72.8 %Cyuywy23.0-75.0The [facility] HospitalComment on above:Performed By: #### AMADOR UMICRO #### [facility] [address] [place] [address] Dr. Mark Guanlet mean volume (Bld) [Entitic vol]9.3 fLCritically low 9.5-13.5The [facility] HospitalComment on above:Performed By: #### AMADOR ICRO #### [facility] [address] [place] [address] Dr. Mark CuellarPLT239 103/ifUrrwle114-786Rxj [facility] HospitalComment on above: Performed By: #### AMADOR UMICRO #### [facility] [address] [place] [address] Dr. Mark CuellarRBC4.31 106/ulNormal4.20-5.40The [facility] HospitalComment on above:Performed By: #### AMADOR UMICRO #### [facility] [address] [place] [address] Dr. Mark CuellarWBC12.8 103/ulCritically high4.0-11.0The [facility] HospitalComment on above:Performed By: #### AMADOR UMSALLYRO #### [facility] [address] [place] [address] Dr. Mark CuellarCULTURE URINEon 86-29-5806UHCKCKE URINECulture Observations: NO GROWTH.NormalThe [facility] HospitalComment on above:Performed By: #### VIGNESH ENGLISHRO #### [facility] [address] [place] [address] Dr. Mark Goldsmith URINE PROFILEon 38-95-0195Gmxpzwjbp Ql (U)NegativeNormal NEGATIVEThe [facility] HospitalComment on above:Performed By: #### VIGNESH ENGLISHRO #### [facility] [address] [place] [address] Dr. Mark CuellarClarity (U)CLEARNormalCLEARThe [facility] HospitalComment on above: Performed By: #### VIGNESH ENGLISHRO #### [facility] [address] [place] [address] Dr. Mark Carrillo (U)LT. YELLOWNormalYELLOWClinton Memorial HospitalComment on above:Performed By: #### VIGNESH ENGLISHRO #### [facility] [address] [place] [address] Dr. Mark Roca micrscopic examination will be performed if indicated. NormalThe [facility] HospitalComment on above:Performed By: #### AMADOR UMICRO #### [facility] [address] [place] [address] Dr. Mark CuellarGlucose Ql (U)NegativeNormalNEGATIVEClinton Memorial HospitalComment on above:Performed By: #### AMADOR UMICRO #### [facility] [address] [place] [address] Dr. Mark CuellarHemoglobin Ql (U)TRACE-INTACTAbnormalNEGATIVEThe [facility] HospitalComment on above:Performed By: #### AMADOR UMICRO #### [facility] [address] [place] [address] Dr. Mark Peters Ql (U)NegativeNormalNEGATIVEThe [facility] HospitalComment on above:Performed By: #### AMADOR UMICRO #### [facility] [address] [place] [address] Dr. Mark CuellarLEUKOCYTESSMALLAbnormalNEGATIVEClinton Memorial HospitalComment on above:Performed By: #### AMADOR UMICRO #### [facility] [address] [place] [address] Dr. Mark Jamiltrite Ql (U)NegativeNormalNEGATIVEClinton Memorial HospitalComment on above:Performed By: #### AMADOR UMICRO #### [facility] [address] [place] [address] Dr. Mark CuellarpH (U)8.0 [pH]Normal5-9The [facility] HospitalComment on above: Performed By: #### AMADOR UMICRO #### [facility] [address] [place] [address] Dr. Mark CuellarSPEC GRAVITY1.238Hcthuj9.005-<=1.025The [facility] HospitalComment on above:Performed By: #### AMADOR UMICRO #### [facility] [address] [place] [address] Dr. Mark De Guzman PROTEINNegativeNormalNEGATIVE/ TRACEThe [facility] Comment on above:Performed By: #### AMADOR UMICRO #### [facility] [address] [place] [address] Dr. Mark Urbano MICRO INDINDICATEDNormalThPremier Health Miami Valley Hospital SouthComment on above: Performed By: #### AMADOR UMICRO #### [facility] [address] [place] [address] Dr. Mark Hassanbilino Qn (U)0.2 {Ariana'U}/dLNormal0.2 - 1.0The [facility]riners HospitalComment on above:Performed By: #### RISA ENGLISH #### [facility] [address] [place] [address] Dr. Mark CuellarLIPASEon 90-94-8861Idavht [Catalytic activity/Vol]66.0 U/L Critically low73.0-393.0The [facility]riners HospitalComment on above:Performed By: #### CBC #### [facility] [address] [place] [address] Dr. Mark CuellarPROF 14(COMP METB)on 47-59-1856Lkplypl [Mass/Vol]3.8 g/dLNormal 3.4-5.0The [facility]ers HospitalComment on above:Performed By: #### CBC #### [facility] [address] [place] [address] Dr. Mark CuellarAlbumin/Globulin [Mass ratio]1.3 {ratio}NormalThe [facility]riners HospitalComment on above:Performed By: #### CBC #### [facility] [address] [place] [address] Dr. Mark Be [Catalytic activity/Vol]53 U/AWebads97-897Oiu UC Medical Centerment on above:Performed By: #### CBC #### [facility] [address] [place] [address] Dr. Mark Bryant [Catalytic activity/Vol]21 U/OXvntoa10-97Sba [facility] HospitalComment on above:Performed By: #### CBC #### [facility] [address] [place] [address] Dr. Mark Magaña gap [Moles/Vol]12.0 mmol/LNormalThe [facility] on above:Performed By: #### CBC #### [facility] [address] [place] [address] Dr. Mark Conte [Catalytic activity/Vol]12 U/LCritically uqj12-82Djz [facility] HospitalComment on above:Performed By: #### CBC #### [facility] [address] [place] [address] Dr. Mark CuellarBilirubin [Mass/Vol]1.5 mg/dLCritically high0.2-1.0The [facility] HospitalComment on above:Performed By: #### CBC #### [facility] [address] [address] [address] Mark CuellarCalcium [Mass/Vol]8.9 mg/dLNormal8.5-10.1[facility] Comment on above:Performed By: #### CBC #### [facility] [address] [address] [address] Mark CuellarChloride [Moles/Vol]104 mmol/WXwazld50-718Ywg [facility] Comment on above:Performed By: #### CBC #### [facility] [address] [place] [address] Dr. Mark CuellarCO2 [Moles/Vol]24.5 mmol/ZBdbyer55.0-32.0[facility] Comment on above:Performed By: #### CBC #### [facility] [address] [place] [address] Dr. Mark CuellarCreatinine [Mass/Vol]0.73 mg/dLNormal0.55-1.02The [facility]ers HospitalComment on above:Performed By: #### CBC #### [facility] [address] [place] [address] Dr. Mark MeekGFR-AF AUSTRIAN>60Normal>=60The [facility]ers HospitalComment on above:Performed By: #### CBC #### [facility] [address] [place] [address] Dr. Mark MeekGFR-NON AF AUSTRIAN>60Normal>=60The [facility]ers HospitalComment on above:Performed By: #### CBC #### [facility] [address] [place] [address] Dr. Mark CuellarGlobulin (S) [Mass/Vol]3.0 g/dLNormalThe [facility]ers HospitalComment on above:Performed By: #### CBC #### [facility] [address] [place] [address] Dr. Mark CuellarGlucose [Mass/Vol]90 mg/oNMwaeei07-393Exi [facility] Comment on above:Performed By: #### CBC #### [facility] [address] [address] [address] Mark CuellarPotassium [Moles/Vol]3.5 mmol/LNormal3.5-5.1The [facility] Comment on above:Performed By: #### CBC #### [facility] [address] [address] [address] Mark CuellarProtein [Mass/Vol]6.8 g/dLNormal6.4-8.2[facility] Comment on above:Performed By: #### CBC #### [facility] [address] [place] [address] Dr. Mark Casanovadium [Moles/Vol]137 mmol/ZAlndbc053-707Nqr [facility] Comment on above:Performed By: #### CBC #### [facility] [address] [place] [address] Dr. Mark CuellarUrea nitrogen [Mass/Vol]9.0 mg/dLNormal7.0-18.0The [facility]ers HospitalComment on above:Performed By: #### CBC #### [facility] [address] [place] [address] Dr. Mark Rendon nitrogen/Creatinine [Mass ratio]12.3 mg/mgNoGreene Memorial HospitalComment on above:Performed By: #### CBC #### [facility] [address] [place] [address] Dr. Mark Frederick MICROSCOPIC ONLYon 04-77-4767LFPKCXPYN CRYSTALSFEWKing's Daughters Medical Center OhioComment on above:Performed By: #### RISA ENGLISH #### [facility] [address] [place] [address] Dr. Mark SharifMODERATEAbnormalNONE SEENThe [facility]ers HospitalComment on above:Performed By: #### VIGNESH ENGLISHRO #### [facility] [address] [place] [address] Dr. Mark Sharif identified Cx Nom (U)INDICATEDNoalThPremier Health Miami Valley Hospital SouthComment on above:Performed By: #### ERUR, UMICRO #### [facility] [address] [place] [address] Dr. Mark Zaragoza SEENNormalNONE SEENClinton Memorial HospitalComment on above:Performed By: #### ERUR, UMICRO #### [facility] [address] [place] [address] Dr. Mark Gould LM Nom (Urine sed)SEENAbnormalNONE SEENThe [facility]ers HospitalComment on above:Performed By: #### ERUR UMICRO #### [facility] [address] [place] [address] Dr. Flores ChangEpithelial cells LM Ql (Urine sed)FEWAbnormalNONE SEEN /RAREThe [facility]ers HospitalComment on above:Performed By: #### AMADOR UMICRO #### [facility] [address] [place] [address] Dr. Mark Carrillo SEENNormalNONE SEENClinton Memorial HospitalComoaklawn hospital on above:Performed By: #### AMADOR UMICRO #### [facility] [address] [place] [address] Dr. Mark Jernigan SEENAbrmal0-2Clinton Memorial HospitalComment on above: Performed By: #### AMADOR UMICRO #### [facility] [address] [place] [address] Dr. Mark Mckeon2-5AbnormalNONE SEENClinton Memorial HospitalComment on above: Performed By: #### ERUR, UMICRO #### [facility] [address] [place] [address] Dr. Mark Liu PREG TVon 06-68-2032BU PREG TVEXAMINATION: US PREG TV HISTORY: Missed period COMPARISON: [...] Electronically authenticated by: NIRALI QUEVEDO Date: 2022-01-24 17:39[facility] OhioCOVID Quick Testingon 18-60-0304KxsasgJppygterWutkp Coast [employer] Other Quick Fluon 32-09-5086GKSLO Ab CF (S) [Titer]Negative [facility] [employer] Other FLUBV Ab CF (S) [Titer]NegativeProsser Memorial Hospital [employer] Other Vital Signs Date TimeVital SignValuePerforming CmcyywpmiQcboltob30-59-5192 10:58-0400Body tifqwf372.1 cmLibra Vazquez MD Work Phone: [phone]00[facility]09-09-2025 10:58-0400 Body mass index (BMI) [Ratio]20.7 kg/j9BbkbubLibra Vazquez MD Work Phone: [phone]00[facility]09-09-2025 10:58-0400 Body .69 kgLibra Vazquez MD Work Phone: [phone]09-09-2025 10:58-0400 Diastolic blood nzojmmxz52 mm[Hg]Libra Vazquez MD Work Phone: [phone]09-09-2025 10:58-0400 Heart rate88 /minLibra Vazquez MD Work Phone: [phone]09-09-2025 10:58-0400 Systolic blood gnuivtns203 mm[Hg]Libra Vazquez MD Work Phone: [phone]-[facility]08-07-2025 11:28-0400 Body fsibyh900.1 Laura Vazquez MD Work Phone: [phone]08-07-2025 11:28-0400 Body mass index (BMI) [Ratio]20.7 kg/n4XdmkolLibra Vazquez MD Work Phone: [phone] [place], [place] 3986608-07-2025 11:28-0400 Body scfoxfidvtm57.4 [degF]Libra Vazquez MD Work Phone: [phone] [place], [place] 3986608-07-2025 11:28-0400 Body ucriix67.69 kgLibra Vazquez MD Work Phone: [phone] [place], [place] 3986608-07-2025 11:28-0400 Diastolic blood mm[Hg]Libra Vazquez MD Work Phone: [phone] [place], [place] 3986608-07-2025 11:28-0400 Heart rate88 /Pawan Vazquez MD Work Phone: [phone] [place], [place] 3986608-07-2025 11:28-0400 SaO2% (BldA) [Mass fraction]99 %Libra Vazquez MD Work Phone: [phone] [place], [place] 3986608-07-2025 11:28-0400 Systolic blood mm[Hg]Libra Vazquez MD Work Phone: [phone] [place], [place] 3986604-16-2025 10:280400 Body unfgss978.1 cmUk [facility]04-16-2025 10:28-0400Body mass index (BMI) [Ratio]20.9 kg/u9YcvqzkgcxUk [facility]04-16-2025 10:28-0400Body .9 [degF][facility]04-16-2025 10:28040Body .26 kgUk [facility]04-16-2025 10:28-0400Diastolic blood zczuqqdl10 mm[Hg][facility] 08-13-2024 10:28-0400Heart rate93 /minUk Healthcare 08-13-2024 10:28-5197KkN7% (BldA) [Mass fraction]99 %[facility]04-16-2025 10:28-0400Systolic blood heqnfyqp960 mm[Hg][facility]01-22-2025 13:58-0500Body mass index (BMI) [Ratio]21.49 kg/j9Sycqk Ted [employer] Work Phone: [facility] CenterKyrslmndya40-77-9651 13:58-0500Body uakrfv26.57 kgCorey Ted DO Work Phone: [facility] CenterRpvjueykuy38-00-8984 13:58-0500Diastolic blood ewnhbibg60 mm[Hg]Sid Tribzi Work Phone: [facility] CenterSeigpbyzie28-61-4380 13:58-0500Systolic blood cjdacgdn210 mm[Hg][employer] Work Phone: [facility] CenterYdmvymrniz03-29-0188 15:03-0500Body oqlppw430.1 cmUk [facility]11-18-2024 15:03-0500Body mass index (BMI) [Ratio]21.1 kg/d2KjfljyczvUk Healthcare11-18-2024 15:03-0500Body qvxupntvsbl95.2 [degF][facility]11-18-2024 15:03-0500Body viaqxa32.6 kgUk [facility]11-18-2024 15:03-0500Diastolic blood qzajdwag43 mm[Hg][facility]11-18-2024 15:03-0500 Heart cero273 /minUk Healthcare11-18-2024 15:03-1444ZzL3% (BldA) [Mass fraction]98 %[facility]11-18-2024 15:03-0500 Systolic blood gjqooipj892 mm[Hg][facility]10-28-2024 10:11-0400Body jdngil359.1 cmCchillicothe va medical centerMobile Service Pros Work Phone: [facility] CenterJpbbrcspgf55-97-7837 10:11-0400Body mass index (BMI) [Ratio]21.3 kg/g8Ecsmt Ted DO Work Phone: [facility] Zsvpnvyswa49-74-5577 10:110400Body xjjxuf38.06 kgVeebox Work Phone: [facility] CenterIyogtlintn59-79-7906 10:11-0400Diastolic blood tcsictvc96 mm[Hg][employer] Work Phone: [facility] CenterJbyvjuftep52-04-9426 10:110400Systolic blood yaavdfvb788 mm[Hg][employer] Work Phone: [facility] CenterMdupvxyknl00-44-2417 11:41-0400Body odyqda950.1 cmUk [facility]06-19-2024 10:29-0400Body vctrvi417.1 cm [facility]06-19-2024 10:29-0400Body mass index (BMI) [Ratio]20.7 kg/n2NmkdcylyxUk Healthcare06-19-2024 10:29-0400Body mjiilo11.69 kgUk [facility]06-19-2024 10:29-0400Diastolic blood zloebjum20 mm[Hg][facility]06-19-2024 10:29-0400 Heart rate92 /minUk Healthcare06-19-2024 10:29-3248RxR2% (BldA) [Mass fraction]97 %[facility]06-19-2024 10:29-0400 Systolic blood qifjjdds785 mm[Hg][facility]11-30-2023 13:45-0500Body fhiwyj324.1 cmLibra Vazquez Other [employer] Other 11-30-2023 13:45-0500Body mass index (BMI) [Ratio]20.9 kg/k8JunnqzLibra Vazquez Other [employer] Other 11-30-2023 13:45-0500Body .97 kgLibra Vazquez Other [employer] Other 11-30-2023 13:45-0500Diastolic blood xghokdlc89 mm[Hg] Libra Vazquez Other [employer] Other 11-30-2023 13:45-1921KjI9% (BldA) [Mass fraction]97 % Libra Vazquez Other [facility] Other 11-30-2023 13:45-0500Systolic blood ddylgrjs171 mm[Hg] Libra Vazquez Other [employer] Other 10-23-2023 15:30-0400Body jljcuv357.1 cmLibra Vazquez Other [facility] HospitalX[facility] Other 10-23-2023 15:30-0400Body mass index (BMI) [Ratio] 20.93 kg/f2QkzbwwLibra Vazquez Other [facility] HospitalX[facility] Other 10-23-2023 15:30-0400Body dycchk83.06 kgLibra Vazquez Other [employer] Other 10-23-2023 15:30-0400Diastolic blood cqjviwzc28 mm[Hg] Libra Vazquez Other [facility] HospitalXik[facility] Devices Other 10-23-2023 15:30-0400Systolic blood jyabqdpr903 mm[Hg] Libra Vazquez Other [employer] Other 12-10-2022 10:10-0500Body uzszcz671.1 Daniel Quach [facility] Other 12-10-2022 10:10-0500Body mass index (BMI) [Ratio] 19.13 kg/i5Mdvzap Dymond Other [facility] Other 12-10-2022 10:10-0500Body olfppchzuok43 [degF]Jocelyn Quach [facility] Other 12-10-2022 10:10-0500Body nyssld93.16 kgPalaurita Quach Other [facility] HospitalX[facility] Other 12-10-2022 10:10-0500Respiratory rate18 /minPalaurita Quach Other [employer] Other 12-10-2022 10:10-2074GgU5% (BldA) [Mass fraction]98 % Jocelyn Quach [facility] Other 12-05-2022 14:05-0500Body trixjn568.1 cmPameljared Quach Other [facility] Other 12-16-2021 11:45-0500Body iqonvp191.1 Maikel Steen Other [facility] Other 12-16-2021 11:45-0500Body yazmkndujnc59.6 [degF] Melvi Steen Other [facility] Other 12-16-2021 11:45-0500Respiratory rate18 /minStepolinda Steen Other [facility] Other 12-16-2021 11:45-4931WvU2% (BldA) [Mass fraction]97 % Melvi tSeen Other [facility] Other Encounters Encounter DateEncounter TypeCare ProviderFacilityStart: 01-06-2025 End: 38-87-0599quhxofnayzGznger E Braun MD Work Phone: [facility] Work Phone: Start: 01-06-2025 End: 99-43-9296Xwfwybl encounter Jerson Vazquez MD-[facility] Work Phone: Start: 12-04-2024 End: 35-73-6006Hkstgznf ReferredDanielle Grover APRN GUM WORKER-[facility] Work Phone: Start: 12-04-2024 End: 82-25-4223lvwwbilaohAfmzqi E Braun MD Work Phone: [facility] Work Phone: Start: 12-04-2024 End: 73-92-5967Budluqh encounter Wesly Grover APRN [facility] Work Phone: Start: 08-13-2024 End: 03-49-2698yuzxvfjesyNfyyxbafcJoint [facility] Work Phone: Start: 08-13-2024 End: 55-35-6058Dkoceii encounter procedureFirgerardos Physician Group-[facility] Work Phone: Start: 05-21-2024 End: 29-43-0515Mumosg flowsheetCorey Ted DO Work Phone: [facility] BCP OBStart: 05-21-2024 End: 13-15-0384Lhavsd flowsheetCorey Ted DO Work Phone: [facility] BCP OBStart: 05-21-2024 End: 95-29-5188Octchenkv Result EncounterCorey Ted DO Work Phone: noms External Department UnsolicitedStart: 05-21-2024 Non-patient / Non-visitFirgerardos Physician Group-[facility] Work Phone: Start: 05-21-2024 End: 73-90-9034Luuhovq encounter procedureCorey Ted DO Work Phone: [facility] Work Phone: Start: 05-21-2024 End: 27-66-0871Hnavtwti preventive med est patient 18-39 yrsCorey Ted DO Work Phone: [facility] BCP OBComment on above:Well woman exam with routine gynecological exam; Encounter to discuss test resultsStart: 05-21-2024 End: 47-23-5304xqxmlwtwzvCXNDF FAZIONot AvailableStart: 03-17-2024 End: 79-35-3645xuzzwphqtsPpntbrdjaJoint Township District [facility] Hospital Work Phone: Start: 03-17-2024 End: 32-27-0624Haosxwz encounter procedureFirhenrico doctors' [facility] Physician GroupMay[facility] Work Phone: Start: 02-25-2024 End: 65-46-1828Jlquxm flowsheetCorey Ted DO Work Phone: [facility] BCP OBStart: 02-25-2024 End: 21-51-7011Rlcmjy flowsheetCorey Ted DO Work Phone: [facility] BCP OBStart: 02-25-2024 End: 16-06-5912Vwhcxkiud Result EncounterCorey Ted DO Work Phone: noms External Department UnsolicitedStart: 02-25-2024 Non-patient / Non-visitLifecare Hospit[facility] GroupMultic[facility] Work Phone: Start: 02-25-2024 End: 28-53-5228Wqhzgy outpatient visit 15 minutesCorey Ted DO Work Phone: noms BCP OBComment on above:Hormone disorder; Decreased libido; Pain in female genitalia on intercourse; Other fatigueStart: 02-25-2024 End: 40-98-9732epzxvmyypyZCSCW FAZIONot AvailableStart: 01-22-2024 End: 19-96-3312npxtrdcivwYftkgjkdyJoint [facility] Hospital Work Phone: Start: 01-22-2024 End: 27-35-0917Mhkackn encounter procedureLifecare Hospitals [facility] Work Phone: Start: 01-10-2024 End: 88-21-6949Oiryza Hernan Burns MD Work Phone: noms NB OPHTStart: 01-10-2024 End: 42-16-3191Qrewez Hernan Burns MD Work Phone: noms NB OPHTStart: 01-10-2024 End: 79-86-4263Fmndul outpatient visit 15 minutesJune Burns MD Work Phone: noms NB OPHTComment on above:Herpes zoster dermatitis of eyelid (Primary Dx)Start: 01-10-2024 End: 74-66-8231udehfhrpfkGGNBS M ALLENNot AvailableStart: 12-10-2023 End: 62-28-6050emjqdzejwuSXBUX M ALLENNot AvailableStart: 12-03-2023 End: 97-70-3115pjrtzzpdfgKDCMM M ALLENNot AvailableStart: 11-30-2023 End: 17-34-5558xuvjqsoscqTRAPL M ALLENNot AvailableStart: 71-52-3852Onr-patient / Non-visitLifecare [facility] Professional [employer] Work Phone: Start: 10-17-2023 End: 15-09-8279nukubfpuzmAaucyvqhw [facility] Work Phone: Start: 10-17-2023 End: 78-23-1307Zkhnvdz encounter procedureLifecare Hospitals [facility] Work Phone: Start: 06-07-2023 End: 85-94-1258cbmyvzatfwLrlxgd Braun Other [facility] Other Start: 87-05-0611Wmvkxhxiq encounterLibra Urias [facility] Centertart: 05-03-2023 End: 50-90-1271ccxbkmxewdVzsdem Vazquez Other [employer] Other Start: 99-08-6287Uuloebfbb encounterMarcia Bridgett [facility] ClinicStart: 04-16-2023 End: 49-96-6989gcrrctbsuzHtwagv Vazquez Other [employer] Other Start: 43-44-5230Dwgjkpbea encounterMarcia Bridgett [facility] Medical ClinicStart: 03-29-2023 End: 44-47-4908jgthyzlqcjKnglzu Vazquez Other [employer] Other Start: 10-85-7063Fkneiy outpatient visit 15 minutes Libra [facility] ClinicStart: 03-01-2023 End: 56-31-4221vmwdgzgxoaRzbqra Vazquez Other [employer] Other Start: 57-93-2958Nmlhhxcbp encounterMarcijared [facility] ClinicStart: 02-19-2023 End: 56-72-2560vxpphcvqzzYqgplq Vazquez Other [employer] Other Start: 95-90-1040Vhpbiq outpatient visit 15 minutes Libra VazquezPancho De [facility]re Medical ClinicStart: 33-60-2432fgedkveeioLvoztdx R WATERS Facility:EU BellevueStart: 09-03-2022 End: 22-09-3445Lymxqazuqt and management of inpatientROSEBINA CASTILLO Facility:S8Xhcdm: 09-02-2022 End: 20-85-5983citcivqipsYVQVEFRI BROWNLEEFacility:Q8Alzyh: 08-25-2022 End: 43-86-2677bshnrnoohhGU SID JEAN .Facility:R9Ktyjj: 08-23-2022 End: 06-81-4508udajjwthocDbtmic George Other [employer] Other Start: 68-48-8959Mwoyqfpek encounterLibra VazquezPancho St. [facility] ClinicStart: 08-21-2022 End: 34-85-3391biwwvaztoxIU SID TED .Facility:R0Fpftn: 08-14-2022(Televisit) TelevisitLibra Urias [facility] Medical Centertart: 08-14-2022 End: 15-94-7226dmkbkbcsguWihlue Braun Other [employer] Other Start: 08-07-2022 End: 97-03-7680neamibpracQQ SID TED .Facility:S9Ukicy: 07-20-2022 End: 56-10-1464wazrbysdixIF SID TED .Facility:Q7Xlngg: 07-10-2022 End: 84-93-1810mfaizcvjdvVY LIBRA VAZQUEZFacility:Q5Ndkju: 41-64-4726zbzpolgnnz Shravan WATERSFacility:EU BellevueStart: 06-25-2022 End: 58-03-7482qrzkegfixrJllzx R FAZIOFacility:CD:[id number]: 06-24-2022 End: 71-96-8352wnaibhatrbYD LIBRA VAZQUEZFacility:X6Rgtnn: 05-25-2022 End: 88-98-8184yjnwzjvhgxNC LIBRA VAZQUEZFacility:T6Zbgen: 04-08-2022 End: 51-75-5724trlrbqcnqeRzcirp Philomena Other [employer] Other Start: 64-14-8038Wqxdfx outpatient visit 15 minutes Jocelyn DyshanteFPG Urgent Care ClydeStart: 04-03-2022 End: 40-36-8226obdmctpmdqKtchfx Philomena Other [employer] Other Start: 15-23-4623Cvyjup outpatient visit 15 minutes Jocelyn DymondFPG Urgent Care ClydeStart: 03-04-2022 End: 66-06-7377xkjimipdswRU LIBRA VAZQUEZFacility:S5Qcmln: 02-27-2022 End: 33-02-7024ksicledchrSN LIBRA VAZQUEZFacility:U8Viocl: 02-13-2022 End: 88-32-5064yxyujmlxdyIO LIBRA VAZQUEZFacility:U2Ionnf: 02-06-2022 End: 11-90-4473zpesdezbvkJEKWY PARKERFacility:D0Xrktv: 01-27-2022 End: 18-56-1641vkwphahhrjQP TERA PEREZ .Facility:M9Rnmut: 01-24-2022 End: 28-46-0694icqicrosnlVM LIBRA VAZQUEZFacility:V8Ayple: 06-27-2021 End: 66-81-7908pllhlqdbctQxpfg A BodieFacility:[facility] HospitalStart: 04-14-2021 End: 19-77-6417skrizakuhuViwhaminx Breault Other [place] [facility] Other Start: 00-03-5196Ulsirr outpatient visit 15 minutes Melvi SteenFPPancho Urgent Care Jones Procedures DateProcedureProcedure DetailPerforming ClinicianStart: 28-13-9533Ecexu Strep (POC)Libra Vazquez MD Work Phone: Start: 15-06-4870Zxbgn cultureLibra Vazquez MD Work Phone: Start: 91-75-1876VOX,APTIMA HPV,AGE GDLNCorey Ted DO Work Phone: Start: 92-83-5710Apxly Strep (POC)Start: 55-02-5412QOU HEMOGLOBIN A8IFnuay Ted DO Work Phone: Start: 51-35-3536Zhydappfqwh observation [Identifier] in Cervix by Cyto Mayelin Burns MD Work Phone: Start: 28-76-7146Uhcktsxm mellitus screeningLibra Vazquez Other Plan of Treatment DateCare ActivityDetailAuthorStart: 38-40-4947Uiitkzhiy for malignant neoplasm of cervixNOMS HealthcareStart: 49-44-4441Iomjs cultureUniversity Hospitals Conneaut Medical Centertart: 49-44-8643Euurarvd identified in Urine by CultureUrine Culture [facility] Centertart: 06-25-2024 End: 08-88-7691Kbhtdiu encounter akxxeejlv17/26/2025 8:10 AM EST Office Visit [facility] [address] [address] Sid Jean, DO [address] [place] [place] [address] [facility] BCP OBStart: 05-21-2024 End: 77-32-5670Mjadtul encounter xwqopmija02/22/2025 1:40 PM EST Office Visit [facility] [address] [place] [id number] Sid Jean, DO [address] [place] [address] ArrivedEISENHOWER MEDICAL [facility]ENTER OBComment on above:ArrivedStart: 02-25-2024 End: 13-25-2159Y-peptideC-peptide Lab Routine Hormone disorder Decreased libido Expected: 02/25/2024 (Approximate), Expires: 02/24/2025NOHI HealthcareComment on above:Expected: 02/25/2024 (Approximate), Expires: 02/24/2025Start: 02-25-2024 End: 55-49-3380Tmppbjms freeCortisol, free Lab Routine Hormone disorder Decreased libido Expected: 02/25/2024 (Approximate), Expires: 02/24/2025NOHI HealthcareComment on above:Expected: 02/25/2024 (Approximate), Expires: 02/24/2025Start: 02-25-2024 End: 17-05-3352Smojrpr [Mass/volume] in Serum or PlasmaGlucose, random Lab Routine Hormone disorder Decreased libido Expected: 02/25/2024 (Approximate), Ex pancho: 02/24/2025NOMS HealthcareComment on above:Expected: 02/25/2024 (Approximate), Expires: 02/24/2025Start: 02-25-2024 End: 26-87-2976Kskcqog, totalInsulin, total Lab Routine Hormone disorder Decreased libido Expected: 02/25/2024 (Approximate), Expires: 02/24/2025NOMS HealthcareComment on above:Expected: 02/25/2024 (Approximate), Expires: 02/24/2025Start: 02-25-2024 End: 52-78-6233Uigavsomb serumSerotonin serum Lab Routine Hormone disorder Decreased libido Expected: 02/25/2024 (Approximate), Expires: 02/24/2025N[facility] HealthcareComment on above:Expected: 02/25/2024 (Approximate), Expires: 02/24/2025Start: 02-25-2024 End: 34-12-9734QrcnuhljobbklHsfawcfopazxd Lab Routine Hormone disorder Decreased libido Expected: 02/25/2024 (Approximate), Expires: 02/24/2025[facility] Comment on above:Expected: 02/25/2024 (Approximate), Expires: 02/24/2025Start: 02-25-2024 End: 58-22-1999Edpvjkmihdwfp AntibodyThyroglobulin Antibody Lab Routine Hormone disorder Decreased libido Expected: 02/25/2024 (Approximate), Expires: 02/24/2025[facility] HealthcareComment on above:Expected: 02/25/2024 (Approximate), Expires: 02/24/2025Start: 02-25-2024 End: 27-17-3449Osgbfbwdhfk [Units/volume] in Serum or PlasmaNOMS Healthcare Comment on above:Ordered: 02/25/2024Expected: 02/25/2024 (Approximate), Expires: 02/24/2025Start: 02-25-2024 End: 84-67-6705Xnralsh encounter izbqhamoy18/28/2024 9:50 AM EDT Office Visit [facility] [address] [id number] Sid Jean, DO [address] [place] [address] [facility] OBComment on above:ArrivedStart: 01-14-2024 End: 19-12-6424Xemsoyk encounter ovojjuppf20/16/2024 10:45 AM EDT [facility] [address] [place] [phone] June Burns MD [address] [place] [address] [facility]Start: 01-10-2024 End: 03-80-8400Hpuksvy encounter ifcvqtagc71/12/2024 9:30 AM EDT Office Visit [facility] [address] [place] [address] June Burns MD [address] [place] [address] [facility] OPHTComment on above:ArrivedStart: 12-30-2023 Influenza vaccinationInfluenza Vaccine (#1)[facility] HealthcareStart: 11-16-2023 Screening for malignant neoplasm of cervixHPV/CotestNOMS HealthcareCytology Cervical or vaginal smear or scraping studyPap Smear Pathology and Cytology Routine Well woman exam with routine gynecological exam Ordered: 05/21/2024[facility] Healthcare Work Phone: comment on above:Ordered: 05/21/2024DHEA-sulfateDHEA- sulfate Lab Routine Hormone disorder Decreased libido Ordered: 02/25/2024[facility] HealthcareComment on above:Ordered: 02/25/2024EstradiolEstradiol Lab Routine Hormone disorder Decreased libido Ordered: 02/25/2024[facility] Healthcare Work Phone: comment on above:Ordered: 02/25/2024EstroneEstrone Lab Routine Hormone disorder Decreased libido Ordered: 02/25/2024[facility] Healthcare Comment on above:Ordered: 02/25/2024Ferritin [Mass/volume] in Serum or Plasma Ferritin Lab Routine Hormone disorder Decreased libido Ordered: 02/25/2024[facility] HealthcareComment on above:Ordered: 02/25/2024Hemoglobin A1c/Hemoglobin.total in BloodHemoglobin A1c Lab Routine Hormone disorder Decreased libido Ordered: 02/25/2024[facility] HealthcareComment on above:Ordered: 02/25/2024Human papilloma virus DNA [Presence] in Unspecified specimen by Probe with amplificationHPV DNA probe, amplified Microbiology Routine Well woman exam with routine gynecological exam Ordered: 05/21/2024[facility] HealthcareComment on above:Ordered: 05/21/2024 ProgesteroneProgesterone Lab Routine Hormone disorder Decreased libido Ordered: 02/25/2024[facility] HealthcareComment on above:Ordered: 02/25/2024Sex hormone binding globulinSex hormone binding globulin Lab Routine Hormone disorder Decreased libido Ordered: 02/25/2024[facility] HealthcareComment on above:Ordered: 02/25/2024T3, reverseT3, reverse Lab Routine Hormone disorder Decreased libido Ordered: 02/25/2024[facility] HealthcareComment on above:Ordered: 02/25/2024TESTOSTERONE, FREE TESTOSTERONE, FREE Lab Routine Hormone disorder Decreased libido Ordered: 02/25/2024[facility] HealthcareComment on above:Ordered: 02/25/2024Testosterone, free, totalTestosterone, free, total Lab Routine Hormone disorder Decreased libido Ordered: 02/25/2024[facility] HealthcareComment on above:Ordered: 02/25/2024Thyroid peroxidase antibodyThyroid peroxidase antibody Lab Routine Hormone disorder Decreased libido Ordered: 02/25/2024[facility] HealthcareComment on above:Ordered: 02/25/2024Thyroxine (T4) free [Mass/volume] in Serum or PlasmaT4, free Lab Routine Hormone disorder Decreased libido Ordered: 02/25/2024[facility] Healthcare Comment on above:Ordered: 02/25/2024Triiodothyronine (T3) Free [Mass/volume] in Serum or PlasmaT3, free Lab Routine Hormone disorder Decreased libido Ordered: 02/25/2024[facility] HealthcareComment on above:Ordered: 02/25/2024[facility]Vitamin D 1,25 dihydroxyVitamin D 1,25 dihydroxy Lab Routine Hormone disorder Decreased libido Ordered: 02/25/2024[facility] HealthcareComment on above:Ordered: 02/25/2024[facility] Immunizations Immunization DateImmunizationNotesCare OktdcqtkHxqliqwz82-56-7753sgmtbfaxq virus vaccine, unspecified formulationJune Burns MD Work Phone: [facility] Healthcare Payers DatePayer CategoryPayerPolicy [id number] (not Medicare or Medicaid)[facility] ..[id number] 2..1.918575.3.57[id number] 2..1.214884.3.57[id number] 2..1.003321.3.57[id number] 2..1.855356.3.579.[id number] 2..1.812737.3.579.[id number] 2..1.242255.3.579.[id number] 2.1.306797.3.57[id number] 2.16.840.1.417344.3.579.2.63336-72-0118Eroppgc0117442 2.16.840.1.808991.3.579.2.83823-92-7994Axcwqjy7789580 2.16.840.1.070111.3.579.2.95218-24-3968Tzxvozf5139773 2.16.840.1.399086.3.579.2.3[id number] 2.16.840.1.819782.3.579.2.29282-10-2099Fbckoru5195507 2.16.840.1.843683.3.579.2.[id number] 2.16840.1.009428.3.579.2.09293-93-9031Knbnjmk2282936 2.16840.1.212546.3.579.2.[id number] 2.16840.1.618548.3.579.[id number] 2.16.840.1.186920.3.579.2.97706-93-5870Fwrriyz1943442 2.16840.1.187175.3.579.2.92450-75-2448Byjvjjo3099770 2.16.840.1.740076.3.579.2.456070-79-1169Ajideyb6784330 2.16.840.1.435452.3.579.2.826798-24-7911Zvedbnx7020435 2.16.840.1.678280.3.579.2.428073-18-3944Cwdxoxf8700660 2.16.840.1.196420.3.579.2.[id number] 2..840.1.519338.3.579.2.973530-43-5393Hckyrvw9439705 2.16.840.1.625624.3.579.2.720904-35-1954Qcgt-[id number] 2.16.840.1.438302.65Keltpug6053222 2.840.1.973386.3.579.2.593Unknown [id number] tt59813r-80n7-0382-h09f-[id number] 2.16.840.1.785687.3.579.2.531 Social History DateTypeDetailFacilityUnknown if ever smokedBryant Pond [facility] Other Start: 10-17-2022 End: 17-06-6273Nnn Assigned At [facility] Other Start: 09-19-2022 End: 58-96-7827Xdmrzjx smoking status NHISNever smoked tobacco (finding) [facility] Cent[facility]art: 62-26-4339Avf Assigned At [facility]art: 18-49-7933Ruwbqgl use and exposure Smokeless tobacco non-userNOMS HealthcareStart: 01-10-2024 End: 10-32-8636Waczzkpgy beverage intakeLifetime non-drinker (finding)[facility] HealthcareStart: 10-17-2022 End: 69-43-1545Gxfaewr of Social functionNOMS HealthcareStart: 36-59-0361Urs assigned at replaced by [facility] ansonNot [facility] HealthcareStart: 03-17-2024 End: 66-21-6725MmeQliqku (finding)[facility] Clinical Notes 04-14-2021 to 12-04-2024 Note Date & HztxXmiwEyygbpmk68-73-2683 Evaluation note* Diagnosis Onset Date Resolution Status Admit Date Sore throat acuteAugust 2024 11:20amUTI (urinary tract infection)acuteAugust 2024 11:20am [facility] Work Phone: 1(273) 639-894801-22-2025 History of Present illness Narrative* Celsa Alejandro, TOOLS AND PARTS ATTENDANT - 05/21/2024 1:40 PM EST Reason for Appointment: Patient ID: Bri Vega is a 28 y.o. female who presents for [facility] Women Visit and Results Patient presents today [...] Anxiety Asthma (CMS/HCC) Asthma (CMS/HCC) Bronchitis Depression ([facility]) Eye trauma 11/26/23 Head injury History of chromosomal abnormality History of elevated glucose Hyperemesis gravidarum Kidney stones HISTORY PAST MEDICAL HISTORY SOCIAL HISTORY Past Medical History: Diagnosis Date Anxiety Asthma (CMS/HCC) Asthma (CMS/HCC) Bronchitis Depression ([facility]) Eye trauma 11/26/23 Head injury History of [...] nursing note reviewed. Exam conducted with a life science teacher present. Vitals: Estimated body mass index is [...] of: Sid Jean DO documented in this encounterSaint Louis University Health Science CenterGiyuxmkkjm96-68-4412 History of Present illness Narrative* Sid Jean DO - 02/25/2024 9:50 AM EDT Reason for Appointment: Patient ID: Bri Vega is a 28 y.o. female who presents [...] nursing note reviewed. Exam conducted with a life science teacher present. Vitals: Estimated body mass index is [...] of: Sid Jean DO documented in this [facility]09-24-2024 Evaluation note* Diagnosis Onset Date Resolution Status Admit Date Chronic depression acuteSeptember 2023 11:08amHypoactive sexual desire disorderacuteSeptember 2023 11:08amBronchitisacuteNovember 2023 2:56pm [facility] Work Phone: [phone] 337-731909-12-2024 History of Present illness Narrative* June Burns MD - 01/10/2024 9:30 AM EDT Assessment/Plan pred acetate bid documented in this [facility]01-04-2024 Evaluation note* Encounter Date Diagnosis Assessment Notes Treatment Notes Treatment Clinical Notes Apr, Other idiopathic sco liosis, 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 STATUS: new/continuous [facility] Other 10-23-2023 Evaluation note* Encounter Date Diagnosis Assessment Notes Treatment Notes Treatment Clinical Notes Jan, Acute non-recurrent maxillary si nusitis (ICD-10 - J01.00) Finish antibiotics as prescribed. Rest, hydration. Call if symptoms do not resolve. [facility] Other 04-17-2023 Evaluation note* Encounter Date Diagnosis Assessment Notes Treatment Notes Treatment Clinical Notes Jul, Acute non-recurrent sphenoidal s inusitis (ICD-10 - J01.30) Chose antibiotic as she is in her third trimester. Daughter has been ill. Discussed limited meds she is able to take while . [facility] Other 02-25-2023 NoteDISCHARGE SUMMARY NOTE DATE: 07/07/2022 HISTORY: Patient was 26-year-old, G1, P0 at 27 weeks, who was found to have a 7 mm left ureteral calculus causing pain, hydronephrosis, infection, hematuria. Patient was consented by Dr. Murray for a possible stone manipulation and possible left stent placement. Patient was taken back to the operating room where the stone was able to be removed and no ureteral stents were placed. Please see Dr. Murray' op note for full assessment. PRIMARY DIAGNOSES: [...] pain free and no longer on narcotics.[facility] HospitalUgqnibiq47-03-3005 NoteOPERATIVE NOTE OPERATION DATE: 06/25/2022 PREOPERATIVE DIAGNOSIS: [...] usual fashion. I started by passing a 22-[place] Olympus cystoscope per urethra and into the bladder. Careful arteaga endoscopy showed no intravesical pathology but, while looking not the left ureter, one could see a large stone. I then passed a Glidewire through the scope and cannulated the left ureter and got the wire beyond the stone, up into the kidney. I then used an 8 and 10-[place] rigid dilator to dilate the distal ureter. [...] into the bladder and then used the ADstruc evacuator to get all of the stone pieces out from the base of the bladder. These were sent for stone analysis. I then drained the bladder of its contents and removed the scope. I then passed the 10-[place] dilator back over the wire, up the left ureter, and then removed the dilator and the wire. She was then transferred to a [facility] harbor bed and wheeled PACU in stable condition.[facility] HospitalWnkjlscx17-34-6368 Evaluation note* Encounter Date Diagnosis Assessment Notes Treatment Notes Treatment Clinical Notes Mar, Cough (ICD-10 - R05.9) Mar,Influenza A (ICD-10 - J10.1)Influenza: adult home care material was printed Drink plenty fluids, get plenty of rest. Continue your home medications as prescribed. Take Tylenolas needed for aches pains or fevers. Follow-up with your FIREWORKS INSPECTOR if no improvement in 2 to 3 days. You must quarantine for 1 week after the onset of your symptoms of influenza A Mar,onjunctivitis of both eyes, unspecified conjunctivitis type (ICD-10 - H10.9)Use the eyedrops as prescribed. Change your bedding every day for the next few days. Good handwashing. Follow-up with your family physician if no improvement in 2 to 3 days [facility] Other 12-05-2022 Evaluation note* Encounter Date Diagnosis Assessment Notes Treatment Notes Treatment Clinical Notes Mar, Contact with and (santillan spected) exposure to other viral communicable diseases (ICD-10 - Z20.828) Mar,Viral upper respiratory infection (ICD-10 - J06.9)Viral upper respiratory infection: adult home care material was printed Drink plenty fluids, get plenty of rest. Take Tylenol as needed for aches and pains. Continue home medications as prescribed including your vitamins. Follow-up with your family physician or your FIREWORKS INSPECTOR if no improvement in 2 to 3 days. [facility] Other 12-16-2021 Evaluation note* Encounter Date Diagnosis Assessment Notes Treatment Notes Treatment Clinical Notes Mar, Contact with and (santillan spected) exposure to other viral communicable diseases (ICD-10 [...] is performed too soon. It is recommended thateven if results are negative and you have been exposed to someone that has COVID that you follow current CDC recommendations. These can be found at CDC.GOV. Follow up with primary care provider if symptoms persist or do not improve *VIRAL URI HANOUT GIVEN ON OTC TREATMENTS, FOLLOW UP AND WHEN TO SEEK EMERGENCY TREATMENT Mar,hortness of breath (ICD-10 - R06.02) Mar,ronchitis (ICD-10 - J40) Take medications as directed. [...] weeks for the cough to go away Mar,Other Additional time spent conducting pre-visit phone call, screening for symptoms, instructions on social distancing, application and removal of PPE, and cleaning of examination room, equipment and supplies was preformed. Patient education given for testing methodology and results. Patient care instructions given in writting by [facility] Care At Home document. [employer] [facility] [employer] Other Evaluation noteNo InformationNortDepartment of Veterans Affairs Medical Center[facility] [employer] Other Evaluation note* Diagnosis Onset Date Resolution Status Anemia acuteFatigueacute [facility] Work Phone: Evaluation note* Diagnosis Onset Date Resolution Status Chronic depression acuteHypoactive sexual desire disorderacute [facility] Work Phone: Evaluation note* Diagnosis Hormone disorder [...] Other specified counseling documented in this encounter [facility] HealthcareEvaluation note* Diagnosis Onset Date Resolution Status Admit Date Bronchitis acuteApril 2024 10:25amEustachian tube dysfunctionacuteApril 2024 10:25am [facility] Work Phone: Evaluation note* Diagnosis Onset Date Resolution Status Admit Date UTI (urinary tract infection) acuteAugust 2024 11:20am [facility] Work Phone: History general Narrative - Reported* Type Description Date Medical History asthma Surgical Historyd&c k4Uofmlpny HistorytonsillectomyHospitalization Historysee above [employer] [facility] [employer] Other Hismkbb general Narrative - Reported* Type Description Date Medical History asthma Medical HistoryanxietyMedical Historychronic depressionSurgical HistoryD&C x2 Surgical Historyd&c n0Jeevjkth HistorytonsillectomySurgical Historywisdom teeth Hospitalization Historysee aboveHospitalization Historyhyperemisis gravidarum [facility] Other History general Narrative - Reported* Type Description Date Medical History asthma Medical HistoryanxietyMedical Historychronic depressionSurgical HistoryD&C x2 Surgical Historyd&c g5Tcjdtirh HistorytonsillectomySurgical Historywisdom teeth Surgical HistoryTubal10/26/Hospitalization Historysee aboveHospitalization Historyhyperemisis gravidarum [facility] Other Reason for referral (narrative)No reason for referral information availableSumma Health Work Phone: Summary Purpose Family History No [...] FOR VISIT (unrecogniz ed section and content) ReasonCommentsHormone questionsReasonCommentsItchy EyeReasonCommentsWell Women VisitResults INFORMATION SOURCE (unrecogn ized section and content) DATE CREATED AUTHOR 09/08/2022 [facility] DATE CREATED AUTHOR AUTHOR'S ORGANIZ ATION 11/27/2022 [facility] DATE CREATED AUTHOR AUTHOR'S ORGANIZ ATION 02/09/2024 [facility] DATE CREATED AUTHOR AUTHOR'S ORGANIZ ATION 05/23/2024 [facility] DATE CREATED AUTHOR AUTHOR'S ORGANIZ ATION 12/09/2024 [facility] Care Teams (unrecognized sec tion and content) Team Status: Active Member Role Status Dates Libra Vazquez MD Primary Care Provider Active Team Status: Inactive Member Role Status Dates Libra Vazquez MD Primary Care Provider Active Start: December 04, 2024 End: December 04, 2024Danielle Grover APRN CRATE BUILDER-CAttending ProviderActive Start: December 04, 2024 End: December 04, 2024 Team Status: Active Member Role Status Dates Libra Vazquez MD Primary Care Provider Active Start: May 21, 2024 Hi Pfeiffer ProviderActiveStart: May 21, 2024 Team Status: Inactive Member Role Status Dates Libra Vazquez MD Primary Care Provider Active Start: August 13, 2024 End: August 13, 2024Danielle Grover APRN CRATE BUILDER-CAttendiogo ProviderActive Start: August 13, 2024 End: August 13, 2024 Team Status: Inactive Member Role Status Dates Libra Vazquez MD Primary Care Provide r, Attending Provider Active Start: January 22, 2024 End: January 22, 2024 Team Status: Active Member Role Status Dates Libra Vazquez MD Primary Care Provider Active Start: February 25, 2024 Hi Pfeiffer ProviderActiveStart: February 25, 2024 Team Status: Inactive Member Role Status Dates Libra Vazquez MD Primary Care Provider Active Start: March 17, 2024 End: March 17, 2024Danielle Grover APRN CRATE BUILDER-CAttending ProviderActive Start: March 17, 2024 End: March 17, 2024 Team Status: Active Member Role Status Dates Libra Vazquez MD Primary Care Provider Active Start: 2023 Nithin Browning ProviderActiveStart: 2023 Team Status: Inactive Member Role Status Dates Libra Vazquez MD Primary Care Provide r, Attending Provider Active Start: October 17, 2023 End: October 17, 2023Team MemberRelationshipSpecialtyStart DateEnd Date Libra Vazquez MD [address] [place] [place] [address] PCP - GeneralFamily Medicine09/26/22Team MemberRelationshipSpecialtyStart DateEnd Date Libra Vazquez MD [address] [place] [place] [address] PCP - GeneralFamily Medicine09/26/22Team MemberRelationshipSpecialtyStart DateEnd Date Libra Vazquez MD [address] [place] [place] [address] PCP - GeneralFamily Medicine09/26/22Team MemberRelationshipSpecialtyStart DateEnd Date Libra Vazquez MD [address] [place] [place] [address] PCP - GeneralFamily Medicine09/26/22Team MemberRelationshipSpecialtyStart DateEnd Date Libra Vazquez MD [address] [facility] [address] PCP - GeneralFamily Medicine09/26/22Team MemberRelationshipSpecialtyStart DateEnd Date Libra Vazquez MD [address] [place] [address] PCP - GeneralFanhly Medicine09/26/22 Team Status: Inactive Member Role Status Dates Danielle Grover APRN CRATE BUILDER-C Attending Provider Act sabiha Start: December 04, 2024 End: December 04, 2024 Team Status: Inactive Member Role Status Dates Libra Vazquez MD Primary Care Provider Active Start: January 06, 2025 End: January 06, 2025Libra Vazquez MDAttending ProviderActiveStart: January 06, 2025 End: January 06, 2025 [...] BE BASED ON THE PRIMARY CLINICAL RECORDS. [facility] [facility]. provides no warranty or guarantee of the accuracy or completeness of information in this document.
--- OUTSIDE RECORDS SUMMARY | 2025-02-25 21:00 | XMS_ITS | Clinical Summary ---
Author Organization [facility] Address [address] [facility] [place] [address] Care Team Providers Care Chemical Processing Supervisor Name Role Phone Diana Joe MD Primary Care Provider Allergies Active AllergyReactionsCriticalityNoted HoqiDrwtdvttTntve24/20/2018 Medications MedicationSigDispense QuantityRefillsLast FilledStart DateEnd DateStatus norethindrone (Micronor) 0.35 MG tablet Indications:Hormone disorder,Decreased libido,Pain in female genitalia on intercourse,Other fatigueTake 1 tablet (0.35 mg) by mouth Daily Take 1 tablet by mouth daily 84 tablet 5Active Active Problems ProblemNoted DateDiagnosed DateOther myawepc5802/25/2024ecreased rthemt3502/25/2024 Pain in female genitalia on pncgnuethlg57/28/2024Hormone orpdihjs36/28/2024 Sterilization cypidxs0909/22/2022 Encounters DateTypeDepartmentCare FojpIsurudwrrvy43/30/2025Telephone FILEMON Farley OBGYGloria [address] [place] [address] [place] [address] Sid Jean DO from Last 3 Months Family History Medical HistoryRelationNameCommentsCancerMaternal GrandfatherVaughnCancer Paternal GrandfatherJack ForemanDiabetesPaternal GrandfatherJack ForemanCancer Paternal GrandmotherDiabetesPaternal GrandmotherAsthmaSisterneurocardiogenic SisterRelationNameStatusCommentsMaternal GrandfatherVaughnPaternal Grandfather Tera ForemanPaternal GrandmotherSisterAlive Social History Tobacco UseTypesPacks/DayYears UsedDateSmoking Tobacco: NeverSmokeless Tobacco: Never Tobacco Cessation:Counseling Given: Not Answered Alcohol UseStandard Drinks/WeekCommentsNever0 (1 standard drink = 0.6 oz pure alcohol)CommentsNoSex and Gender InformationValueDate RecordedSex Assigned at BirthNot on fileLegal EfqZbfihu81/15/2023 11:33 PM EDTGender IdentityNot on fileSexual OrientationNot on file Last Filed Vital Signs Vital SignReadingTime TakenCommentsBlood Rbplbnjs264/68005/21/2024 1:58 PM EST Pulse--Temperature--Respiratory Rate--Oxygen Saturation--Inhaled Oxygen Concentration--Fvufny33.6 kg (129 lb 1.9 oz)05/21/2024 1:58 PM TFXWynfir311.1 cm (5' 5 )02/25/2024 10:11 AM EDTBody Mass Index21.4902/25/2024 10:11 AM EDT Plan of Treatment Health MaintenanceDue DateLast DoneCommentsInfluenza Vaccine (#1)12/29/2024 04/26/2022, 02/18/2021ervical Cancer Fzfguabta00/22/2030HPV/Caunhm4205/21/2029Pap Smear, 05/25/2022 Procedures Procedure NamePriorityDate/TimeAssociated DiagnosisCommentsPAP SMEARRoutine 05/21/2024 12:00 AM ESTfrom Last 3 Months or Most Recently Relevant to Health Maintenance Results * Pap Smear (05/21/2024 12:00 AM EST)Specimen (Source)Anatomical Location / LateralityCollection Method / VolumeCollection TimeReceived TimeSwabCervical swab / Unknown Narrative Authorizing ProviderResult TypeResult StatusCorey Ted DOLAB CYTOLOGY ORDERABLESFinal ResultPerforming OrganizationAddressCity/State/ZIP CodePhone Number EXTERNAL LAB from Last 3 Months or Most Recently Relevant to Health Maintenance Insurance Care Teams Team MemberRelationshipSpecialtyStart DateEnd Date Diana Joe MD [address] [place] [address] PCP - GeneralFamily Medicine09/26/22
--- OUTSIDE RECORDS SUMMARY | 2025-02-25 21:00 | XMS_ITS | Clinical Summary ---
Author Organization [facility] Address [address] [place], [place] [address] Care Team Providers Care Denial Management Representative Name Role Phone Marie Physician (Hist) Primary Care Provider Allergies No known active allergies Medications MedicationSigDispense QuantityRefillsLast FilledStart DateEnd DateStatus ondansetron orally disintegrating (ZOFRAN ODT) 4 mg disintegrating tablet Take 1 tablet by mouth every 6 hours. 8 tablet 04/27/2016Active Social History Tobacco UseTypesPacks/DayYears UsedDateSmoking Tobacco: NeverSmokeless Tobacco: NeverAlcohol UseStandard Drinks/WeekCommentsNo0 (1 standard drink = 0.6 oz pure alcohol)CommentsNoSex and Gender InformationValueDate RecordedSex Assigned at BirthNot on fileLegal WeyCnpnmh74/21/2015 8:33 AM ESTGender Identity Not on fileSexual OrientationNot on file Last Filed Vital Signs Vital SignReadingTime TakenCommentsBlood Hysmgqnj555/7204/27/2016 4:14 PM EST Lusje210504/27/2016 4:14 PM RZGAytiodijsgp78.2 ??C (97.1 ??F)04/27/2016 12:56 PM ESTRespiratory Ngxq798406/28/2015 4:14 PM ESTOxygen Hjzidfaiei082%04/27/2016 4:14 PM ESTInhaled Oxygen Concentration--Dhqefy84.3 kg (113 lb)04/27/2016 12:56 PM LLAIotvho986.1 cm (5' 5 )04/27/2016 12:56 PM ESTBody Mass Index18.8106/28/2015 12:56 PM EST Plan of Treatment Not on file Insurance Care Teams Team MemberRelationshipSpecialtyStart DateEnd Date [place], Physician (Hist) [facility] [address] [place], [place] [id number] PCP - GeneralInternal Rnlbbgpq35/21/15
--- OUTSIDE RECORDS SUMMARY | 2025-02-25 21:00 | XMS_ITS | Clinical Summary ---
Author Organization [email or web address] [facility] tem Address [id number] [address] 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 Liquid Name Role Phone Pcp, Not In System Primary Care Provider Unavail able Allergies Active AllergyReactionsCriticalityNoted GcpeLjtythmwEkseu14/20/2018 Medications MedicationSigDispense QuantityRefillsLast FilledStart DateEnd DateStatus ondansetron ODT (ZOFRAN ODT) 4 mg disintegrating tablet Dissolve 1 tablet (4 mg total) on tongue every 8 (eight) hours as needed for nausea or vomiting.Active promethazine (PHENERGAN) 12.5 mg tablet Take 1 tablet (12.5 mg total) by mouth every 6 (six) hours as needed for nausea or vomiting.Active pyridoxine, vitamin B6, (vitamin B-6) 25 mg tablet Take 1 tablet (25 mg total) by mouth in the morning.Active doxylamine (UNISOM) 25 mg tablet Take 1 tablet (25 mg total) by mouth nightly as needed for sleep.Active metoclopramide (REGLAN) 10 mg tablet Take 1 tablet (10 mg total) by mouth in the morning and 1 tablet (10 mg total) at noon and 1 tablet(10 mg total) in the evening and 1 tablet (10 mg total) before bedtime.Active Family History Medical HistoryRelationNameCommentsCancerMaternal GrandfatherCancerPaternal GrandfatherDiabetesPaternal GrandfatherAsthmaSisterFaintingSisterRelationName StatusCommentsMaternal GrandfatherPaternal GrandfatherSister Social History Tobacco UseTypesPacks/DayYears UsedDateSmoking Tobacco: NeverSmokeless Tobacco: Never Tobacco Cessation:Counseling Given: Not Answered Alcohol UseStandard Drinks/WeekCommentsNot Currently0 (1 standard drink = 0.6 oz pure alcohol)ChildcareAnswerDate ObrakinfKdsfdmyhcRklxiej68/12/2019Employment AnswerDate EqsthczzWtadwmeuzyHrrwwbc36/12/2019Purpose - LifeAnswerDate Recorded Purpose and direction in zdtqAwvwavx83/11/2021CommentsNoSex and Gender InformationValueDate RecordedSex Assigned at BvppsHsnsrl59/28/2020 11:52 AM EDT Legal WdxLzlvpq33/06/2015 11:53 AM EDTGender JldpfprsDepvjk58/28/2020 11:52 AM EDTSexual SwlgafnkufzAnliosvm41/28/2020 11:52 AM EDT Last Filed Vital Signs Vital SignReadingTime TakenCommentsBlood Fbamgyam837/8309 3:45 AM EDT Dyfje964701/10/2020 3:45 AM KNRPwcpeocyjij24.7 ??C (98.1 ??F)01/10/2020 3:45 AM EDTRespiratory Nrzx9210 3:45 AM EDTOxygen Cllfdsqtpe423%01/10/2020 3:45 AM EDTInhaled Oxygen Concentration--Wcgfee46.9 kg (110 lb)01/10/2020 3:45 AM EDT Tdnbal634.1 cm (5' 5 )01/10/2020 3:45 AM EDTBody Mass Index18.309 3:45 AM EDT Plan of Treatment Health MaintenanceDue DateLast DoneCommentsDepression Yxvedtbnm61/19/2006Tobacco Fibsmugvq77/19/2006dult BMI Auccsjnai99/19/2012DTaP,Tdap and Td Vaccines (1 - Tdap)2012Pap Smear2014Influenza Aplvngq30 Medical Devices Not on file Insurance Care Teams Team MemberRelationshipSpecialtyStart DateEnd Date Pcp, [place] [address] P[facility] - [facility]Fab[facility] Medicine09/16/17
== END 2025-02-25 20:57 | disposition home or self-care (01) ==
PROVIDERS: PCP Family Medicine; Visit Provider Family Medicine
DX: G47.33 Obstructive sleep apnea (adult) (pediatric) (principal); F51.01 Primary insomnia
CPT/HCPCS: 95811